=== PATIENT | female | born 1960 | race Caucasian/White ===

== ENCOUNTER → 2017-08-18 15:53 | Outpatient (CLI) | payer BC, SELFPAY ==
--- NOTE | 2017-08-18 16:00 | MM_ITS ---
MM Dig screening mamm BI w/CAD CAD Screening ORDERING PHYSICIAN : Primitivo De La Paz MD PATIENT AGE: 56 years GENDER: Female HISTORY. No hormones no new complaints. Family history unremarkable COMPARISON: Previous mammograms: JuneSeptember 2012, October 2013, January 2015. Period TECHNIQUE: Standard CC and MLO images were obtained. R2 CAD reviewed. FINDINGS: Lower density breast bilaterally with mild asymmetry. Prior films are helpful in confirming that the mild asymmetry is indeed stable. Slightly more evident fibroglandular elements throughout the superior left breast versus right. However this appearance is long-standing and stable dating back to at least 2012. IMPRESSION: ...... Stable breast nothing definitely acute. Stable mild asymmetry. Follow-up in one year recommended. BI-RADS Category: 2 Benign Finding(s) RECOMMENDED FOLLOW-UP: 1YR - 1 YEAR FOLLOW-UP (A letter has been sent to the patient regarding results of the study.)
== END ==
PROVIDERS: Family Provider Family Medicine; PCP Obstetrics & Gynecology; Visit Provider Obstetrics & Gynecology
DX: Z12.31 Encounter for screening mammogram for malignant neoplasm of breast (principal)
CPT/HCPCS: 77067

== ENCOUNTER → 2018-01-13 13:58 | Outpatient (CLI) | payer BC, SELFPAY ==
--- NOTE | 2018-01-13 14:02 | US_ITS ---
US breast RT complete INDICATION: Pain and burning in the upper medial breast ORDERING PHYSICIAN: Primitivo De La Paz MD PATIENT AGE: 57 years COMPARISON: 08/18/2017 TECHNIQUE: Ultrasound of breasts including axilla FINDINGS: No cystic or solid lesions evident. Small nodes are present in the axilla. IMPRESSION: Negative right breast ultrasound. Consider right mammogram for further evaluation of the right breast. BI-RADS Category 1 negative. Consider mammography for further evaluation of the right breast (A letter has been sent to the patient regarding results of the study.)
== END ==
PROVIDERS: PCP Family Medicine; Visit Provider Obstetrics & Gynecology
DX: R92.8 Other abnormal and inconclusive findings on diagnostic imaging of breast (principal)
CPT/HCPCS: 76641

== ENCOUNTER → 2018-04-06 07:15 | Outpatient (CLI) | payer BC, SELFPAY ==
[2018-04-06 07:57] LABS: Basophils % 0.5 % (0.1-2.0); Eosinophils # 0.3 K/mm3 (0.0-0.4); Eosinophils % 3.3 % (0.1-12.0); Hematocrit 41.7 % (37.0-47.0); Hemoglobin 13.5 g/dL (12.2-16.2); Lymphocytes # 2.4 K/mm3 (0.7-4.5); Lymphocytes % 31.3 % (10-50); Mean Corpuscular HGB Conc 32.3 g/dL (31.8-35.4); Mean Corpuscular Hemoglobin 31.7 pg (27.0-31.2); Mean Corpuscular Volume 98.4 fl (81-99); Mean Platelet Volume 6.9 fl (7.4-10.4); Monocytes # 0.2 K/mm3 (0.1-1.0); Monocytes % 3.2 % (1.7-9.3); Neutrophils # 4.7 K/mm3 (1.8-7.8); Neutrophils % 61.6 % (37.0-80.0); Platelet Count 310 K/mm3 (142-424); Red Blood Count 4.24 M/mm3 (4.20-5.40); Red Cell Distribution Width 13.3 % (11.5-17.5); White Blood Count 7.7 K/mm3 (4.8-10.8)
[2018-04-06 08:24] LABS: Alanine Aminotransferase 25 U/L (12-78); Albumin Level 3.5 gm/dL (3.4-5.0); Albumin/Globulin Ratio 1.1 (1.1-1.8); Alkaline Phosphatase 71 U/L (46-116); Anion Gap 12.1 mEq/L (5-15); Aspartate Amino Transferase 13 U/L (15-37); Bilirubin,Total 0.4 mg/dL (0.2-1.0); Blood Urea Nitrogen 14 mg/dL (7-18); Calcium 9.1 mg/dL (8.5-10.1); Carbon Dioxide 29 mmol/L (21.0-32.0); Chloride 104 mmol/L (98-107); Cholesterol 186 mg/dL (140-200); Creatinine,Serum 0.75 mg/dL (0.55-1.02); Estimated Glomerular Filt Rate 80 ml/min (>60); Free T4 (Free Thyroxine) 0.84 ng/dl (0.76-1.46); GFR (African American) 97 ML/MIN (>60); Globulin 3.2 gm/dl (1.3-3.2); Glucose 97 mg/dL (74-106); HDL Cholesterol 61 mg/dL (29-89); LDL Cholesterol 93 mg/dL (0-130); Potassium 5.1 mmoL/L (3.5-5.1); Sodium 140 mmol/L (136-145); Thyroid Stimulating Hormone 3.03 uIU/ml (0.358-3.740); Total Protein,Serum 6.7 gm/dL (6.4-8.2); Triglycerides 161 mg/dL (30-200); Uric Acid 4.7 mg/dL (2.6-7.2); VLDL Cholesterol 32 mg/dL (0-40)
[2018-04-07 13:41] LABS: Testosterone,Total 12 ng/dL (3-41); Vitamin B12 387 pg/mL (232-1245); Vitamin D 25 Hydroxy 41.7 ng/mL (30.0-100.0)
== END ==
PROVIDERS: Visit Provider Nurse Practitioner Family
DX: M79.10 Myalgia, unspecified site (principal); M10.9 Gout, unspecified; R37 Sexual dysfunction, unspecified; Z13.29 Encounter for screening for other suspected endocrine disorder; Z13.220 Encounter for screening for lipoid disorders
CPT/HCPCS: 36415; 80053; 80061; 82607; 82652; 84403; 84439; 84443; 84550; 85025

== ENCOUNTER → 2018-09-07 11:30 | Outpatient (CLI) | payer BC, SELFPAY ==
--- NOTE | 2018-09-07 11:42 | XR_ITS ---
EXAM: XR lumbar spine min 4V HISTORY: ITS.REASON: PARSTHESIA ORDERING PHYSICIAN: Harsha Boles MD PATIENT AGE: 57 years COMPARISON: None FINDINGS: There is mild anterior subluxation of L5 on S1. The remainder of the alignment is normal. Bone density and vertebral body heights are normal. There is mild loss of disc space height at L2-3 and L3-4 and moderate loss of disc space height at L5-S1. There is narrowing of facet joint spaces bilaterally at L4-5 and L5-S1 with subchondral sclerosis at the facet joints bilaterally at L5-S1. There are right upper quadrant surgical clips suggesting cholecystectomy. There is a oval-shaped 12 mm density in right upper quadrant which could be medication in the distal stomach area. IMPRESSION: No acute process. Areas of degenerative disc disease more prominent at L5-S1. Subluxation of L5 on S1 is related to facet arthrosis which is also present at L4-5.
--- NOTE | 2018-09-07 11:42 | XR_ITS ---
EXAM: XR cervical spine 5V HISTORY: ITS.REASON: PARESTHESIA ORDERING PHYSICIAN: Harsha Boles MD PATIENT AGE: 57 years COMPARISON: None FINDINGS: There is very mild kyphotic angulation at C4-C6 levels. There is no acute fracture. The bone density and vertebral body heights are normal. There is severe loss of disc space height with small posterior and anterior spurs at C5-6 and C6-7. There is uncovertebral joint hypertrophy causing foraminal encroachment at least mild on the right at C5-6 and [id number] on the right at C6-7. The lower foraminal areas on the left side are not as well visualized because of patient positioning. IMPRESSION: No acute process. Degenerative disc disease at C5-6 and C6-7 with right-sided spondylosis.
== END ==
PROVIDERS: PCP Family Medicine; Visit Provider Family Medicine
DX: R20.2 Paresthesia of skin (principal)
CPT/HCPCS: 72050; 72110

== ENCOUNTER → 2018-12-07 12:27 | Outpatient (CLI) | payer BC, SELFPAY ==
--- NOTE | 2018-12-07 13:38 | MR_ITS ---
PROCEDURE: MR LUMBAR SPINE WO CON CLINICAL INDICATION: ACUTE MIDLINE LBP Low back pain worse on the left side COMPARISON: from 09/07/2018 from 09/07/2018 TECHNIQUE: Standard multiplanar multiecho sequences are performed without contrast. 3-D MIP and myelographic images are also rendered and reviewed FINDINGS: Spinal cord ends at the L1-L2 level. T11-T12: Mild degenerative disc disease. T12-L1: Unremarkable. L1-L2: Unremarkable. L2-L3: 2 mm retrolisthesis of L2 with mild disc desiccation. L3-L4: Unremarkable. L4-5: Mild facet ligamentum hypertrophy with mild right lateral recess narrowing. L5-S1: Degenerate disc disease with bulging disc and a medium-sized left paracentral disc protrusion impinging upon the left S1 nerve root and causing left lateral recess narrowing and left-sided foraminal narrowing. There is 4 mm anterolisthesis of L5 on S1 IMPRESSION: 1. Mild multilevel degenerative changes. Please see above for detailed description at each level. 2. Degenerate disc disease at L5-S1 with bulging disc and a medium-sized left paracentral disc protrusion impinging upon the left S1 nerve root and causing left lateral recess narrowing and left-sided foraminal narrowing. Dictated by: Shashi Mancuso MD 12/08/2018 10:37 Electronically signed by Shashi Mancuso MD in [place] 12/08/2018 10:37
== END ==
PROVIDERS: PCP Physician Assistant; Visit Provider Physician Assistant
DX: M54.5 Low back pain (principal)
CPT/HCPCS: 72148; 76376

== ENCOUNTER 2019-02-26 19:09 | Inpatient (IN) ==
--- NOTE | 2019-02-26 19:47 | Emergency Department Note ---
[facility] [place] Disposition Clinical Impression: Abdominal pain Qualifiers: Abdominal location: unspecified location Qualified Code(s): R10.9 - Unspecified abdominal pain Disposition: Still a Patient Condition on Discharge: Fair Referrals: Matt Arceo MD [Primary Care Provider] - Medical Decision Making - Jamel Inquiry Pt receiving controlled substance: No Jamle was queried for this patient: No Vital Signs: 02/26/19 19:10 02/26/19 19:20 02/26/19 19:51 Temperature 97.8 F 97.8 F 97.8 F Temperature Source Oral Oral Oral Pulse Rate [Right] 75 79 75 Respiratory Rate 20 20 20 Blood Pressure [Right Arm] 145/80 H 137/65 145/80 H Blood Pressure Mean [Right Arm] 101 89 101 Blood Pressure Source [Right Arm] Automatic Cuff Automatic Cuff Automatic Cuff Blood Pressure Position [Right Arm] Supine Sitting Supine 02 Sat by Pulse Oximetry 99 99 99 Oxygen Delivery Method Room Air Room Air Room Air 02/26/19 20:10 02/26/19 20:30 Temperature Temperature Source Pulse Rate [Right] 75 72 Respiratory Rate 20 20 Blood Pressure [Right Arm] 142/78 H 139/79 Blood Pressure Mean [Right Arm] 99 99 Blood Pressure Source [Right Arm] Automatic Cuff Automatic Cuff Blood Pressure Position [Right Arm] Supine Supine 02 Sat by Pulse Oximetry 99 99 Oxygen Delivery Method Room Air Room Air - Lab Data Lab Results 02/26/19 20:00: WBC 18.5 H, RBC 4.85, Hgb 15.2, Hct 47.6 H, MCV 98.3, MCH 31.3 H , MCHC 31.9, RDW 13.2, Plt Count 363, MPV 7.4, Neut % (Auto) 90.7 H, Lymph % (Auto) 6.7 L, [place] % (Auto) 1.9, Eos % (Auto) 0.5, Baso % (Auto) 0.2, Neut # (Auto) 16.8 H, Lymph # (Auto) 1.2, [place] # (Auto) 0.4, Eos # (Auto) 0.1, Baso # (Auto) 0.0, Total Counted 100, Neutrophils % (Manual) 84 H, Band Neutrophils % 9.0 H, Lymphocytes % (Manual) 6 L, Monocytes % (Manual) 1 L, Platelet Estimate Normal, RBC Morphology Bp, Hypochromasia 1+, Macrocytosis 1+ 02/26/19 20:00: Sodium 138, Potassium 4.1, Chloride 99, Carbon Dioxide 24, Anion Gap 19.1 H, BUN 24 H, Creatinine 1.00, Estimated Creat Clear 91, Estimated GFR 57 L, Est GFR ( Amer) 69, Glucose 142 H, Calcium 8.8, Total Bilirubin 0.6, AST 14 L, ALT 23, Alkaline Phosphatase 82, C-Reactive Protein 0.6, Total Protein 7.2, Albumin 3.7, Globulin 3.5 H, Albumin/Globulin Ratio 1.1, Amylase 312 H*, Lipase 91 Result diagrams: 02/26/19 20:00 02/26/19 20:00 Orders (Tests/Meds): ED MEDICATIONS Discontinued Medications Generic Name Dose Route Start Last Admin Trade Name Freq PRN Reason Stop Dose Admin Morphine Sulfate 4 mg 02/26/19 20:19 02/26/19 20:23 Morphine 4mg/Ml Syringe IV 02/26/19 20:20 4 mg ONCE ONE Administration Ondansetron HCl 4 mg 02/26/19 20:19 02/26/19 20:23 Zofran 4mg/2ml Vial IV 02/26/19 20:20 4 mg ONCE ONE Administration Sodium Chloride 1,000 ml 02/26/19 20:20 02/26/19 20:23 Sod Chlor 0.9% 1000ml Bag IV 02/26/19 20:21 1,000 ml BOLUS ONE Administration ORDERS Category Date Time Status CT abdomen pelvis w con Stat Cat Scan 02/26/19 20:12 Ordered Complete Blood Count Auto Diff Stat Lab 02/26/19 20:00 Results Erythrocyte Sedimentation Rate Stat Lab 02/26/19 20:00 Results Lactic Acid Stat Lab 02/26/19 20:39 Ordered Urinalysis and Microscopic Stat Lab 02/26/19 20:29 Received Blood Culture Stat Micro 02/26/19 20:40 Ordered 12-lead EKG Request [ECG Request by /Nse] Stat Y 02/26/19 20:12 Ordered Medical Decision Narrative: Patient was sitting in lobby in chair with family, as patient stood to walk into room, patient became pale in color, lips become pale and patient reported felt like she was going to "pass out" Patient assisted to Wheel Chair and patient transferred back to ED Called ED to speak with ER physician Dr William and he was with a patient, asked for charge nurse and they was also with a patient and Report was given to Malena DUBOIS and patient was transferred to ED to Room 10 [facility] [place] HPI - General Stated complaint: stomach cramps Time Seen by Provider: 02/26/19 19:41 Mode of Arrival: Ambulatory Source of Information: Patient Limitations: No Limitations Description of Symptoms (Recalled from Triage Doc. by RN): pt states she has been constipated for 3 weeks - History of Present Illness Provider Complaint: Patient stood up from seat in lobby to come to room and become pale, lips discolored and patient had near syncope and had to be assisted to . States that she has been having lower abdominal pain/discomfort for about 5 hours States that she has been having constipation on and off for 3 weeks and has had bowel movement earlier today that was hard, states had eppisode like this before when she was straining but she is just feeling cold all over and feels like she is going to "pass out". States that she is unable to stand straight at this time due to the discomfort, States that she thought she was an irritable bowel flare up states that she has been pale and clammy on and off all day today - Related Data Home Medications Medication Instructions Recorded Confirmed allopurinol 300 mg tablet 300 mg PO DAILY 01/04/18 02/26/19 calcium carbonate 500 mg (1,250 1 tab PO BID 01/04/18 05/09/18 mg)-vitamin D3 125 unit tablet escitalopram 10 mg tablet 10 mg PO DAILY 01/04/18 05/09/18 meloxicam 15 mg tablet 15 mg PO DAILY 01/04/18 05/09/18 montelukast 10 mg tablet 10 mg PO QPM 01/04/18 02/26/19 multivitamin tablet 1 tab PO DAILY 01/04/18 05/09/18 Estrogens, Conjugated [Premarin] 0.9 mg PO DAILY 05/09/18 05/09/18 Allergies Allergy/AdvReac Type Severity Reaction Status Date / Time No Known Allergies Allergy Verified 05/09/18 12:33 [facility] History - Hepatitis A Screen Attestation statement:: This patient has been screened for Hepatitis A risk factors. I have reviewed the patient's past medical history: Yes Medical History: Reports:: Asthma Denies:: Diabetes Mellitus Type 1, Diabetes Mellitus Type 2, Internal Pacemaker, Lung Disease, Seizures Other Medical History: Reports: Other Comment: Asthma, seasonal allergies, IBS (mother has colitis) Other Surgeries: Yes: Cholecystectomy, Hysterectomy-Partial, Tubal Ligation, Other. No: Pacemaker Amputation: No Fractures: No Comment: 1989- CHOLECYSTECTOMY. 1992- BTL. 1999- CARLINE, (NO BSO) APPY. 2002- TVT, A&P REPAIR,ER. 2009- HEART CATH @ [facility] - Social History Smoking Status: Never smoker Alcohol Intake: never Alcohol Intake Frequency:: other Substance Use Type: denies use Family Hx:: Diabetes, Cancer Comment: 3 'S. 1986- , MALE. 1988- , MALE. 1992- , FEMALE ROS Obtained: Yes All systems reviewed & no additional complaints, Yes Systems reviewed as appropriate & no additional complaints - Constitutional Constitutional: Reports lethargy, Reports weakness - Gastrointestinal Gastrointestingal: Reports: abdominal pain Comments: Reports pain/discomfort in lower abdomen for the last 5 hours and has been having constipation on and off for 3wks with history of irritable bowel Physical Exam - General General appearance: lethargic, other (Observed patient sitting in chair in lobby, as patient stood up to walk to room lips become pale and patient had difficulty standing/walking ) - Respiratory Respiratory exam: Present: normal lung sounds bilaterally. Absent: respiratory distress - Cardiovascular Cardiovascular exam: Present: regular rate. Absent: JVD - Neurological Exam Neurological exam: Present: alert, oriented X3
--- NOTE | 2019-02-26 20:08 | Emergency Department Note ---
ED Disposition Clinical Impression: Colon obstruction, Bilirubinuria Constipation Qualifiers: Constipation type: unspecified constipation type Qualified Code(s): K59.00 - Constipation, unspecified Leukocytosis Qualifiers: Leukocytosis type: unspecified Qualified Code(s): D72.829 - Elevated white blood cell count, unspecified Disposition: Admitted as Observation Condition on Discharge: Fair - Critical Care Critical Care Time: No Attestation: On 02/26/19, the high probability of a clinically significant, sudden or life threatening deterioration of the following system(s) required my full and direct attention, intervention and personal management. The time I documented below is in addition to time spent performing reported procedures but includes the following listed in this critical care notation. Medical Decision Making - Jamel Inquiry Pt receiving controlled substance: Yes Jamel was queried for this patient: No Reason not queried -: Emergent pt cond-no time Risks and benefits of using a controlled substance: were not discussed with pt by me Vital Signs: 02/26/19 19:10 02/26/19 19:20 02/26/19 19:51 Temperature 97.8 F 97.8 F 97.8 F Temperature Source Oral Oral Oral Pulse Rate Pulse Rate [Right] 75 79 75 Respiratory Rate 20 20 20 Blood Pressure Blood Pressure [Right Arm] 145/80 H 137/65 145/80 H Blood Pressure Mean [Right Arm] 101 89 101 Blood Pressure Source Blood Pressure Source [Right Arm] Automatic Cuff Automatic Cuff Automatic Cuff Blood Pressure Position Blood Pressure Position [Right Arm] Supine Sitting Supine 02 Sat by Pulse Oximetry 99 99 99 Oxygen Delivery Method Room Air Room Air Room Air 02/26/19 20:10 02/26/19 20:30 02/26/19 23:26 Temperature 97.8 F Temperature Source Oral Pulse Rate 72 Pulse Rate [Right] 75 72 Respiratory Rate 20 20 20 Blood Pressure 139/79 Blood Pressure [Right Arm] 142/78 H 139/79 Blood Pressure Mean [Right Arm] 99 99 Blood Pressure Source Automatic Cuff Blood Pressure Source [Right Arm] Automatic Cuff Automatic Cuff Blood Pressure Position Sitting Blood Pressure Position [Right Arm] Supine Supine 02 Sat by Pulse Oximetry 99 99 Oxygen Delivery Method Room Air Room Air Room Air - Lab Data Lab Results 02/26/19 20:00: WBC 18.5 H, RBC 4.85, Hgb 15.2, Hct 47.6 H, MCV 98.3, MCH 31.3 H , MCHC 31.9, RDW 13.2, Plt Count 363, MPV 7.4, Neut % (Auto) 90.7 H, Lymph % (Auto) 6.7 L, Cole % (Auto) 1.9, Eos % (Auto) 0.5, Baso % (Auto) 0.2, Neut # (Auto) 16.8 H, Lymph # (Auto) 1.2, Cole # (Auto) 0.4, Eos # (Auto) 0.1, Baso # (Auto) 0.0, Total Counted 100, Neutrophils % (Manual) 84 H, Band Neutrophils % 9.0 H, Lymphocytes % (Manual) 6 L, Monocytes % (Manual) 1 L, Platelet Estimate Normal, RBC Morphology Bp, Hypochromasia 1+, Macrocytosis 1+, ESR 4 02/26/19 20:00: Sodium 138, Potassium 4.1, Chloride 99, Carbon Dioxide 24, Anion Gap 19.1 H, BUN 24 H, Creatinine 1.00, Estimated Creat Clear 91, Estimated GFR 57 L, Est GFR ( Amer) 69, Glucose 142 H, Calcium 8.8, Total Bilirubin 0.6, AST 14 L, ALT 23, Alkaline Phosphatase 82, C-Reactive Protein 0.6, Total Protein 7.2, Albumin 3.7, Globulin 3.5 H, Albumin/Globulin Ratio 1.1, Amylase 312 H*, Lipase 91 02/26/19 20:00: Lactate 2.4 H 02/26/19 20:29: Urine Color Brown, Urine Appearance Clear, Urine pH 5.0, Ur Specific [place] >= 1.030, Urine Protein Negative, Urine Glucose (UA) Negative, Urine Ketones 1+, Urine Blood Negative, Urine Nitrate Positive, Urine Bilirubin 2+ A, Urine Urobilinogen 1.0, Ur Leukocyte Esterase Negative, Ur Squamous Epith Cells 10-20, Uric Acid Crystals 4+ 02/26/19 21:21: Stl Aeromonas (PCR) Not detected, Stl C. cayetanensis PCR Not detected, Stool Rotavirus (PCR) Not detected, Stl Adenov F 40/41 PCR Not detected, Stool Astrovirus (PCR) Not detected, Stool Campylobacter PCR Not detected, Stl C.difficile Tox PCR Not detected, Stool Cryptosporidium PCR Not detected, Stl E.coli Shiga Tox PCR Not detected, Stool E coli O157 PCR Not detected, Stl Enterotoxigenic E PCR Not detected, Stool EPEC (PCR) Not detected, Stool EAEC (PCR) Not detected, Stl E. histolytica PCR Not detected, Stool Giardia Lamblia PCR Not detected, Stool Salmonella PCR Not detected, Stool Sapovirus (PCR) Not detected, Stl P. shigelloides PCR Not detected, Stl Shigella/EIEC PCR Not detected, St Y.enterocolitica PCR Not detected, Stool Vibrio (PCR) Not detected, Stl Vibrio cholerae PCR Not detected, Stl Norovirus GI/GII PCR Not detected Result diagrams: 02/26/19 20:00 02/26/19 20:00 Orders (Tests/Meds): ED MEDICATIONS Generic Name Dose Route Start Last Admin Trade Name Freq PRN Reason Stop Dose Admin Allopurinol 300 mg 02/27/19 09:00 Allopurinol 300mg Tablet PO 03/29/19 08:59 DAILY RAMON Sodium Chloride 1,000 mls @ 100 mls/hr 02/26/19 23:24 Sod Chlor 0.9% 1000ml Bag IV 03/28/19 22:29 .Q10H RAMON Ceftriaxone Sodium 1 gm/ 50 mls @ 100 mls/hr 02/26/19 23:24 02/27/19 00:09 Sodium Chloride IV 03/12/19 23:23 100 mls/hr Q24H [facility] Administration Protocol Montelukast Sodium 10 mg 02/26/19 23:24 Singulair 10mg Tablet PO 03/28/19 23:23 QPM RAMON Morphine Sulfate 4 mg 02/26/19 23:24 Morphine 2mg/Ml Syringe IV 03/28/19 23:23 Q4HP PRN Severe Pain Non-Formulary Medication 10 mg 02/27/19 09:00 Escitalopram Oxalate PO 03/29/19 08:59 DAILY RAMON Ondansetron HCl 4 mg 02/26/19 23:24 Zofran 4mg/2ml Vial IV 03/28/19 23:23 Q8HP PRN Nausea Discontinued Medications Generic Name Dose Route Start Last Admin Trade Name Freq PRN Reason Stop Dose Admin Sodium Chloride 1,000 mls @ 100 mls/hr 02/26/19 22:30 02/26/19 22:32 Sod Chlor 0.9% 1000ml Bag IV 03/28/19 22:29 100 mls/hr .Q10H RAMON Administration Morphine Sulfate 4 mg 02/26/19 20:19 02/26/19 20:23 Morphine 4mg/Ml Syringe IV 02/26/19 20:20 4 mg ONCE ONE Administration Ondansetron HCl 4 mg 02/26/19 20:19 02/26/19 20:23 Zofran 4mg/2ml Vial IV 02/26/19 20:20 4 mg ONCE ONE Administration Sodium Chloride 1,000 ml 02/26/19 20:20 02/26/19 20:23 Sod Chlor 0.9% 1000ml Bag IV 02/26/19 20:21 1,000 ml BOLUS ONE Administration ORDERS Category Date Time Status Consult to General Surgery [CONS] Stat Cons 02/26/19 23:24 Ordered Basic Metabolic Panel [facility] Lab 02/27/19 06:00 Ordered Complete Blood Count Auto Diff [facility] Lab 02/27/19 06:00 Ordered Blood Culture Stat Micro 02/26/19 20:40 Received 12-lead EKG Request [ECG Request by /Rajat] Stat Y 02/26/19 20:12 Stop Req - CT Data CT Scan: Abdomen, Pelvis Time Received: 22:[address] Reviewed: Yes: I have viewed the radiologist's interpretation Findings Narrative: IMPRESSION: Unusual pattern which may reflect distal large bowel obstruction: Prominent stool and liquid stool dilated colon up to the rectosigmoid junction with rather abrupt transition at this point and relatively empty rectum.--this area will eventually require further evaluation with colonoscopy . Empty rectum but, with then with focal solid stool collection at rectosigmoid junction. Then proximal to this point, there is progressive Colonic Distention due to progressive increasing semi-solid, and liquid stool throughout the colon along with gas distending the large bowel.. Semi-solid stool with air-fluid levels throughout the colon. Most pronounced dilatation right colon. The distended cecum resides to the left of midline measures up to 10 cm diameter. Small bowel relatively unremarkable with only minor dilatation proximal most small bowel. Terminal ileum unremarkable . No free fluid. No free air. No focal inflammation Dictated by: Jean Claude Tapia MD 02/26/2019 21:48 Electronically signed by Jean Claude Tapia MD in [place] 02/26/2019 21:52 - ECG Data Tracing #1 EKG interpreted by Silas Koehler MD: Rhythm: sinus Rate: 74 [place]: normal Ectopy: none Conduction: normal ST Segment Changes: none T Wave Changes: none Q Waves: none No evidence of acute ischemia or injury Normal electrocardiogram - Physician Consults Physician Consulted: Ramana cooper Marielos Time: 22:30 Reason -: Pt condition Comment/Response: Will call him back after surgery consult Additional Consult: Emilia Time: 22:39 Reason -: Surgical Eval/Care Comment/Response: Recommends admission, bowel prep tomorrow for colonoscopy. Additional Consult: Ramana Time: 23:12 Reason -: Admission Comment/Response: Agrees to admit the patient to the hospital. We discussed the patient's clinical information, including history, exam, laboratory and radiology results and ED course. Per hospital procedure, I will write temporary bridge inpatient orders on the patient. Specific orders requested by the admitting physician: Requests Rocephin - Reevaluation(s) Time: 22:35 Reevaluation #1: The patient went to the bathroom and had a large semisolid stool. She feels improved afterwards. General Adult HPI - General Chief complaint: Abdominal Pain Stated complaint: stomach cramps Time Seen by Provider: 02/26/19 19:41 Mode of Arrival: Ambulatory Source of Information: Patient Limitations: No Limitations Description of Symptoms (Recalled from ER Triage Doc. by RN): pt states she has been constipated for 3 weeks - History of Present Illness HPI narrative: Complains of intermittent severe left lower quadrant pain starting at 2 PM today. Gets hot flashes, sweats, and nausea. Feels like she needs to have a bowel movement, but cannot. Feels constipated for the past 3 weeks, says she is only having small firm "balls" for bowel movements. She had a bowel movement at 4 PM, same type. Denies urinary symptoms. States symptoms felt similar to previous episodes of irritable bowel syndrome, but those usually will resolve within about 3 hours and this has not. Also, her pain with IBS is usually generalized cramps and this is focal left lower quadrant. Seen in the urgent treatment center and sent to the emergency room. Prior partial hysterectomy, c holecystectomy, bladder tack. She has some sort of unspecified arthritis. Sees a petal cutter. Has previously been told that she has gout and rheumatoid arthritis, but her current petal cutter says she has neither, but has some sort of unspecified autoimmune process. She is currently on muscle relaxers and prednisone since for problems with her neck. - Related Data Home Medications Medication Instructions Recorded Confirmed allopurinol 300 mg tablet 300 mg PO HS 01/04/18 02/27/19 calcium carbonate 500 mg (1,250 1 tab PO BID 01/04/18 02/27/19 mg)-vitamin D3 125 unit tablet escitalopram 10 mg tablet 10 mg PO DAILY 01/04/18 02/27/19 montelukast 10 mg tablet 10 mg PO HS 01/04/18 02/27/19 Estrogens, Conjugated [Premarin] 0.9 mg PO DAILY 05/09/18 02/27/19 Duloxetine HCl 120 mg PO DAILY 02/27/19 02/27/19 Gabapentin [Gabapentin 300mg Cap] 300 mg PO HS 02/27/19 02/27/19 Sulindac 150 mg PO Q12H 02/27/19 02/27/19 Allergies Allergy/AdvReac Type Severity Reaction Status Date / Time No Known Allergies Allergy Verified 05/09/18 12:33 [facility] History - Hepatitis A Screen Drug use history?: No High risk sexual behaviors?: No History of sexually transmitted infection?: No Currently employed?: No Childcare worker?: No Do you have indoor plumbing?: Yes Do you have electricity?: Yes Attestation statement:: This patient has been screened for Hepatitis A risk factors. I have reviewed the patient's past medical history: Yes Medical History: Reports:: Asthma Denies:: Diabetes Mellitus Type 1, Diabetes Mellitus Type 2, Internal Pacemaker, Lung Disease, Seizures Other Medical History: Reports: Other Comment: Asthma, seasonal allergies, IBS (mother has colitis) Other Surgeries: Yes: Cholecystectomy, Hysterectomy-Partial, Tubal Ligation, Other. No: Pacemaker Amputation: No Fractures: No Comment: 1989- CHOLECYSTECTOMY. 1992- BTL. 1999- CARLINE, (NO BSO) APPY. 2002- TVT, A&P REPAIR,ER. 2009- HEART CATH @ [facility] - Social History Smoking Status: Never smoker Alcohol Intake: never Alcohol Intake Frequency:: other Substance Use Type: denies use Family Hx:: Diabetes, Cancer Comment: 3 'S. 1986- , MALE. 1988- , MALE. 1992- , FEMALE ROS Obtained: Yes All systems reviewed & no additional complaints - Constitutional Constitutional: Reports excessive sweating - Gastrointestinal Gastrointestingal: Reports: abdominal pain, constipation, nausea. Denies: diarrhea - Genitourinary Female Genitourinary: Denies difficulty voiding Physical Exam - General General appearance: alert, in distress (Pain) - Head Head exam: atraumatic, normocephalic - Eye Eye exam: Present: normal appearance, EOMI - ENT ENT exam: Present: mucous membranes dry - Neck Neck exam: Present: normal inspection, trachea midline - Chest Chest inspection: Present: normal inspection, symmetric chest wall rise - Respiratory Respiratory exam: Present: normal lung sounds bilaterally. Absent: respiratory distress - Cardiovascular Cardiovascular exam: Present: regular rate, normal rhythm, systolic murmur - Abdominal Exam Abdominal exam: Present: soft, tenderness, normal bowel sounds. Absent: distention, guarding, rigidity Abdominal tenderness: Present: LLQ - Extremities Exam Extremities exam: Present: normal inspection - Neurological Exam Neurological exam: Present: alert, oriented X3 - Psychiatric Psychiatric exam: Present: anxious - Skin Skin exam: Present: pallor
[2019-02-26 20:20] LABS: Basophils % 0.2 % (0.1-2.0); Eosinophils # 0.1 K/mm3 (0.0-0.4); Eosinophils % 0.5 % (0.1-12.0); Hematocrit 47.6 % (37.0-47.0); Hemoglobin 15.2 g/dL (12.2-16.2); Lymphocytes # 1.2 K/mm3 (0.7-4.5); Lymphocytes % 6.7 % (10-50); Mean Corpuscular HGB Conc 31.9 g/dL (31.8-35.4); Mean Corpuscular Volume 98.3 fl (81-99); Mean Platelet Volume 7.4 fl (7.4-10.4); Monocytes # 0.4 K/mm3 (0.1-1.0); Monocytes % 1.9 % (1.7-9.3); Neutrophils # 16.8 K/mm3 (1.8-7.8); Neutrophils % 90.7 % (37.0-80.0); Platelet Count 363 K/mm3 (142-424); Red Blood Count 4.85 M/mm3 (4.20-5.40); Red Cell Distribution Width 13.2 % (11.5-17.5); White Blood Count 18.5 K/mm3 (4.8-10.8)
[2019-02-26 20:30] LABS: Lymphocytes % 6 % (10-50); Monocytes % 1 % (2-9); Neutrophils % 84 % (42-76); RBC Morphology BP; Total Cells Counted 100
[2019-02-26 20:31] LABS: Albumin Level 3.7 gm/dL (3.4-5.0); Albumin/Globulin Ratio 1.1 (1.1-1.8); Anion Gap 19.1 mEq/L (5-15); Bilirubin,Total 0.6 mg/dL (0.2-1.0); C-Reactive Protein 0.6 mg/dL (0.0-0.9); Calcium 8.8 mg/dL (8.5-10.1); Globulin 3.5 gm/dl (1.3-3.2); Hypochromasia 1+; Macrocytosis 1+; Total Protein,Serum 7.2 gm/dL (6.4-8.2)
[2019-02-26 20:40] LABS: Microscopic, Urine URINE MICROSCOPIC (MICROSCOPIC)
[2019-02-26 20:46] LABS: Erythrocyte Sedimentation Rate 4 mm/hr (0-30)
[2019-02-26 20:54] LABS: Appearance,Urine CLEAR (Clear); Blood, Urine Negative (Negative); Color,Urine BROWN (Yellow); Glucose,Urine (UA) Negative (Negative); Ketones,Urine 1+ (Negative); Leukocyte Esterase,Urine Negative (Negative); Protein,Urine Negative (Negative); Specific Gravity, Urine >= 1.030 (1.005-1.030)
[2019-02-26 20:55] LABS: Bilirubin,Urine 2+ (Negative)
[2019-02-26 20:56] LABS: Uric Acid Crystals,Urine 4+ /lpf
--- NOTE | 2019-02-27 07:19 | Pharmacy Consult Notes ---
[facility] Pharmacy VTE Monitoring - Patient Demographics Admission date: 02/26/19 Report Date: 02/27/19 Time: 07:19 Allergies/Adverse Reactions: Patient Allergies No Known Allergies Allergy (Verified 05/09/18 12:33) Height: 1.65 m Weight: 96.162 kg Patient Problems: Current Active Problems Colon obstruction (Acute) Constipation (Acute) Leukocytosis (Acute) Bilirubinuria (Acute) - VTE Risk Labs: VTE Related Lab Results Hgb 15.2 g/dL (12.2-16.2) 02/26/19 20:00 Hct 47.6 % (37.0-47.0) H 02/26/19 20:00 Plt Count 363 K/mm3 (142-424) 02/26/19 20:00 BUN 24 mg/dL (7-18) H 02/26/19 20:00 Creatinine 1.00 mg/dL (0.55-1.02) 02/26/19 20:00 Estimated Creat Clear 91 mL/min (50-200) 02/26/19 20:00 Was VTE Risk Assessment Performed: Yes VTE Score: 4 VTE Risk Level: Low Risk - Prophylaxis VTE Prophylaxis Ordered?: Yes Types of VTE Prophylaxis: TEDS Knee High Location of Applied Device: Bilateral Lower Extremeties - VTE Diagnosis Confirmed Treatment or plan recommended: Continue Current Treatment
[2019-02-27 07:21] LABS: Red Blood Count 4.22 M/mm3 (4.20-5.40); Red Cell Distribution Width 13.3 % (11.5-17.5)
[2019-02-27 07:31] LABS: Basophils # 0.1 K/mm3 (0-0.2); Basophils % 0.3 % (0.1-2.0); Eosinophils # 0.1 K/mm3 (0.0-0.4); Eosinophils % 0.6 % (0.1-12.0); Hematocrit 41.2 % (37.0-47.0); Lymphocytes % 5.5 % (10-50); Mean Corpuscular HGB Conc 32.9 g/dL (31.8-35.4); Mean Corpuscular Volume 97.7 fl (81-99); Mean Platelet Volume 8.2 fl (7.4-10.4); Monocytes # 0.6 K/mm3 (0.1-1.0); Monocytes % 3.4 % (1.7-9.3); Neutrophils # 16.5 K/mm3 (1.8-7.8); Neutrophils % 90.2 % (37.0-80.0); Platelet Count 349 K/mm3 (142-424); White Blood Count 18.3 K/mm3 (4.8-10.8)
[2019-02-27 07:32] LABS: Hemoglobin 13.6 g/dL (12.2-16.2)
[2019-02-27 07:38] LABS: Anion Gap 15.3 mEq/L (5-15)
[2019-02-27 07:45] LABS: Calcium 7.6 mg/dL (8.5-10.1)
--- NOTE | 2019-02-27 08:21 | History & Physical Report ---
*Admission Date: 02/26/19 <Anitra Carson - 02/27/19 08:21> *Chief complaint: Abdominal pain and constipation <Anitra Carson - 02/27/19 08:21> *History of present illness: Ms. Lee is a 58-year-old female with a history of asthma, allergic rhinitis, depression, irritable bowel syndrome and arthritis who presented to urgent care center yesterday after experiencing severe abdominal cramping while at [id number]. She became cold clammy and appeared to be near passing out and t hus she was taken to the emergency room for evaluation. She states this happens when she has her cramping episodes with her irritable bowel. With evaluation in the emergency room she had a CT of the abdomen which revealed the following: IMPRESSION: Unusual pattern which may reflect distal large bowel obstruction: Prominent stool and liquid stool dilated colon up to the rectosigmoid junction with rather abrupt transition at this point and relatively empty rectum.--this area will eventually require further evaluation with colonoscopy . Empty rectum but, with then with focal solid stool collection at rectosigmoid junction. Then proximal to this point, there is progressive Colonic Distention due to progressive increasing semi-solid, and liquid stool throughout the colon along with gas distending the large bowel.. Semi-solid stool with air-fluid levels throughout the colon. Most pronounced dilatation right colon. The distended cecum resides to the left of midline measures up to 10 cm diameter. Small bowel relatively unremarkable with only minor dilatation proximal most small bowel. Terminal ileum unremarkable . No free fluid. No free air. No focal inflammation White Blood cell count was found to be 18.5; amylase elevated at 312; and lactate elevated at 2.4 . Stool studies were negative She received IV morphine and Zofran. She was started on Rocephin and given IVF bolus and continued on normal saline at 100 an hour. She was then admitted for further evaluation and treatment with the surgical consult Patient states that she has had difficulty with her bowels for the past 3 weeks and had only hard balls of stool. Regulating her bowels by taking apple cider in the morning and a probiotic at night. She has not had any recent problems. She did colonoscopy in April 2018 and had 2 polyps removed. She does have a positive family history for colon cancer in her grandfather. This a.m. patient is feeling much better. She stated she passed a large amount of stool while in the emergency room and has had 2 liquid stools since being on the floor. She continues to be nauseated. The cramping has subsided and now her abdomen is just sore. She has not vomited. <YamilethAnitra 02/27/19 08:43> [facility] History Medical History: Reports:: Asthma, Depression Denies:: Cancer, Diabetes Mellitus Type 1, Diabetes Mellitus Type 2, Gastrointestinal Bleed, Internal Pacemaker, Lung Disease, Kidney Stones, MRSA, Seizures <Anitra Carson 02/27/19 08:43> *Have you ever received a pneumonia vaccine?: No (Would like) <Anitra Carson 02/27/19 08:21> *Have you received a flu vaccine this season?: No (Would like) <Anitra Carson 02/27/19 08:21> Other Medical History: Reports: Arthritis, Other <Anitra Carson 02/27/19 08:43> Comment:: Irritable bowel syndrome <Anitra Carson 02/27/19 08:43> Laterality Cases: Left: ACL Repair <Anitra Carson 02/27/19 08:21> Other Surgeries: Yes: Cardiac Catheterization, Cholecystectomy, Colonoscopy, Hysterectomy-Partial, Tubal Ligation, Other. 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) <Anitra Carson 02/27/19 08:43> Housing: house <Anitra Carson 02/27/19 08:21> Household Members: spouse <Anitra Carson 02/27/19 08:21> *Travel in the last 8 weeks: None <Anitra Carson 02/27/19 08:21> Family Hx:: Cancer (Grandfather had colon cancer), Coronary Artery Disease, Thyroid Disorder <Anitra Carson 02/27/19 08:43> Review of Systems - Constitutional Reports headache(s), Denies fever(s) <Anitra Carson 02/27/19 08:43> - Eyes Denies change in vision <Anitra Carson 02/27/19 08:43> - ENT Reports dizziness, Denies ear pain, Denies headache(s), Denies sore throat <Anitra Carson 02/27/19 08:43> - *Cardiovascular Reports shortness of breath, Denies chest pain, Denies leg swelling <Anitra Carson 02/27/19 08:43> - *Respiratory Reports shortness of breath, Denies chest congestion, Denies cough, Denies coughing up blood <Anitra Carson 02/27/19 08:43> - *Gastrointestinal Reports abdominal pain, Reports bloating, Reports change in bowel habits, Reports constipation, Reports cramping, Reports loose stools, Reports loose s tools, Reports nausea, Reports vomiting, Denies vomiting blood, Denies bright, red blood in stools, Denies black, tarry stools <Anitra Carson 02/27/19 08:43> - *Musculoskeletal Reports joint swelling (biLateral foot pain) <Anitra Carson 02/27/19 08:43> - *Neurologic Reports weakness, Denies abnormal walking, Denies headache(s) <Anitra Carson 02/27/19 08:43> Meds Home Medications Medication Instructions Recorded Confirmed Type allopurinol 300 mg tablet 300 mg PO HS 01/04/18 02/27/19 History calcium carbonate 500 mg (1,250 500 mg PO BID 01/04/18 02/27/19 History mg)-vitamin D3 125 unit tablet montelukast 10 mg tablet 10 mg PO HS 01/04/18 02/27/19 History Estrogens, Conjugated [Premarin] 0.9 mg PO DAILY 05/09/18 02/27/19 History Cyclobenzaprine HCl 5 mg PO TIDP PRN 02/27/19 02/27/19 History [Cyclobenzaprine 5mg Tab] Duloxetine HCl 120 mg PO DAILY 02/27/19 02/27/19 History Gabapentin [Gabapentin 300mg Cap] 300 mg PO HS 02/27/19 02/27/19 History Sulindac 150 mg PO Q12H 02/27/19 02/27/19 History <Matt Arceo - 02/27/19 21:38> Allergies Allergy/AdvReac Type Severity Reaction Status Date / Time No Known Allergies Allergy Verified 05/09/18 12:33 <Matt Arceo - 02/27/19 21:38> Exam Vital signs and Labs for Last 24 Hours: Temp Pulse Resp BP Pulse Ox 98.9 F 87 20 123/63 97 02/27/19 16:00 02/27/19 16:00 02/27/19 16:00 02/27/19 16:00 02/27/19 16:00 Laboratory Results - last 24 hr 02/26/19 20:00: WBC 18.5 H, RBC 4.85, Hgb 15.2, Hct 47.6 H, MCV 98.3, MCH 31.3 H , MCHC 31.9, RDW 13.2, Plt Count 363, MPV 7.4, Neut % (Auto) 90.7 H, Lymph % (Auto) 6.7 L, [place] % (Auto) 1.9, Eos % (Auto) 0.5, Baso % (Auto) 0.2, Neut # (Auto) 16.8 H, Lymph # (Auto) 1.2, [place] # (Auto) 0.4, Eos # (Auto) 0.1, Baso # (Auto) 0.0, Total Counted 100, Neutrophils % (Manual) 84 H, Band Neutrophils % 9.0 H, Lymphocytes % (Manual) 6 L, Monocytes % (Manual) 1 L, Platelet Estimate Normal, RBC Morphology Bp, Hypochromasia 1+, Macrocytosis 1+, ESR 4 02/26/19 20:00: Sodium 138, Potassium 4.1, Chloride 99, Carbon Dioxide 24, Anion Gap 19.1 H, BUN 24 H, Creatinine 1.00, Estimated Creat Clear 91, Estimated GFR 57 L, Est GFR ( Amer) 69, Glucose 142 H, Calcium 8.8, Total Bilirubin 0.6, AST 14 L, ALT 23, Alkaline Phosphatase 82, C-Reactive Protein 0.6, Total Protein 7.2, Albumin 3.7, Globulin 3.5 H, Albumin/Globulin Ratio 1.1, Amylase 312 H*, Lipase 91 02/26/19 20:00: Lactate 2.4 H 02/26/19 20:29: Urine Color Brown, Urine Appearance Clear, Urine pH 5.0, Ur Specific Driver >= 1.030, Urine Protein Negative, Urine Glucose (UA) Negative, Urine Ketones 1+, Urine Blood Negative, Urine Nitrate Positive, Urine Bilirubin 2+ A, Urine Urobilinogen 1.0, Ur Leukocyte Esterase Negative, Ur Squamous Epith Cells 10-20, Uric Acid Crystals 4+ 02/26/19 21:21: Stl Aeromonas (PCR) Not detected, Stl C. cayetanensis PCR Not detected, Stool Rotavirus (PCR) Not detected, Stl Adenov F 40/41 PCR Not detected, Stool Astrovirus (PCR) Not detected, Stool Campylobacter PCR Not detected, Stl C.difficile Tox PCR Not detected, Stool Cryptosporidium PCR Not detected, Stl E.coli Shiga Tox PCR Not detected, Stool E coli O157 PCR Not detected, Stl Enterotoxigenic E PCR Not detected, Stool EPEC (PCR) Not detected, Stool EAEC (PCR) Not detected, Stl E. histolytica PCR Not detected, Stool Giardia Lamblia PCR Not detected, Stool Salmonella PCR Not detected, Stool Sapovirus (PCR) Not detected, Stl P. shigelloides PCR Not detected, Stl Shigella/EIEC PCR Not detected, St Y.enterocolitica PCR Not detected, Stool Vibrio (PCR) Not detected, Stl Vibrio cholerae PCR Not detected, Stl Norovirus GI/GII PCR Not detected 02/26/19 23:59: Lactate 2.3 H 02/27/19 02:01: Lactate 1.5 02/27/19 06:40: WBC 18.3 H, RBC 4.22, Hgb 13.6 D, Hct 41.2, MCV 97.7, MCH 32.1 H, MCHC 32.9, RDW 13.3, Plt Count 349, MPV 8.2, Neut % (Auto) 90.2 H, Lymph % (Auto) 5.5 L, [place] % (Auto) 3.4, Eos % (Auto) 0.6, Baso % (Auto) 0.3, Neut # (Auto) 16.5 H, Lymph # (Auto) 1.0, [place] # (Auto) 0.6, Eos # (Auto) 0.1, Baso # (Auto) 0.1, Total Counted 100, Neutrophils % (Manual) 91 H, Lymphocytes % (Manual) 6 L, Monocytes % (Manual) 3, Platelet Estimate Normal, RBC Morphology Normal 02/27/19 06:40: Sodium 138, Potassium 4.3, Chloride 104, Carbon Dioxide 23, Anion Gap 15.3 H, BUN 21 H, Creatinine 0.66 D, Estimated Creat Clear 143, Estimated GFR 92, Est GFR ( Amer) 112 D, Glucose 116 H, Calcium 7.6 L D <Matt Arceo - 02/27/19 21:38> Temp Pulse Resp BP Pulse Ox 97.9 F 84 16 126/76 94 L 02/27/19 03:28 02/27/19 03:28 02/27/19 03:28 02/27/19 03:28 02/27/19 03:28 Laboratory Results - last 24 hr 02/26/19 20:00: WBC 18.5 H, RBC 4.85, Hgb 15.2, Hct 47.6 H, MCV 98.3, MCH 31.3 H , MCHC 31.9, RDW 13.2, Plt Count 363, MPV 7.4, Neut % (Auto) 90.7 H, Lymph % (Auto) 6.7 L, [place] % (Auto) 1.9, Eos % (Auto) 0.5, Baso % (Auto) 0.2, Neut # (Auto) 16.8 H, Lymph # (Auto) 1.2, [place] # (Auto) 0.4, Eos # (Auto) 0.1, Baso # (Auto) 0.0, Total Counted 100, Neutrophils % (Manual) 84 H, Band Neutrophils % 9.0 H, Lymphocytes % (Manual) 6 L, Monocytes % (Manual) 1 L, Platelet Estimate Normal, RBC Morphology Bp, Hypochromasia 1+, Macrocytosis 1+, ESR 4 02/26/19 20:00: Sodium 138, Potassium 4.1, Chloride 99, Carbon Dioxide 24, Anion Gap 19.1 H, BUN 24 H, Creatinine 1.00, Estimated Creat Clear 91, Estimated GFR 57 L, Est GFR ( Amer) 69, Glucose 142 H, Calcium 8.8, Total Bilirubin 0.6, AST 14 L, ALT 23, Alkaline Phosphatase 82, C-Reactive Protein 0.6, Total Protein 7.2, Albumin 3.7, Globulin 3.5 H, Albumin/Globulin Ratio 1.1, Amylase 312 H*, Lipase 91 02/26/19 20:00: Lactate 2.4 H 02/26/19 20:29: Urine Color Brown, Urine Appearance Clear, Urine pH 5.0, Ur Specific Driver >= 1.030, Urine Protein Negative, Urine Glucose (UA) Negative, Urine Ketones 1+, Urine Blood Negative, Urine Nitrate Positive, Urine Bilirubin 2+ A, Urine Urobilinogen 1.0, Ur Leukocyte Esterase Negative, Ur Squamous Epith Cells 10-20, Uric Acid Crystals 4+ 02/26/19 21:21: Stl Aeromonas (PCR) Not detected, Stl C. cayetanensis PCR Not detected, Stool Rotavirus (PCR) Not detected, Stl Adenov F 40/41 PCR Not detected, Stool Astrovirus (PCR) Not detected, Stool Campylobacter PCR Not det ected, Stl C.difficile Tox PCR Not detected, Stool Cryptosporidium PCR Not detected, Stl E.coli Shiga Tox PCR Not detected, Stool E coli O157 PCR Not detected, Stl Enterotoxigenic E PCR Not detected, Stool EPEC (PCR) Not detected, Stool EAEC (PCR) Not detected, Stl E. histolytica PCR Not detected, Stool Giardia Lamblia PCR Not detected, Stool Salmonella PCR Not detected, Stool Sapovirus (PCR) Not detected, Stl P. shigelloides PCR Not detected, Stl Shigella/EIEC PCR Not detected, St Y.enterocolitica PCR Not detected, Stool Vibrio (PCR) Not detected, Stl Vibrio cholerae PCR Not detected, Stl Norovirus GI/GII PCR Not detected 02/26/19 23:59: Lactate 2.3 H 02/27/19 02:01: Lactate 1.5 02/27/19 06:40: WBC 18.3 H, RBC 4.22, Hgb 13.6 D, Hct 41.2, MCV 97.7, MCH 32.1 H, MCHC 32.9, RDW 13.3, Plt Count 349, MPV 8.2, Neut % (Auto) 90.2 H, Lymph % (Auto) 5.5 L, [place] % (Auto) 3.4, Eos % (Auto) 0.6, Baso % (Auto) 0.3, Neut # (Auto) 16.5 H, Lymph # (Auto) 1.0, [place] # (Auto) 0.6, Eos # (Auto) 0.1, Baso # (Auto) 0.1 02/27/19 06:40: Sodium 138, Potassium 4.3, Chloride 104, Carbon Dioxide 23, Anion Gap 15.3 H, BUN 21 H, Creatinine 0.66 D, Estimated Creat Clear 143, Estimated GFR 92, Est GFR ( Amer) 112 D, Glucose 116 H, Calcium 7.6 L D <Anitra Carson - 02/27/19 08:21> I & O for Last 24 hours: Intake & Output 02/25/19 02/26/19 02/27/19 02/28/19 11:59 11:59 11:59 11:59 Intake Total 719 / 719 1374 / 1374 Balance 719 / 719 1374 / 1374 Weight 212 lb 212 lb 0.015 oz <Matt Arceo - 02/27/19 21:38> Intake & Output 02/24/19 02/25/19 02/26/19 02/27/19 11:59 11:59 11:59 11:59 Intake Total 479 / 479 Balance 479 / 479 Weight 212 lb <Anitra Carson - 02/27/19 08:21> Radiology Reports for the Last 24 Hours: CT abdomen pelvis 02/26/2019 IMPRESSION: Unusual pattern which may reflect distal large bowel obstruction: Prominent stool and liquid stool dilated colon up to the rectosigmoid junction with rather abrupt transition at this point and relatively empty rectum.--this area will eventually require further evaluation with colonoscopy . Empty rectum but, with then with focal solid stool collection at rectosigmoid junction. Then proximal to this point, there is progressive Colonic Distention due to progressive increasing semi-solid, and liquid stool throughout the colon along with gas distending the large bowel.. Semi-solid stool with air-fluid levels throughout the colon. Most pronounced dilatation right colon. The distended cecum resides to the left of midline measures up to 10 cm diameter. Small bowel relatively unremarkable with only minor dilatation proximal most small bowel. Terminal ileum unremarkable . No free fluid. No free air. No focal inflammation [facility] - Constitutional no acute distress <Carson,[facility] 02/27/19 08:43> - *Routine HEENT Exam Head: Present: normocephalic, atraumatic [facility] Eye: Present: PERRL <[facility] 02/27/19 08:43> ENT: Present: mucous membranes moist, oropharynx clear <Carson,[facility] 02/27/19 08:43> - *Routine Neck Exam Present: supple, lymphadenopathy, tenderness. Absent: carotid bruit, thyromegaly [facility] 08[facility]43> Comments: Right posterior lymph node <[facility] 02/27/19 08:43> - *Routine Respiratory Exam Present: CTA bilaterally (Anteriorly and posteriorly) <[facility] 02/27/19 08:43> - *Routine Cardiovascular Exam Present: RRR <[facility] 02/27/19 08:43> - *Routine Abdominal Exam Present: soft, normoactive bowel sounds, tenderness (More of a soreness diffuse), distended. Absent: guarding <[facility] 02/27/19 08:43> - *Routine Extremities Exam Absent: edema, calf tenderness <[facility] 02/27/19 08:43> Assessment and Plan (1) Colon obstruction Current visit: Yes Status: Acute Category: Medical Code(s): K56.609 - Unspecified intestinal obstruction, unspecified as to partial versus complete obstruction (2) Constipation Current visit: Yes Status: Acute Qualifiers: Constipation type: unspecified constipation type Qualified Code(s): K59.00 - Constipation, unspecified Category: Medical Code(s): K59.00 - Constipation, unspecified (3) Elevated amylase Current visit: Yes Status: Acute Category: Medical Code(s): R74.8 - Abnormal levels of other serum enzymes (4) Irritable bowel syndrome Current visit: Yes Status: Acute Category: Medical Code(s): K58.9 - Irritable bowel syndrome without diarrhea (5) Bilirubinuria Current visit: Yes Status: Acute Category: Medical Code(s): R82.2 - Biliuria (6) Leukocytosis Current visit: Yes Status: Acute Qualifiers: Leukocytosis type: unspecified Qualified Code(s): D72.829 - Elevated white blood cell count, unspecified Category: Medical Code(s): D72.829 - Elevated white blood cell count, unspecified <MarielosMatt Kushal - 02/27/19 21:38> (1) Elevated amylase Current visit: Yes Status: Acute Category: Medical Code(s): R74.8 - Abnormal levels of other serum enzymes (2) Irritable bowel syndrome Current visit: Yes Status: Acute Category: Medical Code(s): K58.9 - Irritable bowel syndrome without diarrhea (3) Bilirubinuria Current visit: Yes Status: Acute Category: Medical Code(s): R82.2 - Biliuria (4) Constipation Current visit: Yes Status: Acute Qualifiers: Constipation type: unspecified constipation type Qualified Code(s): K59.00 - Constipation, unspecified Category: Medical Code(s): K59.00 - Constipation, unspecified (5) Leukocytosis Current visit: Yes Status: Acute Qualifiers: Leukocytosis type: unspecified Qualified Code(s): D72.829 - Elevated white blood cell count, unspecified Category: Medical Code(s): D72.829 - Elevated white blood cell count, unspecified <Anitra Carson - 02/27/19 08:23> - Assessment and plan all Dx Assessment and Plan for all problems:: Patient seen and examined this morning and history reviewed. She is a bit more comfortable this morning after several bowel movements during the night. She still feels nauseated and is weak. CT scan is suspicious for possible mechanical obstruction but clinically appears to be more irritable bowel with constipation and a relatively normal colonoscopy earlier this year is reassuring. We will plan to repeat plain films today. Surgical consult pending <Matt Arceo - 02/27/19 21:38> Surgery has been consulted. We will get some plain films of the abdomen today. We will continue with IV fluids and antibiotics for now. <Anitra Carson - 02/27/19 08:43>
--- NOTE | 2019-02-27 09:06 | Consult Report ---
*Admission Date: 02/26/19 *Reason for consult:: Possible large bowel obstruction *History of present illness: Ms. Lee is a 58-year-old female with a history of irritable bowel syndrome who presented to urgent care center yesterday after experiencing severe abdominal cramping while at [facility]. She states that her symptoms of irritable bowel syndrome are usually characterized by bowel irregularity and relatively diffuse cramping lower abdominal pain. Yesterday with this episode she became cold clammy and appeared to be near passing out and thus she was taken to the emergency room for evaluation. She states this happens when she has her cramping episodes with her irritable bowel. Evaluation in the emergency room she had a CT of the abdomen which revealed unusual pattern possibly representing a distal rectosigmoid bowel obstruction. Further evaluation in the emergency department revealed white Blood cell count was found to be 18.5; amylase elevated at 312; and lactate elevated at 2.4 . Stool studies were negative. She received IV morphine and Zofran. She was started on Rocephin and given IVF bolus and continued on normal saline at 100 an hour. She was then admitted for further evaluation and treatment with the surgical consult Patient states that she has had difficulty with her bowels for the past 3 weeks and had only hard balls of stool. Regulating her bowels by taking apple cider in the morning and a probiotic at night. She has not had any recent problems. She did colonoscopy in April [address] Javed Joseph and had 3 diminutive polyps removed. She does have a positive family history for colon cancer in her grandfather. This a.m. patient is feeling much better. She stated she passed a large amount of stool while in the emergency room and has had 2 liquid stools since being on the floor. She continues to be nauseated. The cramping has subsided and now her abdomen is just sore. She has not vomited. Review of Systems - Review of Systems Review of systems:: pertinent systems reviewed and negative unless documented below - *Neurologic Reports dizziness, Reports weakness, Denies abnormal walking, Denies headache(s) [facility] History Medical History: Reports:: Asthma, Depression Denies:: Cancer, Diabetes Mellitus Type 1, Diabetes Mellitus Type 2, Gastrointestinal Bleed, Internal Pacemaker, Lung Disease, Kidney Stones, MRSA, Seizures *Have you ever received a pneumonia vaccine?: No (Would like) *Have you received a flu vaccine this season?: No (Would like) Other Medical History: Reports: Arthritis, Other Laterality Cases: Left: ACL Repair Other Surgeries: Yes: Cardiac Catheterization, Cholecystectomy, Colonoscopy, Hysterectomy-Partial, Tubal Ligation, Other. 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) Housing: house Household Members: spouse *Travel in the last 8 weeks: None - Psychiatric History Pschychiatric History:: Reports:: Depression Family Hx:: Cancer (Grandfather had colon cancer), Coronary Artery Disease, Thyroid Disorder Meds Home Medications Medication Instructions Recorded Confirmed Type allopurinol 300 mg tablet 300 mg PO HS 01/04/18 02/27/19 History calcium carbonate 500 mg (1,250 500 mg PO BID 01/04/18 02/27/19 History mg)-vitamin D3 125 unit tablet montelukast 10 mg tablet 10 mg PO HS 01/04/18 02/27/19 History Estrogens, Conjugated [Premarin] 0.9 mg PO DAILY 05/09/18 02/27/19 History Cyclobenzaprine HCl 5 mg PO TIDP PRN 02/27/19 02/27/19 History [Cyclobenzaprine 5mg Tab] Duloxetine HCl 120 mg PO DAILY 02/27/19 02/27/19 History Gabapentin [Gabapentin 300mg Cap] 300 mg PO HS 02/27/19 02/27/19 History Sulindac 150 mg PO Q12H 02/27/19 02/27/19 History Allergies Allergy/AdvReac Type Severity Reaction Status Date / Time No Known Allergies Allergy Verified 05/09/18 12:33 Exam Vital signs and Labs for Last 24 Hours: Temp Pulse Resp BP Pulse Ox 98.5 F 86 20 121/70 96 02/27/19 08:00 02/27/19 08:00 02/27/19 08:00 02/27/19 08:00 02/27/19 08:00 Laboratory Results - last 24 hr 02/26/19 20:00: WBC 18.5 H, RBC 4.85, Hgb 15.2, Hct 47.6 H, MCV 98.3, MCH 31.3 H , MCHC 31.9, RDW 13.2, Plt Count 363, MPV 7.4, Neut % (Auto) 90.7 H, Lymph % (Auto) 6.7 L, Delta % (Auto) 1.9, Eos % (Auto) 0.5, Baso % (Auto) 0.2, Neut # (Auto) 16.8 H, Lymph # (Auto) 1.2, Delta # (Auto) 0.4, Eos # (Auto) 0.1, Baso # (Auto) 0.0, Total Counted 100, Neutrophils % (Manual) 84 H, Band Neutrophils % 9.0 H, Lymphocytes % (Manual) 6 L, Monocytes % (Manual) 1 L, Platelet Estimate Normal, RBC Morphology Bp, Hypochromasia 1+, Macrocytosis 1+, ESR 4 02/26/19 20:00: Sodium 138, Potassium 4.1, Chloride 99, Carbon Dioxide 24, Anion Gap 19.1 H, BUN 24 H, Creatinine 1.00, Estimated Creat Clear 91, Estimated GFR 57 L, Est GFR ( Amer) 69, Glucose 142 H, Calcium 8.8, Total Bilirubin 0.6, AST 14 L, ALT 23, Alkaline Phosphatase 82, C-Reactive Protein 0.6, Total Protein 7.2, Albumin 3.7, Globulin 3.5 H, Albumin/Globulin Ratio 1.1, Amylase 312 H*, Lipase 91 02/26/19 20:00: Lactate 2.4 H 02/26/19 20:29: Urine Color Brown, Urine Appearance Clear, Urine pH 5.0, Ur Specific [place] >= 1.030, Urine Protein Negative, Urine Glucose (UA) Negative, Urine Ketones 1+, Urine Blood Negative, Urine Nitrate Positive, Urine Bilirubin 2+ A, Urine Urobilinogen 1.0, Ur Leukocyte Esterase Negative, Ur Squamous Epith Cells 10-20, Uric Acid Crystals 4+ 02/26/19 21:21: Stl Aeromonas (PCR) Not detected, Stl C. cayetanensis PCR Not detected, Stool Rotavirus (PCR) Not detected, Stl Adenov F 40/41 PCR Not detected, Stool Astrovirus (PCR) Not detected, Stool Campylobacter PCR Not detected, Stl C.difficile Tox PCR Not detected, Stool Cryptosporidium PCR Not detected, Stl E.coli Shiga Tox PCR Not detected, Stool E coli O157 PCR Not detected, Stl Enterotoxigenic E PCR Not detected, Stool EPEC (PCR) Not detected, Stool EAEC (PCR) Not detected, Stl E. histolytica PCR Not detected, Stool Giardia Lamblia PCR Not detected, Stool Salmonella PCR Not detected, Stool Sapovirus (PCR) Not detected, Stl P. shigelloides PCR Not detected, Stl Shigella/EIEC PCR Not detected, St Y.enterocolitica PCR Not detected, Stool Vibrio (PCR) Not detected, Stl Vibrio cholerae PCR Not detected, Stl Norovirus GI/GII PCR Not detected 02/26/19 23:59: Lactate 2.3 H 02/27/19 02:01: Lactate 1.5 02/27/19 06:40: WBC 18.3 H, RBC 4.22, Hgb 13.6 D, Hct 41.2, MCV 97.7, MCH 32.1 H, MCHC 32.9, RDW 13.3, Plt Count 349, MPV 8.2, Neut % (Auto) 90.2 H, Lymph % (Auto) 5.5 L, Delta % (Auto) 3.4, Eos % (Auto) 0.6, Baso % (Auto) 0.3, Neut # (Auto) 16.5 H, Lymph # (Auto) 1.0, Delta # (Auto) 0.6, Eos # (Auto) 0.1, Baso # (Auto) 0.1 02/27/19 06:40: Sodium 138, Potassium 4.3, Chloride 104, Carbon Dioxide 23, Anion Gap 15.3 H, BUN 21 H, Creatinine 0.66 D, Estimated Creat Clear 143, Estimated GFR 92, Est GFR ( Amer) 112 D, Glucose 116 H, Calcium 7.6 L D I & O for Last 24 hours: Intake & Output 02/24/19 02/25/19 02/26/19 02/27/19 11:59 11:59 11:59 11:59 Intake Total 479 / 479 Balance 479 / 479 Weight 212 lb - *Routine Respiratory Exam Present: CTA bilaterally - *Routine Cardiovascular Exam Present: RRR - *Routine Abdominal Exam Present: soft, normoactive bowel sounds Comments: She has some diffuse discomfort to deep palpation mostly in the left lower quadrant. Results - Labs 02/27/19 06:40 12/16/19 06:40 Laboratory Results - last 24 hr 02/26/19 20:00: WBC 18.5 H, RBC 4.85, Hgb 15.2, Hct 47.6 H, MCV 98.3, MCH 31.3 H , MCHC 31.9, RDW 13.2, Plt Count 363, MPV 7.4, Neut % (Auto) 90.7 H, Lymph % (Auto) 6.7 L, Delta % (Auto) 1.9, Eos % (Auto) 0.5, Baso % (Auto) 0.2, Neut # (Auto) 16.8 H, Lymph # (Auto) 1.2, Delta # (Auto) 0.4, Eos # (Auto) 0.1, Baso # (Auto) 0.0, Total Counted 100, Neutrophils % (Manual) 84 H, Band Neutrophils % 9.0 H, Lymphocytes % (Manual) 6 L, Monocytes % (Manual) 1 L, Platelet Estimate Normal, RBC Morphology Bp, Hypochromasia 1+, Macrocytosis 1+, ESR 4 02/26/19 20:00: Sodium 138, Potassium 4.1, Chloride 99, Carbon Dioxide 24, Anion Gap 19.1 H, BUN 24 H, Creatinine 1.00, Estimated Creat Clear 91, Estimated GFR 57 L, Est GFR ( Amer) 69, Glucose 142 H, Calcium 8.8, Total Bilirubin 0.6, AST 14 L, ALT 23, Alkaline Phosphatase 82, C-Reactive Protein 0.6, Total Protein 7.2, Albumin 3.7, Globulin 3.5 H, Albumin/Globulin Ratio 1.1, Amylase 312 H*, Lipase 91 02/26/19 20:00: Lactate 2.4 H 02/26/19 20:29: Urine Color Brown, Urine Appearance Clear, Urine pH 5.0, Ur Spec ific [place] >= 1.030, Urine Protein Negative, Urine Glucose (UA) Negative, Urine Ketones 1+, Urine Blood Negative, Urine Nitrate Positive, Urine Bilirubin 2+ A, Urine Urobilinogen 1.0, Ur Leukocyte Esterase Negative, Ur Squamous Epith Cells 10-20, Uric Acid Crystals 4+ 02/26/19 21:21: Stl Aeromonas (PCR) Not detected, Stl C. cayetanensis PCR Not d etected, Stool Rotavirus (PCR) Not detected, Stl Adenov F 40/ PCR Not detected, Stool Astrovirus (PCR) Not detected, Stool Campylobacter PCR Not detected, Stl C.difficile Tox PCR Not detected, Stool Cryptosporidium PCR Not detected, Stl E.coli Shiga Tox PCR Not detected, Stool E coli O157 PCR Not detected, Stl Enterotoxigenic E PCR Not detected, Stool EPEC (PCR) Not detected, Stool EAEC (PCR) Not detected, Stl E. histolytica PCR Not detected, Stool Giardia Lamblia PCR Not detected, Stool Salmonella PCR Not detected, Stool Sapovirus (PCR) Not detected, Stl P. shigelloides PCR Not detected, Stl Shigella/EIEC PCR Not detected, St Y.enterocolitica PCR Not detected, Stool Vibrio (PCR) Not detected, Stl Vibrio cholerae PCR Not detected, Stl Norovirus GI/GII PCR Not detected 02/26/19 23:59: Lactate 2.3 H 02/27/19 02:01: Lactate 1.5 02/27/19 06:40: WBC 18.3 H, RBC 4.22, Hgb 13.6 D, Hct 41.2, MCV 97.7, MCH 32.1 H, MCHC 32.9, RDW 13.3, Plt Count 349, MPV 8.2, Neut % (Auto) 90.2 H, Lymph % (Auto) 5.5 L, Delta % (Auto) 3.4, Eos % (Auto) 0.6, Baso % (Auto) 0.3, Neut # (Auto) 16.5 H, Lymph # (Auto) 1.0, Delta # (Auto) 0.6, Eos # (Auto) 0.1, Baso # (Auto) 0.1 02/27/19 06:40: Sodium 138, Potassium 4.3, Chloride 104, Carbon Dioxide 23, Anion Gap 15.3 H, BUN 21 H, Creatinine 0.66 D, Estimated Creat Clear 143, Estimated GFR 92, Est GFR ( Amer) 112 D, Glucose 116 H, Calcium 7.6 L D Assessment and Plan (1) Elevated amylase Current visit: Yes Status: Acute Category: Medical Code(s): R74.8 - Abnormal levels of other serum enzymes (2) Irritable bowel syndrome Current visit: Yes Status: Acute Category: Medical Code(s): K58.9 - Irritable bowel syndrome without diarrhea (3) Bilirubinuria Current visit: Yes Status: Acute Category: Medical Code(s): R82.2 - Biliuria (4) Constipation Current visit: Yes Status: Acute Qualifiers: Constipation type: unspecified constipation type Qualified Code(s): K59.00 - Constipation, unspecified Category: Medical Code(s): K59.00 - Constipation, unspecified (5) Leukocytosis Current visit: Yes Status: Acute Qualifiers: Leukocytosis type: unspecified Qualified Code(s): D72.829 - Elevated white blood cell count, unspecified Category: Medical Code(s): D72.829 - Elevated white blood cell count, unspecified - Assessment and plan all Dx Assessment and Plan for all problems:: It is reassuring that she had a colonoscopy earlier this year. Therefore I feel it unlikely that she has an obstructing mass. Review of the CT scan reveals this area in question to be more of a diffuse thickening. She does seem to be clinically improving. I will obtain gastroenterology consultation.
[2019-02-27 09:17] LABS: Lymphocytes % 6 % (10-50); Monocytes % 3 % (2-9); Neutrophils % 91 % (42-76); RBC Morphology Normal; Total Cells Counted 100
--- NOTE | 2019-02-27 13:11 | Consult Report ---
*Admission Date: 02/26/19 *Reason for consult:: Constipation *History of present illness: This is a 58-year-old female patient with a longstanding history of irritable bowel syndrome constipation predominant who presented to urgent care after experiencing severe abdominal cramping with some dizziness. She reports that she has always struggled with skipping multiple days between bowel movements for many years. She saw Dr. Boles back in 2010 due to chronic constipation and was started on MiraLAX at the time. She reports that she had not followed up further for treatment of her chronic constipation she was used to missing 4 to 5 days without a BM. Over the last 3 years she had had some improvement in her bowel function by taking apple cider vinegar 3 tablets daily plus a daily probiotic. However, she is still skipping occasional days. She reports that this has been getting much worse for the past 3 months. And had gotten increasingly bad over the past 3 weeks. She will have some chronic nausea but very rare vomiting. She has lots of bloating belching and gassiness and her constipation will vary between no stools, hard stools and then will have lots of bowel urgency and diarrhea. She had a colonoscopy with Dr. Joseph 04/2018 of this year which showed TA x2 and an SA x1 with grade 1 internal hemorrhoids. Given her family history of colon cancer he recommended a 5-year follow-up. The patient presented to the ER after urgent care yesterday and was having near syncopal episode upon arrival. In the ER her WBCs were elevated at 18.5, her amylase was slightly elevated at 312 with a normal lipase, her LFTs were within normal limits , her lactate was elevated 2.4, and on CT scan she did have focal solid stool starting at the rectosigmoid junction concerning for distal large dinesh wel obstruction. Beyond that she had copious amount of semisolid and liquid stool that had distended her colon proximally. She had lots of gaseous distention. She did however, have an empty rectum at the time. The patient had tried both Dulcolax and MiraLAX and an enema at home without production. However, in the ER she reports that she had a very large excessive bowel movement both hard balls and liquid. She reports she has had 4 large bowel movements since being in the inpatient hospital room. She reports that she is still nauseous but has nausea most of the time. She is not having any vomiting and has been n.p.o. since admission. She still has an abdomen that is sore and tender to touch but is no longer acutely painful. Repeat plain films of her abdomen today showed an improvement in the colonic stool burden. Shows no small bowel obstruction. [facility] History Medical History: Reports:: Asthma, Depression Denies:: Cancer, Diabetes Mellitus Type 1, Diabetes Mellitus Type 2, Gastrointestinal Bleed, Internal Pacemaker, Lung Disease, Kidney Stones, MRSA, Seizures *Have you ever received a pneumonia vaccine?: No (Would like) *Have you received a flu vaccine this season?: No (Would like) Other Medical History: Reports: Arthritis, Other Laterality Cases: Left: ACL Repair Other Surgeries: Yes: Cardiac Catheterization, Cholecystectomy, Colonoscopy, Hysterectomy-Partial, Tubal Ligation, Other. 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) Housing: house Household Members: spouse *Travel in the last 8 weeks: None - Psychiatric History Pschychiatric History:: Reports:: Depression Family Hx:: Cancer (Grandfather had colon cancer), Coronary Artery Disease, Thyroid Disorder Review of Systems - Constitutional Denies body ache(s), Denies chills, Denies fever(s) - Eyes Reports floaters, Denies blurry vision, Denies loss of vision, Denies pain - ENT Reports dizziness, Denies abnormal hearing, Denies hoarseness, Denies pain with swallowing, Denies post nasal drip - *Cardiovascular Denies chest pain, Denies shortness of breath, Denies shortness of breath with activity, Denies irregular heart rhythm, Denies leg swelling - *Respiratory Denies chest congestion, Denies cough, Denies shortness of breath, Denies wheezing - *Gastrointestinal Reports abdominal pain, Reports belching, Reports bloating, Reports change in bowel habits, Reports change in stools, Reports constipation, Reports cramping, Reports loose stools, Reports incontinent of stools, Reports loose stools, Reports nausea, Denies coffee ground vomit, Denies difficulty swallowing, Denies vomiting blood, Denies vomiting - *Musculoskeletal Denies abnormal walking, Denies muscle cramps, Denies muscle weakness, Denies numbness, Denies tingling - *Neurologic Reports dizziness, Reports dizziness, Reports weakness, Denies abnormal walking, Denies confusion, Denies seizure-like activity, Denies headache(s), Denies fainting - Psychiatric Denies anxiety, Denies change in appetite, Denies irritability - Allergic/Immunologic Denies GI upset with certain foods, Denies throat swelling, Denies tongue swelling, Denies wheezing Meds Home Medications Medication Instructions Recorded Confirmed Type allopurinol 300 mg tablet 300 mg PO HS 01/04/18 02/27/19 History calcium carbonate 500 mg (1,250 500 mg PO BID 01/04/18 02/27/19 History mg)-vitamin D3 125 unit tablet montelukast 10 mg tablet 10 mg PO HS 01/04/18 02/27/19 History Estrogens, Conjugated [Premarin] 0.9 mg PO DAILY 05/09/18 02/27/19 History Cyclobenzaprine HCl 5 mg PO TIDP PRN 02/27/19 02/27/19 History [Cyclobenzaprine 5mg Tab] Duloxetine HCl 120 mg PO DAILY 02/27/19 02/27/19 History Gabapentin [Gabapentin 300mg Cap] 300 mg PO HS 02/27/19 02/27/19 History Sulindac 150 mg PO Q12H 02/27/19 02/27/19 History Allergies Allergy/AdvReac Type Severity Reaction Status Date / Time No Known Allergies Allergy Verified 05/09/18 12:33 Exam Vital signs and Labs for Last 24 Hours: Temp Pulse Resp BP Pulse Ox 98.5 F 86 20 121/70 96 02/27/19 08:00 02/27/19 08:00 02/27/19 08:00 02/27/19 08:00 02/27/19 08:00 Laboratory Results - last 24 hr 02/26/19 20:00: WBC 18.5 H, RBC 4.85, Hgb 15.2, Hct 47.6 H, MCV 98.3, MCH 31.3 H , MCHC 31.9, RDW 13.2, Plt Count 363, MPV 7.4, Neut % (Auto) 90.7 H, Lymph % (Auto) 6.7 L, [place] % (Auto) 1.9, Eos % (Auto) 0.5, Baso % (Auto) 0.2, Neut # (Auto) 16.8 H, Lymph # (Auto) 1.2, [place] # (Auto) 0.4, Eos # (Auto) 0.1, Baso # (Auto) 0.0, Total Counted 100, Neutrophils % (Manual) 84 H, Band Neutrophils % 9.0 H, Lymphocytes % (Manual) 6 L, Monocytes % (Manual) 1 L, Platelet Estimate Normal, RBC Morphology Bp, Hypochromasia 1+, Macrocytosis 1+, ESR 4 02/26/19 20:00: Sodium 138, Potassium 4.1, Chloride 99, Carbon Dioxide 24, Anion Gap 19.1 H, BUN 24 H, Creatinine 1.00, Estimated Creat Clear 91, Estimated GFR 57 L, Est GFR ( Amer) 69, Glucose 142 H, Calcium 8.8, Total Bilirubin 0.6, AST 14 L, ALT 23, Alkaline Phosphatase 82, C-Reactive Protein 0.6, Total Protein 7.2, Albumin 3.7, Globulin 3.5 H, Albumin/Globulin Ratio 1.1, Amylase 312 H*, Lipase 91 02/26/19 20:00: Lactate 2.4 H 02/26/19 20:29: Urine Color Brown, Urine Appearance Clear, Urine pH 5.0, Ur Specific [place] >= 1.030, Urine Protein Negative, Urine Glucose (UA) Negative, Urine Ketones 1+, Urine Blood Negative, Urine Nitrate Positive, Urine Bilirubin 2+ A, Urine Urobilinogen 1.0, Ur Leukocyte Esterase Negative, Ur Squamous Epith Cells 10-20, Uric Acid Crystals 4+ 02/26/19 21:21: Stl Aeromonas (PCR) Not detected, Stl C. cayetanensis PCR Not detected, Stool Rotavirus (PCR) Not detected, Stl Adenov F 40/41 PCR Not detected, Stool Astrovirus (PCR) Not detected, Stool Campylobacter PCR Not detected, Stl C.difficile Tox PCR Not detected, Stool Cryptosporidium PCR Not detected, Stl E.coli Shiga Tox PCR Not detected, Stool E coli O157 PCR Not detected, Stl Enterotoxigenic E PCR Not detected, Stool EPEC (PCR) Not detected, Stool EAEC (PCR) Not detected, Stl E. histolytica PCR Not detected, Stool Giardia Lamblia PCR Not detected, Stool Salmonella PCR Not detected, Stool Sapovirus (PCR) Not detected, Stl P. shigelloides PCR Not detected, Stl Shigella/EIEC PCR Not detected, St Y.enterocolitica PCR Not detected, Stool Vibrio (PCR) Not detected, Stl Vibrio cholerae PCR Not detected, Stl Norovirus GI/GII PCR Not detected 02/26/19 23:59: Lactate 2.3 H 02/27/19 02:01: Lactate 1.5 02/27/19 06:40: WBC 18.3 H, RBC 4.22, Hgb 13.6 D, Hct 41.2, MCV 97.7, MCH 32.1 H, MCHC 32.9, RDW 13.3, Plt Count 349, MPV 8.2, Neut % (Auto) 90.2 H, Lymph % (Auto) 5.5 L, [place] % (Auto) 3.4, Eos % (Auto) 0.6, Baso % (Auto) 0.3, Neut # (Auto) 16.5 H, Lymph # (Auto) 1.0, [place] # (Auto) 0.6, Eos # (Auto) 0.1, Baso # (Auto) 0.1, Total Counted 100, Neutrophils % (Manual) 91 H, Lymphocytes % (Manual) 6 L, Monocytes % (Manual) 3, Platelet Estimate Normal, RBC Morphology Normal 02/27/19 06:40: Sodium 138, Potassium 4.3, Chloride 104, Carbon Dioxide 23, Anion Gap 15.3 H, BUN 21 H, Creatinine 0.66 D, Estimated Creat Clear 143, Estimated GFR 92, Est GFR ( Amer) 112 D, Glucose 116 H, Calcium 7.6 L D I & O for Last 24 hours: Intake & Output 02/25/19 02/26/19 02/27/19 02/28/19 11:59 11:59 11:59 11:59 Intake Total 719 Balance 719 Weight 96.162 kg Radiology Reports for the Last 24 Hours: Procedure: CT ABDOMEN PELVIS W CON Patient Age:58Y CLINICAL INDICATION: LLQ PAIN nausea and constipation. Has had tubal ligation hysterectomy cholecystectomy bladder tuck. COMPARISON: No exams were available for comparison TECHNIQUE: IV contrast.: 75 cc Optiray 350 no oral contrast. Axial images obtained with sagittal and coronal reformats. All CT scans at the facility use one or more dose reduction, viz: automated exposure control, ma/kV adjustment per patient size (including targeted exams where dose is matched to indication, i.e. head), or iterative reconstruction technique. FINDINGS: Lower thorax: No acute finding lung bases clear. Heart normal size. Liver spleen adrenals unremarkable. Gallbladder surgically removed. No biliary ductal dilatation.. Note abnormal amylase on laboratory however the PANCREAS appears normal in this patient by CT with no focal fluid collections. No pancreatic ductal dilatation. No mass. No apparent inflammation at this point. Kidneys unremarkable no hydronephrosis nor mass. Ureters unremarkable. Urinary bladder rather empty difficult to visualize but unremarkable. Hysterectomy. No pelvic mass. No significant free fluid pelvic basin GI TRACT. The significant findings are at large bowel. There is prominent solid and semi-solid stool throughout the entire colon except for the rectum. With minimal contents the rectum. I do not appreciate the of mass at the rectum or anus but this may warrant exam to exclude any distal obstructing process The as we move proximal at large bowel there is moderate focal collection of solid stool seen at rectosigmoid junction. Is then proximal to this point, we relative distention of the colon with what appears to be liquid stool surrounding much of the solid stool throughout the remainder of the colon. Of this yields prominent air-fluid levels within distended transverse colon and right colon.-The cecum is most distended with gas and gas and layering stool measuring up to 10 diameter.. This distended mobile cecum extends to the left of midline CT venetian blind cleaner and repairer film nicely demonstrates this generous gaseous distension throughout right colon and transverse colon small bowel: The proximal small bowel loops in the left upper abdomen containing increased fluid and are somewhat dilated measuring. These jejunal loops nearly 3 cm maximally.. However the mid and distal small bowel appear more normal caliber of with normal appearing terminal ileum the terminal ileum appears normal . Fluid-filled stomach nondistended. Actually appears slightly compressed by the distended splenic flexure and transverse colon There is no free fluid no free air. No abnormal fluid collection. No focal pericolic inflammatory changes. Peritoneum: No abnormal fluid collections. No obvious inflammatory changes. No free air. Lymph nodes: No enlarged lymph nodes apparent. Vasculature: No evidence of abdominal aortic aneurysm.. Aorta celiac and SMA artery appears satisfactory Bones: No lesions evident but degenerative disc space narrowing and changes L5/S1. Facet hypertrophy L5/S1-L4/5 noted IMPRESSION: Unusual pattern which may reflect distal large bowel obstruction: Prominent stool and liquid stool dilated colon up to the rectosigmoid junction with rather abrupt transition at this point and relatively empty rectum.--this area will eventually require further evaluation with colonoscopy . Empty rectum but, with then with focal solid stool collection at rectosigmoid junction. Then proximal to this point, there is progressive Colonic Distention due to progressive increasing semi-solid, and liquid stool throughout the colon along with gas distending the large bowel.. Semi-solid stool with air-fluid levels throughout the colon. Most pronounced dilatation right colon. The distended cecum resides to the left of midline measures up to 10 cm diameter. Small bowel relatively unremarkable with only minor dilatation proximal most small bowel. Terminal ileum unremarkable . No free fluid. No free air. No focal inflammation Dictated by: Jean Claude Tapia MD 02/26/2019 21:48 PROCEDURE: XR ACUTE ABDOMEN SERIES CLINICAL INDICATION: abdominal pain Abdominal pain, bowel obstruction COMPARISON: CT ABDOMEN PELVIS W CON from 02/26/2019 FINDINGS: Frontal view of the chest shows no acute finding. Upright and supine views of the abdomen show mildly distended large bowel with air-fluid levels with a mild amount of colonic feces. The stool burden appears to have decreased some since the CT scan of 02/26/2019. No evidence of small-bowel obstruction. No free air apparent IMPRESSION: Scattered air-fluid levels within the large bowel with decrease stool burden compared to the previous study. Dictated by: Shashi Mancuso MD 02/27/2019 10:28 - Constitutional no acute distress, obese, cooperative - *Routine HEENT Exam Head: Present: normocephalic, atraumatic Eye: Present: EOMI, conjunctivae pink. Absent: periorbital swelling ENT: Present: mucous membranes moist - *Routine Neck Exam Present: supple, full ROM - Routine Chest/Breast/Axilla Exam Chest wall: Absent: tenderness - *Routine Respiratory Exam Present: CTA bilaterally. Absent: accessory muscle use, decreased breath sounds, wheezes - *Routine Cardiovascular Exam Present: RRR, Normal S1, Normal S2. Absent: murmur, gallop, rubs - *Routine Abdominal Exam Present: soft, tenderness, distended, obese. Absent: guarding, firm, organomegaly, mass, hernia Comments: mildly and generally ttp throughout abdomen, mildly distended with palpable stool and gas - *Routine Skin Exam Present: intact, dry, warm Internal Medicine - CN: Reslt - Labs CBC & Chem 7: 02/27/19 06:40 02/27/19 06:40 Labs: Short CBC 02/26/19 02/27/19 Range/Units 20:00 06:40 WBC 18.5 H 18.3 H (4.8-10.8) K/mm3 Hgb 15.2 13.6 D (12.2-16.2) g/dL Hct 47.6 H 41.2 (37.0-47.0) % Plt Count 363 349 (142-424) K/mm3 BMP 02/26/19 02/27/19 20:00 06:40 Sodium 138 138 Potassium 4.1 4.3 Chloride 99 104 Carbon Dioxide 24 23 BUN 24 H 21 H Creatinine 1.00 0.66 D Glucose 142 H 116 H Calcium 8.8 7.6 L D Liver Function 02/26/19 Range/Units 20:00 Total Bilirubin 0.6 (0.2-1.0) mg/dL AST 14 L (15-37) U/L ALT 23 (12-78) U/L Alkaline Phosphatase 82 (46-116) U/L Albumin 3.7 (3.4-5.0) gm/dL Urine 02/26/19 Range/Units 20:29 Urine Color Brown (Yellow) Urine Appearance Clear (Clear) Urine pH 5.0 (5.0-8.5) Ur Specific [place] >= 1.030 (1.005-1.030) Urine Protein Negative (Negative) Urine Glucose (UA) Negative (Negative) Assessment and Plan (1) Elevated amylase Current visit: Yes Status: Acute Category: Medical Code(s): R74.8 - Abnormal levels of other serum enzymes Mildly elevated amylase of 312, normal lipase. Only a mild elevation without radiologic abnormality of the pancreas. possible transient elevation and can be rechecked as an outpatient. (2) Irritable bowel syndrome Current visit: Yes Status: Acute Category: Medical Code(s): K58.9 - Irritable bowel syndrome without diarrhea Patient has had longstanding problems with IBS, constipation predominant for many years. She has variable bowel movements between constipation and obstipation that will revert to breakthrough diarrhea with bowel urgency and incontinence and then backed constipation obstipation. This has largely gone untreated. She is accustomed to skipping multiple days between bowel movements and felt as though the apple cider vinegar pills and a daily probiotic had improved her although she is still skipping multiple days. She developed a worsening of her underlying constipation over the course the past 3 months that got progressively worse in the past 3 weeks. She is also on calcium tablets 3 t imes a day that may be contributing to her constipation. Recent colonoscopy in April of this year just showed grade 1 internal hemorrhoids, TA x2 and SA x1, no physical anomaly to contribute to a acute bowel obstruction. Since admission, the patient has had multiple large bowel movements mostly liquid but also containing solid products. Her abdominal pain is improving. She is afebrile although with positive leukocytosis. She is tender to palpation generally throughout her abdomen. It appears as though she is spontaneously improving and I believe conservative measures are appropriate. If she continues to have bowel movements and symptoms continue to improve, likely she can start eating a low residue diet. I recommend that she start on a daily fiber bowel regimen of MiraLAX and Metamucil every day regardless of her symptoms and recommend that she follow-up with me in the office after discharge. She may need a repeat flex sig or further treatment but after discussion with Dr. Joseph, likely she can do this as an outpatient through our office. (3) Bilirubinuria Current visit: Yes Status: Acute Category: Medical Code(s): R82.2 - Biliuria (4) Constipation Current visit: Yes Status: Acute Qualifiers: Constipation type: unspecified constipation type Qualified Code(s): K59.00 - Constipation, unspecified Category: Medical Code(s): K59.00 - Constipation, unspecified Longstanding constipation-predominant IBS. See above recommendations. (5) Leukocytosis Current visit: Yes Status: Acute Qualifiers: Leukocytosis type: unspecified Qualified Code(s): D72.829 - Elevated white blood cell count, unspecified Category: Medical Code(s): D72.829 - Elevated white blood cell count, unspecified
--- NOTE | 2019-02-27 15:28 | Electrocardiograph Report ---
APPROVED REPORT Exam: Resting ECG HR:74 bpm ECG Measurements Heart Rate 74 AXES LA 154 P 37 QRSd 80 QRS 23 QT 388 T39 QTc 430 <Conclusion> Normal sinus rhythm Normal ECG Electronically signed by : Sagar Woodruff, 02/27/2019 15:28:00
--- NOTE | 2019-02-28 07:06 | Progress Note ---
Subjective Narrative: Patient states that yesterday she was feeling somewhat transiently better. This morning She is having some increasing abdominal bloating and gassiness with abdominal discomfort. She does state that she had an "unusual" bowel movement yesterday. Consultation with gastroenterology was performed yesterday and it is felt that this is progressive exacerbation of functional bowel disorder. Exam Vital signs and Labs for Last 24 Hours: Temp Pulse Resp BP Pulse Ox 98.2 F 74 18 129/72 93 L 02/28/19 04:00 02/28/19 04:00 02/28/19 04:00 02/28/19 04:00 02/28/19 04:00 Laboratory Results - last 24 hr 02/27/19 06:40: WBC 18.3 H, RBC 4.22, Hgb 13.6 D, Hct 41.2, MCV 97.7, MCH 32.1 H, MCHC 32.9, RDW 13.3, Plt Count 349, MPV 8.2, Neut % (Auto) 90.2 H, Lymph % (Auto) 5.5 L, [place] % (Auto) 3.4, Eos % (Auto) 0.6, Baso % (Auto) 0.3, Neut # (Auto) 16.5 H, Lymph # (Auto) 1.0, [place] # (Auto) 0.6, Eos # (Auto) 0.1, Baso # (Auto) 0.1, Total Counted 100, Neutrophils % (Manual) 91 H, Lymphocytes % (Manual) 6 L, Monocytes % (Manual) 3, Platelet Estimate Normal, RBC Morphology Normal 02/27/19 06:40: Sodium 138, Potassium 4.3, Chloride 104, Carbon Dioxide 23, Anion Gap 15.3 H, BUN 21 H, Creatinine 0.66 D, Estimated Creat Clear 143, Estimated GFR 92, Est GFR ( Amer) 112 D, Glucose 116 H, Calcium 7.6 L D 02/27/19 : Stool Occult Blood Positive A I & O for Last 24 hours: Intake & Output 02/25/19 02/26/19 02/27/19 02/28/19 11:59 11:59 11:59 11:59 Intake Total 719 / 719 2800 / 2800 Balance 719 / 719 2800 / 2800 Weight 212 lb 215 lb 7 oz - *Routine Abdominal Exam Absent: tenderness Progress Note: A&P (1) Colon obstruction Status: Acute Current Visit: Yes (2) Constipation Status: Acute Current Visit: Yes (3) Elevated amylase Status: Acute Current Visit: Yes (4) Irritable bowel syndrome Status: Acute Current Visit: Yes (5) Bilirubinuria Status: Acute Current Visit: Yes (6) Leukocytosis Status: Acute Current Visit: Yes Assessment and Plan for All Diagnoses:: Plan to advance diet
[2019-02-28 07:11] LABS: Basophils % 0.2 % (0.1-2.0); Eosinophils # 0.3 K/mm3 (0.0-0.4); Eosinophils % 1.8 % (0.1-12.0); Hematocrit 39.2 % (37.0-47.0); Hemoglobin 12.7 g/dL (12.2-16.2); Lymphocytes # 2.3 K/mm3 (0.7-4.5); Lymphocytes % 15.7 % (10-50); Mean Corpuscular HGB Conc 32.4 g/dL (31.8-35.4); Mean Corpuscular Volume 98.7 fl (81-99); Mean Platelet Volume 7.6 fl (7.4-10.4); Monocytes # 0.4 K/mm3 (0.1-1.0); Monocytes % 2.8 % (1.7-9.3); Neutrophils # 11.8 K/mm3 (1.8-7.8); Neutrophils % 79.5 % (37.0-80.0); Platelet Count 330 K/mm3 (142-424); Red Blood Count 3.97 M/mm3 (4.20-5.40); Red Cell Distribution Width 13.2 % (11.5-17.5); White Blood Count 14.8 K/mm3 (4.8-10.8)
--- NOTE | 2019-02-28 08:26 | Progress Note ---
<Anitra Carson - Last Filed: 02/28/19 08:20> Internal Medicine - PN: Subj *Date: 02/28/19 *Time: 08:20 Interval history: Patient is having some fullness, bloating, and abdominal soreness. She has had no further abdominal cramping. She had no stools through the night. She did have one stool yesterday that has some maroon in it. Stool was positive for occult blood. Not nauseated anymore. She retained clear liquids and will try a bland low residue diet this morning per Dr. Walls. Gastroenterology did see her yesterday and plans for follow-up 03/06/2019. She voids QS. She denies chest pain and shortness of breath. Exam Vital signs and Labs for Last 24 Hours: Temp Pulse Resp BP Pulse Ox 98.2 F 74 18 129/72 93 L 02/28/19 04:00 02/28/19 04:00 02/28/19 04:00 02/28/19 04:00 02/28/19 04:00 Laboratory Results - last 24 hr 02/27/19 06:40: Total Counted 100, Neutrophils % (Manual) 91 H, Lymphocytes % (Manual) 6 L, Monocytes % (Manual) 3, Platelet Estimate Normal, RBC Morphology Normal 02/27/19 : Stool Occult Blood Positive A 02/28/19 07:00: WBC 14.8 H, RBC 3.97 L, Hgb 12.7, Hct 39.2, MCV 98.7, MCH 32.0 H , MCHC 32.4, RDW 13.2, Plt Count 330, MPV 7.6, Neut % (Auto) 79.5, Lymph % (Auto) 15.7, [place] % (Auto) 2.8, Eos % (Auto) 1.8, Baso % (Auto) 0.2, Neut # (Auto) 11.8 H, Lymph # (Auto) 2.3, [place] # (Auto) 0.4, Eos # (Auto) 0.3, Baso # (Auto) 0.0 I & O for Last 24 hours: Intake & Output 02/25/19 02/26/19 02/27/19 02/28/19 11:59 11:59 11:59 11:59 Intake Total 719 / 719 2800 / 2800 Balance 719 / 719 2800 / 2800 Weight 212 lb 215 lb 7 oz Radiology Reports for the Last 24 Hours: 02/27/2019 acute abdominal series IMPRESSION: Scattered air-fluid levels within the large bowel with decrease stool burden compared to the previous study. - Constitutional no acute distress Comments: Sitting up in the bed eating her breakfast - *Routine Respiratory Exam Present: CTA bilaterally (Anteriorly and posteriorly) - *Routine Cardiovascular Exam Present: RRR - *Routine Abdominal Exam Present: soft, normoactive bowel sounds, tenderness, distended - *Routine Extremities Exam Absent: edema, calf tenderness, tenderness - *Routine Neurological Exam Present: alert, oriented X3 Assessment and Plan (1) Colon obstruction Current visit: Yes Status: Acute Category: Medical Code(s): K56.609 - Unspecified intestinal obstruction, unspecified as to partial versus complete obstruction (2) Constipation Current visit: Yes Status: Acute Qualifiers: Constipation type: unspecified constipation type Qualified Code(s): K59.00 - Constipation, unspecified Category: Medical Code(s): K59.00 - Constipation, unspecified (3) Elevated amylase Current visit: Yes Status: Acute Category: Medical Code(s): R74.8 - Abnormal levels of other serum enzymes (4) Irritable bowel syndrome Current visit: Yes Status: Acute Category: Medical Code(s): K58.9 - Irritable bowel syndrome without diarrhea (5) Bilirubinuria Current visit: Yes Status: Acute Category: Medical Code(s): R82.2 - Biliuria (6) Leukocytosis Current visit: Yes Status: Acute Qualifiers: Leukocytosis type: unspecified Qualified Code(s): D72.829 - Elevated white blood cell count, unspecified Category: Medical Code(s): D72.829 - Elevated white blood cell count, unspecified - Assessment and plan all Dx Assessment and Plan for all problems:: We will see how she tolerates her advance diet. Possibly home. <Matt Arceo - Last Filed: 02/28/19 08:53> Internal Medicine - PN: Subj *Date: 02/28/19 *Time: 08:52 Exam Vital signs and Labs for Last 24 Hours: Temp Pulse Resp BP Pulse Ox 98.1 F 85 18 139/75 100 02/28/19 08:00 02/28/19 08:00 02/28/19 08:00 02/28/19 08:00 02/28/19 08:00 Laboratory Results - last 24 hr 02/27/19 06:40: Total Counted 100, Neutrophils % (Manual) 91 H, Lymphocytes % (Manual) 6 L, Monocytes % (Manual) 3, Platelet Estimate Normal, RBC Morphology Normal 02/27/19 : Stool Occult Blood Positive A 02/28/19 07:00: WBC 14.8 H, RBC 3.97 L, Hgb 12.7, Hct 39.2, MCV 98.7, MCH 32.0 H , MCHC 32.4, RDW 13.2, Plt Count 330, MPV 7.6, Neut % (Auto) 79.5, Lymph % (Auto) 15.7, [place] % (Auto) 2.8, Eos % (Auto) 1.8, Baso % (Auto) 0.2, Neut # (Auto) 11.8 H, Lymph # (Auto) 2.3, [place] # (Auto) 0.4, Eos # (Auto) 0.3, Baso # (Auto) 0.0 I & O for Last 24 hours: Intake & Output 02/25/19 02/26/19 02/27/19 02/28/19 11:59 11:59 11:59 11:59 Intake Total 719 / 719 3160 / 3160 Balance 719 / 719 3160 / 3160 Weight 212 lb 215 lb 7 oz Assessment and Plan (1) Colon obstruction Current visit: Yes Status: Acute Category: Medical Code(s): K56.609 - Unspecified intestinal obstruction, unspecified as to partial versus complete obstruction (2) Constipation Current visit: Yes Status: Acute Qualifiers: Constipation type: unspecified constipation type Qualified Code(s): K59.00 - Constipation, unspecified Category: Medical Code(s): K59.00 - Constipation, unspecified (3) Elevated amylase Current visit: Yes Status: Acute Category: Medical Code(s): R74.8 - Abnormal levels of other serum enzymes (4) Irritable bowel syndrome Current visit: Yes Status: Acute Category: Medical Code(s): K58.9 - Irritable bowel syndrome without diarrhea (5) Bilirubinuria Current visit: Yes Status: Acute Category: Medical Code(s): R82.2 - Biliuria (6) Leukocytosis Current visit: Yes Status: Acute Qualifiers: Leukocytosis type: unspecified Qualified Code(s): D72.829 - Elevated white blood cell count, unspecified Category: Medical Code(s): D72.829 - Elevated white blood cell count, unspecified - Assessment and plan all Dx Assessment and Plan for all problems:: She is feeling better this morning. Repeat pedis yesterday showed improvement in her colon distention. Less concern for mechanical bowel obstruction. Surgical and GI consults noted and appreciated. Plan is to advance her diet this morning. If she tolerates this well, she can discharge home later today and follow-up with with GI next week
--- NOTE | 2019-03-01 08:15 | Discharge Summary ---
General - General Admission date:: 02/26/19 <Matt Arceo - 03/04/19 08:50> 02/26/19 <YamilethAnitra - 03/01/19 08:15> Discharge date: 02/28/19 <Carson,Anitra - 03/01/19 10:20> HPI HPI: Ms. Lee is a 58-year-old female with a history of asthma, allergic rhinitis, depression, irritable bowel syndrome and arthritis who presented to urgent care center after experiencing severe abdominal cramping while at [facility]. She became cold, clammy and appeared to be near passing out and thus she was taken to the emergency room for evaluation. She stated this happens when she has her cramping episodes with her irritable bowel. With evaluation in the emergency room she had a CT of the abdomen which revealed the following: IMPRESSION: Unusual pattern which may reflect distal large bowel obstruction: Prominent stool and liquid stool dilated colon up to the rectosigmoid junction with rather abrupt transition at this point and relatively empty rectum.--this area will eventually require further evaluation with colonoscopy . Empty rectum but, with then with focal solid stool collection at rectosigmoid junction. Then proximal to this point, there is progressive Colonic Distention due to progressive increasing semi-solid, and liquid stool throughout the colon along with gas distending the large bowel.. Semi-solid stool with air-fluid levels throughout the colon. Most pronounced dilatation right colon. The distended cecum resides to the left of midline measures up to 10 cm diameter. Small bowel relatively unremarkable with only minor dilatation proximal most small bowel. Terminal ileum unremarkable . No free fluid. No free air. No focal inflammation White Blood cell count was found to be 18.5; amylase elevated at 312; and lactate elevated at 2.4 . Stool studies were negative She received IV morphine and Zofran. She was started on Rocephin and given IVF bolus and continued on normal saline at 100 an hour. She was then admitted for further evaluation and treatment with the surgical consult Patient stated that she experienced difficulty with her bowels for the past 3 weeks and had only hard balls of stool. She had been Regulating her bowels by taking apple cider vinegar pills in the morning and a probiotic at night. She had not had any recent problems. She did have a colonoscopy in April 2018 and had 2 polyps removed. She noted a positive family history for colon cancer in her grandfather. The a.m. after admission she was feeling much better. She stated she passed a large amount of stool while in the emergency room and had 2 liquid stools since being on the floor. She continued to be nauseated without vomiting. The cramping had subsided and her abdomen was just sore. <Anitra Carson - 03/01/19 10:20> Hospital Course Hospital Course: Patient was seen by surgeon, Dr. Sam, who initially felt the patient had a possible obstructing mass. He felt she was clinically improving and followed her throughout her stay.. She also had a GI consult with the following comments: Irritable bowel syndrome without diarrhea Patient has had longstanding problems with IBS, constipation predominant for many years. She has variable bowel movements between constipation and obstipation that will revert to breakthrough diarrhea with bowel urgency and incontinence and then backed constipation obstipation. This has largely gone untreated. She is accustomed to skipping multiple days between bowel movements and felt as though the apple cider vinegar pills and a daily probiotic had improved her although she is still skipping multiple days. She developed a worsening of her underlying constipation over the course the past 3 months that got progressively worse in the past 3 weeks. She is also on calcium tablets 3 times a day that may be contributing to her constipation. Recent colonoscopy in April of this year just showed grade 1 internal hemorrhoids, TA x2 and SA x1, no physical anomaly to contribute to a acute bowel obstruction. Since admission, the patient has had multiple large bowel movements mostly liquid but also containing solid products. Her abdominal pain is improving. She is afebrile although with positive leukocytosis. She is tender to palpation generally throughout her abdomen. It appears as though she is spontaneously improving and I believe conservative measures are appropriate. If she continues to have bowel movements and symptoms continue to improve, likely she can start eating a low residue diet. I recommend that she start on a daily fiber bowel regimen of MiraLAX and Metamucil every day regardless of her symptoms and recommend that she follow-up with me in the office after discharge. She may need a repeat flex sig or further treatment but after discussion with Dr. Joseph, likely she can do this as an outpatient through our office. Patient did continue to improve. Dr. Sam felt that she had a progressive exacerbation of her functional bowel disorder. She was able to tolerate clear liquids and was started on low residue bland diet which she tolerated well. On 02/28/2019 abdominal cramping had ceased. She had no further nausea. She did have some additional stools the previous day. One stool was noted to have some blood in it. Stool for occult blood was positive. She noted no other blood in her stool. White blood cell count had decreased. She was ready for discharge 02/28/2019 patient was discharged home in stable and satisfactory condition. She was to follow-up with gastroenterology and Dr. Sam in 10 days. Meds as per list. She was to start on the MiraLAX/Metamucil regime. <Anitra Carson - 03/01/19 10:20> Objective Vital signs: Temp Pulse Resp BP Pulse Ox 98.1 F 85 18 139/75 100 02/28/19 08:00 02/28/19 08:00 02/28/19 08:00 02/28/19 08:00 02/28/19 08:00 <Matt Arceo - 03/04/19 08:50> Temp Pulse Resp BP Pulse Ox 98.1 F 85 18 139/75 100 02/28/19 08:00 02/28/19 08:00 02/28/19 08:00 02/28/19 08:00 02/28/19 08:00 <Anitra Carson - 03/01/19 08:15> Narrative: Exam Vital signs and Labs for Last 24 Hours: Temp Pulse Resp BP Pulse Ox 98.2 F 74 18 129/72 93 L 02/28/19 04:00 02/28/19 04:00 02/28/19 04:00 02/28/19 04:00 02/28/19 04:00 Laboratory Results - last 24 hr 02/27/19 06:40: Total Counted 100, Neutrophils % (Manual) 91 H, Lymphocytes % (Manual) 6 L, Monocytes % (Manual) 3, Platelet Estimate Normal, RBC Morphology Normal 02/27/19 : Stool Occult Blood Positive A 02/28/19 07:00: WBC 14.8 H, RBC 3.97 L, Hgb 12.7, Hct 39.2, MCV 98.7, MCH 32.0 H , MCHC 32.4, RDW 13.2, Plt Count 330, MPV 7.6, Neut % (Auto) 79.5, Lymph % (Auto) 15.7, [place] % (Auto) 2.8, Eos % (Auto) 1.8, Baso % (Auto) 0.2, Neut # (Auto) 11.8 H, Lymph # (Auto) 2.3, [place] # (Auto) 0.4, Eos # (Auto) 0.3, Baso # (Auto) 0.0 I & O for Last 24 hours: Intake & Output 02/25/19 02/26/19 02/27/19 02/28/19 11:59 11:59 11:59 11:59 Intake Total 719 / 719 2800 / 2800 Balance 719 / 719 2800 / 2800 Weight 212 lb 215 lb 7 oz Radiology Reports for the Last 24 Hours: 02/27/2019 acute abdominal series IMPRESSION: Scattered air-fluid levels within the large bowel with decrease stool burden compared to the previous study. - Constitutional no acute distress Comments: Sitting up in the bed eating her breakfast - *Routine Respiratory Exam Present: CTA bilaterally (Anteriorly and posteriorly) - *Routine Cardiovascular Exam Present: RRR - *Routine Abdominal Exam Present: soft, normoactive bowel sounds, tenderness, distended - *Routine Extremities Exam Absent: edema, calf tenderness, tenderness - *Routine Neurological Exam Present: alert, oriented X3 <Anitra Carson - 03/01/19 09:33> Results Completed studies during hospitalization [Text1]: Ct of Abd and pelvis 02/26/19 IMPRESSION: Unusual pattern which may reflect distal large bowel obstruction: Prominent stool and liquid stool dilated colon up to the rectosigmoid junction with rather abrupt transition at this point and relatively empty rectum.--this area will eventually require further evaluation with colonoscopy . Empty rectum but, with then with focal solid stool collection at rectosigmoid junction. Then proximal to this point, there is progressive Colonic Distention due to progressive increasing semi-solid, and liquid stool throughout the colon along with gas distending the large bowel.. Semi-solid stool with air-fluid levels throughout the colon. Most pronounced dilatation right colon. The distended cecum resides to the left of midline measures up to 10 cm diameter. Small bowel relatively unremarkable with only minor dilatation proximal most small bowel. Terminal ileum unremarkable . No free fluid. No free air. No focal inflammation acute abdominal series 02/27/19 IMPRESSION: Scattered air-fluid levels within the large bowel with decrease stool burden compared to the previous study. <Anitra Carson - 03/01/19 09:33> Labs on day of discharge: Preliminary micro results at discharge 02/26/19 20:40 Blood Culture - Preliminary Blood NO GROWTH AFTER 48 HOURS 02/26/19 20:40 Blood Culture - Preliminary Blood NO GROWTH AFTER 48 HOURS <Anitra Carson 03/01/19 08:15> DS: Diagnosis - Discharge Diagnosis (1) Colon obstruction Status: Acute (2) Constipation Status: Acute (3) Elevated amylase Status: Acute (4) Irritable bowel syndrome Status: Acute (5) Bilirubinuria Status: Acute (6) Leukocytosis Status: Acute <Matt Arceo - 03/04/19 08:50> (1) Colon obstruction Status: Acute (2) Constipation Status: Acute (3) Elevated amylase Status: Acute (4) Irritable bowel syndrome Status: Acute (5) Bilirubinuria Status: Acute (6) Leukocytosis Status: Acute <Anitra Carson 03/01/19 10:15> Discharge Plan - Patient Discharge Instructions ACTIVITY: Continue current activity <Anitra Carson 03/01/19 08:15> DIET: other (low residue) <Anitra Carson 03/01/19 08:15> Patient Instructions: DI for Constipation <Matt Arceo - 03/04/19 08:50> Forms: <Matt Arceo - 03/04/19 08:50> - Follow up Plan Follow up with: Morgan Sam MD [Staff Physician] - 10 days <Matt Arceo - 03/04/19 08:50> Disposition: Home, Self-Care <Matt Arceo - 03/04/19 08:50> Home Medications: Home Medications Medication Instructions Recorded Confirmed Type allopurinol 300 mg tablet 300 mg PO HS 01/04/18 03/03/19 History montelukast 10 mg tablet 10 mg PO HS 01/04/18 03/03/19 History Cyclobenzaprine HCl 5 mg PO TIDP PRN 02/27/19 03/03/19 History [Cyclobenzaprine 5mg Tab] Duloxetine HCl 120 mg PO DAILY 02/27/19 03/03/19 History Gabapentin [Gabapentin 300mg Cap] 300 mg PO HS 02/27/19 03/03/19 History Sulindac 150 mg PO Q12H 02/27/19 03/03/19 History Polyethylene Glycol 3350 [Miralax 17 gm PO DAILY #1 bottle 02/28/19 03/03/19 Rx Powder] Psyllium Husk (with Sugar) 3.4 g PO DAILY #1 bottle 02/28/19 03/03/19 Rx [Metamucil Powder] conjugated estrogens 0.9 mg tablet 0.9 mg PO DAILY 30 Days #30 tab 03/03/19 03/03/19 Rx duloxetine 30 mg capsule,delayed 30 mg PO cap 03/03/19 03/03/19 History release meloxicam 15 mg tablet 15 mg PO tab 03/03/19 03/03/19 History <Matt Arceo - 03/04/19 08:50> Prescriptions/Medication Reconciliation: New Psyllium Husk (with Sugar) [Metamucil Powder] 3.4 g PO DAILY #1 bottle Polyethylene Glycol 3350 [Miralax Powder] 17 gm PO DAILY #1 bottle Continued allopurinol 300 mg tablet 300 mg PO HS montelukast 10 mg tablet 10 mg PO HS Duloxetine HCl 120 mg PO DAILY Gabapentin [Gabapentin 300mg Cap] 300 mg PO HS Sulindac 150 mg PO Q12H Cyclobenzaprine HCl [Cyclobenzaprine 5mg Tab] 5 mg PO TIDP PRN PRN Reason: Muscle Spasm Discontinued calcium carbonate 500 mg (1,250 mg)-vitamin D3 125 unit tablet 500 mg PO BID No Action conjugated estrogens 0.9 mg tablet 0.9 mg PO DAILY 30 Days #30 tab duloxetine 30 mg capsule,delayed release 30 mg PO cap meloxicam 15 mg tablet 15 mg PO tab <Matt Arceo - 03/04/19 08:50> - Problem Reconciliation Problems Reviewed?: Yes <Matt Arceo - 03/04/19 08:50> Yes <Anitra Carson - 03/01/19 10:20> - Additional Information Additional Information: Patient seen and examined. Concur with plan for discharge as outlined above. <Matt Arceo - 03/04/19 08:50>
== END 2019-02-28 13:48 | disposition home or self-care (01) | DRG 392 ==
LOC: ER 19:09 → UTC 19:09 → ER 19:09 → 2ND 22:51
PROVIDERS: ADMIT Family Medicine; ATTEND Family Medicine
DX: K58.1 Irritable bowel syndrome with constipation
CPT/HCPCS: 36415; 74021; 74022; 74177; 80048; 80053; 81001; 82150; 82272; 83605; 83690; 85007; 85025; 85651; 86140; 87040; 87506; 93005; 96361; 96365; 96374; 96375; 99285; G0328; J2405; Q9967

== ENCOUNTER → 2019-03-06 12:23 | Outpatient (POV) | payer BC, SELFPAY | PROVIDERS: Visit Provider Nurse Practitioner Family | DX: Z00.00 Encounter for general adult medical examination without abnormal findings (principal) ==

== ENCOUNTER → 2019-03-14 10:13 | Outpatient (CLI) | payer BC, SELFPAY ==
--- NOTE | 2019-03-14 10:13 | MM_ITS ---
PROCEDURE: MM DIG SCREENING MAMM BI W/CAD Patient Age:58Y CLINICAL INDICATION: screening 58-year-old. Takes Premarin. No new complaints. 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 R2 CAD reviewed. FINDINGS: Mild asymmetry of the Minimal residual fibroglandular elements. No new dominant or suspicious mass. No suspicious calcifications. Comparison to multiple previous studies shows no significant new findings. The areas of density at the lateral right breast appear similar and stable when compared to 2008 cc view and the 2014 MLO view the somewhat patchy fibroglandular elements central left breast appear stable by IMPRESSION: Stable bilateral mammogram. Bilateral follow-up 1 year recommended BI-RAD Category: 2 Benign Finding(s) FOLLOW-UP: 1YR 1 Year Follow-up (A letter has been sent to the patient regarding results of the study.) Dictated by: Jean Claude Tapia MD 03/16/2019 23:32 Electronically signed by Jean Claude Tapia MD in [place] 03/16/2019 23:32
--- NOTE | 2019-03-14 10:13 | XR_ITS ---
PROCEDURE: XR DEXA AXIAL SKELETON CLINICAL HISTORY: post menopausal fracture right foot at age 57 COMPARISON: BONE BONE DENSITOMETRY(HIP:LT SPINE from 10/14/2012 FINDINGS: The average BMD lumbar spine L1 through L4 is 1.065 grams/centimeter squared and T-score 0.2. Bilateral hips: The total BMD right hip is 0.969 grams/centimeter sq with a T-score 0.2. The right femoral neck is 0.761 grams/centimeter sq with a T-score -0.8. Left hip: The total BMD is 0.941 grams/centimeter sq with T-score 0.0. The left femoral neck is 0.744 grams/centimeter sq with a T-score -0.9. IMPRESSION: Normal values for lumbar spine and bilateral hips Dictated by: Dr. Kamran Gongora MD 03/15/2019 09:[address] Kamran Gongora MD in [place] 03/15/2019 09:50
== END ==
PROVIDERS: PCP Family Medicine; Visit Provider Obstetrics & Gynecology
DX: Z12.31 Encounter for screening mammogram for malignant neoplasm of breast (principal); Z78.0 Asymptomatic menopausal state
CPT/HCPCS: 77067; 77080

== ENCOUNTER → 2019-04-24 10:10 | Outpatient (POV) | payer BC, SELFPAY | PROVIDERS: Visit Provider Nurse Practitioner Family | DX: Z00.00 Encounter for general adult medical examination without abnormal findings (principal) ==

== ENCOUNTER → 2019-05-22 08:51 | Outpatient (POV) | payer BC, SELFPAY | PROVIDERS: PCP Specialist; Visit Provider Specialist | DX: R20.2 Paresthesia of skin (principal); M79.672 Pain in left foot; M79.671 Pain in right foot | CPT/HCPCS: 95886; 95910 ==

== ENCOUNTER → 2019-08-18 10:32 | Outpatient (CLI) | payer BC, SELFPAY ==
--- NOTE | 2019-08-18 10:42 | XR_ITS ---
PROCEDURE: XR FOOT LT 2V CLINICAL INDICATION: RT FOOT PAIN COMPARISON: No exams were available for comparison FINDINGS: There is a small triangular shaped bone fragment sitting between the navicular bone and 2nd cuneiform bone. It has mildly sclerotic borders and likely is due to an old injury. Otherwise the tarsal bones metatarsals and phalanges all appear intact. Plantar arch is normal. There is a small spur of the calcaneus at the insertion of the plantar tendon. IMPRESSION: Probable old posttraumatic avulsion chip fracture base or body of the 2nd cuneiform bone, no definite recent fracture identified. Dictated by: Dr. Kamran Gongora MD 08/18/2019 10:[address] Kamran Gongora MD in [place] 08/18/2019 10:59
[2019-08-18 12:07] LABS: Erythrocyte Sedimentation Rate 19 mm/hr (0-30)
[2019-08-18 12:43] LABS: C-Reactive Protein 24.7 mg/L (0-4)
== END ==
PROVIDERS: PCP Family Medicine; Visit Provider Internal Medicine Rheumatology
DX: R51 Headache (principal); M19.90 Unspecified osteoarthritis, unspecified site; M79.673 Pain in unspecified foot
CPT/HCPCS: 36415; 73620; 85651; 86140

== ENCOUNTER → 2020-01-15 12:42 | Outpatient (CLI) | payer BC, SELFPAY ==
--- NOTE | 2020-01-15 | CA_ITS ---
APPROVED REPORT Sales Assistant: CT Laterality: Bilateral Indications: HEADACHE, PULSATILE RIGHT CAROTID Risk Factors Hypertension: Doppler Spectral Velocity Analysis ECA (R) 107.70/17.20 cm/s ECA (L) 83.10/15.00 cm/s dICA (R) 104.00/43.40 cm/s Kinsey (L) 82.10/29.90 cm/s Kinsey (R) 108.50/44.10 cm/s pICA (L) 59.90/22.40 cm/s pICA (R) 86.00/32.90 cm/s dCCA (L) 78.00/31.80 cm/s dCCA (R) 73.20/19.30 cm/s mCCA (L) 76.30/76.30 cm/s pCCA (R) 80.90/18.00 cm/s pCCA (L) 114.60/33.70 cm/s Vert (R) 43.20/13.70 cm/s Vert (L) 48.20/16.60 cm/s ICA/CCA 1.50 ICA/CCA 1.10 Findings Duplex evaluation demonstrates stenosis of the right proximal internal carotid artery <20%. Duplex evaluation demonstrates stenosis of the left proximal internal carotid artery <20%. Duplex evaluation demonstrates antegrade flow of the bilateral Vertebral Arteries. Conclusion Duplex evaluation demonstrates stenosis of the right proximal internal carotid artery <20%. Duplex evaluation demonstrates stenosis of the left proximal internal carotid artery <20%. Duplex evaluation demonstrates antegrade flow of the bilateral Vertebral Arteries. Electronically signed by : Shashi Mancuso MD 01/15/2020 18:31:47
== END ==
PROVIDERS: PCP Family Medicine; Visit Provider Nurse Practitioner Family
DX: M54.2 Cervicalgia (principal)
CPT/HCPCS: 93880

== ENCOUNTER 2020-02-07 10:00 | Outpatient (RCR) | payer BC, SELFPAY ==
--- NOTE | 2020-01-15 15:06 | HMH.PTOPEV ---
PT Outpatient Evaluation Rehab PT Outpatient Evaluation Start: 01/15/20 13:59 Freq: Status: Active Protocol: Document 01/15/20 13:59 CARRINGTONYARY (Rec: 01/15/20 15:06 DAYANGARDENIA [id number]) Electronically Signed By Thaddeus Howard, PT 01/15/20 13:59 Outpatient Therapy Subjective History Subjective History This is the initial Physical Therapy evaluation for Kristin Anna. Pt is a 59 y/o female referred to PT for c/o R sided cervical pain w/ intermittant BUE paresthesia. Pt reports insidious onset of pain ~ 1 year ago. Pt reports she had x-ray of cervical spine showing arthritis Pt reports pain in posterior R and anterior lateral right cervical area. Pt reports pain is relieved by muscle relaxers . Chief Complaint Pain,Spasms,Stiff Symptom Type Ache,Sharp,Stabbing,Burning, Tingling Symptoms Relieved By Prescription Meds Symptoms Aggravated By Physical Activity Current Functional Limitations Lifting,Housework,Driving, Sleeping,Recreation Activity Symptom Description Constant but Variable Level of pain today (0-10) 4 Pain scale - at its best (0-10) 3 Pain scale - at its worst (0-10) 8 Cervical Eval Palpation Cervical Muscles R SCM,R Upper Trapezius Cervical/Thoracic Palpation Findings Tenderness,Trigger Point Posture Head/C-Spine Posture Sitting Position Extended,C-Spine Flattened AROM Cervical Spine Extension Active Range of 30 Motion (degrees) Cervical Spine Flexion Active Range of 60 Motion (degrees) Cervical Spine Right Lateral Flexion 40 Active Range of Motion (degrees) Cervical Spine Left Lateral Flexion 20 Active Range of Motion (degrees) Cervical Spine Right Rotation Active 70 Range of Motion (degrees) Cervical Spine Left Rotation Active 80 Range of Motion (degrees) MMT Bilateral Deltoid (C5) 5 Normal Biceps Brachii Strength Grade 5 Normal Wrist Extension Strength Grade 5 Normal Triceps Brachii Strength Grade 5 Normal Wrist Flexion Strength Grade 5 Normal Extensor Pollicis Longus Strength Grade 5 Normal DTR Rt Biceps 2+ Lt Biceps 2+ Rt Brachioradialis 1+ Lt Brachioradialis 1+ Rt Triceps 1+ Lt Triceps
== END 2020-02-07 10:05 | disposition home or self-care (01) ==
LOC: PT 10:00
PROVIDERS: PCP Family Medicine; Visit Provider Nurse Practitioner Family
DX: M54.2 Cervicalgia (principal)
CPT/HCPCS: 20560; 97010; 97014; 97035; 97110; 97163; G0283

== ENCOUNTER → 2020-04-04 08:59 | Outpatient (CLI) | payer BC, SELFPAY ==
--- NOTE | 2020-04-04 08:59 | MM_ITS ---
PROCEDURE: MM DIG SCREENING MAMM BI W/CAD Referring Doctor: Denise William Patient Age:59Y CLINICAL INDICATION: Routine Screening Mammogram 59-year-old. No hormones, no new complaints. Noncontributory family history COMPARISON: MG DMSB DIGITAL MAMM-SCREEN BILATERAL from 10/06/2011 MG [id number] DIG MAMM-DX UNI ADD VIEWS-LT from 10/16/2011 MG DMSB DIG MAMM-SCREEN OLU from 10/10/2012 MG DMSB DIG MAMM-SCREEN OLU from 10/26/2013 MG DMSB DIG MAMM-SCREEN OLU from 01/22/2015 MG DMSB DIG MAMM-SCREEN OLU from 02/12/2016 MG SCBI MM Dig screening mamm BI w/CAD from 08/18/2017 MG MM DIG SCREENING MAMM BI W/CAD from 03/14/2019 TECHNIQUE: Standard CC and MLO images were obtained. R2 CAD reviewed. Bilateral digital breast tomosynthesis included. FINDINGS: Similar stable moderate asymmetry of residual fibroglandular elements Left breast:. Asymmetric residual fibroglandular elements are most evident towards the superior breast similar studies dating back to 2014.. On the additional close inspection and magnification today's images there very suggestion some very tiny barely evident calcifications seen at retroareolar region. Again these are very tiny and difficult to visualize on routine view/somewhat equivocal-but could be associated with a a duct possibly of vs could reflect developing adenosis.. Only questionably seen on previous studies would suggest magnification views: Cc, 90 degree and MLO magnification views to further evaluate. Elsewhere there are stable small punctate groupings calcifications at the more superior breast and another at deeper breast. These arm less concern. Right breast-no new areas of significant concern. Similar scattered areas of minor density have not changed appreciably. Follow-up 1 year adequate. IMPRESSION: Left breast- -When I magnify today's left breast images there is suggestion/question some extremely faint tiny calcifications developing the retroareolar region.. These are difficult to visualize, barely appreciable but would recommend magnification views to further evaluate. (Could reflect subtle early adenosis, early ductal calcifications considered. Magnification views warranted) -Elsewhere there are some stable benign punctate calcifications left breast Right breast-no new areas of significant concern. Follow-up right mammogram 1 year BI-RAD Category: 0 Need Additional Imaging Evaluation FOLLOW-UP: IMM Immediate Follow-up Recommended (A letter has been sent to the patient regarding results of the study.) Dictated by: Jean Claude Tapia MD 04/08/2020 11:25 Jean Claude Tapia MD in [place] 04/08/2020 11:25
== END ==
PROVIDERS: PCP Family Medicine; Visit Provider Obstetrics & Gynecology
DX: Z12.31 Encounter for screening mammogram for malignant neoplasm of breast (principal)
CPT/HCPCS: 77063; 77067

== ENCOUNTER → 2020-04-12 13:48 | Outpatient (CLI) | payer BC, SELFPAY ==
--- NOTE | 2020-04-12 13:48 | MM_ITS ---
PROCEDURE: MM DIG MAMM DX UNILAT LT CAD Digital Breast Tomosynthesis Included CLINICAL INDICATION: Dx Mammogram- abnormal mamm COMPARISON: MG SCBI MM Dig screening mamm BI w/CAD from 08/18/2017 MG MM DIG SCREENING MAMM BI W/CAD from 03/14/2019 MG MM DIG SCREENING MAMM BI W/CAD from 04/04/2020 TECHNIQUE: Spot-compression MLO and CC Mag views were obtained. FINDINGS: Mild asymmetrical glandular elements are again noted. There are couple of faint benign-appearing microcalcifications in the subareolar region. There is no evidence of architectural distortion and no other abnormalities noted. IMPRESSION: Problem solving views suggesting faint benign-appearing microcalcifications and mild asymmetric glandular elements and no suspicious lesions seen BI-RAD Category: 2 Benign Finding(s) FOLLOW-UP: 6M 6Month Follow-up to return to normal screening schedule (A letter has been sent to the patient regarding results of the study.) Dictated by: Dr. Kamran Gongora MD 04/23/2020 12:31 Dr. Kamran Gongora MD in [place] 04/23/2020 12:31
== END ==
PROVIDERS: PCP Family Medicine; Visit Provider Obstetrics & Gynecology
DX: R92.8 Other abnormal and inconclusive findings on diagnostic imaging of breast (principal)
CPT/HCPCS: 77061; 77065; G0279

== ENCOUNTER → 2020-05-21 14:57 | Outpatient (CLI) | payer BC, SELFPAY ==
--- NOTE | 2020-05-21 15:02 | XR_ITS ---
PROCEDURE: XR FOOT LT MIN 3V CLINICAL INDICATION: PAIN IN LT FOOT COMPARISON: CR XR FOOT LT 2V from 08/18/2019 FINDINGS: No fracture or dislocation. No lytic or blastic change. There is normal mineralization. A well-circumscribed calcific density is present at the dorsal aspect of the navicular cuneiform joint measuring 9 mm similar to the previous exam and may be due to an old avulsion fracture. Osteoarthritic changes are present at the navicular cuneiform joint and tarsal metatarsal junction. Other findings:None. IMPRESSION: No acute findings. Dictated by: Shashi Mancuso MD 05/21/2020 15:19 Shashi Mancuso MD in [place] 05/21/2020 15:19
== END ==
PROVIDERS: PCP Family Medicine; Visit Provider Family Medicine
DX: M79.672 Pain in left foot (principal)
CPT/HCPCS: 73630

== ENCOUNTER → 2020-09-23 10:38 | Outpatient (POV) | payer BC, SELFPAY | PROVIDERS: Visit Provider Nurse Practitioner Family | DX: Z00.00 Encounter for general adult medical examination without abnormal findings (principal) ==

== ENCOUNTER → 2020-09-25 14:22 | Outpatient (CLI) | payer BC, SELFPAY | PROVIDERS: PCP Family Medicine; Visit Provider Obstetrics & Gynecology | DX: R92.8 Other abnormal and inconclusive findings on diagnostic imaging of breast (principal) ==

== ENCOUNTER → 2020-10-09 08:53 | Outpatient (CLI) | payer BC, SELFPAY ==
[2020-10-09 09:38] LABS: Erythrocyte Sedimentation Rate 17 mm/hr (0-30)
[2020-10-09 09:52] LABS: Chloride 104 mmol/L (98-107)
[2020-10-09 09:53] LABS: Potassium 4.9 mmoL/L (3.5-5.1); Sodium 140 mmol/L (136-145)
[2020-10-09 09:55] LABS: Alanine Aminotransferase 15 U/L (12-78); Albumin Level 4.5 g/dl (3.5-5.0); Albumin/Globulin Ratio 1.9 (1.1-1.8); Alkaline Phosphatase 98 U/L (38-126); Anion Gap 10.9 mEq/L (5-15); Aspartate Amino Transferase 23 U/L (14-36); Bilirubin,Total 0.7 mg/dl (0.2-1.3); Blood Urea Nitrogen 17 mg/dl (7-17); Carbon Dioxide 30 mmol/L (22.0-30.0); Estimated Glomerular Filt Rate 74 ml/min (>60); GFR (African American) 89 ML/MIN (>60); Globulin 2.4 g/dL (1.3-3.2); Total Protein,Serum 6.9 g/dl (6.3-8.2)
[2020-10-09 09:56] LABS: Calcium 9.6 mg/dl (8.4-10.2); Glucose 93 mg/dl (74-100)
[2020-10-09 10:01] LABS: C-Reactive Protein 7.5 mg/L (0-4)
[2020-10-10 10:12] LABS: RA Latex Turbid. 12.8 IU/mL (0.0-13.9)
== END ==
PROVIDERS: Visit Provider Internal Medicine Rheumatology
DX: R76.8 Other specified abnormal immunological findings in serum (principal); Z51.81 Encounter for therapeutic drug level monitoring
CPT/HCPCS: 36415; 80053; 85651; 86140; 86431

== ENCOUNTER → 2020-12-02 14:36 | Outpatient (CLI) | payer BC, SELFPAY ==
--- NOTE | 2020-12-02 14:37 | MM_ITS ---
PROCEDURE: MM DIG MAMM DX UNILAT LT CAD Digital Breast Tomosynthesis Included CLINICAL INDICATION: abnormal mammogram Follow-up calcifications COMPARISON: MG MM DIG SCREENING MAMM BI W/CAD from 03/14/2019 MG MM DIG SCREENING MAMM BI W/CAD from 04/04/2020 MG MM DIG MAMM DX UNILAT LT CAD from 04/12/2020 TECHNIQUE: Standard images performed with 3D tomosynthesis and Mag views FINDINGS: There are scattered areas of fibroglandular density Previously described faint calcifications in the upper aspect of the left breast laterally and centrally and asymmetric fibroglandular elements are not significantly changed. No suspicious abnormalities apparent. IMPRESSION: Benign findings. No evidence of malignancy BI-RAD Category: 2 Benign Finding FOLLOW-UP: 6M 6 Month Follow-up Recommend patient return to bilateral screening in March 2021. (A letter has been sent to the patient regarding results of the study.) Dictated by: Shashi Mancuso MD 12/11/2020 09:30 Shashi Mancuso MD in [place] 12/11/2020 09:30
== END ==
PROVIDERS: PCP Family Medicine; Visit Provider Obstetrics & Gynecology
DX: R92.8 Other abnormal and inconclusive findings on diagnostic imaging of breast (principal)
CPT/HCPCS: 77061; 77065; G0279

== ENCOUNTER → 2020-12-06 15:22 | Outpatient (CLI) | payer BC, SELFPAY ==
--- NOTE | 2020-12-06 15:24 | MR_ITS ---
PROCEDURE INFORMATION: Exam: MR Left Lower Extremity Other Than Joint Without Contrast; Foot Exam date and time: 12/06/2020 3:24 PM Age: 60 years old Clinical indication: Pain; Foot; Left; Additional info: Foot pain dorsal foot pain. Pain when walking. Prior x-ray 05-21-20 TECHNIQUE: Imaging protocol: MR of the Left lower extremity without contrast. Exam focused on the foot. COMPARISON: CR XR FOOT LT MIN 3V 05/21/2020 3:08 PM FINDINGS: Bones and cartilage: There is a linear band of low T1 signal in the proximal 4th metatarsal diaphysis, with surrounding periosteal reaction. This is compatible with a stress fracture, but there is only mild marrow edema present, and this is probably subacute to chronic. Chronic/corticated ossific body is seen near the dorsal margin of the naviculocuneiform joint. Bipartite medial hallux sesamoid, with mild mechanical/reactive edema. There is apparent fluid signal in the distal portion of the cuboid suggesting intraosseous cyst formation. Joint spaces: Small to moderate size posterior ankle joint and posterior subtalar joint effusion (with likely communication between these joint spaces). Ankle joint is relatively well preserved. Severe naviculocuneiform joint osteoarthrosis, with veli-ma-[id number] articulation, prominent dorsal osteophytes, and subchondral edema/cyst formation. Severe 2nd TMT joint space loss with pgon-as-lsol articulation, subchondral edema/cyst formation, and joint line osteophytes. Moderate 3rd TMT joint osteoarthrosis. Mild degenerative spurring of the 4/5 TMT joints. Small 1st MTP joint effusion, likely mechanical/reactive LIGAMENTS: Anterior talofibular ligament: Diminutive in appearance. Suspect a chronic partial tear. Posterior talofibular ligament: Unremarkable. No evidence of tear. Calcaneofibular ligament: Unremarkable. No evidence of tear. Deltoid ligament complex: Unremarkable. No evidence of tear. Lisfranc ligament: Unremarkable. No evidence of tear. TENDONS: Flexor tendons of foot: Small amount of fluid in the flexor digitorum longus and flexor hallucis longus tendons compatible with mild tenosynovitis. No tear. Tibialis posterior tendon: Unremarkable as visualized. Peroneal tendons: Mild tenosynovitis. No tear. Extensor tendons of foot: Mild tenosynovitis of the extensor digitorum longus at the level of the ankle joint. No tear. Tibialis anterior tendon: Unremarkable as visualized. Achilles tendon: Unremarkable. No tear. Tarsal canal (Sinus tarsi): Preserved fat signal. Small volume fluid in the bursa of Gruberi. Tarsal tunnel: Unremarkable. Soft tissues: There is mild soft tissue edema around the midfoot degenerative changes. There is mild subcutaneous adipose tissue edema in the plantar heel fat pad, which may relate to plantar fasciitis. Plantar fascia: There is thickening of the plantar fascia central cord, measuring up to 6 mm, suggesting mild fasciitis. IMPRESSION: 1. Stress fracture of the proximal 4th metatarsal shaft, favored to be subacute to chronic in nature. Correlate for point tenderness. 2. Multifocal midfoot degenerative changes, most advanced at the naviculocuneiform joint and 2nd TMT joint. 3. Mild plantar fasciitis suggested. 4. Mild tenosynovitis involving the flexor digitorum longus, flexor hallucis longus, extensor digitorum longus, and peroneal tendons. Mild Gruberi bursitis.
== END ==
PROVIDERS: PCP Family Medicine; Visit Provider Internal Medicine Rheumatology
DX: M79.672 Pain in left foot (principal)
CPT/HCPCS: 73718

== ENCOUNTER → 2021-01-10 10:11 | Outpatient (CLI) | payer BC, SELFPAY ==
[2021-01-10 11:06] LABS: Alanine Aminotransferase 18 U/L (12-78); Albumin Level 4.4 g/dl (3.5-5.0); Albumin/Globulin Ratio 1.8 (1.1-1.8); Alkaline Phosphatase 95 U/L (38-126); Aspartate Amino Transferase 24 U/L (14-36); Bilirubin,Total 0.4 mg/dl (0.2-1.3); Blood Urea Nitrogen 14 mg/dl (7-17); Calcium 9.8 mg/dl (8.4-10.2); Carbon Dioxide 30 mmol/L (22.0-30.0); Chloride 105 mmol/L (98-107); Chol/HDL Ratio 3.8 (1-3.5); Cholesterol 222 mg/dl (140-200); Estimated Glomerular Filt Rate 102 ml/min (>60); GFR (African American) 124 ML/MIN (>60); Globulin 2.4 g/dL (1.3-3.2); Glucose 95 mg/dl (74-100); HDL Cholesterol 58 mg/dl (40-60); Sodium 142 mmol/L (136-145); Total Protein,Serum 6.8 g/dl (6.3-8.2); Triglycerides 99 mg/dl (30-150); Uric Acid 7.6 mg/dl (2.5-6.2); VLDL Cholesterol 20 mg/dL (0-40)
[2021-01-10 11:18] LABS: Direct LDL Cholesterol 120.28 mg/dL (100-129)
[2021-01-10 11:30] LABS: Anion Gap 11.4 mEq/L (5-15); Potassium 4.4 mmoL/L (3.5-5.1)
== END ==
PROVIDERS: Visit Provider Family Medicine
DX: E78.00 Pure hypercholesterolemia, unspecified (principal); M10.9 Gout, unspecified
CPT/HCPCS: 36415; 80053; 80061; 84443; 84550

== ENCOUNTER → 2021-04-15 08:55 | Outpatient (CLI) | payer BC, SELFPAY ==
[2021-04-15 10:33] LABS: Basophils # 0.1 K/mm3 (0-0.2); Basophils % 1.1 % (0.1-2.0); Eosinophils # 0.3 K/mm3 (0.0-0.4); Eosinophils % 4.3 % (0.1-12.0); Hematocrit 44.6 % (37.0-47.0); Hemoglobin 14.2 g/dL (12.2-16.2); Lymphocytes # 1.4 K/mm3 (0.7-4.5); Lymphocytes % 19.1 % (10-50); Mean Corpuscular HGB Conc 31.9 g/dL (31.8-35.4); Mean Corpuscular Hemoglobin 30.8 pg (27.0-31.2); Mean Corpuscular Volume 96.4 fl (81-99); Mean Platelet Volume 7.6 fl (7.4-10.4); Monocytes # 0.3 K/mm3 (0.1-1.0); Monocytes % 4.2 % (1.7-9.3); Neutrophils # 5.4 K/mm3 (1.8-7.8); Neutrophils % 71.4 % (37.0-80.0); Platelet Count 334 K/mm3 (142-424); Red Blood Count 4.63 M/mm3 (4.20-5.40); Red Cell Distribution Width 12.9 % (11.5-17.5); White Blood Count 7.6 K/mm3 (4.8-10.8)
[2021-04-15 11:07] LABS: Erythrocyte Sedimentation Rate 13 mm/hr (0-30)
[2021-04-15 11:14] LABS: Chloride 102 mmol/L (98-107)
[2021-04-15 11:15] LABS: Potassium 4.9 mmoL/L (3.5-5.1); Sodium 138 mmol/L (136-145)
[2021-04-15 11:17] LABS: Alanine Aminotransferase 15 U/L (12-78); Albumin Level 4.5 g/dl (3.5-5.0); Alkaline Phosphatase 87 U/L (38-126); Anion Gap 12.9 mEq/L (5-15); Aspartate Amino Transferase 24 U/L (14-36); Bilirubin,Total 0.6 mg/dl (0.2-1.3); Blood Urea Nitrogen 13 mg/dl (7-17); Carbon Dioxide 28 mmol/L (22.0-30.0); Estimated Glomerular Filt Rate 73 ml/min (>60); GFR (African American) 89 ML/MIN (>60); Total Protein,Serum 6.7 g/dl (6.3-8.2)
[2021-04-15 11:18] LABS: Calcium 9.9 mg/dl (8.4-10.2); Globulin 2.2 g/dL (1.3-3.2); Glucose 89 mg/dl (74-100)
[2021-04-15 11:24] LABS: C-Reactive Protein 7.7 mg/L (0-4)
== END ==
PROVIDERS: PCP Family Medicine; Visit Provider Internal Medicine Rheumatology
DX: M25.473 Effusion, unspecified ankle (principal); Z51.81 Encounter for therapeutic drug level monitoring
CPT/HCPCS: 36415; 80053; 85025; 85651; 86140

== ENCOUNTER → 2021-05-08 16:18 | Outpatient (CLI) | payer BC, SELFPAY ==
--- NOTE | 2021-05-08 16:22 | XR_ITS ---
PROCEDURE INFORMATION: Exam: XR Left Knee Exam date and time: 05/08/2021 4:22 PM Age: 60 years old Clinical indication: Pain; Knee; Left; Patient HX: Possible washburn cyst; Additional info: Acute left knee pain TECHNIQUE: Imaging protocol: XR Left knee. Views: 3 views. COMPARISON: CR [id number] KNEE-3 VIEWS-LT 01/22/2015 12:02 PM FINDINGS: Bones/joints: ACL tunnel and screws are unchanged. Moderate medial compartment narrowing. Mild tricompartmental degenerative change. Soft tissues: No effusion or soft tissue swelling. IMPRESSION: Degenerative changes.
== END ==
PROVIDERS: PCP Family Medicine; Visit Provider Physician Assistant
DX: M25.562 Pain in left knee (principal)
CPT/HCPCS: 73562

== ENCOUNTER → 2021-06-26 12:20 | Outpatient (CLI) | payer BC, SELFPAY ==
[2021-06-26 13:06] LABS: Basophils # 0.1 K/mm3 (0-0.2); Eosinophils # 0.3 K/mm3 (0.0-0.4); Eosinophils % 4.4 % (0.1-12.0); Hematocrit 41.8 % (37.0-47.0); Hemoglobin 13.6 g/dL (12.2-16.2); Lymphocytes # 1.3 K/mm3 (0.7-4.5); Lymphocytes % 20.3 % (10-50); Mean Corpuscular HGB Conc 32.6 g/dL (31.8-35.4); Mean Corpuscular Hemoglobin 31.5 pg (27.0-31.2); Mean Corpuscular Volume 96.7 fl (81-99); Mean Platelet Volume 7.7 fl (7.4-10.4); Monocytes # 0.2 K/mm3 (0.1-1.0); Monocytes % 3.8 % (1.7-9.3); Neutrophils # 4.5 K/mm3 (1.8-7.8); Neutrophils % 70.6 % (37.0-80.0); Platelet Count 306 K/mm3 (142-424); Red Blood Count 4.32 M/mm3 (4.20-5.40); White Blood Count 6.3 K/mm3 (4.8-10.8)
[2021-06-26 14:41] LABS: Erythrocyte Sedimentation Rate 17 mm/hr (0-30)
[2021-06-26 15:12] LABS: Alanine Aminotransferase 20 U/L (12-78); Albumin Level 4.2 g/dl (3.5-5.0); Albumin/Globulin Ratio 1.9 (1.1-1.8); Alkaline Phosphatase 87 U/L (38-126); Anion Gap 9.7 mEq/L (5-15); Aspartate Amino Transferase 23 U/L (14-36); Bilirubin,Total 0.4 mg/dl (0.2-1.3); Blood Urea Nitrogen 18 mg/dl (7-17); Calcium 9.3 mg/dl (8.4-10.2); Carbon Dioxide 28 mmol/L (22.0-30.0); Chloride 106 mmol/L (98-107); Estimated Glomerular Filt Rate 86 ml/min (>60); GFR (African American) 104 ML/MIN (>60); Globulin 2.2 g/dL (1.3-3.2); Glucose 111 mg/dl (74-100); Potassium 4.7 mmoL/L (3.5-5.1); Sodium 139 mmol/L (136-145); Total Protein,Serum 6.4 g/dl (6.3-8.2)
[2021-06-26 15:17] LABS: C-Reactive Protein 10.4 mg/L (0-4)
== END ==
PROVIDERS: Visit Provider Internal Medicine Rheumatology
DX: Z51.81 Encounter for therapeutic drug level monitoring (principal)
CPT/HCPCS: 36415; 80053; 85025; 85651; 86140

== ENCOUNTER → 2021-09-16 11:13 | Outpatient (CLI) | payer BC, SELFPAY ==
--- NOTE | 2021-09-16 11:21 | XR_ITS ---
FINAL REPORT CLINICAL HISTORY: SICK FOR A COUPLE WEEKS.... LOSS OF VOICE COMPARISON: 04/30/2018 FINDINGS: Two views of the chest were obtained. The heart size and pulmonary vascularity are within normal limits. The mediastinum is normal. No acute pulmonary abnormality is identified. There is no pneumothorax. The bony thorax is intact. IMPRESSION: No active cardiopulmonary disease. Reviewed, Interpreted and Dictated by Morgan Segura III, MD Transcribed by Anitra Ochoa Authenticated and [facility]
[2021-09-16 11:55] LABS: Adenovirus,PCR Not Detected (NotDetected); Bordetella Pertussis Not Detected (NotDetected); Chlamydophila Pneumoniae, PCR Not Detected (NotDetected); Coronavirus 229E Not Detected (NotDetected); Coronavirus NL63 Not Detected (NotDetected); Coronavirus OC43 Not Detected (NotDetected); Coronovirus HKU1,PCR Not Detected (NotDetected); Human Metapneumovirus Not Detected (NotDetected); Influenza A, PCR Not Detected (NotDetected); Influenza AH1, 2009 Not Detected (NotDetected); Influenza AH1, PCR Not Detected (NotDetected); Influenza AH3,PCR Not Detected (NotDetected); Influenza B, PCR Not Detected (NotDetected); Mycoplasma Pneumoniae, PCR Not Detected (NotDetected); Parainfluenza 1, PCR Not Detected (NotDetected); Parainfluenza 2, PCR Not Detected (NotDetected); Parainfluenza 3, PCR Not Detected (NotDetected); Parainfluenza 4, PCR Not Detected (NotDetected); Respiratory Syncytial Virus Not Detected (NotDetected); Rhinovirus/Enterovirus Not Detected (NotDetected)
== END ==
PROVIDERS: PCP Family Medicine; Visit Provider Family Medicine
DX: J06.9 Acute upper respiratory infection, unspecified (principal); R05.3 Chronic cough
CPT/HCPCS: 71046; 87486; 87581; 87632; 87798

== ENCOUNTER → 2021-11-27 11:35 | Outpatient (CLI) | payer BC, SELFPAY ==
--- NOTE | 2021-11-27 11:45 | XR_ITS ---
FINAL REPORT CLINICAL HISTORY: INJURY OF LEFT SHOULDER FINDINGS: LEFT SHOULDER Two views demonstrate no acute fracture or dislocation. There are mild degenerative changes at the acromioclavicular joint and glenohumeral joint. The visualized bony structures are well aligned. No soft tissue abnormality is seen. IMPRESSION: Degenerative change with no acute process. Reviewed, Interpreted and Dictated by Morgan Segura III, MD Transcribed by Marlen Valerio Authenticated and [facility]
== END ==
PROVIDERS: PCP Family Medicine; Visit Provider Physician Assistant
DX: S49.92XA Unspecified injury of left shoulder and upper arm, initial encounter (principal)
CPT/HCPCS: 73030

== ENCOUNTER → 2021-11-28 14:54 | Outpatient (CLI) | payer BC, SELFPAY ==
--- NOTE | 2021-11-28 15:09 | MR_ITS ---
FINAL REPORT CLINICAL HISTORY: INJURY OF LEFT SHOULDERpain in left shoulder x 6 months pt stated she heard a swoosh in her shoulder when picking up her dog unable to move arm best images possible FINDINGS: Multiplanar MR imaging of the left shoulder was performed without contrast. There is a partial thickness articular surface tear of the supraspinatus tendon involving greater than 50% of tendon thickness. There is a partial thickness articular surface tear of the supraspinatus tendon involving less than 50% of tendon thickness. There is a partial thickness articular surface tear of the infraspinatus tendon involving greater than 50% of tendon thickness. There is mild AC joint degenerative change. A large amount of fluid is seen in the subacromial/subdeltoid bursa likely representing bursitis. The glenoid labrum is intact. The long head of the biceps tendon is intact. No significant glenohumeral joint effusion is seen. There is no evidence of fracture or dislocation. The musculature is intact. There is no evidence of soft tissue mass. IMPRESSION: Partial thickness supraspinatus tendon and infraspinatus tendon tears, greater than 50%. Partial thickness supraspinatus tendon tear, less than 50%. Bursitis. Mild AC joint arthrosis. Reviewed, Interpreted and Dictated by Morgan Segura III, MD Transcribed by Asad Saha Authenticated and [facility]
== END ==
PROVIDERS: PCP Family Medicine; Visit Provider Physician Assistant
DX: S49.92XA Unspecified injury of left shoulder and upper arm, initial encounter (principal)
CPT/HCPCS: 73221

== ENCOUNTER → 2021-12-19 10:38 | Outpatient (CLI) | payer BC, SELFPAY ==
--- NOTE | 2021-12-19 10:43 | XR_ITS ---
FINAL REPORT CLINICAL HISTORY: pain, non healing FINDINGS: LEFT FOOT: Three views of the left foot were obtained. There is no acute fracture or dislocation. There are moderate degenerative changes of the midfoot. A calcaneal spur is noted. There is a loose body superior to the midfoot measuring 7 mm. IMPRESSION: Degenerative change with no acute bony abnormality. Reviewed, Interpreted and Dictated by Morgan Segura III, MD Transcribed by Marlen Valerio Authenticated and [facility]
== END ==
PROVIDERS: PCP Family Medicine; Visit Provider Podiatrist
DX: M79.672 Pain in left foot (principal)
CPT/HCPCS: 73630

== ENCOUNTER → 2022-01-07 09:59 | Outpatient (CLI) | payer BC, SELFPAY ==
--- NOTE | 2022-01-07 10:09 | XR_ITS ---
FINAL REPORT CLINICAL HISTORY: pain FINDINGS: 3 views of the right foot were obtained. There is no acute fracture or dislocation. There is moderate degenerative change of the midfoot of uncertain significance. There is a plantar calcaneal spur. There is chronic appearing fragmentation of the medial sesamoid of the great toe. 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 Reviewed, Interpreted and Dictated by Morgan Segura III, MD Transcribed by Asad Saha Authenticated and [facility]
--- NOTE | 2022-01-07 10:09 | XR_ITS ---
FINAL REPORT CLINICAL HISTORY: pain FINDINGS: RIGHT ANKLE: Three views of the right ankle were obtained. There is no acute fracture or dislocation. There are mild degenerative changes. There is a small calcification in the region of the posterior plantar aponeurosis. There is a plantar calcaneal spur. There is no soft tissue abnormality. IMPRESSION: Mild degenerative change. Reviewed, Interpreted and Dictated by Morgan Segura III, MD Transcribed by Asad Saha Authenticated and [facility]
--- NOTE | 2022-01-07 10:09 | XR_ITS ---
FINAL REPORT CLINICAL HISTORY: pain COMPARISON: Foot x-ray from December 19, 2021 FINDINGS: LEFT ANKLE: Three views of the left ankle were obtained. There is no acute fracture or dislocation. There are mild degenerative changes. There is a plantar calcaneal spur. There is moderate degenerative change of the midfoot. There is a stable chronic calcification superior to the midfoot. IMPRESSION: Mild and moderate degenerative changes. Reviewed, Interpreted and Dictated by Morgan Segura III, MD Transcribed by Asad Saha Authenticated and [facility]
[2022-01-07 11:30] LABS: Alanine Aminotransferase 26 U/L (12-78); Albumin Level 3.9 g/dl (3.5-5.0); Albumin/Globulin Ratio 1.8 (1.1-1.8); Alkaline Phosphatase 103 U/L (38-126); Anion Gap 13.2 mEq/L (5-15); Aspartate Amino Transferase 28 U/L (14-36); Bilirubin,Total 0.4 mg/dl (0.2-1.3); Blood Urea Nitrogen 18 mg/dl (7-17); Calcium 9.3 mg/dl (8.4-10.2); Carbon Dioxide 32 mmol/L (22.0-30.0); Chloride 99 mmol/L (98-107); Estimated Glomerular Filt Rate 73 ml/min (>60); GFR (African American) 89 ML/MIN (>60); Globulin 2.2 g/dL (1.3-3.2); Glucose 85 mg/dl (74-100); Potassium 5.2 mmoL/L (3.5-5.1); Sodium 139 mmol/L (136-145); Total Protein,Serum 6.1 g/dl (6.3-8.2); Uric Acid 6.2 mg/dl (2.5-6.2)
[2022-01-07 11:45] LABS: 25-OH Vitamin D, Total 39.2 ng/mL (30-100)
== END ==
PROVIDERS: Physician Assistant; PCP Family Medicine; Visit Provider Podiatrist
DX: M79.671 Pain in right foot (principal); M25.571 Pain in right ankle and joints of right foot; M25.572 Pain in left ankle and joints of left foot; T14.8XXA Other injury of unspecified body region, initial encounter
CPT/HCPCS: 36415; 73610; 73630; 80053; 82306; 84550

== ENCOUNTER 2022-02-20 10:00 | Outpatient (RCR) | payer BC, SELFPAY | END 2022-02-20 10:05 | disposition home or self-care (01) | LOC: OT 10:00 | PROVIDERS: PCP Family Medicine; Visit Provider Orthopaedic Surgery | DX: M79.18 Myalgia, other site (principal) | CPT/HCPCS: 97010; 97014; 97035; 97140; 97165; 97530; G0283 ==

== ENCOUNTER → 2022-04-02 10:29 | Outpatient (CLI) | payer BC, SELFPAY ==
--- NOTE | 2022-04-02 10:38 | XR_ITS ---
FINAL REPORT CLINICAL HISTORY: leg pain, weakness FINDINGS: AP and lateral views of the lumbar spine were obtained. There is no prior exam for comparison. There is no acute fracture. There is grade 1-2 anterior spondylolisthesis of L5 on S1. Alignment is otherwise normal. Vertebral body height is preserved. There is degenerative disc disease most pronounced at L5-S1. The paraspinal soft tissues are normal. IMPRESSION: Degenerative disc disease most pronounced at L5-S1 with grade 1 - 2 anterior spondylolisthesis of L5 on S1. Reviewed, Interpreted and Dictated by Emmy Rainey MD Transcribed by Marlen Valerio Authenticated and . [facility]
== END ==
PROVIDERS: PCP Family Medicine; Visit Provider Nurse Practitioner Family
DX: M54.50 Low back pain, unspecified (principal); R20.0 Anesthesia of skin; R20.2 Paresthesia of skin; R29.898 Other symptoms and signs involving the musculoskeletal system
CPT/HCPCS: 72100

== ENCOUNTER → 2022-04-09 16:56 | Outpatient (CLI) | payer BC, SELFPAY ==
[2022-04-09 17:09] LABS: Microscopic, Urine URINE MICROSCOPIC (MICROSCOPIC)
[2022-04-09 17:52] LABS: Basophils # 0.1 K/mm3 (0-0.2); Basophils % 0.8 % (0.1-2.0); Eosinophils # 0.3 K/mm3 (0.0-0.4); Eosinophils % 3.5 % (0.1-12.0); Hematocrit 41.1 % (37.0-47.0); Hemoglobin 13.5 g/dL (12.2-16.2); Lymphocytes # 1.6 K/mm3 (0.7-4.5); Lymphocytes % 17.9 % (10-50); Mean Corpuscular HGB Conc 32.8 g/dL (31.8-35.4); Mean Corpuscular Hemoglobin 32.8 pg (27.0-31.2); Mean Platelet Volume 8.2 fl (7.4-10.4); Monocytes # 0.3 K/mm3 (0.1-1.0); Neutrophils # 6.5 K/mm3 (1.8-7.8); Neutrophils % 74.7 % (37.0-80.0); Platelet Count 304 K/mm3 (142-424); Red Blood Count 4.11 M/mm3 (4.20-5.40); White Blood Count 8.6 K/mm3 (4.8-10.8)
[2022-04-09 17:54] LABS: Appearance,Urine CLEAR (Clear); Bilirubin,Urine Negative (Negative); Blood, Urine Negative (Negative); Color,Urine YELLOW (Yellow); Glucose,Urine (UA) Negative (Negative); Ketones,Urine Negative (Negative); Leukocyte Esterase,Urine Negative (Negative); Nitrate,Urine Negative (Negative); PH,Urine 7.5 (5.0-8.5); Protein,Urine Negative (Negative)
[2022-04-09 17:56] LABS: Squamous Epithelial Cell,Urine Occasional #/hpf (0-5); WBC,Urine Occasional #/hpf (0-3)
[2022-04-09 18:55] LABS: Alanine Aminotransferase 32 U/L (12-78); Albumin/Globulin Ratio 1.8 (1.1-1.8); Alkaline Phosphatase 86 U/L (38-126); Anion Gap 8.1 mEq/L (5-15); Aspartate Amino Transferase 33 U/L (14-36); Bilirubin,Total 0.6 mg/dl (0.2-1.3); Blood Urea Nitrogen 19 mg/dl (7-17); Carbon Dioxide 33 mmol/L (22.0-30.0); Chloride 105 mmol/L (98-107); Estimated Glomerular Filt Rate 64 ml/min (>60); GFR (African American) 77 ML/MIN (>60); Globulin 2.2 g/dL (1.3-3.2); Glucose 103 mg/dl (74-100); Potassium 5.1 mmoL/L (3.5-5.1); Sodium 141 mmol/L (136-145); Total Protein,Serum 6.2 g/dl (6.3-8.2)
== END ==
PROVIDERS: PCP Nurse Practitioner Family; Visit Provider Orthopaedic Surgery
DX: Z01.818 Encounter for other preprocedural examination (principal)
CPT/HCPCS: 36415; 80053; 81001; 85025

== ENCOUNTER → 2022-04-13 15:09 | Outpatient (CLI) | payer BC, SELFPAY ==
--- NOTE | 2022-04-13 15:10 | MR_ITS ---
PROCEDURE INFORMATION: Exam: MR Lumbar Spine Without and With Contrast Exam date and time: 04/13/2022 3:18 PM Age: 61 years old Clinical indication: Low back pain; Additional info: Left leg pain, weakness, abn exam. Left leg weakness with numbness and tingling TECHNIQUE: Imaging protocol: Magnetic resonance imaging of the lumbar spine without and with contrast. Contrast material: PROHANCE; Contrast volume: 17 ml; Contrast route: IV; COMPARISON: MR LUMBAR SPINE WO CON 12/07/2018 2:08 PM FINDINGS: Bones/joints: There is grade 1 anterolisthesis of L5. Alignment of the vertebral bodies is otherwise normal. No vertebral body compression seen. Spinal cord: Visualized cord, conus medullaris and cauda equina are unremarkable without compression. L1-L2: No significant disc disease. No significant spinal canal stenosis. No neural foraminal stenosis. L2-L3: At L2-L3, there is disc desiccation with disc space narrowing and mild diffuse disc bulge producing mild central canal stenosis and mild bilateral neural foramen narrowing L3-L4: At L3-L4, there is mild diffuse disc bulge producing mild bilateral neural foramen narrowing L4-L5: At L4-L5, there is disc desiccation with diffuse left eccentric disc bulge as well as severe bilateral facet arthropathy producing moderate central canal stenosis and moderate bilateral neural foramen narrowing L5-S1: At L5-S1, there is disc desiccation with disc space narrowing, diffuse disc bulge and severe bilateral facet arthropathy producing moderate central canal stenosis and severe bilateral neural foramen narrowing. Soft tissues: Unremarkable. IMPRESSION: Interval worsening of severe bilateral facet arthropathy and grade 1 anterolisthesis at the lumbosacral junction as well as moderate multilevel degenerative disc disease and [id number] multilevel spinal stenosis as described. No focal disc herniation evident.
== END ==
PROVIDERS: PCP Family Medicine; Visit Provider Nurse Practitioner Family
DX: M54.50 Low back pain, unspecified (principal); R20.0 Anesthesia of skin; R20.2 Paresthesia of skin; R29.898 Other symptoms and signs involving the musculoskeletal system
CPT/HCPCS: 72158; 76376; A9576

== ENCOUNTER 2022-04-16 12:24 | Day surgery (SDC) | payer BC, SELFPAY ==
[2022-04-14 10:17] VITALS: BMI 30.7
[2022-04-16] VITALS (10 sets, daily range): BP systolic 145–160; BP diastolic 65–99; PULSE 92–102; RESP 16–18; TEMP 36.1–36.7; O2SAT 91–100
--- NOTE | 2022-04-16 15:55 | P.PN_ITS ---
[facility] Disclaimer: The information contained in this section may have been updated after the patient was seen, as this information can be updated by other users. Medical History Arthritis Asthma Hepatitis B Surgical History History of bladder surgery History of cholecystectomy History of hysterectomy History of repair of ACL Family History Other Cancer Social History Smoking Status: Never smoker alcohol intake: never substance use type: denies use current occupational status: employed and retired Travel in the last 8 weeks: None household members: spouse housing: house caffeine: Yes [facility] Anesthesia Checklist Patient Identification Patient Identification: Arm Band Structural Data Admitted From: Home Planned Operative Procedure/s: Left Shoulder Arthroscopy, Rotator Cuff Repair Consent for Planned Operative Procedure(s) Verified: Yes Verified Documents: Surgical Consent and History and Physical NPO Status Verified Time NPO: 00:00 Additional verifications Anesthesia Reactions: No (nausea) Hx Blood Transfusions: No Blood Transfusion Reaction: No Airway Assessment C-Spine Mobility Assessed: Yes TMJ Mobility Assessed: Yes Dentition: Good Dentition Neurological Assessment Level of Consciousness: Awake and Alert Anesthesia Plan Anesthesia Risk discussed: Yes Anesthesia Plan: Verified ASA Class: II Anesthesia Type: General w/block (Left Interscalene Nerve Block. Risks/benefits explained. Pt verbalized understanding)
--- NOTE | 2022-04-16 16:27 | EXP.OP.NOTE ---
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 She failed conservative treatment measures including a cortisone injection at and physical therapy. MRI revealed what appeared to be significant rotator cuff degenerative changes but no full-thickness tear. We discussed all the risks, benefits and alternatives to left shoulder arthroscopy for rotator cuff debridement versus repair and she agreed to proceed. Surgical consent form was signed. Operative findings:: Left shoulder massive chronic appearing retracted irreparable rotator cuff tear with mild degenerative changes. Long head biceps tendon was intact with no significant fraying or inflammation. Age-related degenerative changes of the labrum. Subscapularis tendon was intact. Operative note:: The patient was seen in the preoperative holding area. Left shoulder was marked to confirm the correct operative site. She was seen by anesthesia. She received Ancef 2 g IV prophylactic antibiotics within 1 hour incision time. Anesthesia performed an interscalene block for perioperative pain control. She was brought back to the OR. General anesthesia induced without difficulty. Placed in the lateral decubitus position and held in place with a beanbag. Axillary roll was placed. Timeout performed to confirm left shoulder arthroscopy and patient Kristin Lee. She was placed in the arm [place] with 15 pounds of traction. I made a posterior lateral viewing portal with an 11 blade scalpel. Arthroscope was introduced into the joint. Diagnostic arthroscopy commenced. I made an anterior superior portal localizing this with a spinal needle. A purple cannula 7.0 mm was placed over a switching stick in the anterior portal. Evaluation of glenohumeral joint revealed mild degenerative changes. Age-related labral degenerative changes. This was debrided with a 4.0 mm shaver back to smooth stable border. Long head biceps tendon was intact with no significant fraying or inflammation. Therefore it was left alone. There was seen to be a large massive retracted rotator cuff tear of the supraspinatus and infraspinatus with retraction medial to the glenoid. Subscapularis tendon was seen to be intact. Some cuff tissue was still attached to the greater tuberosity. This was debrided with the shaver and electrocautery wand back to a smooth stable border removing any frayed tissue. The scope was then redirected in the subacromial space. Lateral portal was established with a spinal needle and then 11 blade scalpel. Shaver was inserted into the lateral portal. Bursectomy was performed with the combination of the shaver and electrocautery wand. Edges of the acromion were well-defined. There was a lot of thickened inflamed bursa that was removed. No significant subacromial spur was appreciated. The bursal side of the cuff tear was abraded. The supraspinatus and infraspinatus tissue that was retracted was attempted to be released and pulled over to the greater tuberosity but the tissue would just spread as we tried to pull it laterally. There was really no repairable cuff tissue left. Therefore decided to proceed with just extensive debridement of this large massive retracted cuff tear. Final pictures were taken and saved after completing the debridement with the shaver and electrocautery wand. At this time arthroscopy instruments were removed from the joint. Arthroscopy fluid suctioned and drained from the
--- NOTE | 2022-04-16 16:31 | P.PNANES_ITS ---
[facility] Anesthesia Record Part I Anesthesia Record I Intake, IV Amount: 1,000 Estimated blood loss (mL): 5 Urine output (mL): 0 Blood Pressure: 148/80 SaO2: 91 Pulse Rate: 102 Respiratory Rate: 16 Temperature: 97 F Patient is:: Drowsy and Stable Stable to PACU at:: 16:30
--- NOTE | 2022-04-16 18:59 | P.PNANES_ITS ---
[facility] Anesthesia Record Part II Anesthesia Record Part II Discharge Time: 17:00 Destination: Surgical Day Care (OP Surgery) PACU nurse assessment reviewed?: Yes Patient Condition:: Good Anesthesia Complications:: None Swallowing reflex intact?: Yes Cyanosis?: No Blood Pressure: 157/86 Pulse Rate: 100 Temperature: 97 F Mental Status: Alert & Oriented Pain level:: 0 Nausea and/or vomitting:: None Intake, IV Amount: 0
== END 2022-04-16 17:40 | disposition home or self-care (01) ==
PROVIDERS: PCP Nurse Practitioner Family; Visit Provider Orthopaedic Surgery
PROC: (CPT 29805; principal; 2022-04-16 13:45)
DX: M75.122 Complete rotator cuff tear or rupture of left shoulder, not specified as traumatic (principal); M25.512 Pain in left shoulder; Z79.899 Other long term (current) drug therapy
CPT/HCPCS: 29827; 96374; J2405

== ENCOUNTER → 2022-05-29 11:55 | Outpatient (CLI) | payer BC, SELFPAY ==
--- NOTE | 2022-05-29 12:00 | XR_ITS ---
FINAL REPORT CLINICAL HISTORY: knee pain FINDINGS: Right knee Three views were obtained. There is no acute fracture or dislocation. There are mild degenerative changes. No soft tissue abnormality is identified. IMPRESSION: Mild degenerative changes. Reviewed, Interpreted and Dictated by Morgan Segura III, MD Transcribed by Anitra Ochoa Authenticated and [facility]
--- NOTE | 2022-05-29 12:00 | XR_ITS ---
FINAL REPORT CLINICAL HISTORY: knee pain COMPARISON: 05/08/2021 FINDINGS: Left knee Three views were obtained. There is no acute fracture or dislocation. There are postoperative changes from ACL repair. There are [id number] degenerative changes. There is lateral patellar subluxation. There is chronic irregularity of the patella of uncertain significance, may be postoperative or posttraumatic in nature. IMPRESSION: Postoperative and chronic appearing findings. Lateral patellar subluxation. Reviewed, Interpreted and Dictated by Morgan Segura III, MD Transcribed by Anitra Ochoa Authenticated and . [facility]
== END ==
PROVIDERS: PCP Family Medicine; Visit Provider Orthopaedic Surgery
DX: M25.561 Pain in right knee (principal); M25.562 Pain in left knee
CPT/HCPCS: 73562

== ENCOUNTER → 2022-06-30 08:03 | Outpatient (CLI) | payer BC, SELFPAY ==
--- NOTE | 2022-06-30 08:03 | MR_ITS ---
FINAL REPORT CLINICAL HISTORY: RIGHT ANKLE PAIN AND INSTABILITY FINDINGS: Multiplanar MR imaging of the right ankle was performed without contrast. There are moderate degenerative changes of the midfoot. There are multiple subchondral cysts. There is multi focal bone marrow edema. The ligaments are intact without evidence of injury. There is posterior tibial, flexor digitorum longus, peroneus longus and tibialis anterior tenosynovitis. There is mild distal Achilles peritendinitis. There is posterior plantar fasciitis with a small partial tear. No significant joint effusion is seen. The musculature is intact. There is no evidence of soft tissue mass or cyst. IMPRESSION: Moderate degenerative change with multiple subchondral cysts and multifocal bone marrow edema. Plantar fasciitis with small partial tear. Posterior tibial, flexor digitorum longus, peroneus longus and tibialis anterior tenosynovitis. Mild distal Achilles peritendinitis. Reviewed, Interpreted and Dictated by Morgan Segura III, MD Transcribed by Asad Saha Authenticated and [facility]
== END ==
PROVIDERS: PCP Family Medicine; Visit Provider Podiatrist
DX: M25.371 Other instability, right ankle (principal); M79.671 Pain in right foot; M79.672 Pain in left foot; Z87.312 Personal history of (healed) stress fracture
CPT/HCPCS: 73721

== ENCOUNTER 2022-07-08 10:00 | Outpatient (RCR) | payer BC, SELFPAY ==
--- NOTE | 2022-05-11 11:05 | HMH.OTOPEV ---
OT Inpatient Evaluation Rehab OT Outpatient Eval Start: 05/11/22 10:53 Freq: Status: Active Protocol: Document 05/11/22 10:55 LORNA (Rec: 05/11/22 11:02 LORNA [id number]) E-signed By Denise Olivas, OT Outpatient Therapy Subjective History Subjective History Kristin is a pleasant 61-year-old female who has been living with left shoulder pain over the past year with no injury. She failed conservative treatment measures including a cortisone injection at and physical therapy. MRI revealed what appeared to be significant rotator cuff degenerative changes but no full-thickness tear. We discussed all the risks, benefits and alternatives to left shoulder arthroscopy for rotator cuff debridement versus repair and she agreed to proceed. Surgical consent form was signed. Operative findings:: Left shoulder massive chronic appearing retracted irreparable rotator cuff tear with mild degenerative changes . Long head biceps tendon was intact with no significant fraying or inflammation. Age- related degenerative changes of the labrum. Subscapularis tendon was intact. 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 Strength Symptom Type Ache Symptoms Relieved By Nothing Symptoms Aggravated By Physical Activity Prior Functional Limitations None Current Functional Limitations None Symptom Description Intermittent Level of pain today (0-10) 0 Pain scale - at its best (0-10) 0 Pain scale - at its worst (0-10) 3 Shoulder/Elbow Eval Shoulder Objective Measurements Shoulder ROM Right Shoulder Abduction Active Range of 138 Motion (degrees) Shoulder Flexion Active Range of Motion 164 (degrees) Query Text: Shoulder External Rotation Active Range 52 of Motion (degrees) Shoulder Internal Rotation Active Range 70 of Motion (degrees) pain with active R
== END 2022-09-30 14:24 | disposition home or self-care (01) ==
LOC: OT 10:00
PROVIDERS: PCP Nurse Practitioner Family; Visit Provider Orthopaedic Surgery
DX: M25.512 Pain in left shoulder (principal); M75.102 Unspecified rotator cuff tear or rupture of left shoulder, not specified as traumatic
CPT/HCPCS: 97010; 97014; 97110; 97140; 97164; 97165; 97530; G0283

== ENCOUNTER → 2022-07-15 10:37 | Outpatient (CLI) | payer BC, SELFPAY ==
--- NOTE | 2022-07-15 10:42 | XR_ITS ---
FINAL REPORT CLINICAL HISTORY: left shoulder pain COMPARISON: 11/27/2021 FINDINGS: Left shoulder Three views were obtained. There is no acute fracture or dislocation. There are mild hypertrophic changes of the AC joint. No soft tissue abnormality is identified. IMPRESSION: Mild hypertrophic changes of the AC joint. Reviewed, Interpreted and Dictated by Chalo Urena MD Transcribed by Anitra Ochoa Authenticated and [facility]
== END ==
PROVIDERS: PCP Family Medicine; Visit Provider Orthopaedic Surgery
DX: M25.512 Pain in left shoulder (principal)
CPT/HCPCS: 73030

== ENCOUNTER → 2022-07-20 14:46 | Outpatient (CLI) | payer BC, SELFPAY ==
--- NOTE | 2022-07-20 14:59 | ECG_ITS ---
APPROVED REPORT Exam: Resting ECG HR:87 bpm ECG Measurements Heart Rate 87 AXES WV 141 P 23 QRSd 86 QRS -8 QT 348 T 25 QTc 393 Conclusion SINUS RHYTHM VOLTAGE CRITERIA FOR LVH [MEETS CRITERIA IN ONE OF: R(aVL), S(V1), R(V5), R(V5/V6)+S(V1)] ABNORMAL ECG UNCONFIRMED REPORT Electronically signed by : Ash Boone MD 07/21/2022 22:07:00
--- NOTE | 2022-07-20 15:06 | XR_ITS ---
FINAL REPORT CLINICAL HISTORY: edema of lower extremity COMPARISON: September 2021 FINDINGS: There is no evidence of effusion or other pleural disease. The mediastinum has a normal appearance. The cardiac silhouette is unremarkable. IMPRESSION: Unremarkable chest exam. Reviewed, Interpreted and Dictated by Harsha Garcia MD Transcribed by Asad Saha Authenticated and [facility]
[2022-07-20 15:41] LABS: Basophils % 0.4 % (0.1-2.0); Eosinophils # 0.2 K/mm3 (0.0-0.4); Eosinophils % 2.5 % (0.1-12.0); Hematocrit 44.5 % (37.0-47.0); Hemoglobin 14.2 g/dL (12.2-16.2); Lymphocytes # 1.5 K/mm3 (0.7-4.5); Lymphocytes % 16.6 % (10-50); Mean Corpuscular Hemoglobin 31.6 pg (27.0-31.2); Mean Corpuscular Volume 98.7 fl (81-99); Mean Platelet Volume 7.3 fl (7.4-10.4); Monocytes # 0.4 K/mm3 (0.1-1.0); Neutrophils % 76.5 % (37.0-80.0); Platelet Count 365 K/mm3 (142-424); Red Blood Count 4.51 M/mm3 (4.20-5.40); Red Cell Distribution Width 13.3 % (11.5-17.5); White Blood Count 9.1 K/mm3 (4.8-10.8)
[2022-07-20 16:36] LABS: Alanine Aminotransferase 30 U/L (12-78); Albumin Level 4.4 g/dl (3.5-5.0); Anion Gap 15.9 mEq/L (5-15); Aspartate Amino Transferase 35 U/L (14-36); Bilirubin,Total 0.6 mg/dl (0.2-1.3); Blood Urea Nitrogen 18 mg/dl (7-17); Calcium 9.3 mg/dl (8.4-10.2); Carbon Dioxide 30 mmol/L (22.0-30.0); Chloride 97 mmol/L (98-107); Estimated Glomerular Filt Rate 64 ml/min (>60); GFR (African American) 77 ML/MIN (>60); Globulin 2.1 g/dL (1.3-3.2); Glucose 74 mg/dl (74-100); Potassium 4.9 mmoL/L (3.5-5.1); Sodium 138 mmol/L (136-145); Total Protein,Serum 6.5 g/dl (6.3-8.2); Uric Acid 6.4 mg/dl (2.5-6.2)
[2022-07-20 16:37] LABS: Albumin/Globulin Ratio 2.1 (1.1-1.8); Alkaline Phosphatase 102 U/L (38-126)
[2022-07-30 02:09] LABS: 1,25 Dihydroxy Vitamin D 52 pg/mL (.); 1,25-Dihydroxy, Vitamin D-2 <10 pg/mL (.); 1,25-Dihydroxy, Vitamin D-3 52 pg/mL (.)
== END ==
PROVIDERS: PCP Family Medicine; Visit Provider Podiatrist
DX: Z01.818 Encounter for other preprocedural examination (principal); G62.9 Polyneuropathy, unspecified; M19.071 Primary osteoarthritis, right ankle and foot; M19.072 Primary osteoarthritis, left ankle and foot; M19.90 Unspecified osteoarthritis, unspecified site; M25.371 Other instability, right ankle; E66.9 Obesity, unspecified; Z68.32 Body mass index [BMI] 32.0-32.9, adult; Z87.312 Personal history of (healed) stress fracture; Z87.39 Personal history of other diseases of the musculoskeletal system and connective tissue
CPT/HCPCS: 36415; 71046; 80053; 82652; 84550; 85025; 93005

== ENCOUNTER → 2022-08-03 11:05 | Outpatient (CLI) | payer BC, SELFPAY | PROVIDERS: PCP Family Medicine; Visit Provider Physician Assistant | DX: I51.7 Cardiomegaly (principal) | CPT/HCPCS: 93306 ==

== ENCOUNTER 2022-08-19 06:09 | Day surgery (SDC) | payer BC, SELFPAY ==
[2022-08-17 14:24] VITALS: BMI 32.3
[2022-08-19] VITALS (10 sets, daily range): BP systolic 130–152; BP diastolic 76–91; PULSE 88–100; RESP 11–18; TEMP 36.2–43; O2SAT 93–97
--- NOTE | 2022-08-19 | XR_ITS ---
FINAL REPORT CLINICAL HISTORY: FOOT IN OR FT 1:38 FINDINGS: FLUORO TIME PROCEDURE: Fluoroscopy in the operating room. FINDINGS: Fluoroscopy time was provided by the radiology department for the clinical service. Two images were obtained for ORIF of the right foot Fluoroscopy exposure time: 1 minute 38 seconds IMPRESSION: See above Reviewed, Interpreted and Dictated by Harsha Garcia MD Transcribed by Marlen Valerio Authenticated and [facility]
--- NOTE | 2022-08-19 07:05 | P.PN_ITS ---
[facility] Disclaimer: The information contained in this section may have been updated after the patient was seen, as this information can be updated by other users. Medical History Arthritis Asthma Hepatitis B Hypertension Surgical History H/O arthroscopy of shoulder History of bladder surgery History of cholecystectomy History of hysterectomy History of repair of ACL Family History Other Cancer Social History Smoking Status: Never smoker alcohol intake: never substance use type: denies use current occupational status: retired Travel in the last 8 weeks: None household members: spouse housing: house caffeine: Yes [facility] Anesthesia Checklist Patient Identification Patient Identification: Arm Band and Verbal (Name & ) Structural Data Admitted From: Home Planned Operative Procedure/s: t ankle stabilization, rt midfoot Arthrodesis multiple joint arthrodesis Consent for Planned Operative Procedure(s) Verified: Yes NPO Status Verified Time NPO: 00:00 Additional verifications Anesthesia Reactions: No (nausea) Hx Blood Transfusions: No Blood Transfusion Reaction: No Airway Assessment C-Spine Mobility Assessed: Yes TMJ Mobility Assessed: Yes Dentition: Good Dentition Neurological Assessment Level of Consciousness: Awake Hx Seizures: No Numbness or tingling in extremities: No Anesthesia Plan Anesthesia Risk discussed: Yes Anesthesia Plan: Verified ASA Class: III Anesthesia Type: MAC w/Block
--- NOTE | 2022-08-19 08:57 | SUR.OPER ---
0830- FAMILY UPDATED PER MD ORDER BY SILVINO YEH. STATED, PLEASE LET THE FAMILY KNOW THAT WE HAVE STARTED THE PROCEDURE.
--- NOTE | 2022-08-19 09:55 | SUR.OPER ---
0955- ORDERED TO UPDATE FAMILY. FAMILY UPDATED BY GEETHA DUBOIS. STATED, PLEASE LET THE FAMILY KNOW THAT EVERYTHING IS GOING WELL AND WE HAVE STABILIZED THE ANKLE.
--- NOTE | 2022-08-19 10:53 | SUR.OPER ---
1050- ORDERED TO UPDATE PATIENTS FAMILY. BFCARLOTA DUBOIS UPDATED FAMILY. STATED, PLEASE LET THE FAMILY KNOW THAT EVERYTHING IS GOING WELL AND WE ARE ON THE LAST STEP OF THE PROCEDURE.
--- NOTE | 2022-08-19 11:00 | XR_ITS ---
FINAL REPORT CLINICAL HISTORY: Post op ankle stability COMPARISON: 01/07/2022 FINDINGS: Three views of the left ankle show extensive postoperative changes of the hindfoot and midfoot. Ankle screw is seen within the lateral malleolus. The ankle mortise is intact. IMPRESSION: Postoperative changes as above. Reviewed, Interpreted and Dictated by Harsha Garcia MD Transcribed by Robyn Sotelo Authenticated and [facility]
--- NOTE | 2022-08-19 11:00 | XR_ITS ---
FINAL REPORT CLINICAL HISTORY: Post op right midfoot fusion COMPARISON: 01/07/2022 FINDINGS: Three views of the right foot show extensive postoperative changes of the hindfoot and midfoot. Ankle screw is seen within the lateral malleolus. Bony details obscured by plaster splint. IMPRESSION: Postoperative changes as above. Reviewed, Interpreted and Dictated by Harsha Garcia MD Transcribed by Robyn Sotelo Authenticated and [facility]
--- NOTE | 2022-08-19 12:32 | P.PNANES_ITS ---
[facility] Anesthesia Record Part I Anesthesia Record I Intake, IV Amount: 800 Estimated blood loss (mL): 50 Urine output (mL): 0 Blood Pressure: 132/78 SaO2: 93 Pulse Rate: 91 Respiratory Rate: 11 Temperature: 97.3 F Patient is:: Drowsy and Oral/Nasal airway Stable to PACU at:: 12:30
--- NOTE | 2022-08-19 12:40 | SUR.PHASEI ---
xray at bedside
--- NOTE | 2022-08-19 14:47 | EXP.OP.NOTE ---
Date of procedure: 08/19/22 Pre-op Diagnosis:: Right foot osteoarthritis Right hallux valgus Right chronic ankle instability Right posterior tibial tendonitis/tenosynovitis Right equinus Right ankle lipoma Post-op Diagnosis:: Same Procedure performed:: Right first metatarsal?cuneiform joint arthrodesis Multiple midtarsal (2-3) joint arthrodesis Navicular-cuneiform joint fusion w/tendon advancement Ankle stabilization (AFTL, CFL repair) Excision of ankle lipoma Posterior tibial tenosynovectomy Autograft bone harvest Application of injectable graft (Viaflow) Surgeon:: Fang Conn DPM ELECTRICAL DESIGNER DRAFTER:: Melanie Valdivia Anesthesia: GETA and regional (Right popliteal, saphenous nerve block) Estimated blood loss (mL): 50 Clinical Note:: Patient is a 61-year-old female with RA and history of gout who presents with worsening right midfoot pain and ankle instability.? Patient has a history of ankle sprain with weakness and falling, progressively worsening over the last 3-4 years.? Conservative care has included modification of shoe gear, modification of activity, taping, strapping, inserts, RICE protocol, NSAIDs, steroid injections, ankle immobilization, ankle bracing/Aircast and physical therapy without much change in symptoms. After a long discussion with the patient in regards to the conservative versus surgical treatment for the arthritic deformity and ankle instability, the patient has elected to proceed with surgery because they have failed conservative treatment and continue to have pain and worsening symptoms affecting daily activities. The patient has been instructed on the planned procedure including adductoplasty and ankle stabilization with possible tendon repair and gastroc lengthening. All risk versus benefits of the procedure discussed.? These include but are not limited to: bleeding, infection, nerve and blood vessel damage, need for further surgery, delay in healing of soft tissue or bone, failure of bones to heal, non-union, mal-union, failure of the implant, recurrence of deformity, prolonged pain and recovery, prolonged versus permanent pain and swelling, CRPS/RSD, DVT/PE and anesthetic complications. No guarantees were given. All questions fully answered. The patient verbalized understanding and agreed to proceed with surgery. Written consent was obtained. Does not smoke, denies personal and family history of DVT/PE. Recommend aspirin 81mg post op ppx. Necessary labs and pre-op testing ordered: CBC, CMP, uric acid, CXR, EKG. Will discuss with RA doctor about stopping methotrexate. Medical clearance pending Siobhan Melendrez on 07/23/22. Will need Rx for Oxycodone, Zofran 4mg, Motrin 800mg. Operative findings:: Significant degenerative changes and arthritis noted to the right dorsal midfoot to the tarsometatarsal joints 1 through 3 and the navicular cuneiform joint. Bony exostosis noted. Lipoma 2cm round noted to the right lateral ankle. Positive anterior drawer with ankle instability appreciated preop. ATFL, CFL partially torn and attenuated. Postop, reduction of anterior drawer negative talar tilt after modified Brostr?m procedure. Posterior tibial tendon had synovitic tissue noted. Some poor bone quality necessitating use of graft. Operative note:: On this date and time, the patient was deemed an appropriate surgical candidate. With informed consent signed, the patient was taken to the operating theater after anesthesia did a regional nerve block. The patient was positioned supine. General anesthesia was induced. Tourniquet was applied to the thigh. The right lower extremity was prepped and draped in normal sterile fashion. IV Ancef infused. Right ankle lipoma excision: Attention directed to the ankle where a U incision was mapped out under the distal fibula. Dissection down through skin to subcutaneous tissue. There was a large lipoma noted at the level of the subcutaneous tissue approximately 2 cm round. It was excised in total and sent for
--- NOTE | 2022-08-20 10:04 | EXP.ANES.II ---
[facility] Anesthesia Record Part II Anesthesia Record Part II Discharge Time: 13:00 Destination: Surgical Day Care (OP Surgery) PACU nurse assessment reviewed?: Yes Patient Condition:: Good Anesthesia Complications:: None Swallowing reflex intact?: Yes Cyanosis?: No Blood Pressure: 144/76 Pulse Rate: 96 Temperature: 97.1 F Mental Status: Alert & Oriented Pain level:: 0 Nausea and/or vomitting:: None Intake, IV Amount: 0
[2022-08-20 10:05] VITALS: BP 144/76; PULSE 96; TEMP 36.2
== END 2022-08-19 13:25 | disposition home or self-care (01) ==
PROVIDERS: PCP Family Medicine; Visit Provider Podiatrist
PROC: (CPT 27696; principal; 2022-08-19 07:30)
DX: M25.371 Other instability, right ankle (principal); M19.071 Primary osteoarthritis, right ankle and foot; G62.9 Polyneuropathy, unspecified; M76.821 Posterior tibial tendinitis, right leg; D17.23 Benign lipomatous neoplasm of skin and subcutaneous tissue of right leg; M20.11 Hallux valgus (acquired), right foot
CPT/HCPCS: 27696; 28730; 28737; 28086; 20900; 73610; 73620; 73630; 76000; 96374; C1713; C1762; C1776; J2405; J2704

== ENCOUNTER 2022-09-06 15:11 | Emergency (ER) | payer BC, SELFPAY ==
[2022-09-06] VITALS (10 sets, daily range): BP systolic 123–190; BP diastolic 72–100; PULSE 64–98; RESP 17–19; TEMP 36.7–36.8; O2SAT 96–100; BMI 32.3
--- NOTE | 2022-09-06 16:03 | ECG_ITS ---
APPROVED REPORT Exam: Resting ECG HR:73 bpm ECG Measurements Heart Rate 73 AXES KS 151 P 51 QRSd 91 QRS 18 QT 379 T 52 QTc 405 Conclusion SINUS RHYTHM NORMAL ECG UNCONFIRMED REPORT Electronically signed by : Ash Boone MD 09/07/2022 21:30:00
--- NOTE | 2022-09-06 16:03 | HMH.EDGENADL ---
Discharge Plan Disposition Patient Disposition: Home, Self-Care Condition: Good Prescriptions Prescriptions: No Action linaclotide 290 mcg capsule 145 mcg PO DAILY baclofen 20 mg tablet 20 mg PO TID PRN (Reason: Pain) biotin 5,000 mcg tablet, sublingual 5,000 mcg sublingual DAILY flaxseed oil 1,000 mg capsule 2,000 mg PO DAILY Rx Instructions: administer with a meal folic acid 1 mg tablet 1 mg PO DAILY Label Comments: TAKE 1 TABLET BY MOUTH IN THE MORNING allopurinol 300 mg tablet 100 mg PO HS ropinirole 0.5 mg tablet 3 mg PO DAILY sulfamethoxazole-trimethoprim [Bactrim DS] 800-160 mg tablet 1 tab PO BID 10 Days Qty: 20 0RF oxycodone 10 mg tablet 10 mg PO Q6H PRN (Reason: severe pain) 5 Days Qty: 20 0RF gabapentin 100 mg capsule 100 mg PO HS omeprazole 40 mg capsule,delayed release(DR/EC) 40 mg PO DAILY Qty: 30 2RF aspirin [Adult Low Dose Aspirin] 81 mg tablet,delayed release (DR/EC) 81 mg PO DAILY Qty: 30 2RF ibuprofen 800 mg tablet 800 mg PO BID Qty: 60 3RF ondansetron 4 mg tablet,disintegrating 4 mg PO Q6H Qty: 30 2RF sulindac 150 MG tablet 150 mg PO Q12H Label Comments: TAKE 1 TABLET BY MOUTH EVERY 12 HOURS WITH FOOD duloxetine 60 MG capsule,delayed release(DR/EC) 120 mg PO DAILY Referrals Follow up/Referrals: Matt Arceo MD [Primary Care Provider] - See instructions Clinical Impressions Clinical Impression: Shortness of breath, Opiate withdrawal Instructions Patient Instructions: DI for Diarrhea and Traveler's Diarrhea -- Adult, DI for Diarrhea and Traveler's Diarrhea -- Child, DI for Nausea -- Adult, DI for Nausea -- Child Discharge ED Provider: Misha Baltazar General Adult HPI General Chief complaint: Nausea/Vomiting/Diarrhea Stated complaint: SOA, diarrhea, poss SI Time Seen by Provider: 09/06/22 15:25 Mode of Arrival: Wheelchair Source of Information: Patient Limitations: No Limitations Description of Symptoms (Recalled from ER Triage Doc. by RN): 61 F presents with son at bedside c/o right foot pain s/p surgery with shingle grader. Patient has been dealing with significant pain, has finished her Oxycodone 20mg and believes she is going through withdrawal from that. This has all started making her feel even worse emotionally. Patient repors she feels like she is gonna because of the pain which causes her to become SOA and that she would be better off taking a handful of pills and dying. Patient states, she understands she wouldn't kill herself, but would feel better off dying because of everything going on. Patient reports n/v/d, SOA, and feels dehydrated History of Present Illness HPI narrative: This is a 61-year-old female with history of recent surgeries right lower extremity presenting with multiple complaints. Patient states that she has not taken oxycodone or gabapentin in 3 days after running out of it. She had oxycodone 20 which she was taking every 6 hours, gabapentin 300 which she was taking every 6 hours. She stopped taking them 2 nights prior to arrival secondary to running out. She was taking these after right lower extremity surgery where she had ORIF of her ankle. Because of this, patient has not been able to sleep at night. 1 day prior to arrival, patient stated that she woke up and was feeling suicidal. Had plan of ingesting medications in order to complete suicide, but has not acted on this plan. Because of this, was brought to the emergency department. Patient states that she has also been yawning, having abdominal cramping, diarrhea, diaphoresis, and numerous other signs of opiate withdrawal. Unable to manage the symptoms and has had depressive/suicidal thoughts secondary to this. Related Data Home Medications Medication Instructions Recorded Confirmed allopurinol 300 mg tablet 100 mg PO HS gout 01/04/18 09/03/22 duloxetine 60 mg capsule,delay
--- NOTE | 2022-09-06 16:04 | XR_ITS ---
PROCEDURE INFORMATION: Exam: XR Chest Exam date and time: 09/06/2022 4:28 PM Age: 61 years old Clinical indication: Shortness of breath; Additional info: SOA TECHNIQUE: Imaging protocol: Radiologic exam of the chest. Views: 1 view. COMPARISON: CR XR CHEST 2V 07/20/2022 3:08 PM FINDINGS: Lungs: Unremarkable. No consolidation. Pleural spaces: Unremarkable. No pleural effusion. No pneumothorax. Heart/Mediastinum: Unremarkable. No cardiomegaly. Bones/joints: Unremarkable. IMPRESSION: Stable chest x-ray with no acute disease.
[2022-09-06 16:05] LABS: Basophils % 0.3 % (0.1-2.0); Eosinophils # 0.2 K/mm3 (0.0-0.4); Eosinophils % 1.8 % (0.1-12.0); Hematocrit 44.1 % (37.0-47.0); Hemoglobin 13.9 g/dL (12.2-16.2); Lymphocytes # 1.2 K/mm3 (0.7-4.5); Mean Corpuscular HGB Conc 31.4 g/dL (31.8-35.4); Mean Corpuscular Hemoglobin 30.2 pg (27.0-31.2); Mean Corpuscular Volume 96.2 fl (81-99); Mean Platelet Volume 7.6 fl (7.4-10.4); Monocytes # 0.3 K/mm3 (0.1-1.0); Neutrophils # 6.5 K/mm3 (1.8-7.8); Neutrophils % 78.9 % (37.0-80.0); Platelet Count 425 K/mm3 (142-424); Red Blood Count 4.59 M/mm3 (4.20-5.40); Red Cell Distribution Width 13.2 % (11.5-17.5); White Blood Count 8.3 K/mm3 (4.8-10.8)
[2022-09-06 16:09] LABS: Coronavirus 19, PCR Not Detected (NotDetected); Influenza A, PCR Not Detected (NotDetected); Influenza B, PCR Not Detected (NotDetected)
[2022-09-06 16:15] LABS: Chloride 103 mmol/L (98-107)
[2022-09-06 16:16] LABS: Potassium 3.7 mmoL/L (3.5-5.1); Sodium 138 mmol/L (136-145)
--- NOTE | 2022-09-06 16:17 | PC.NURSE ---
pt assisted to and from bathroom
[2022-09-06 16:18] LABS: Alanine Aminotransferase 25 U/L (12-78); Albumin Level 4.3 g/dl (3.5-5.0); Albumin/Globulin Ratio 1.3 (1.1-1.8); Alkaline Phosphatase 122 U/L (38-126); Anion Gap 15.7 mEq/L (5-15); Aspartate Amino Transferase 29 U/L (14-36); Bilirubin,Total 0.6 mg/dl (0.2-1.3); Blood Urea Nitrogen 15 mg/dl (7-17); Carbon Dioxide 23 mmol/L (22.0-30.0); Creatinine Clearance Estimated 71 mL/min (50-200); Estimated Glomerular Filt Rate 46 ml/min (>60); GFR (African American) 55 ML/MIN (>60); Globulin 3.2 g/dL (1.3-3.2); Total Protein,Serum 7.5 g/dl (6.3-8.2)
[2022-09-06 16:19] LABS: Calcium 9.6 mg/dl (8.4-10.2); Glucose 102 mg/dl (74-100)
[2022-09-06 16:22] LABS: Acetaminophen < 10 ug/ml (10-30); Ethyl Alcohol < 10 mg/dl (0-10)
[2022-09-06 16:23] LABS: D-Dimer 1.53 ug/mL (0.0-0.5)
[2022-09-06 16:25] LABS: Microscopic, Urine URINE MICROSCOPIC (MICROSCOPIC)
[2022-09-06 16:29] LABS: Appearance,Urine CLEAR (Clear); Bilirubin,Urine Negative (Negative); Blood, Urine Negative (Negative); Color,Urine YELLOW (Yellow); Glucose,Urine (UA) Negative (Negative); Ketones,Urine TRACE (Negative); Leukocyte Esterase,Urine Negative (Negative); Nitrate,Urine Negative (Negative); PH,Urine 7.5 (5.0-8.5); Protein,Urine Negative (Negative)
[2022-09-06 16:41] LABS: Barbiturates Screen,Urine Negative ng/ml (<200)
[2022-09-06 16:42] LABS: Amphetamine/Metha Screen,Urine Negative ng/ml (<1000); Benzodiazepines Screen,Urine Negative ng/ml (<200)
[2022-09-06 16:43] LABS: Cocaine Screen,Urine Negative ng/ml (<300); Methadone Screen,Urine Negative ng/ml (<300)
[2022-09-06 16:44] LABS: Cannabinoid Screen,Urine Negative ng/ml (<50)
[2022-09-06 16:45] LABS: Opiate Screen,Urine Negative ng/ml (<300); Phencyclidine Screen,Urine Negative ng/ml (<25)
--- NOTE | 2022-09-06 17:14 | CT_ITS ---
PROCEDURE INFORMATION: Exam: CTA Chest With Contrast Exam date and time: 09/06/2022 5:36 PM Age: 61 years old Clinical indication: Shortness of breath; Additional info: SOA, tachycardia TECHNIQUE: Imaging protocol: Computed tomographic angiography of the chest with contrast. Exam focused on the arteries. 3D rendering (Not supervised by radiologist): MIP and/or 3D reconstructed images were created by the technologist. Radiation optimization: All CT scans at this facility use at least one of these dose optimization techniques: automated exposure control; mA and/or kV adjustment per patient size (includes targeted exams where dose is matched to clinical indication); or iterative reconstruction. Contrast material: ISOVUE; Contrast volume: 70 ml; Contrast route: INTRAVENOUS (IV); REPORTING DATA: Count of CT and Cardiac NM exams in prior 12 months: This patient has received 0 known CTs and 0 known cardiac nuclear medicine studies in the 12 months prior to the current study. COMPARISON: CR XR CHEST PORTABLE 09/06/2022 4:28 PM FINDINGS: Pulmonary arteries: Normal. No pulmonary emboli. Aorta: Unremarkable. No aortic aneurysm. No aortic dissection. Lungs: Unremarkable. No consolidation. No masses. Pleural spaces: Unremarkable. No pneumothorax. No pleural effusion. Heart: Unremarkable. No cardiomegaly. No pericardial effusion. Lymph nodes: Unremarkable. No enlarged lymph nodes. Bones/joints: Unremarkable. No acute fracture. Soft tissues: Unremarkable. IMPRESSION: No acute findings.
== END 2022-09-06 19:43 | disposition home or self-care (01) ==
PROVIDERS: Emergency Provider Emergency Medicine; PCP Family Medicine
DX: F11.23 Opioid dependence with withdrawal (principal); R45.851 Suicidal ideations; R06.02 Shortness of breath; I10 Essential (primary) hypertension; J45.909 Unspecified asthma, uncomplicated
CPT/HCPCS: 71045; 71275; 80053; 80305; 80329; 81001; 85025; 85378; 87635; 87636; 93005; 96360; 99285; C9803; Q9967; U0003; U0005

== ENCOUNTER → 2022-09-24 08:36 | Outpatient (CLI) | payer BC, SELFPAY ==
--- NOTE | 2022-09-24 08:40 | XR_ITS ---
FINAL REPORT CLINICAL HISTORY: Foot Pain Hx of arthritis and gout. F/u from sx on 08/19/2022 COMPARISON: 08/19/2022 FINDINGS: RIGHT FOOT SERIES Three views of the right foot were obtained. There is no acute fracture or dislocation. The joint spaces are preserved. There is a plantar calcaneal spur with a small calcification anterior to the plantar calcaneal spur. There are postoperative changes to the midfoot with multiple screw plates, screws, and dean. The bony alignment is otherwise stable. There are postoperative changes in the lateral malleolus. IMPRESSION: Postoperative changes as stated above are stable. Reviewed, Interpreted and Dictated by Morgan Segura III, MD Transcribed by Dario Sweeney Authenticated and [facility]
== END ==
PROVIDERS: PCP Family Medicine; Visit Provider Podiatrist
DX: M79.671 Pain in right foot (principal); G89.18 Other acute postprocedural pain
CPT/HCPCS: 73630

== ENCOUNTER → 2022-10-15 12:07 | Outpatient (CLI) | payer BC, SELFPAY ==
--- NOTE | 2022-10-15 12:10 | XR_ITS ---
FINAL REPORT CLINICAL HISTORY: Foot Pain, post op, open wound on top of foot FINDINGS: Right foot Three views were obtained. There is no acute fracture or dislocation. There are postoperative changes of the midfoot with multiple screw plates, screws, and dean. There are postoperative changes in the lateral malleolus. Mild degenerative changes are present. Plantar calcaneal spur is identified. No soft tissue abnormality is identified. IMPRESSION: Degenerative and postoperative changes. Reviewed, Interpreted and Dictated by Morgan Segura III, MD Transcribed by Anitra Ochoa Authenticated and [facility]
== END ==
PROVIDERS: PCP Family Medicine; Visit Provider Podiatrist
DX: M79.671 Pain in right foot (principal)
CPT/HCPCS: 73630

== ENCOUNTER → 2022-11-05 12:18 | Outpatient (CLI) | payer BC, SELFPAY ==
--- NOTE | 2022-11-05 12:21 | XR_ITS ---
FINAL REPORT CLINICAL HISTORY: Post foot surgery, sx august 16 COMPARISON: 10/15/2022 FINDINGS: Right foot Three views were obtained. Side plates and screws are seen in the 1st, 2nd, and 3rd tarsometatarsal joints. Small plantar spur is identified. There is soft tissue swelling in the dorsum of the foot measuring 1.8 cm. IMPRESSION: Internal fixation of the 1st, 2nd, and 3rd tarsometatarsal joints. Reviewed, Interpreted and Dictated by Chalo Urena MD Transcribed by Anitra Ochoa Authenticated and [facility]
== END ==
PROVIDERS: PCP Family Medicine; Visit Provider Nurse Practitioner Family
DX: Z98.890 Other specified postprocedural states (principal); M79.671 Pain in right foot
CPT/HCPCS: 73630

== ENCOUNTER 2022-12-03 14:00 | Outpatient (RCR) | payer BC, SELFPAY ==
--- NOTE | 2022-11-17 16:04 | HMH.PTOPEV ---
PT Outpatient Evaluation Rehab PT Outpatient Evaluation Start: 11/17/22 15:10 Freq: Status: Active Protocol: Document 11/17/22 15:37 JOHN (Rec: 11/17/22 16:04 JOHN [id number]) E-signed By Torsten Pavon, PT Outpatient Therapy Subjective History Subjective History Pt presents s/p right mid-foot /ankle/MT arthrodesis, post. tib. tenosynovectomy sx. on 08/19/22. Pt reports foot/ankle jt (s) 'are doing good. The slowest part has been this wound (blisters) on top of my foot to heal.' Pt reports still being under restrictions for ambulation in walking boot on RLE, and reports wound care is improving wound on right foot, and 'I think I've avoided needing a skin graft.' New diagnosis of cancer in past 12 No months? Chief Complaint Pain,Stiff,Swelling,Weakness Symptom Type Ache,Dull Symptoms Relieved By Rest/Positioning,Ice,Activity Symptoms Aggravated By Standing,Walking Prior Functional Limitations Housework,Standing,Walking Current Functional Limitations Housework,Standing,Walking Symptom Description Intermittent Level of pain today (0-10) 0 Pain scale - at its best (0-10) 0 Pain scale - at its worst (0-10) 2 Ankle/Foot Eval Gait Observation General Gait Pattern Observation Antalgic Gait,Wide Based Gait Palpation Tenderness right Ankle/Foot Palpation Findings Tenderness Ankle/Foot Palpation Overall Comment 1-2/4 post. tib tendon ROM Ankle/Foot Dorsiflexion w/Knee Extended 0-15 Active Range Motion (degrees) Ankle/Foot Plantar Flexion Active Range 0-35 of Motion (degrees) Ankle/Foot Eversion Active Range of 0-18 Motion (degrees) Ankle/Foot Inversion Active Range of 0-30 Motion (degrees) MMT Ankle Dorsiflexion Strength Grade 4- Good- Ankle Plantarflexion Strength Grade 4- Good- Foot Eversion Strength Grade 4- Good- Foot Inversion Strength Grade 3+ Fair+ Outpatient Therapy Assessment Impairments Problems/Impairmments Palpation Tenderness,Impaired Range of Motion,Impaired Strength,Impaired Gait Pattern ,Impaired Walking,Impaired Standing,Impaired Household Care,Increased Edema, Subjective C/O Pain,Impaired Self Care/Self Management Prognosis
== END 2022-12-03 14:05 | disposition home or self-care (01) ==
LOC: PT 14:00
PROVIDERS: PCP Family Medicine; Visit Provider Nurse Practitioner Family
DX: Z98.890 Other specified postprocedural states (principal); M79.671 Pain in right foot
CPT/HCPCS: 97010; 97014; 97016; 97110; 97140; 97163; 97530; 97535; 97760; G0283

== ENCOUNTER → 2023-02-24 14:12 | Outpatient (CLI) | payer BC, SELFPAY | PROVIDERS: PCP Family Medicine; Visit Provider Physician Assistant | DX: R00.2 Palpitations (principal) | CPT/HCPCS: 93225 ==

== ENCOUNTER → 2023-03-29 09:00 | Outpatient (CLI) | payer BC, SELFPAY | LOC: SL 03-31 08:04 | PROVIDERS: PCP Physician Assistant; Visit Provider Physician Assistant | DX: G47.33 Obstructive sleep apnea (adult) (pediatric) (principal); G47.36 Sleep related hypoventilation in conditions classified elsewhere | CPT/HCPCS: G0399 ==

== ENCOUNTER 2023-04-07 15:27 | Outpatient (CLI) | payer BC, SELFPAY ==
--- NOTE | 2023-04-07 15:30 | MM_ITS ---
PROCEDURE INFORMATION: Exam: MG Bilateral Screening 3D Mammography Exam date and time: 04/07/2023 3:24 PM Age: 62 years old Clinical indication: Screening examination TECHNIQUE: Imaging protocol: Bilateral Screening tomosynthesis and 2D mammography including computer-aided detection (CAD) when performed. COMPARISON: 1. MG MM DIG MAMM DX UNILAT LT CAD 12/02/2020 2:42 PM 2. MG MM DIG MAMM DX UNILAT LT CAD 04/12/2020 2:17 PM FINDINGS: MAMMOGRAPHY: Breast composition: The breasts are almost entirely fatty. Mass: None. Architectural distortion: None. Calcifications: No suspicious calcifications. Asymmetric density: None. Skin thickening: None. Axillary adenopathy: None. IMPRESSION: No mammographic evidence of malignancy. Annual screening is recommended unless otherwise clinically indicated. ASSESSMENT: BI-RADS Category 1: Negative
== END 2023-04-07 23:59 ==
LOC: RAD 15:28
PROVIDERS: PCP Physician Assistant; Visit Provider Physician Assistant
DX: Z12.31 Encounter for screening mammogram for malignant neoplasm of breast (principal)
CPT/HCPCS: 77063; 77067

== ENCOUNTER 2023-05-19 13:34 | Outpatient (CLI) | payer BC, SELFPAY ==
--- NOTE | 2023-05-19 13:51 | XR_ITS ---
FINAL REPORT CLINICAL HISTORY: Left knee pain..surgery on tendon years ago COMPARISON: 05/29/2022 FINDINGS: Left knee Three views were obtained. There is no acute fracture or dislocation. There are moderate degenerative changes. Postoperative changes are seen from ACL repair, stable. IMPRESSION: Degenerative and postsurgical changes, stable. Reviewed, Interpreted and Dictated by Morgan Segura III, MD Transcribed by Anitra Ochoa Authenticated and [facility]
== END 2023-05-19 23:59 ==
LOC: RAD 13:36
PROVIDERS: PCP Physician Assistant; Visit Provider Orthopaedic Surgery
DX: M25.562 Pain in left knee (principal)
CPT/HCPCS: 73562

== ENCOUNTER 2023-06-10 08:40 | Outpatient (CLI) | payer BC, SELFPAY ==
--- NOTE | 2023-06-10 08:44 | XR_ITS ---
FINAL REPORT CLINICAL HISTORY: Foot Pain COMPARISON: 11/05/2022 FINDINGS: Right foot Three views were obtained. No acute fracture is identified. There are sideplate and screws securing the 1st, 2nd, and 3rd tarsometatarsal joints. Orthopedic hardware appears stable. There are mild hypertrophic changes at the 1st metatarsophalangeal joint. There is a moderate plantar spur. There is soft tissue edema over the dorsum of the foot measuring 1.8 cm. IMPRESSION: Degenerative and postsurgical changes. Reviewed, Interpreted and Dictated by Chalo Urena MD Transcribed by Anitra Ochoa Authenticated and [facility]
--- NOTE | 2023-06-10 08:44 | XR_ITS ---
FINAL REPORT CLINICAL HISTORY: Foot Pain COMPARISON: 05/21/2020 FINDINGS: Left foot Three views were obtained. There is no acute fracture or dislocation. There are moderate hypertrophic changes of the intertarsal joints and the 2nd and 3rd tarsometatarsal joints consistent with osteoarthritis. There is a small plantar spur. There is an ossific fragment over the dorsal aspect of the mid foot, probably due to old trauma. Fragment is unchanged from previous. IMPRESSION: Degenerative and chronic appearing findings. Reviewed, Interpreted and Dictated by Chalo Urena MD Transcribed by Anitra Ochoa Authenticated and [facility]
== END 2023-06-10 23:59 ==
LOC: RAD 08:41
PROVIDERS: PCP Physician Assistant; Visit Provider Podiatrist
DX: M79.671 Pain in right foot (principal); M79.672 Pain in left foot
CPT/HCPCS: 73630

== ENCOUNTER 2023-07-30 11:43 | Outpatient (CLI) | payer BC, SELFPAY ==
--- NOTE | 2023-07-30 11:48 | XR_ITS ---
FINAL REPORT CLINICAL HISTORY: BRONCHITIS COMPARISON: 09/06/2022 FINDINGS: Two views of the chest were obtained. The heart size and pulmonary vascularity are within normal limits. The mediastinum is normal. No acute pulmonary abnormality is identified. There is no pneumothorax. The bony thorax is intact. IMPRESSION: No active cardiopulmonary disease. Reviewed, Interpreted and Dictated by Morgan Segura III, MD Transcribed by Anitra Ochoa Authenticated and [facility]
== END 2023-07-30 23:59 | disposition home or self-care (01) ==
LOC: RAD 11:43
PROVIDERS: PCP Physician Assistant; Visit Provider Physician Assistant
DX: J40 Bronchitis, not specified as acute or chronic (principal)
CPT/HCPCS: 71046

== ENCOUNTER 2023-08-19 11:57 | Outpatient (CLI) | payer BC, SELFPAY ==
[2023-08-19 12:34] LABS: Basophils # 0.1 K/mm3 (0-0.2); Basophils % 0.8 % (0.1-2.0); Eosinophils # 0.4 K/mm3 (0.0-0.4); Eosinophils % 4.9 % (0.1-12.0); Hematocrit 43.1 % (37.0-47.0); Hemoglobin 13.6 g/dL (12.2-16.2); Lymphocytes # 1.5 K/mm3 (0.7-4.5); Lymphocytes % 18.6 % (10-50); Mean Corpuscular HGB Conc 31.6 g/dL (31.8-35.4); Mean Corpuscular Hemoglobin 33.7 pg (27.0-31.2); Mean Corpuscular Volume 106.6 fl (81-99); Mean Platelet Volume 7.7 fl (7.4-10.4); Monocytes # 0.3 K/mm3 (0.1-1.0); Monocytes % 3.7 % (1.7-9.3); Neutrophils # 5.9 K/mm3 (1.8-7.8); Platelet Count 331 K/mm3 (142-424); Red Blood Count 4.05 M/mm3 (4.20-5.40); Red Cell Distribution Width 15.1 % (11.5-17.5); White Blood Count 8.2 K/mm3 (4.8-10.8)
[2023-08-19 13:01] LABS: Alanine Aminotransferase 28 U/L (12-78); Albumin Level 4.3 g/dl (3.5-5.0); Albumin/Globulin Ratio 1.8 (1.1-1.8); Alkaline Phosphatase 96 U/L (38-126); Anion Gap 13.4 mEq/L (5-15); Aspartate Amino Transferase 32 U/L (14-36); Bilirubin,Total 0.6 mg/dl (0.2-1.3); Blood Urea Nitrogen 17 mg/dl (7-17); Calcium 9.9 mg/dl (8.4-10.2); Carbon Dioxide 26 mmol/L (22.0-30.0); Chloride 104 mmol/L (98-107); Estimated Glomerular Filt Rate 64 ml/min (>60); GFR (African American) 77 ML/MIN (>60); Globulin 2.4 g/dL (1.3-3.2); Glucose 94 mg/dl (74-100); Potassium 4.4 mmoL/L (3.5-5.1); Sodium 139 mmol/L (136-145); Total Protein,Serum 6.7 g/dl (6.3-8.2)
[2023-08-19 15:03] LABS: Hemoglobin A1C 5.1 % (4.0-6.0)
== END 2023-08-19 23:59 | disposition home or self-care (01) ==
PROVIDERS: PCP Physician Assistant; Visit Provider Orthopaedic Surgery
DX: Z01.818 Encounter for other preprocedural examination (principal); M17.0 Bilateral primary osteoarthritis of knee
CPT/HCPCS: 36415; 80053; 83036; 85025

== ENCOUNTER 2023-08-23 11:00 | Outpatient (RCR) | payer BC, SELFPAY ==
--- NOTE | 2023-08-03 16:28 | HMH.PTOPEV ---
PT Outpatient Evaluation Rehab PT Outpatient Evaluation Start: 08/03/23 16:12 Freq: Status: Active Protocol: Document 08/03/23 16:12 PHORSOLANGE (Rec: 08/03/23 16:28 PHORNE Laptop) E-signed By Efren Medrano, PT Outpatient Therapy Subjective History Subjective History This is the initial PT eval for Kristin Anna, 62 yowf who presents with L knee pain and stiffness due to OA and who is scheduled for L TKA in ~ 1 mo. She reports long hx of chronic L knee pain with prior ACL injury as a teen and later ACL/MCL reconstruction surgery. She reports pain has steadily increased for several years now and is interrupting her ADLs daily. She reports pain is worse in the evening, especially with prolonged knee extension. She reports PMH of RA, HTN, and sleep apnea. New diagnosis of cancer in past 12 No months? Chief Complaint Pain,Stiff Symptom Type Ache,Sharp Symptoms Relieved By Rest/Positioning Symptoms Aggravated By Physical Activity Prior Functional Limitations None Current Functional Limitations Housework,Sleeping,Standing, Walking Symptom Description Constant but Variable Level of pain today (0-10) 4 Pain scale - at its worst (0-10) 9 Hip/Knee Eval Palpation Tenderness left Knee Palpation Finding Tenderness Knee Palpation Overall Comment medial knee jt / MMT Hip Flexion Strength Grade 3+ Fair+ Hip Abduction Strength Grade 4 Good Hip Adduction Strength Grade 3+ Fair+ Hip Extension Strength Grade 4- Good- Hip External Rotation Strength Grade 3+ Fair+ Hip Internal Rotation Strength Grade 4 Good Knee Extension Strength Grade 4 Good Knee Flexion Strength Grade 5 Normal ROM Knee Extension Active Range of Motion ( 0 degrees) Knee Flexion Active Range of Motion ( 0-124 degrees) Special Tests Hip Scouring (Quadrant) Test Negative Left,Negative Right Knee Anterior Drawer Test Negative Left,Negative Right Knee Valgus Stress Test Negative Left,Negative Right Knee Varus Stress Test Negative Left,Negative Right Lower Extremity Functional Index Activities Today, do you or would you have any difficulty at all with: a.Any of your usual work, housework or Extreme difficulty or unable school activities to perform activity b. Your usual hobbies, recreational or Extreme difficulty or unable sporting activities to perform activity c. Getting into or out of the bath Quite a bit of difficulty d. Walking between rooms Moderate difficulty e. Putting on your shoes or socks Moderate difficulty f. Squatting Extreme difficulty or unable to perform activity g. Lifting an object, like a bag of Quite a bit of difficulty groceries from the floor h. Performing light activities around Extreme difficulty or unable your home to perform activity i. Performing heavy activities around Quite a bit of difficulty your home j. Getting into or out of a car Extreme difficulty or unable to perform activity k. Walking 2 blocks Extreme difficulty or unable to perform activity l. Walking a mile Extreme difficulty or unable to perform activity m. Going up or down 10 stairs (about 1 Extreme difficulty or unable flight of stairs) to perform activity n. Standing for 1 hour Extreme difficulty or unable to perform activity o. Sitting for 1 hour Extreme difficulty or unable to perform activity p. Running on even ground Extreme difficulty or unable to perform activity q. Running on uneven ground Extreme difficulty or unable to perform activity r. Making sharp turns while running fast Extreme difficulty or unable to perform activity s. Hopping Extreme difficulty or unable to perform activity t. Rolling over in bed Quite a bit of difficulty LEFI Score Lower Extremity Functional Index Score 8 Outpatient Therapy Assessment Impairments Problems/Impairmments Palpation Tenderness,Impaired Range of Motion,Impaired Strength,Impaired Endurance, Impaired Gait Pattern,Impaired Walking,Impaired Standing, Impaired Household Care, Impaired Stair Climbing, Impaired Incline Stepping, Impaired Stepping on Uneven Surface,Impaired Squatting, Impaired Recreational Activities,Increased Edema, Subjective C/O Pain,Impaired Self Care/Self Management Prognosis Rehab Potential Good Comment Skilled therapy services are necessary to prepare patient for surgery and assist in improving her functional mobility after surgery. Clinical Impression Consistent with Diagnosis Yes Short Term Goals Number of Weeks 4 Increase Range of Motion Yes: L knee after surgery 0- 100 deg Increase Strength Yes: L LE at least 4/5 throughout Improve Gait Pattern with Assistive Yes: minimal antalgic gait Device pattern Improve LEFI Score Yes: > 20 Decrease Subjective C/O Pain Yes: 7/10 at worst L knee Patient to be Ind w/ HEP Yes Retirement Goals Number of Weeks 8 Decreased Palpation Tenderness Yes: 0/4 L knee Increase Range of Motion Yes: L knee after surgery 0- 120 Increase Strength Yes: L LE 5/5 throughout Improve Gait Pattern without Assistive Yes: No antalgic gait pattern Device Improve Ability For Household Care Yes: without pain Return to Recreational Activities Yes Improve LEFI Score Yes: > 40 Decrease Subjective C/O Pain Yes: 4/10 at worst L knee Patient to be Ind w/ Advanced HEP Yes Outpatient Therapy Plan of Care Treatment Plan May Include Therapeutic Exercise Including Home Yes Exercise Program Manual Therapy Techniques Yes Neuromuscular Re-education Yes Therapeutic Activities to Return to Yes Previous Functional/Work Level Gait Training Yes ADL/Self Care Education Yes Thermal Modalities Yes Electrical Stimulation Yes Orthotics/Bracing/Splinting Yes Vasopneumatic Compression Pump Yes Manual Lymphatic Drainage Yes Eval/Re-Eval Yes Frequency Times per week 2 Duration Number of Weeks 8 Addendums This patient is a candidate for social No or vocational rehab? Patient/Guardian verbally acknowledges Yes understanding of treatment program and consents to further treatment? Patient/Guardian verbally acknowledges Yes understanding of diagnosis, prognosis and goals for treatment? Eval Complexity PT Charges 40952 - High Complexity Shoulder/Elbow Eval Shoulder Objective Measurements Elbow Objective Measurements PHYSICIAN CERTIFICATION: I certify the specified therapy services for Kristin Colemankolby are required, authorized, and reviewed every 30 days.
== END 2023-08-23 12:00 | disposition home or self-care (01) ==
LOC: PT 11:00
PROVIDERS: Visit Provider Orthopaedic Surgery
DX: M25.562 Pain in left knee (principal); M17.12 Unilateral primary osteoarthritis, left knee
CPT/HCPCS: 97110; 97112; 97163; 97530

== ENCOUNTER 2023-08-24 06:17 | Observation (INO) | payer BC, SELFPAY ==
--- NOTE | 2023-08-16 14:17 | SW/DCPLANNER ---
I spoke w/ this patient regarding upcoming knee procedure on 08/24/23. Patient stated that she plans to return back home w/ her and return to outpatient PT once medically stable for discharge. Patient stated that she does have a rolling walker at home. I will follow up w/ this patient after procedure.
[2023-08-20 14:01] VITALS: BMI 36.0
[2023-08-24] VITALS (15 sets, daily range): BP systolic 110–153; BP diastolic 65–105; PULSE 74–88; RESP 16–18; TEMP 36.1–37.3; O2SAT 93–100
--- NOTE | 2023-08-24 06:20 | ECG_ITS ---
APPROVED REPORT Exam: Resting ECG HR:68 bpm ECG Measurements Heart Rate 68 AXES AR 173 P 2 QRSd 93 QRS -7 QT 395 T 17 QTc 411 Conclusion SINUS RHYTHM MODERATE VOLTAGE CRITERIA FOR LVH, CONSIDER NORMAL VARIANT [MEETS CRITERIA IN ONE OF: R(aVL), S(V1), R(V5), R(V5/V6)+S(V1)] BORDERLINE ECG UNCONFIRMED REPORT Electronically signed by : Ash Boone MD 08/25/2023 15:03:51
[2023-08-24] MEDS: LACTATED RINGERS 1000ML 1,000 ML 25 ML IV (06:41)
--- NOTE | 2023-08-24 07:13 | P.PNANES_ITS ---
[facility] Disclaimer: The information contained in this section may have been updated after the patient was seen, as this information can be updated by other users. Medical History (Updated 08/24/23 @ 06:26 by Audrey Michelle RN) Sleep apnea Rheumatoid arthritis Chronic rhinitis Perforated nasal septum Hypertension Arthritis Hepatitis B Asthma Surgical History (Updated 08/24/23 @ 06:26 by Audrey Michelle RN) History of surgery H/O arthroscopy of shoulder History of bladder surgery History of repair of ACL History of hysterectomy History of cholecystectomy Family History Other Cancer Social History (Updated 08/24/23 @ 06:26 by Audrey Michelle RN) Smoking Status: Never smoker alcohol intake: never substance use type: denies use current occupational status: retired Travel in the last 8 weeks: None household members: spouse housing: house caffeine: Yes [facility] Anesthesia Checklist Patient Identification Patient Identification: Arm Band and Family Structural Data Admitted From: Home Planned Operative Procedure/s: Left TKR Consent for Planned Operative Procedure(s) Verified: Yes Verified Documents: Surgical Consent and History and Physical NPO Status Verified Time NPO: 00:00 Additional verifications Patient : No Anesthesia Reactions: Yes (vomiting) Hx Blood Transfusions: No Blood Transfusion Reaction: No Previous Colonoscopy: Yes Airway Assessment Mallampati Score:: Class II C-Spine Mobility Assessed: Yes TMJ Mobility Assessed: Yes Dentition: Good Dentition Neurological Assessment Level of Consciousness: Awake, Alert and Appropriate Hx Seizures: No Numbness or tingling in extremities: No Anesthesia Plan Anesthesia Risk discussed: Yes ASA Class: II Anesthesia Type: General w/block Preoperative Comments Pre-Operative Comments: History of Hep B 30 years ago. IBS PONV
--- NOTE | 2023-08-24 07:33 | HMH.PHAINT1 ---
Pharmacy Intervention Comments: HOME MEDICATION LIST VERIFIED USING LIST FROM OUTPATIENT PHARMACY
[2023-08-24] MEDS: CEFAZOLIN 2GM VIAL 2 GM (08:10)
[2023-08-24] MEDS: ROPIVACAINE 0.5% 30ML VIAL 150 MG (08:11)
[2023-08-24] MEDS: MORPHINE PF 10 MG/10ML AMP (08:11)
[2023-08-24] MEDS: SODIUM CHLORIDE 0.9% IV ×2 (08:14→09:18)
[2023-08-24] MEDS: TRANEXAMIC ACID IV ×2 (08:14→09:18)
--- NOTE | 2023-08-24 09:36 | P.OP_ITS ---
Date of procedure: 08/24/23 Pre-op Diagnosis:: Left knee osteoarthritis and retained hardware to include metal interference screws from prior ACL reconstruction Post-op Diagnosis:: Left knee osteoarthritis and retained hardware to include metal interference screws from prior ACL reconstruction Procedure performed:: Left total knee replacement and removal of deep implants to include 2 metal interference screws from prior ACL reconstruction Surgeon:: Bart Garibay MD Station Installation Supervisor(s):: None RESOURCE RECOVERY SPECIALIST:: Melanie Valdivia Anesthesia: regional, local and spinal Estimated blood loss (mL): 5 Clinical Note:: Bilateral knee x-rays 05/29/2022 reveal moderate tricompartmental degenerative changes in the left knee with loss of medial joint space and marginal osteophyte formation with mild varus deformity. Metal interference screws from prior ACL reconstruction noted in the femur and tibia. Left knee x-rays 05/19/2023 reveal severe tricompartmental degenerative changes with complete loss of medial joint space and marginal osteophyte formation with varus deformity. Metal interference screws from prior ACL reconstruction noted in the femur and tibia. Kristin is a pleasant 62-year-old female with activity limiting left knee pain s econdary to osteoarthritis that is affecting her quality of life. History of a left knee ACL reconstruction when she was in her 30s. Cortisone injections were providing relief but the last left knee cortisone injection in January did not help and a Monovisc injection in April made her knee pain worse. We have discussed the importance of low impact exercise. At this point she is a reasonable candidate for left total knee replacement along with possible hardware removal of the metal interference screws. We discussed all the risks, benefits and alternatives to left knee replacement and she agrees to proceed. She understands risk to include but are not limited to infection, pain, stiffness, fracture, loosening, neurovascular injury and medical risks associated with surgery. She understands they recovery course involved. Surgical consent was signed for left total knee replacement along with possible hardware removal of the metal interference screws. Operative findings:: Left knee severe tricompartmental degenerative changes with varus deformity. Retained metal interference screws removed without difficulty from the femur and tibia. Operative note:: The patient was seen in the preoperative holding area. The left knee was marked to confirm the correct operative site. She was seen by anesthesia. She received Ancef 2 g IV prophylactic antibiotics within 1 hour incision time. She received a gram of IV TXA just prior to the incision and as we were closing to help minimize bleeding. She was brought back to the operating room. Spinal was performed out difficulty and IV sedation given throughout the case. A nonsterile tourniquet was applied to the left thigh. The left lower extremity was prepped and draped in the usual sterile fashion. Timeout was performed to confirm left knee replacement with removal of hardware on patient Kristin Anna. The left lower extremity was exsanguinated with an Esmarch and tourniquet was inflated to 250 mmHg. I made a midline incision with a 10 blade scalpel. This was carried down through subucutaneous tissue. Full-thickness medial and lateral flaps were elevated. Adequate hemostasis maintained with the Bovie. I made a medial parapatellar arthrotomy with a fresh 10 blade scalpel. The patella was everted. Infrapatellar fat pad and anterior femoral fat pads were excised with the Bovie. A medial release was performed with the Bovie electrocautery. Marginal osteophytes were removed with a rongeur. Medial and lateral Z retractors were placed. The distal femur was then drilled and we placed an intramedullary distal femoral cutting guide for a 5 degree valgus cut to remove approximately 1 centimeter of bone from the distal femur. This guide was pinned in place. This cut was then made with the oscillating saw. The femur was then sized to a size 5 set at 3 degrees of external rotation. The 4-in-1 size 5 cutting guide was pinned in place. We made the anterior and posterior cuts and the chamfer cuts with the oscillating saw. We then turned our attention to the tibia. A PCL retractor was placed as were medial and lateral Hohmann retractors. Using an extramedullary tibial cutting guide set at a 3 degree posterior slope we excised approximately 5 mm of bone from the low medial side and a centimeter from the high lateral side with oscillating saw. We then excised medial and lateral menisci with the Bovie. With a [address] we achieved full extension with excellent alignment. We finished preparation of the tibia and sized the tibia to a size 3 tibial tray. This was pinned in place centered off the medial third of the tibial tubercle. We then used the punch for the tibia. We placed the size 5 trial femur. Elected to use a narrow femur for the final implant. We were able to remove a metal interference screw from the tibia prior to placement of the tibial tray with the rongeur as it was very prominent. The metal interference screw from the femur was removed prior to making the box cut with a screwdriver. The box cut for the femur was then made with a drill and box osteotome. We then trialed with a size 5 femur, 3 tibial tray and 9 polyethylene. With these trial components in place there was full extension and flexion with excellent alignment and stable throughout. We then made the patellar cut. Patella was sized to 20 mm in thickness so we made a 7 mm patellar cut. The patella was sized to a 29 size button. Drill holes for the button were made. With the trial button in place there was excellent tracking. Trial components removed and final components opened on the back table. The knee was copiously irrigated with Pulsavac lavage and thoroughly dried. We injected the posterior capsule with 20 cc of half percent Naropin and 5 mg morphine for local anesthetic. We placed a bone plug in the distal femoral drill hole. Cement was mixed on the back table. Once the cement was ready we applied cement to the cut tibial surface and impacted in place a size 3 tibial tray. We then applied cement to the femur and impacted in place a size 5 narrow femur. Excess cement was removed. We placed the 9 mm poly. It was seen to be fully engaged in the tibial tray. The knee was left in extension while the cement cured. We applied cement to the cut patellar surface and held in place the 29 mm thin patellar button with the clamp. Once the cement was fully cured we proceeded with closure. The knee was irrigated with a dilute Betadine solution and then Pulsavac lavage. The deep fascia was closed with #1 strata fix barbed suture. The dermis was closed with interrupted 2-0 Vicryl sutures. The skin was closed with a 3-0 strata fix barbed subcuticular suture. We then applied a Prineo mesh dressing with Dermabond glue. We then applied a sterile dressing with 4 x 4's, ABD, soft roll and Galo bandage. Tourniquet was deflated at 77 minutes. Anesthesia rev ersed without difficulty and transferred to recovery in stable condition. All sponge and needle counts were correct. Postoperative plan: She will be admitted to the hospitalist service for medical management Initiate aspirin 81 mg twice daily for DVT prophylaxis in the morning Mobilize as tolerated with PT and OT marketing communication manager for home equipment needs and schedule outpatient physical therapy at [facility] Follow-up in the office on Saturday 09/02. Tourniquet time (min): 77 Condition: stable Disposition: PACU Specimens:: Implants: [employer] posterior stabilized total knee arthroplasty with a size 5 narrow femur, 3 tibia, 9 polyethylene and 29 thin patella Complications:: None
--- NOTE | 2023-08-24 09:41 | P.PNANES_ITS ---
[facility] Anesthesia Record Part I Anesthesia Record I Intake, IV Amount: 2,000 Hydration: Adequate Estimated blood loss (mL): 30 Urine output (mL): 0 Blood Products used (#): none Blood Pressure: 117/105 SaO2: 100 Pulse Rate: 81 Airway Patency: Patent Respiratory Rate: 18 Temperature: 97 F Patient is:: Awake and Stable Stable to PACU at:: 09:33
--- NOTE | 2023-08-24 09:50 | XR_ITS ---
FINAL REPORT CLINICAL HISTORY: Status post left knee replacement COMPARISON: 05/19/2023 FINDINGS: Two views of the left knee were obtained. There are interval postoperative changes from knee arthroplasty. Anterior soft tissue air is noted. There is no evidence of complication. IMPRESSION: Postoperative changes as above. Reviewed, Interpreted and Dictated by Morgan Segura III, MD Transcribed by Robyn Sotelo Authenticated and [facility]
--- NOTE | 2023-08-24 10:40 | SUR.PHASEI ---
1000- detailed report called to thania valenzuela on medsur floor. 1005- radiology in for post op xrays 1013- pt left in stable condition with thania valenzuela in pt room. VSS, dressings cdi, family at bedside. Pt informed us that she had a polar pack cooler of her own at home, and that her would go home and get it. Knee pad for polar pack supplied to the patient.
--- NOTE | 2023-08-24 11:54 | HMH.OTEV ---
OT Inpatient Evaluation Rehab OT IP Evaluation Start: 08/24/23 09:50 Freq: ONCE Status: Active Protocol: Document 08/24/23 11:48 LORNA (Rec: 08/24/23 11:54 LORNA [id number]) Rehab OT IP Assessment Subjective History 62 year old female referred to skilled IP OT Services for s /p Left total knee replacement and removal of deep implants to include 2 metal interference screws from prior ACL reconstruction. Patient was independent with all ADLs and fx'l mobility prior to produre. Continues to drive. Lives with in 1 story home with 1 [address]. Subjective I need to use the restroom. Instructed Patient on completing proper hand and foot placement to complete bed mobility from supine->sit @ EOB->SPT with usage of RW requiring Mod A x2. Patient completed toilet hygiene with SBA. Assisted patient back to EOB with Mod A x2. Patient complete EOB->supine with Min A. Left patient sitting upright in bed with needs met at end of session. CAll light in reach. Objective Patient Orientation Person,Place,Name,Age,Birthday ,Year Right Upper Extremity Gross ROM WFL Left Upper Extremity Gross ROM WFL Bed Mobility bed mobility - supine/sit Assist Level Minimal x 1 (25% assist) Transfer Training Sit/Stand/Pivot Transfer Assist Level Moderate x 2 (50% assist) Chair Transfer Ability Moderate x 2 (50% assist) Chair Transfer Technique Sit to/from Ambulatory Chair Transfer Assistive Devices Rolling Walker Lower Body Dressing Ability Maximum Assistance Performing Toilet Hygiene Ability Standby Assistance Overall Commode/Toilet Transfer Ability Moderate Assistance Commode/Toilet Transfer Technique Sit to/from Ambulatory Rehab OT IP prob,goals,plan Problems Date of Evaluation: 08/24/23 OT IP Problems Bed Mobility,Transfers,Balance ,Self care,Safety Rehab Potential Rehab Potential Good Equipment Needs Assistive Devices Rolling / Wheeled Walker Plan OT intervention Plan Bed Mobility,Transfers,Balance ,Self care,Safety,Therapeutic Exercise OT Plan Frequency Daily Duration LOS Discharge Goals Bed Mobility Ability Standby Assistance Sit to Stand Chair Transfer Ability Minimal x 2 (25% assist) Chair Transfer Ability Minimal x 2 (25% assist) Chair Transfer Technique Sit to/from Ambulatory Chair Transfer Assistive Devices Rolling Walker Lower Body Dressing Ability Moderate Assistance Performing Toilet Hygiene Ability Independent Overall Commode/Toilet Transfer Ability Minimal Assistance Commode/Toilet Transfer Technique Sit to/from Ambulatory Discharge Plan OT Discharge Plan Recommend patient to return home with family. REcommend OP PT services for rehabilitation. Continue skilled IP OT services while here at [facility]. Eval Complexity Eval Charge Codes 85034 - Low Complexity PHYSICIAN CERTIFICATION: I certify the specified therapy services for Kristin Anna are required, authorized, and reviewed every 30 days.
[2023-08-24] MEDS: 0.9 % SODIUM CHLORIDE 1000ML 1,000 ML 75 ML IV (12:20)
[2023-08-24] MEDS: KETOROLAC 30MG/ML VIAL 15 MG IV ×2 (12:28→20:32)
--- NOTE | 2023-08-24 13:23 | EXP.ACUTE.PN ---
Subjective *Date: 08/24/23 *Time: 14:53 Interval history: Ms Anna is a 62-year-old female with a history of Left knee osteoarthritis and retained hardware who was admitted by Dr. GARIBAY to the services of Dr. Rodrigues after a total knee left knee replacement and removal of deep implants this a.m. See Dr. Garibay's history and physical. At the time of this exam patient is sitting up in the bed and states she feels well. She did walk to the bathroom with a walker which did cause some left knee pain. She has been seen by physical therapy and will be seeing them again this p.m. She denies any nausea or vomiting, chest pain or shortness of breath. Medical Exam Vital signs and Labs for Last 24 Hours: Vital Signs Temp Pulse Pulse Resp BP BP Pulse Ox 08/24/23 12:39 08/24/23 12:15 97.6 F 88 18 132/65 99 08/24/23 11:45 97.6 F 79 18 110/79 100 08/24/23 11:15 97.6 F 78 18 119/75 99 08/24/23 11:00 97.6 F 80 18 153/72 H 94 L 08/24/23 10:48 08/24/23 10:45 97.6 F 86 18 134/79 95 08/24/23 10:30 97.6 F 78 18 128/84 93 L 08/24/23 10:03 98.0 F 75 18 146/89 H 98 08/24/23 10:03 98.0 F 81 18 141/79 H 98 08/24/23 09:53 80 18 131/75 96 08/24/23 09:43 97 F L 81 18 117/105 H 08/24/23 09:43 80 18 124/74 96 08/24/23 09:33 97.0 F L 81 18 139/81 95 08/24/23 08:00 08/24/23 06:20 98.0 F 74 18 119/74 99 O2 Del Method O2 Flow Rate 08/24/23 12:39 Room Air 08/24/23 12:15 Room Air 08/24/23 11:45 Room Air 08/24/23 11:15 Room Air 08/24/23 11:00 Room Air 2 08/24/23 10:48 Nasal Cannula 2 08/24/23 10:45 Nasal Cannula 2 08/24/23 10:30 Room Air 08/24/23 10:03 Room Air 08/24/23 10:03 Room Air 08/24/23 09:53 Room Air 08/24/23 09:43 08/24/23 09:43 Room Air 08/24/23 09:33 Room Air 08/24/23 08:00 Room Air 08/24/23 06:20 Room Air Intake and Output 08/24/23 08/24/23 08/24/23 03:59 11:59 19:59 Intake Total 1999 Balance 1999 Intake: Intake, Total IV Amount 1999 I & O for Labs for Last 24 Hours: Intake & Output 08/22/23 08/23/23 08/24/23 08/25/23 11:59 11:59 11:59 11:59 Intake Total 1999 Balance 1999 Constitutional: Present no acute distress Comment:: Sitting up in the bed and is eating her lunch which she seems to be enjoying. She appears comfortable at this point. Respiratory: Present CTA bilaterally (Anteriorly and posteriorly) Cardiac: Present Regular Rhythm GI: Present soft and normal bowel sounds; Absent distention or tenderness Extremities: Absent edema Comment:: Left knee with dressing which is clean and dry. Neuro: Present alert, awake and oriented x 3 Assessment and Plan *Assessment and plan (1) Total knee replacement status: Status: Acute Category: Surgical Code(s): Z96.659 - Presence of unspecified artificial knee joint (2) Osteoarthritis: Status: Acute Category: Medical Code(s): M19.90 - Unspecified osteoarthritis, unspecified site Plan Patient is admitted overnight for care to the services of Dr. Rodrigues. Orthopedics has arranged outpatient therapy and prescribed medications. Dr. Rodrigues entry - Saw patient, agree with above note. Pre-op/admission H&P reviewed.
--- NOTE | 2023-08-24 13:43 | HMH.PTEV ---
Physical Therapy Evaluation Rehab PT IP Evaluation Start: 08/24/23 09:50 Freq: ONCE Status: Active Protocol: Document 08/24/23 13:38 MISTY (Rec: 08/24/23 13:42 MISTY [id number]) Subjective/History History History 62 year old female referred to skilled IP PT Services for s /p Left TKA and removal of deep implants to include 2 metal interference screws from prior ACL reconstruction. Subjective Subjective Patient was independent with all ADLs and fx'l mobility prior to produre. Continues to drive. Lives with in 1 story home with 1 [address]. Has a RW. New diagnosis of cancer in past 12 No months? Rehab PT IP Eval Objective Appearance Patient Behavior Appropriate,Cooperative Patient Orientation Person,Place,Situation Difficulty following instructions none Speech Pattern Clear Ambulation Patient Able to Ambulate Yes Ambulation Observation IP General Gait Pattern Observation Antalgic Gait,Wide Based Gait Ambulation Distance (feet) 15 Ambulation Assistive Device Rolling Walker Ambulation Ability Contact Guard/Hand Hold Balance Ability to Arise Able, uses arms to help Sitting Balance Steady, safe Standing Balance Steady, wide stance Transfers Bed Transfer Ability Minimal x 1 (25% assist) Sit to Stand Bed Transfer Ability Contact Guard/Hand Hold Rehab PT IP prob,goals,plan Problems Date of Evaluation: 08/24/23 PT IP Problems Bed Mobility,Transfers,Gait, Balance,Safety Rehab Potential Rehab Potential Good Equipment Needs Assistive Devices Rolling / Wheeled Walker Plan PT Intervention Plan Bed Mobility,Transfers,Gait, Balance,Safety,Therapeutic Exercise Other Intervention Plan 1-2 times PT Plan Frequency Daily Duration LOS Discharge Goals Bed Transfer Ability Supervision/Stand by Sit to Stand Chair Transfer Ability Independent Ambulation Assistive Device Rolling Walker Ambulation Distance (feet) 30 Discharge Plan PT Discharge Plan Initial physical therapy evaluation performed. Patient presents below baseline at this time in functional mobility, transfers, gait, and strength. Pt would benefit from skilled PT while at [facility] to prevent further functional decline and maximize safety with mobility. Pt safe to d/c home when deemed medically necessary d/t current level of mobility, home set-up, and family support. PT recommending home health PT services to address deficits. PT educated pt on proper positioning of L knee and performing ankle pumps. PT will provide TKA HEP in morning. Eval Complexity Eval Charge Codes 91094 - Moderate Complexity PHYSICIAN CERTIFICATION: I certify the specified therapy services for Kristin Herrera Clevinger are required, authorized, and reviewed every 30 days.
[2023-08-24] MEDS: OXYCODONE 5MG IMMEDIATE RELEASE TABLET 5 MG PO (14:25)
[2023-08-24] MEDS: CEFAZOLIN SODIUM 2 GM in 0.9 % SODIUM CHLORIDE 100 ML IV ×2 (14:38→20:14)
[2023-08-24] MEDS: MORPHINE 2MG/ML SYRINGE 2 MG IV ×2 (19:15→21:19)
[2023-08-24] MEDS: ROPINIROLE 1MG TABLET 4 MG PO (20:37)
[2023-08-25] VITALS: BP 141/78; PULSE 89; RESP 18; TEMP 36.7; O2SAT 95
[2023-08-25] MEDS: MORPHINE 2MG/ML SYRINGE 2 MG IV ×3 (00:01→06:22)
[2023-08-25] MEDS: 0.9 % SODIUM CHLORIDE 1000ML 1,000 ML 75 ML IV (00:08)
[2023-08-25] MEDS: OXYCODONE 5MG IMMEDIATE RELEASE TABLET 5 MG PO ×2 (01:13→09:17)
[2023-08-25 04:00] VITALS: BP 148/76; PULSE 88; RESP 18; TEMP 36.7; O2SAT 99; BMI 37.0
--- NOTE | 2023-08-25 05:50 | PC.NURSE ---
Patient remains A/O x4 this shift. Patient has polar pack to left knee, dressing is C/D/I. Patient has c/o multiple times of pain to left knee, medicated per MAY. Patient has tolerated transfer to BSC and back to bed well. Patient has worn 2L O2 per NC on and off during shift, patient reports she has sleep apena and forgot her cpap machine at home. Bed is in low position, and call light within reach.
[2023-08-25 07:01] LABS: Basophils % 0.1 % (0.1-2.0); Eosinophils % 0.3 % (0.1-12.0); Hematocrit 37.2 % (37.0-47.0); Hemoglobin 11.9 g/dL (12.2-16.2); Lymphocytes # 1.1 K/mm3 (0.7-4.5); Lymphocytes % 9.7 % (10-50); Mean Corpuscular HGB Conc 31.9 g/dL (31.8-35.4); Mean Corpuscular Hemoglobin 33.3 pg (27.0-31.2); Mean Corpuscular Volume 104.4 fl (81-99); Mean Platelet Volume 7.9 fl (7.4-10.4); Monocytes # 0.4 K/mm3 (0.1-1.0); Monocytes % 3.4 % (1.7-9.3); Neutrophils # 9.9 K/mm3 (1.8-7.8); Neutrophils % 86.5 % (37.0-80.0); Platelet Count 293 K/mm3 (142-424); Red Blood Count 3.56 M/mm3 (4.20-5.40); Red Cell Distribution Width 14.8 % (11.5-17.5); White Blood Count 11.5 K/mm3 (4.8-10.8)
[2023-08-25 07:02] LABS: MANUAL DIFFERENTIAL MANUAL DIFFERENTIAL (MANUAL DIFF)
[2023-08-25] MEDS: KETOROLAC 30MG/ML VIAL 15 MG IV (07:06)
[2023-08-25 07:08] LABS: Chloride 104 mmol/L (98-107); Potassium 4.3 mmoL/L (3.5-5.1); Sodium 136 mmol/L (136-145)
[2023-08-25 07:11] LABS: Anion Gap 9.3 mEq/L (5-15); Blood Urea Nitrogen 13 mg/dl (7-17); Carbon Dioxide 27 mmol/L (22.0-30.0); Creatinine Clearance Estimated 92 mL/min (50-200); Estimated Glomerular Filt Rate 73 ml/min (>60); GFR (African American) 88 ML/MIN (>60)
[2023-08-25 07:12] LABS: Calcium 8.8 mg/dl (8.4-10.2); Glucose 108 mg/dl (74-100)
--- NOTE | 2023-08-25 07:27 | P.PNANES_ITS ---
[facility] Anesthesia Record Part II Anesthesia Record Part II Discharge Time: 10:03 Destination: Medical Surgical Department PACU nurse assessment reviewed?: Yes Patient Condition:: Good Anesthesia Complications:: None Swallowing reflex intact?: Yes Airway Patency: Patent Cyanosis?: No Blood Pressure: 146/89 SaO2: 98 Respiratory Rate: 18 Pulse Rate: 75 Temperature: 98 F Mental Status: Alert & Oriented Pain level:: 0 Nausea and/or vomitting:: None Intake, IV Amount: 0 Hydration: Adequate
[2023-08-25 07:28] VITALS: BP 146/89; PULSE 75; RESP 18; TEMP 36.6; O2SAT 98
[2023-08-25 07:30] VITALS: BP 122/81; PULSE 87; RESP 18; TEMP 36.1; O2SAT 97
[2023-08-25 08:14] LABS: Eosinophils % 1 % (0-3); Lymphocytes % 9 % (10-50); Monocytes % 3 % (2-9); Neutrophils % 87 % (42-76); Total Cells Counted 100
[2023-08-25 08:16] LABS: Macrocytosis 1+; Platelet Estimate Normal
[2023-08-25] MEDS: ASPIRIN EC 81MG TABLET 81 MG PO (09:10)
--- NOTE | 2023-08-25 12:48 | P.HPDS_ITS ---
General Admission date:: 08/24/23 Discharge date: 08/25/23 *Admission Date: 08/24/23 *Chief complaint: left knee pain *History of present illness: Ms Anna is a 62-year-old female with a history of Left knee osteoarthritis and retained hardware who was admitted by Dr. GARIBAY to the services of Dr. Rodrigues after a total knee left knee replacement and removal of deep implants this a.m. See Dr. Garibay's history and physical. At the time of this exam patient is sitting up in the bed and states she feels well. She did walk to the bathroom with a walker which did cause some left knee pain. She has been seen by physical therapy and will be seeing them again this p.m. She denies any nausea or vomiting, chest pain or shortness of breath. [facility] Disclaimer: The information contained in this section may have been updated after the patient was seen, as this information can be updated by other users. Medical History Sleep apnea Rheumatoid arthritis Chronic rhinitis Perforated nasal septum Hypertension Arthritis Hepatitis B Asthma Surgical History History of surgery H/O arthroscopy of shoulder History of bladder surgery History of repair of ACL History of hysterectomy History of cholecystectomy Family History Cancer Social History Smoking Status: Never smoker alcohol intake: never substance use type: denies use current occupational status: retired Travel in the last 8 weeks: None household members: spouse housing: house caffeine: Yes Review of Systems Constitutional Constitutional: Denies fatigue, Denies headache(s) and Denies weakness Eyes Eyes: Denies blurry vision and Denies diplopia ENT Ears, Nose, Mouth, and Throat: Denies headache(s), Denies nasal congestion, Denies sore throat and Denies vertigo *Cardiovascular Cardiovascular: Denies chest pain, Denies dyspnea and Denies leg edema *Respiratory Respiratory: Denies cough and Denies dyspnea *Gastrointestinal Gastrointestinal: Denies abdominal pain, Denies loose stools, Denies nausea and Denies vomiting *Musculoskeletal Musculoskeletal: Reports arthralgias (left knee) and Denies myalgias *Neurologic Neurologic: Denies headache(s), Denies vertigo and Denies weakness Endocrine Endocrine: Denies fatigue Exam Data for Last 24 hours Vital signs and Labs for Last 24 Hours: Temp Pulse Resp BP Pulse Ox O2 Del Method O2 Flow Rate 97.0 F L 87 18 122/81 97 Room Air 2 08/25/23 07:30 08/25/23 07:30 08/25/23 07:30 08/25/23 07:30 08/25/23 07:30 08/25/23 11:00 08/25/23 05:00 Laboratory Results - last 24 hr 08/25/23 06:14: WBC 11.5 H, RBC 3.56 L, Hgb 11.9 L, Hct 37.2, MCV 104.4 H, MCH 33.3 H, MCHC 31.9, RDW 14.8, Plt Count 293, MPV 7.9, Neut % (Auto) 86.5 H, Lymph % (Auto) 9.7 L, [place] % (Auto) 3.4, Eos % (Auto) 0.3, Baso % (Auto) 0.1, Neut # (Auto) 9.9 H, Lymph # (Auto) 1.1, [place] # (Auto) 0.4, Eos # (Auto) 0.0, Baso # (Auto) 0.0, Total Counted 100, Neutrophils % (Manual) 87 H, Lymphocytes % (Manual) 9 L, Monocytes % (Manual) 3, Eosinophils % (Manual) 1, Platelet Estimate Normal, Macrocytosis 1+, Sodium 136, Potassium 4.3, Chloride 104, Carbon Dioxide 27, Anion Gap 9.3, BUN 13, Creatinine 0.80, Estimated Creat Clear 92, Estimated GFR 73, Est GFR ( Amer) 88, Glucose 108 H, Calcium 8.8 I & O for Last 24 hours: Intake & Output 08/23/23 08/24/23 08/25/23 08/26/23 11:59 11:59 11:59 11:59 Intake Total 1999 Output Total 0 / 0 0 / 0 Balance 1999 0 / 0 Weight 217 lb Constitutional Constitutional: no acute distress *Routine HEENT Exam Head: Present normocephalic and atraumatic Eye: Present EOMI and PERRL ENT: Present mucous membranes moist *Routine Neck Exam Neck: Present supple and full ROM *Routine Respiratory Exam Respiratory: Present CTA bilaterally *Routine Cardiovascular Exam Cardiovascular: Present RRR *Routine Abdominal Exam Abdominal: Present soft and normoactive bowel sounds; Absent tenderness *Routine Rectal Exam Rectal:: deferred *Routine Genitalia Exam Genitalia:: deferred *Routine Extremities Exam Extremities: Present tenderness (of entire left knee, ice pack and BNONIE in place); Absent cyanosis, clubbing or edema *Routine Skin Exam Skin: Present intact; Absent erythema *Routine Neurological Exam Neurological: Present alert and oriented X3 Meds Home Medications and Allergies Home Medications Medication Instructions Recorded Confirmed Type allopurinol 300 mg tablet 100 mg PO HS 01/04/18 08/24/23 History folic acid 1 mg tablet 1 mg PO DAILY 07/20/22 08/24/23 History methotrexate sodium 2.5 mg tablet 15 mg PO WEEKLY 05/19/23 08/24/23 History ropinirole 4 mg tablet,extended 4 mg PO HS 05/19/23 08/24/23 History release 24 hr metoprolol succinate 100 mg 100 mg PO HS 06/10/23 08/24/23 History tablet,extended release 24 hr ascorbic acid (vitamin C) 25 mg 25 mg PO DAILY 08/24/23 08/24/23 History tablet aspirin 81 mg tablet,delayed 81 mg PO BID #60 tabs 08/24/23 Rx release (Adult Low Dose Aspirin) duloxetine 60 mg capsule,delayed 60 mg PO HS 08/24/23 08/24/23 History release linaclotide 145 mcg capsule 145 mcg PO DAILY 08/24/23 08/24/23 History (Linzess) oxycodone 5 mg tablet 5 mg PO Q4H PRN pain #30 tabs 08/24/23 Rx sulindac 200 mg tablet 200 mg PO BIDWMEAL 08/24/23 08/24/23 History New Prescriptions to Start Prescriptions: Allergies Allergy/AdvReac Type Severity Reaction Status Date / Time No Known Allergies Allergy Verified 08/24/23 06:15 Hospital Course Hospital Course Hospital Course: Patient did well postop and her pain has been controlled on pain medication. She has been up with her walker and has worked with PT. She is stable to be discharged home today and will f/u with Dr. Garibay. Results Data Completed and Pending Labs on day of discharge: Labs from last 24 hours 08/25/23 06:14 WBC 11.5 H RBC 3.56 L Hgb 11.9 L Hct 37.2 MCV 104.4 H MCH 33.3 H MCHC 31.9 RDW 14.8 Plt Count 293 MPV 7.9 Neut % (Auto) 86.5 H Lymph % (Auto) 9.7 L [place] % (Auto) 3.4 Eos % (Auto) 0.3 Baso % (Auto) 0.1 Neut # (Auto) 9.9 H Lymph # (Auto) 1.1 [place] # (Auto) 0.4 Eos # (Auto) 0.0 Baso # (Auto) 0.0 Total Counted 100 Neutrophils % (Manual) 87 H Lymphocytes % (Manual) 9 L Monocytes % (Manual) 3 Eosinophils % (Manual) 1 Platelet Estimate Normal Macrocytosis 1+ Sodium 136 Potassium 4.3 Chloride 104 Carbon Dioxide 27 Anion Gap 9.3 BUN 13 Creatinine 0.80 Estimated Creat Clear 92 Estimated GFR 73 Est GFR ( Amer) 88 Glucose 108 H Calcium 8.8 DS: Diagnosis Discharge Diagnosis (1) Total knee replacement status: Status: Acute Code(s): Z96.659 - Presence of unspecified artificial knee joint (2) Osteoarthritis: Status: Acute Code(s): M19.90 - Unspecified osteoarthritis, unspecified site Discharge Plan Disposition Patient Disposition: Home, Self-Care Condition: Good Follow up Plan Follow up with: Siobhan Melendrez PA [Primary Care Provider] - 09/01/23 1:15 pm Bart Garibay MD [Physician] - 09/03/23 9:30 am Prescriptions/Medication Reconciliation: Continued folic acid 1 mg tablet 1 mg PO DAILY Patient Comments: TAKE 1 TABLET BY MOUTH IN THE MORNING metoprolol succinate 100 mg tablet extended release 24 hr 100 mg PO HS Patient Comments: TAKE 1 TABLET BY MOUTH ONCE DAILY methotrexate sodium 2.5 mg tablet 15 mg PO WEEKLY Patient Comments: TAKE 4 TABLETS BY MOUTH ONCE A WEEK Rx Instructions: 15 mg weekly ropinirole 4 mg tablet extended release 24 hr 4 mg PO HS Patient Comments: TAKE 1 TABLET BY MOUTH ONCE DAILY allopurinol 300 mg tablet 100 mg PO HS oxycodone 5 mg tablet 5 mg PO Q4H PRN (Reason: pain) Qty: 30 0RF aspirin [Adult Low Dose Aspirin] 81 mg tablet,delayed release (DR/EC) 81 mg PO BID Qty: 60 0RF Rx Instructions: BID w meals for DVT prophylaxis for 4 weeks ascorbic acid (vitamin C) 25 mg Tablet 25 mg PO DAILY Rx Instructions: unknown dose sulindac 200 mg tablet 200 mg PO BIDWMEAL Patient Comments: TAKE 1 TABLET BY MOUTH TWICE DAILY WITH FOOD duloxetine 60 mg capsule,delayed release(DR/EC) 60 mg PO HS Patient Comments: TAKE 1 CAPSULE BY MOUTH ONCE DAILY Linzess 145 mcg capsule 145 mcg PO DAILY Patient Comments: TAKE 1 CAPSULE BY MOUTH ONCE DAILY DIRECTED Problem Reconciliation Problems Reviewed?: Yes Patient Discharge Instructions ACTIVITY: Limited activity DIET: continue same diet Patient Instructions: DI for Knee Replacement, Surgical Site Infection Providers Primary Care Provider: Siobhan Melendrez Admit Provider: Jamie Rodrigues Attending Provider: Jamie Rodrigues
== END 2023-08-25 12:58 | disposition home or self-care (01) ==
LOC: 2ND 09:11
PROVIDERS: Orthopaedic Surgery; Admitting Provider Family Medicine; PCP Physician Assistant; Visit Provider Family Medicine
PROC: (CPT 27447; principal; 2023-08-24 07:30)
DX: M17.12 Unilateral primary osteoarthritis, left knee (principal); M25.561 Pain in right knee; M25.562 Pain in left knee; I10 Essential (primary) hypertension; Z79.899 Other long term (current) drug therapy
CPT/HCPCS: 27447; 36415; 73560; 80048; 85007; 85025; 93005; 96374; 97162; 97165; 97530; C1713; C1776; G0378; J0690; J1885; J2270; J2274; J7120

== ENCOUNTER 2023-09-02 08:38 | Outpatient (CLI) | payer BC, SELFPAY ==
--- NOTE | 2023-09-02 | CA_ITS ---
FINAL REPORT TECHNIQUE: Compression dotson scale and Doppler evaluation CLINICAL HISTORY: HTN. Patient had a total knee replacement 08/24/23. States 4 days post op she noted LLE edema that has progressively gotten worse. She notes posterior left calf pain. FINDINGS: Femoral and popliteal veins show normal compressibility and flow. Visualized portion of the calf veins are patent by Doppler exam. IMPRESSION: No evidence of left lower extremity deep venous thrombosis Reviewed, Interpreted and Dictated by Harsha Garcia MD Transcribed by Anitra Ochoa Authenticated and . [facility]
== END 2023-09-02 23:59 | disposition home or self-care (01) ==
LOC: RT 08:39
PROVIDERS: PCP Physician Assistant; Visit Provider Physician Assistant
DX: M79.89 Other specified soft tissue disorders (principal)
CPT/HCPCS: 93971

== ENCOUNTER 2023-09-22 15:00 | Outpatient (RCR) | payer BC, SELFPAY ==
--- NOTE | 2023-08-26 14:49 | HMH.PTOPEV ---
PT Outpatient Evaluation Rehab PT Outpatient Evaluation Start: 08/26/23 14:22 Freq: Status: Active Protocol: Document 08/26/23 14:32 IKE (Rec: 08/26/23 14:49 IKE [id number]) E-signed By Erfen Medrano, PT Outpatient Therapy Subjective History Subjective History This is the initial PT eval for Kristin Anna, 62 yowf who presents with c/o pain, stiffness, weakness, and difficulty ambulationg as expected 2 days S/P L TKA. She reports difficulty with all ADLs, especially transfers and getting in and out of the truck. She reports significant pain remains with certain activities and positions. She does have a prior hx of ACL repair on the same leg many years ago. New diagnosis of cancer in past 12 No months? Chief Complaint Pain,Stiff,Weakness Symptom Type Ache,Sharp Symptoms Relieved By Rest/Positioning Symptoms Aggravated By Standing,Physical Activity, Walking Prior Functional Limitations None Current Functional Limitations Housework,Dressing,Standing, Squatting,Walking,Stairs Symptom Description Constant but Variable Level of pain today (0-10) 5 Pain scale - at its worst (0-10) 10 Lower Extremity Functional Index Activities Today, do you or would you have any difficulty at all with: a.Any of your usual work, housework or Extreme difficulty or unable school activities to perform activity b. Your usual hobbies, recreational or Extreme difficulty or unable sporting activities to perform activity c. Getting into or out of the bath Extreme difficulty or unable to perform activity d. Walking between rooms Quite a bit of difficulty e. Putting on your shoes or socks Extreme difficulty or unable to perform activity f. Squatting Extreme difficulty or unable to perform activity g. Lifting an object, like a bag of Quite a bit of difficulty groceries from the floor h. Performing light activities around Quite a bit of difficulty your home i. Performing heavy activities around Extreme difficulty or unable your home to perform activity j. Getting into or out of a car Extreme difficulty or unable to perform activity k. Walking 2 blocks Extreme difficulty or unable to perform activity l. Walking a mile Extreme difficulty or unable to perform activity m. Going up or down 10 stairs (about 1 Extreme difficulty or unable flight of stairs) to perform activity n. Standing for 1 hour Extreme difficulty or unable to perform activity o. Sitting for 1 hour Quite a bit of difficulty p. Running on even ground Extreme difficulty or unable to perform activity q. Running on uneven ground Extreme difficulty or unable to perform activity r. Making sharp turns while running fast Extreme difficulty or unable to perform activity s. Hopping Extreme difficulty or unable to perform activity t. Rolling over in bed Quite a bit of difficulty LEFI Score Lower Extremity Functional Index Score 5 Outpatient Therapy Assessment Impairments Problems/Impairmments Palpation Tenderness,Impaired Range of Motion,Impaired Strength,Impaired Endurance, Impaired Transfers,Impaired Gait Pattern,Impaired Walking, Impaired Standing,Impaired Sitting,Impaired Driving, Impaired Dressing,Impaired Shower/Bathing,Impaired Household Care,Impaired Stair Climbing,Impaired Incline Stepping,Impaired Stepping on Uneven Surface,Impaired Squatting,Impaired Recreational Activities, Increased Edema,Subjective C/O Pain,Impaired Self Care/Self Management Prognosis Rehab Potential Good Comment Pt with symptoms of expected post-TKA stiffness, immobility , weakness, and pain. Skilled therapy services are necessary to return to prior level of function. Clinical Impression Consistent with Diagnosis Yes Short Term Goals Number of Weeks 4 Decreased Palpation Tenderness Yes: 1/4 L knee jt line Increase Range of Motion Yes: L knee AROM 0-100 deg Increase Strength Yes: L LE >3+/5 throughout Improve Gait Pattern with Assistive Yes: with RW and minimal Device antalgic gait Improve LEFI Score Yes: >25 Decrease Subjective C/O Pain Yes: 7/10 at worst Patient to be Ind w/ HEP Yes Detention Goals Number of Weeks 8 Decreased Palpation Tenderness Yes: 0/4 L knee jt line Increase Range of Motion Yes: L knee AROM 0-120 deg Increase Strength Yes: L LE 4+/5-5/5 throughout Improve Gait Pattern without Assistive Yes: No antalgic gait Device Improve Ability For Household Care Yes: without pain Improve LEFI Score Yes: > 40 Decrease Subjective C/O Pain Yes: 4/10 at worst Patient to be Ind w/ Advanced HEP Yes Outpatient Therapy Plan of Care Treatment Plan May Include Therapeutic Exercise Including Home Yes Exercise Program Manual Therapy Techniques Yes Neuromuscular Re-education Yes Therapeutic Activities to Return to Yes Previous Functional/Work Level Gait Training Yes ADL/Self Care Education Yes Thermal Modalities Yes Electrical Stimulation Yes Orthotics/Bracing/Splinting Yes Manual Lymphatic Drainage Yes Eval/Re-Eval Yes Frequency Times per week 2-3 Duration Number of Weeks 6-8 Addendums This patient is a candidate for social No or vocational rehab? Patient/Guardian verbally acknowledges Yes understanding of treatment program and consents to further treatment? Patient/Guardian verbally acknowledges Yes understanding of diagnosis, prognosis and goals for treatment? Eval Complexity PT Charges 84911 - High Complexity Shoulder/Elbow Eval Shoulder Objective Measurements Elbow Objective Measurements PHYSICIAN CERTIFICATION: I certify the specified therapy services for Kristin Colemaner are required, authorized, and reviewed every 30 days.
== END 2023-09-22 16:20 | disposition home or self-care (01) ==
LOC: PT 15:00
PROVIDERS: Visit Provider Orthopaedic Surgery
DX: M17.12 Unilateral primary osteoarthritis, left knee (principal); Z96.652 Presence of left artificial knee joint
CPT/HCPCS: 97010; 97014; 97016; 97110; 97116; 97140; 97163; 97535; G0283

== ENCOUNTER 2023-11-25 11:46 | Outpatient (CLI) | payer BC, SELFPAY ==
[2023-11-25 13:45] LABS: Vitamin B12 209 pg/mL (239-931)
[2023-11-25 13:49] LABS: Folate > 20.00 ng/mL
[2023-11-25 15:59] LABS: Ferritin 60.9 ng/ml (11.1-264)
[2023-12-04 15:39] LABS: Narcolepsy DQA1*01:02 Negative (.); Narcolepsy DQB1*06:02 Negative (.)
== END 2023-11-25 23:59 | disposition home or self-care (01) ==
LOC: LAB 14:54
PROVIDERS: PCP Physician Assistant; Visit Provider Specialist
DX: E83.10 Disorder of iron metabolism, unspecified (principal); D64.9 Anemia, unspecified
CPT/HCPCS: 36415; 81383; 82607; 82728; 82746; 84443

== ENCOUNTER 2023-12-02 15:06 | Outpatient (CLI) | payer BC, SELFPAY ==
[2023-12-06 17:10] LABS: Antiparietal Cell Antibody 1.3 Units (0.0-20.0)
[2023-12-07 08:27] LABS: Intrinsic Factor Abs, Serum 17.3 AU/mL (0.0-1.1)
== END 2023-12-02 23:59 | disposition home or self-care (01) ==
LOC: LAB 15:08
PROVIDERS: Specialist; PCP Physician Assistant; Visit Provider Physician Assistant
DX: E53.8 Deficiency of other specified B group vitamins (principal)
CPT/HCPCS: 36415; 83516; 86340

== ENCOUNTER → 2023-12-30 11:24 | Outpatient (CLI) | payer BC, SELFPAY | LOC: SL 11:25 | PROVIDERS: Visit Provider Specialist | DX: G47.33 Obstructive sleep apnea (adult) (pediatric) (principal); R63.4 Abnormal weight loss | CPT/HCPCS: G0399 ==

== ENCOUNTER 2024-01-01 22:33 | Emergency (ER) | payer BC, SELFPAY ==
[2024-01-01 22:33] VITALS: BP 121/63; PULSE 98; RESP 25; TEMP 36.7; O2SAT 100
--- NOTE | 2024-01-01 22:34 | CT_ITS ---
PROCEDURE INFORMATION: Exam: CTA Head With Contrast, Arteriography Exam date and time: 01/01/2024 11:28 PM Age: 63 years old Clinical indication: Weakness; Additional info: Lue numbness/weakness TECHNIQUE: Imaging protocol: Computed tomographic angiography of the head with contrast. Exam focused on the arteries. 3D rendering (Not supervised by radiologist): MIP and/or 3D reconstructed images were created by the technologist. Radiation optimization: All CT scans at this facility use at least one of these dose optimization techniques: automated exposure control; mA and/or kV adjustment per patient size (includes targeted exams where dose is matched to clinical indication); or iterative reconstruction. Contrast material: ISOUVE 370; Contrast volume: 80 ml; Contrast route: INTRAVENOUS (IV); COMPARISON: CT ANGIO HEAD 01/01/2024 11:28 PM FINDINGS: ANTERIOR CIRCULATION: Right internal carotid artery: Intracranial segment is patent with no significant stenosis. No aneurysm. Right middle cerebral artery: No occlusion or significant stenosis. No aneurysm. Right anterior cerebral artery: No occlusion or significant stenosis. No aneurysm. Left internal carotid artery: Intracranial segment is patent with no significant stenosis. No aneurysm. Left middle cerebral artery: No occlusion or significant stenosis. No aneurysm. Left anterior cerebral artery: No occlusion or significant stenosis. No aneurysm. POSTERIOR CIRCULATION: Right vertebral artery: No occlusion or significant stenosis. No aneurysm. Left vertebral artery: No occlusion or significant stenosis. No aneurysm. Basilar artery: No occlusion or significant stenosis. No aneurysm. Right posterior cerebral artery: No occlusion or significant stenosis. No aneurysm. Left posterior cerebral artery: No occlusion or significant stenosis. No aneurysm. Brain: No definite mass, mass effect, or midline shift. Cerebral ventricles: No ventriculomegaly. Bones/joints: Unremarkable. No acute fracture. Soft tissues: Unremarkable. IMPRESSION: No large vessel stenosis or occlusion.
--- NOTE | 2024-01-01 22:34 | XR_ITS ---
PROCEDURE INFORMATION: Exam: XR Chest Exam date and time: 01/01/2024 11:26 PM Age: 63 years old Clinical indication: Shortness of breath TECHNIQUE: Imaging protocol: Radiologic exam of the chest. Views: 1 view. COMPARISON: CR XR CHEST 2V 07/30/2023 11:53 AM FINDINGS: Lungs: Unremarkable. No consolidation. Pleural spaces: Unremarkable. No pleural effusion. No pneumothorax. Heart/Mediastinum: Unremarkable. No cardiomegaly. Bones/joints: Unremarkable. Gastrointestinal tract: Moderate gaseous distension of bowel. IMPRESSION: 1. No focal infiltrates. 2. Moderate gaseous distension of bowel.
--- NOTE | 2024-01-01 22:34 | CT_ITS ---
PROCEDURE INFORMATION: Exam: CT Head Without Contrast Exam date and time: 01/01/2024 11:16 PM Age: 63 years old Clinical indication: Weakness, extremity; Left; Additional info: Lue numbness and weakness TECHNIQUE: Imaging protocol: Computed tomography of the head without contrast. Radiation optimization: All CT scans at this facility use at least one of these dose optimization techniques: automated exposure control; mA and/or kV adjustment per patient size (includes targeted exams where dose is matched to clinical indication); or iterative reconstruction. COMPARISON: CR (C SPINE OBL, CSPINE, C SPINE OBL) 09/07/2018 11:44 AM FINDINGS: Brain: Normal. No hemorrhage. Unremarkable white matter. No mass effect. Cerebral ventricles: No ventriculomegaly. Pituitary gland and sella: Negative Paranasal sinuses: Visualized sinuses are unremarkable. No fluid levels. Mastoid air cells: Visualized mastoid air cells are well aerated. Orbital cavities: Negative. Parotid and submandibular glands: Negative Bones: Unremarkable. No acute fracture. Soft tissues: Unremarkable. Vasculature: Negative. IMPRESSION: No acute intracranial abnormality.
--- NOTE | 2024-01-01 22:34 | CT_ITS ---
PROCEDURE INFORMATION: Exam: CTA Neck With Contrast Exam date and time: 01/01/2024 11:28 PM Age: 63 years old Clinical indication: Weakness; Additional info: Lue numbness/weakness TECHNIQUE: Imaging protocol: Computed tomographic angiography of the neck with contrast. Exam focused on the cervical segments of the vasculature. 3D rendering (Not supervised by radiologist): MIP and/or 3D reconstructed images were created by the technologist. Radiation optimization: All CT scans at this facility use at least one of these dose optimization techniques: automated exposure control; mA and/or kV adjustment per patient size (includes targeted exams where dose is matched to clinical indication); or iterative reconstruction. Contrast material: ISOUVE 370; Contrast volume: 80 ml; Contrast route: INTRAVENOUS (IV); COMPARISON: CT ANGIO HEAD 01/01/2024 11:28 PM FINDINGS: Right common carotid artery: No stenosis. No dissection or occlusion. Right internal carotid artery: No stenosis of the extracranial segment. No dissection or occlusion. Right external carotid artery: No occlusion or stenosis of the origin. Left common carotid artery: No stenosis. No dissection or occlusion. Left internal carotid artery: No stenosis of the extracranial segment. No dissection or occlusion. Left external carotid artery: No occlusion or stenosis of the origin. Right vertebral artery: No stenosis. No dissection or occlusion. Left vertebral artery: No stenosis. No dissection or occlusion. Soft tissues: Enlarged heterogeneous thyroid. No significant soft tissue swelling. Bones/joints: Severe multilevel degenerative change of the cervical spine predominantly at C4-C5 with disc space narrowing, discogenic sclerosis and small disc osteophyte complexes. Moderate disc space narrowing at C5-C6. IMPRESSION: 1. No stenosis or occlusion. 2. Enlarged heterogeneous thyroid gland. Ultrasound recommended. 3. Dorsal kyphosis. 4. Severe multilevel degenerative change of the cervical spine predominantly at C4-C5 with disc space narrowing, discogenic sclerosis and small disc osteophyte complexes. Moderate disc space narrowing at C5-C6. REFERENCES: NASCET CRITERIA. The degree of stenosis in the cervical segment of the internal carotid artery is based on NASCET criteria. Normal is no stenosis. Mild is less than 50% stenosis. Moderate is 50-69% stenosis. Severe is 70% to 99% stenosis. Total occlusion is no detectable patent lumen.
[2024-01-01 22:35] VITALS: O2SAT 100
--- NOTE | 2024-01-01 22:37 | ED_ITS ---
Discharge Plan Disposition Patient Disposition: Home, Self-Care Prescriptions Prescriptions: No Action folic acid 1 mg tablet 1 mg PO DAILY Patient Comments: TAKE 1 TABLET BY MOUTH IN THE MORNING metoprolol succinate 100 mg tablet extended release 24 hr 100 mg PO HS Patient Comments: TAKE 1 TABLET BY MOUTH ONCE DAILY methotrexate sodium 2.5 mg tablet 15 mg PO WEEKLY Patient Comments: TAKE 4 TABLETS BY MOUTH ONCE A WEEK Rx Instructions: 15 mg weekly ropinirole 4 mg tablet extended release 24 hr 4 mg PO HS Patient Comments: TAKE 1 TABLET BY MOUTH ONCE DAILY allopurinol 300 mg tablet 100 mg PO HS ascorbic acid (vitamin C) 25 mg Tablet 25 mg PO DAILY Rx Instructions: unknown dose sulindac 200 mg tablet 200 mg PO BIDWMEAL Patient Comments: TAKE 1 TABLET BY MOUTH TWICE DAILY WITH FOOD duloxetine 60 mg capsule,delayed release(DR/EC) 60 mg PO HS Patient Comments: TAKE 1 CAPSULE BY MOUTH ONCE DAILY Linzess 145 mcg capsule 145 mcg PO DAILY Patient Comments: TAKE 1 CAPSULE BY MOUTH ONCE DAILY DIRECTED Referrals Follow up/Referrals: Siobhan Melendrez PA [Primary Care Provider] - See instructions Activity Restrictions/Add. Instructions Additional Instructions/Restrictions: Your kidney numbers were mildly elevated. Please follow-up with your PCP for recheck. Your CT scan showed that the thyroid looked a little bit abnormal. Please follow-up with your PCP for thyroid ultrasound. The CT scan did not show any evidence of stroke, but it did show pretty severe arthritis in your neck. Recommend following up for further evaluation as I think this is the cause of your arm symptoms. Clinical Impressions Clinical Impression: Numbness and tingling in left hand, ELIDA (acute kidney injury), Abnormal imaging of thyroid Instructions Patient Instructions: DI for Numbness/Tingling, DI for Acute Kidney Injury Print Language Print Language: Mongolian Discharge ED Provider: Bakari Alvarez General Adult HPI <Vlad Thompson MD - Last Filed: 01/01/24 23:35> General Chief complaint: Neuro Symptoms/Deficit Stated complaint: numbness Time Seen by Provider: 01/01/24 22:33 History of Present Illness HPI narrative: Kristin Anna is a 63-year-old female with a history of arthritis, hypertension, left shoulder surgery, pernicious anemia, who presents to the emergency department from home due to 3 days of left arm numbness. Patient states that her left hand has been going numb over the past 3 days, which is not uncommon for her. She also reports that today, she felt like her left hand was drawing up , which is primary reason that she came to the emergency department. Patient feels that she may be hyperventilating. at bedside states that on the way here, she was answering all questions appropriately and did not seem confused I did not notice any facial drooping. Patient is not on any blood thinning medication. She denies any chest pain but states that she feels somewhat short of breath. She denies any weakness in her lower extremities or any numbness in her lower extremities. Related Data Home Medications ?Medication ?Instructions ?Recorded ?Confirmed allopurinol 300 mg tablet 100 mg PO HS 01/04/18 11/25/23 folic acid 1 mg tablet 1 mg PO DAILY 07/20/22 11/25/23 methotrexate sodium 2.5 mg tablet 15 mg PO WEEKLY 05/19/23 11/25/23 ropinirole 4 mg tablet,extended 4 mg PO HS 05/19/23 11/25/23 release 24 hr metoprolol succinate 100 mg 100 mg PO HS 06/10/23 11/25/23 tablet,extended release 24 hr ascorbic acid (vitamin C) 25 mg 25 mg PO DAILY 08/24/23 11/25/23 tablet duloxetine 60 mg capsule,delayed 60 mg PO HS 08/24/23 11/25/23 release linaclotide 145 mcg capsule 145 mcg PO DAILY 08/24/23 11/25/23 (Linzess) sulindac 200 mg tablet 200 mg PO BIDWMEAL 08/24/23 11/25/23 Allergies Allergy/AdvReac Type Severity Reaction Status Date / Time No Known Allergies Allergy Verified 11/24/23 20:42 [facility] <Vlad Thompson MD - Last Filed: 01/01/24 23:35> [facility] Disclaimer: The information contained in this section may have been updated after the patient was seen, as this information can be updated by other users. Medical History (Updated 01/02/24 @ 00:29 by Bakari Alvarez MD) Snoring Anemia Iron metabolism disorder Opiate withdrawal Postoperative cellulitis of surgical wound Colon obstruction Sleep apnea Rheumatoid arthritis Chronic rhinitis Perforated nasal septum Hypertension Arthritis Hepatitis B Asthma Surgical History (Updated 11/25/23 @ 09:22 by Chanel Titus) History of knee replacement History of surgery H/O arthroscopy of shoulder History of bladder surgery History of repair of ACL History of hysterectomy History of cholecystectomy Family History Other Cancer Social History Smoking Status: Never smoker alcohol intake: never substance use type: denies use current occupational status: retired Travel in the last 8 weeks: None household members: spouse housing: house caffeine: Yes Other Medical History Have you received the Flu Vaccine for this season: No Have you received the Pneumonia Vaccine: No <Vlad Thompson MD - Last Filed: 01/01/24 23:35> ROS Obtained: Yes Systems reviewed as appropriate & no additional complaints except as documented Physical Exam <Vlad Thompson MD - Last Filed: 01/01/24 23:35> General General appearance: alert, in no apparent distress and anxious Head Head exam: atraumatic Eye Eye exam: Present normal appearance, PERRL and EOMI ENT ENT exam: Present normal external ear exam Neck Neck exam: Present full ROM Chest Chest inspection: Present symmetric chest wall rise Respiratory Respiratory exam: Present normal lung sounds bilaterally and respiratory distress (Mild increased respiratory rate and mild respiratory distress); Absent wheezes or stridor Cardiovascular Cardiovascular exam: Present regular rate and normal rhythm Abdominal Exam Abdominal exam: Present soft; Absent tenderness or guarding Extremities Exam Extremities exam: Present normal inspection Back Exam Back exam: Present normal inspection Neurological Exam Neurological exam: Present alert, oriented X3 and CN II-XII intact Expanded Neurological Exam Patient oriented to: Present person, place and time Comment: Cranial nerves II through XII intact. 5 out of 5 strength in all extremities. Normal [id number]. Sensation intact and equal throughout all extremities. Some mild word finding difficulty, however difficult to distinguish if this is from her rapid breathing or from truly difficulty finding words Psychiatric Psychiatric exam: Present normal affect Skin Skin exam: Present warm and dry Medical Decision Making <Vlad Thompson MD - Last Filed: 01/01/24 23:35> Medical Records Screening: Per USPSTF and CDC recommendations, given the prevalence of disease in our region, it is our hospital?s policy to screen for HIV and viral Hepatitis for all patients aged 18 and over and those with ongoing risk factors. Jamel Inquiry Pt receiving controlled substance: No Vital Signs: 01/01/24 22:33 01/01/24 23:00 01/01/24 23:35 Temperature 98.0 F Temperature Source Oral Pulse Rate 80 82 Pulse Rate [Right] 98 H Respiratory Rate 25 H Blood Pressure 109/61 L Blood Pressure [Left Arm] 121/63 Blood Pressure Mean [Left Arm] 82 Blood Pressure Source [Left Arm] Automatic Cuff 02 Sat by Pulse Oximetry 100 97 98 Oxygen Delivery Method Room Air Room Air 01/02/24 00:36 Temperature 98.0 F Temperature Source Oral Pulse Rate 78 Pulse Rate [Right] Respiratory Rate 16 Blood Pressure 109/64 L Blood Pressure [Left Arm] Blood Pressure Mean [Left Arm] Blood Pressure Source [Left Arm] 02 Sat by Pulse Oximetry Oxygen Delivery Method Room Air Lab Data Lab Results 01/01/24 22:49: WBC 13.1 H, RBC 3.48 L, Hgb 11.9 L, Hct 34.8 L, MCV 100.0 H, MCH 34.1 H, MCHC 34.1, RDW 15.6, Plt Count 318, MPV 8.0, Neut % (Auto) 85.7 H, Lymph % (Auto) 8.8 L, [place] % (Auto) 2.5, Eos % (Auto) 2.7, Baso % (Auto) 0.4, Neut # (Auto) 11.2 H, Lymph # (Auto) 1.2, [place] # (Auto) 0.3, Eos # (Auto) 0.4, Baso # (Auto) 0.1, Total Counted 100, Neutrophils % (Manual) 84 H, Lymphocytes % (Manual) 11, Monocytes % (Manual) 3, Eosinophils % (Manual) 2, Platelet Estimate Normal, Macrocytosis 1+, PT 10.0 L, INR 0.88 L, Sodium 130 L, Potassium 4.4, Chloride 98, Carbon Dioxide 25, Anion Gap 11.4, BUN 37 H, Creatinine 1.50 H, Estimated Creat Clear 49, Estimated GFR 35 L, Est GFR ( Amer) 43 L, Glucose 98, Calcium 9.4, Troponin I < 0.01, TSH 7.68 H 01/01/24 22:49 01/01/24 22:49 Orders (Tests/Meds): ED MEDICATIONS Generic Name Dose Route Start Last Admin Trade Name Freq PRN Reason Stop Dose Admin Sodium Chloride 10 ml 10/19/24 23:37 01/01/24 23:38 Sodium Chloride 0.9% 10ml Syr (Rad Only) IV 01/31/24 23:36 10 ml NEEDED PRN Administration Maintain IV Site Discontinued Medications Generic Name Dose Route Start Last Admin Trade Name Freq PRN Reason Stop Dose Admin Lactated Ringer's 1,000 mls @ 999 mls/hr 01/01/24 23:08 01/01/24 23:14 Lactated Ringer's 1000 Ml Bag IV 01/02/24 00:08 999 mls/hr .Q1H1M ONE Administration Iopamidol 80 ml 01/01/24 23:37 01/01/24 23:38 Iopamidol-370 (76%);100ml Bottle IV 01/01/24 23:38 80 ml ONCE ONE Administration Sodium Chloride 50 ml 01/01/24 23:37 01/01/24 23:38 0.9 % Sodium Chloride 50 Ml Vial IV 01/01/24 23:38 50 ml ONCE ONE Administration ORDERS Category Date Time Status CT angio head Stat Cat Scan 01/01/24 22:[address] angio neck Stat Cat Scan 01/01/24 22:[address] head/brain wo con Stat Cat Scan 01/01/24 22:34 Completed CXR --portable [XR chest portable] Stat Exams 01/01/24 22:34 Completed BMP [Basic Metabolic Panel] Stat Lab 01/01/24 22:49 Completed CBC w/Auto Diff [Complete Blood Count Auto Diff] Stat Lab 01/01/24 22:49 Completed HIV (1&2) Antibody Rapid Stat Lab 01/01/24 22:49 Received Hep C Ab with Reflex to RNA Stat Lab 01/01/24 22:49 Received PT INR [Prothrombin Time INR] Stat Lab 01/01/24 22:49 Completed TSH [Thyroid Stimulating Hormone] Stat Lab 01/01/24 22:49 Completed Troponin I Q3H Lab 01/02/24 01:45 Ordered Troponin I Q3H Lab 01/02/24 04:45 Ordered Troponin I Stat Lab 01/01/24 22:49 Completed ECG Data Tracing #1: I reviewed this ECG and interpreted as documented below: EKG interpreted by me personally at 2227. Ventricular rate of 94 bpm. QTc normal at 428. Normal IN interval. No ST elevations or depressions. Medical Decision Narrative: Kristin Anna is a 63Y female with a history of pernicious anemia, rheumatoid arthritis, hypertension presents to the emergency department for 3 days of left upper extremity numbness with complaints that her left hand is drawing up that began today. Patient notes that she is hyperventilating. She states that she has had shoulder her left surgery before so does not uncommon for her to have numbness in this extremity. She denies any chest pain but complains of some mild shortness of breath currently. On arrival, patient is mildly hypertensive, heart rate within normal limits, breathing comfortably on room air in no acute respiratory distress. Cardiopulmonary exam revealed no murmurs. No abnormal lung sounds. Patient's neuroexam demonstrated GCS of 15, alert and oriented x 3, no focal neurological deficit. Sensation grossly intact throughout all extremities. Cranial nerves II through XII intact. No cerebellar signs. She is having occasional word finding difficulty with an NIHSS of 1. Patient's fingerstick blood glucose on arrival was 70. Differential diagnosis includes: Stroke, electrolyte derangement, hypoglycemia, panic attack, ACS, peripheral neuropathy Workup in the emergency department included: CTA head and neck, CT head without, CBC, BMP, troponin, EKG, chest x-ray Labs at this time are significant for mild leukocytosis of 13 with left shift, hemoglobin 11.9, sodium 130, potassium 4.4, ELIDA with creatinine 1.5 and BUN of 37 (creatinine previously 0.8), will give 1 L lactated ringer, calcium 9.4. Remainder of labs and CT imaging as well as chest x-ray pending at this time. The patient's care was handed off to oncoming physician, Dr. Alvarez. <Bakari Alvarez MD - Last Filed: 01/02/24 00:45> Vital Signs: 01/01/24 22:33 01/01/24 23:00 01/01/24 23:35 Temperature 98.0 F Temperature Source Oral Pulse Rate 80 82 Pulse Rate [Right] 98 H Respiratory Rate 25 H Blood Pressure 109/61 L Blood Pressure [Left Arm] 121/63 Blood Pressure Mean [Left Arm] 82 Blood Pressure Source [Left Arm] Automatic Cuff 02 Sat by Pulse Oximetry 100 97 98 Oxygen Delivery Method Room Air Room Air 01/02/24 00:36 Temperature 98.0 F Temperature Source Oral Pulse Rate 78 Pulse Rate [Right] Respiratory Rate 16 Blood Pressure 109/64 L Blood Pressure [Left Arm] Blood Pressure Mean [Left Arm] Blood Pressure Source [Left Arm] 02 Sat by Pulse Oximetry Oxygen Delivery Method Room Air Lab Data Lab Results 01/01/24 22:49: WBC 13.1 H, RBC 3.48 L, Hgb 11.9 L, Hct 34.8 L, MCV 100.0 H, MCH 34.1 H, MCHC 34.1, RDW 15.6, Plt Count 318, MPV 8.0, Neut % (Auto) 85.7 H, Lymph % (Auto) 8.8 L, [place] % (Auto) 2.5, Eos % (Auto) 2.7, Baso % (Auto) 0.4, Neut # (Auto) 11.2 H, Lymph # (Auto) 1.2, [place] # (Auto) 0.3, Eos # (Auto) 0.4, Baso # (Auto) 0.1, Total Counted 100, Neutrophils % (Manual) 84 H, Lymphocytes % (Manual) 11, Monocytes % (Manual) 3, Eosinophils % (Manual) 2, Platelet Estimate Normal, Macrocytosis 1+, PT 10.0 L, INR 0.88 L, Sodium 130 L, Potassium 4.4, Chloride 98, Carbon Dioxide 25, Anion Gap 11.4, BUN 37 H, Creatinine 1.50 H, Estimated Creat Clear 49, Estimated GFR 35 L, Est GFR ( Amer) 43 L, Glucose 98, Calcium 9.4, Troponin I < 0.01, TSH 7.68 H Orders (Tests/Meds): ED MEDICATIONS Generic Name Dose Route Start Last Admin Trade Name Freq PRN Reason Stop Dose Admin Sodium Chloride 10 ml 01/01/24 23:37 01/01/24 23:38 Sodium Chloride 0.9% 10ml Syr (Rad Only) IV 01/31/24 23:36 10 ml NEEDED PRN Administration Maintain IV Site Discontinued Medications Generic Name Dose Route Start Last Admin Trade Name Freq PRN Reason Stop Dose Admin Lactated Ringer's 1,000 mls @ 999 mls/hr 01/01/24 23:08 01/01/24 23:14 Lactated Ringer's 1000 Ml Bag IV 01/02/24 00:08 999 mls/hr .Q1H1M ONE Administration Iopamidol 80 ml 01/01/24 23:37 01/01/24 23:38 Iopamidol-370 (76%);100ml Bottle IV 01/01/24 23:38 80 ml ONCE ONE Administration Sodium Chloride 50 ml 01/01/24 23:37 01/01/24 23:38 0.9 % Sodium Chloride 50 Ml Vial IV 01/01/24 23:38 50 ml ONCE ONE Administration ORDERS Category Date Time Status CT angio head Stat Cat Scan 01/01/24 22:[address] angio neck Stat Cat Scan 01/01/24 22:[address] head/brain wo con Stat Cat Scan 01/01/24 22:34 Completed CXR --portable [XR chest portable] Stat Exams 01/01/24 22:34 Completed BMP [Basic Metabolic Panel] Stat Lab 01/01/24 22:49 Completed CBC w/Auto Diff [Complete Blood Count Auto Diff] Stat Lab 01/01/24 22:49 Completed HIV (1&2) Antibody Rapid Stat Lab 01/01/24 22:49 Received Hep C Ab with Reflex to RNA Stat Lab 01/01/24 22:49 Received PT INR [Prothrombin Time INR] Stat Lab 01/01/24 22:49 Completed TSH [Thyroid Stimulating Hormone] Stat Lab 01/01/24 22:49 Completed Troponin I Q3H Lab 01/02/24 01:45 Ordered Troponin I Q3H Lab 01/02/24 04:45 Ordered Troponin I Stat Lab 01/01/24 22:49 Completed Medical Decision Narrative: Kristin Anna is a 63Y female with a history of pernicious anemia, rheumatoid arthritis, hypertension presents to the emergency department for 3 days of left upper extremity numbness with complaints that her left hand is drawing up that began today. Patient notes that she is hyperventilating. She states that she has had shoulder her left surgery before so does not uncommon for her to have numbness in this extremity. She denies any chest pain but complains of some mild shortness of breath currently. On arrival, patient is mildly hypertensive, heart rate within normal limits, breathing comfortably on room air in no acute respiratory distress. Cardiopulmonary exam revealed no murmurs. No abnormal lung sounds. Patient's neuroexam demonstrated GCS of 15, alert and oriented x 3, no focal neurological deficit. Sensation grossly intact throughout all extremities. Cranial nerves II through XII intact. No cerebellar signs. She is having occasional word finding difficulty with an NIHSS of 1. Patient's fingerstick blood glucose on arrival was 70. Differential diagnosis includes: Stroke, electrolyte derangement, hypoglycemia, panic attack, ACS, peripheral neuropathy Workup in the emergency department included: CTA head and neck, CT head without, CBC, BMP, troponin, EKG, chest x-ray Labs at this time are significant for mild leukocytosis of 13 with left shift, hemoglobin 11.9, sodium 130, potassium 4.4, ELIDA with creatinine 1.5 and BUN of 37 (creatinine previously 0.8), will give 1 L lactated ringer, calcium 9.4. Remainder of labs and CT imaging as well as chest x-ray pending at this time. The patient's care was handed off to oncoming physician, Dr. Alvarez. Antonio DOUGLAS: I assumed care of the patient at the time of handoff from the prior provider. On reassessment patient reports symptomatic improvement. CT scans were independently interpreted by me, no evidence of acute ischemic pathology. It does show moderate to severe degenerative changes in the cervical spine. Given this, the patient's transient left upper extremity symptoms are most consistent with cervical radiculopathy. She reports that she has been evaluated for this in the past but it was not bad enough for surgery at that time. I recommended she get reassessed. CT scan also shows a heterogeneous thyroid. I recommended she follow-up with her PCP for risk assessment with ultrasound. I also recommended she follow-up for reassessment of her kidney function given she has a mild ELIDA. I had extensive discussion with patient regarding her presentation and workup. She was discharged in stable condition with return precautions. Critical Care <Vlad Thompson MD - Last Filed: 01/01/24 23:35> Critical Care Time Critical Care Time: No
[2024-01-01 22:57] LABS: Basophils # 0.1 K/mm3 (0-0.2); Basophils % 0.4 % (0.1-2.0); Eosinophils # 0.4 K/mm3 (0.0-0.4); Eosinophils % 2.7 % (0.1-12.0); Hematocrit 34.8 % (37.0-47.0); Hemoglobin 11.9 g/dL (12.2-16.2); Lymphocytes # 1.2 K/mm3 (0.7-4.5); Lymphocytes % 8.8 % (10-50); Mean Corpuscular HGB Conc 34.1 g/dL (31.8-35.4); Mean Corpuscular Hemoglobin 34.1 pg (27.0-31.2); Monocytes # 0.3 K/mm3 (0.1-1.0); Monocytes % 2.5 % (1.7-9.3); Neutrophils # 11.2 K/mm3 (1.8-7.8); Neutrophils % 85.7 % (37.0-80.0); Platelet Count 318 K/mm3 (142-424); Red Blood Count 3.48 M/mm3 (4.20-5.40); Red Cell Distribution Width 15.6 % (11.5-17.5); White Blood Count 13.1 K/mm3 (4.8-10.8)
[2024-01-01 22:59] LABS: MANUAL DIFFERENTIAL MANUAL DIFFERENTIAL (MANUAL DIFF)
[2024-01-01 23:00] VITALS: BP 109/61; PULSE 80; O2SAT 97
[2024-01-01 23:02] LABS: Chloride 98 mmol/L (98-107); Potassium 4.4 mmoL/L (3.5-5.1); Sodium 130 mmol/L (136-145)
[2024-01-01 23:04] LABS: Blood Urea Nitrogen 37 mg/dl (7-17); Creatinine Clearance Estimated 49 mL/min (50-200); Estimated Glomerular Filt Rate 35 ml/min (>60); GFR (African American) 43 ML/MIN (>60)
[2024-01-01 23:05] LABS: Anion Gap 11.4 mEq/L (5-15); Calcium 9.4 mg/dl (8.4-10.2); Carbon Dioxide 25 mmol/L (22.0-30.0); Glucose 98 mg/dl (74-100)
[2024-01-01 23:07] LABS: INR 0.88 (0.9-1.1)
[2024-01-01 23:11] LABS: Eosinophils % 2 % (0-3); Lymphocytes % 11 % (10-50); Monocytes % 3 % (2-9); Neutrophils % 84 % (42-76); Total Cells Counted 100
[2024-01-01 23:12] LABS: Macrocytosis 1+; Platelet Estimate Normal
[2024-01-01] MEDS: LACTATED RINGERS 1000ML 1,000 ML 999 ML IV (23:14)
[2024-01-01 23:18] LABS: Troponin I < 0.01 ng/ml (0.00-0.034)
[2024-01-01 23:35] VITALS: PULSE 82; O2SAT 98
[2024-01-01] MEDS: SODIUM CHLORIDE 0.9% 10ML SYR (RAD ONLY) 10 ML IV (23:38)
[2024-01-01] MEDS: 0.9 % SODIUM CHLORIDE 50 ML VIAL IV (23:38)
[2024-01-01] MEDS: IOPAMIDOL-370 (76%);100ML BOTTLE 80 ML IV (23:38)
[2024-01-02 00:12] LABS: Thyroid Stimulating Hormone 7.68 uIU/mL (0.465-4.68)
[2024-01-02 00:36] VITALS: BP 109/64; PULSE 78; RESP 16; TEMP 36.7; O2SAT 98
[2024-01-02 02:48] LABS: HIV (1&2) Antibody Rapid NONREACTIVE (NONREACTIVE)
--- NOTE | 2024-01-02 22:22 | ECG_ITS ---
APPROVED REPORT Exam: Resting ECG HR:94 bpm ECG Measurements Heart Rate 94 AXES IA 128 P 39 QRSd 90 QRS 16 QT 377 T 51 QTc 428 Conclusion SINUS RHYTHM NONSPECIFIC ST & T-WAVE ABNORMALITY BORDERLINE ECG UNCONFIRMED REPORT Electronically signed by : MIRELLA CASTREJON, 01/03/2024 06:46:56
[2024-01-04 05:16] LABS: HCV Ab Non Reactive (Non Reactive)
== END 2024-01-02 00:37 | disposition home or self-care (01) ==
PROVIDERS: Student in an Organized Health Care Education/Training Program; Emergency Provider Emergency Medicine; PCP Physician Assistant
DX: R93.89 Abnormal findings on diagnostic imaging of other specified body structures (principal); N17.9 Acute kidney failure, unspecified; R20.0 Anesthesia of skin; R06.02 Shortness of breath
CPT/HCPCS: 96360; 70450; 70496; 70498; 71045; 80048; 84443; 84484; 85007; 85025; 85610; 86803; 87389; 93005; 99285; J7120; Q9967

== ENCOUNTER 2024-01-05 10:05 | Outpatient (CLI) | payer BC, SELFPAY ==
[2024-01-05 10:25] LABS: Basophils % 0.2 % (0.1-2.0); Eosinophils # 0.3 K/mm3 (0.0-0.4); Eosinophils % 1.4 % (0.1-12.0); Hematocrit 38.5 % (37.0-47.0); Hemoglobin 12.6 g/dL (12.2-16.2); Lymphocytes # 0.8 K/mm3 (0.7-4.5); Mean Corpuscular HGB Conc 32.8 g/dL (31.8-35.4); Mean Corpuscular Hemoglobin 34.1 pg (27.0-31.2); Mean Corpuscular Volume 103.9 fl (81-99); Mean Platelet Volume 7.4 fl (7.4-10.4); Monocytes # 0.5 K/mm3 (0.1-1.0); Monocytes % 2.5 % (1.7-9.3); Neutrophils # 18.9 K/mm3 (1.8-7.8); Neutrophils % 91.9 % (37.0-80.0); Platelet Count 495 K/mm3 (142-424); Red Cell Distribution Width 15.5 % (11.5-17.5); White Blood Count 20.6 K/mm3 (4.8-10.8)
[2024-01-05 10:43] LABS: MANUAL DIFFERENTIAL MANUAL DIFFERENTIAL (MANUAL DIFF)
[2024-01-05 10:58] LABS: Albumin Level 4.1 g/dl (3.5-5.0); Chloride 97 mmol/L (98-107); Sodium 132 mmol/L (136-145)
[2024-01-05 11:00] LABS: Blood Urea Nitrogen 15 mg/dl (7-17); Estimated Glomerular Filt Rate 63 ml/min (>60); GFR (African American) 77 ML/MIN (>60)
[2024-01-05 11:01] LABS: Alanine Aminotransferase 15 U/L (12-78); Albumin/Globulin Ratio 1.6 (1.1-1.8); Alkaline Phosphatase 105 U/L (38-126); Aspartate Amino Transferase 21 U/L (14-36); Bilirubin,Total 0.7 mg/dl (0.2-1.3); Calcium 10.4 mg/dl (8.4-10.2); Carbon Dioxide 26 mmol/L (22.0-30.0); Globulin 2.5 g/dL (1.3-3.2); Glucose 107 mg/dl (74-100); Total Protein,Serum 6.6 g/dl (6.3-8.2)
[2024-01-05 12:13] LABS: Lymphocytes % 8 % (10-50); Macrocytosis 1+; Monocytes % 3 % (2-9); Neutrophils % 89 % (42-76); Total Cells Counted 100
[2024-01-05 12:14] LABS: Platelet Estimate Slight Increase
== END 2024-01-05 23:59 | disposition home or self-care (01) ==
LOC: LAB 10:08
PROVIDERS: PCP Physician Assistant; Visit Provider Physician Assistant
DX: G25.81 Restless legs syndrome (principal); N28.9 Disorder of kidney and ureter, unspecified; D72.829 Elevated white blood cell count, unspecified
CPT/HCPCS: 36415; 80053; 83735; 85007; 85025; 85027

== ENCOUNTER 2024-01-06 09:19 | Outpatient (CLI) | payer BC, SELFPAY ==
--- NOTE | 2024-01-06 09:43 | US_ITS ---
PROCEDURE INFORMATION: Exam: US Soft Tissue Head and Neck, TI-RADS Exam date and time: 01/06/2024 9:48 AM Age: 63 years old Clinical indication: Abnormal findings; Abnormal radiologic study of neck; Additional info: Abnormal thyroid exam TECHNIQUE: Imaging protocol: Real-time ultrasound scan of the neck with image documentation. Exam focused on the thyroid. Total images: 49 COMPARISON: CT ANGIO NECK 01/01/2024 11:28 PM FINDINGS: Right thyroid lobe: Right lobe measures 4.9 x 1.9 x 1.7 cm. Left thyroid lobe: Left lobe measures 5.0 x 1.8 x 1.8 cm. Isthmus: Isthmus measures 4 mm. Thyroid nodule 1 Size: 9 x 6 x 7 mm Thyroid nodule 1 Location: Lower pole right lobe Thyroid nodule 1 Composition: Solid Thyroid nodule 1 Echogenicity: Hypoechoic Thyroid nodule 1 Shape: Wider than tall Thyroid nodule 1 Margins: Smoothly marginated. Thyroid nodule 1 Echogenic foci: No echogenic foci Thyroid nodule 1 Points: 4 Thyroid nodule 2 Size: 1.1 x 1.2 x 0.9 cm Thyroid nodule 2 Location: Midpole left lobe Thyroid nodule 2 Composition: Solid Thyroid nodule 2 Echogenicity: Hypoechoic Thyroid nodule 2 Shape: Wider than tall Thyroid nodule 2 Margins: Smoothly marginated. Thyroid nodule 2 Echogenic foci: No echogenic foci Thyroid nodule 2 Points: 4 Thyroid nodule 3 Size: 4 x 3 x 4 mm Thyroid nodule 3 Location: Lower pole left lobe Thyroid nodule 3 Composition: Mixed solid and cystic Thyroid nodule 3 Echogenicity: Hypoechoic Thyroid nodule 3 Shape: Wider than tall Thyroid nodule 3 Margins: Smoothly marginated. Thyroid nodule 3 Echogenic foci: No echogenic foci Thyroid nodule 3 Points: 3 Thyroid nodule 4 Size: 3 x 4 x 2 mm Thyroid nodule 4 Location: Upper pole right lobe Thyroid nodule 4 Composition: Solid Thyroid nodule 4 Echogenicity: Hypoechoic Thyroid nodule 4 Shape: Wider than tall Thyroid nodule 4 Margins: Smoothly marginated. Thyroid nodule 4 Echogenic foci: No echogenic foci Thyroid nodule 4 Points: 4 Lymph nodes: No enlarged nodes. IMPRESSION: 1. Nodule 1: TI-RADS category TR4, Moderately Suspicious. No fine needle aspiration or follow-up ultrasound is recommended. (Reference: Kay) 2. Nodule 2: TI-RADS category TR4, Moderately Suspicious. Follow-up thyroid ultrasound at 1, 2, 3, and 5 years is recommended. (Reference: Kay) 3. Nodule 3: TI-RADS category TR3, Mildly Suspicious. No fine needle aspiration or follow-up ultrasound is recommended. (Reference: Kay) 4. Nodule 4: TI-RADS category TR4, Moderately Suspicious. No fine needle aspiration or follow-up ultrasound is recommended. (Reference: Kay) REFERENCES: Kay FN, Ana Laura WD, Azeem EG et al. ACR Thyroid Imaging, Reporting and Data System (TI-RADS): White Paper of the ACR TI-RADS Committee. J Am Sera Radiol. 2017; 14: 587-595.
== END 2024-01-06 23:59 | disposition home or self-care (01) ==
LOC: RAD 09:19
PROVIDERS: PCP Physician Assistant; Visit Provider Nurse Practitioner Family
DX: R94.6 Abnormal results of thyroid function studies (principal)
CPT/HCPCS: 76536

== ENCOUNTER 2024-01-14 12:56 | Outpatient (CLI) | payer BC, SELFPAY ==
[2024-01-14 14:22] LABS: Microscopic, Urine URINE MICROSCOPIC (MICROSCOPIC)
[2024-01-14 14:42] LABS: Appearance,Urine CLEAR (Clear); Basophils # 0.1 K/mm3 (0-0.2); Basophils % 0.7 % (0.1-2.0); Bilirubin,Urine Negative (Negative); Blood, Urine Negative (Negative); Color,Urine YELLOW (Yellow); Eosinophils # 0.4 K/mm3 (0.0-0.4); Glucose,Urine (UA) Negative (Negative); Hematocrit 36.6 % (37.0-47.0); Hemoglobin 11.7 g/dL (12.2-16.2); Ketones,Urine Negative (Negative); Leukocyte Esterase,Urine Negative (Negative); Lymphocytes # 1.8 K/mm3 (0.7-4.5); Lymphocytes % 14.8 % (10-50); Mean Corpuscular Hemoglobin 33.7 pg (27.0-31.2); Mean Corpuscular Volume 105.3 fl (81-99); Mean Platelet Volume 7.1 fl (7.4-10.4); Monocytes # 0.3 K/mm3 (0.1-1.0); Monocytes % 2.6 % (1.7-9.3); Neutrophils # 9.4 K/mm3 (1.8-7.8); Nitrate,Urine Negative (Negative); Platelet Count 514 K/mm3 (142-424); Protein,Urine Negative (Negative); Red Blood Count 3.47 M/mm3 (4.20-5.40); Red Cell Distribution Width 15.4 % (11.5-17.5); Urobilinogen,Urine 0.2 EU/dl (0.2); White Blood Count 11.9 K/mm3 (4.8-10.8)
[2024-01-14 14:57] LABS: Alanine Aminotransferase 18 U/L (12-78); Albumin Level 3.9 g/dl (3.5-5.0); Albumin/Globulin Ratio 1.9 (1.1-1.8); Alkaline Phosphatase 72 U/L (38-126); Aspartate Amino Transferase 20 U/L (14-36); Bilirubin,Total 0.6 mg/dl (0.2-1.3); Blood Urea Nitrogen 10 mg/dl (7-17); Calcium 9.2 mg/dl (8.4-10.2); Carbon Dioxide 24 mmol/L (22.0-30.0); Chloride 106 mmol/L (98-107); Creatine Kinase 51 U/L (30-135); Estimated Glomerular Filt Rate 73 ml/min (>60); GFR (African American) 88 ML/MIN (>60); Globulin 2.1 g/dL (1.3-3.2); Glucose 82 mg/dl (74-100); Sodium 137 mmol/L (136-145)
[2024-01-14 15:08] LABS: C-Reactive Protein 25.2 mg/L (0-4)
[2024-01-14 15:11] LABS: Bacteria,Urine 2+ /lpf; RBC,Urine Occasional #/hpf (0-3); Squamous Epithelial Cell,Urine 20-50 #/hpf (0-5); Uric Acid Crystals,Urine Trace /lpf
[2024-01-14 15:16] LABS: Free T4 (Free Thyroxine) 1.07 ng/dl (0.78-2.19)
[2024-01-14 15:35] LABS: Erythrocyte Sedimentation Rate 53 mm/hr (0-30)
[2024-01-14 21:00] LABS: Thyroid Stimulating Hormone 1.69 uIU/mL (0.465-4.68)
== END 2024-01-14 23:59 | disposition home or self-care (01) ==
PROVIDERS: Internal Medicine Rheumatology; PCP Physician Assistant; Visit Provider Student in an Organized Health Care Education/Training Program
DX: Z01.818 Encounter for other preprocedural examination (principal); Z51.81 Encounter for therapeutic drug level monitoring; E04.1 Nontoxic single thyroid nodule; D84.821 Immunodeficiency due to drugs; M05.79 Rheumatoid arthritis with rheumatoid factor of multiple sites without organ or systems involvement; Z68.37 Body mass index [BMI] 37.0-37.9, adult; E66.9 Obesity, unspecified
CPT/HCPCS: 36415; 80050; 80053; 81001; 82550; 84439; 84443; 85025; 85651; 86140; 86480; 87086; 87088; 87186

== ENCOUNTER 2024-01-18 08:16 | Outpatient (CLI) | payer BC, SELFPAY ==
--- NOTE | 2024-01-18 08:29 | US_ITS ---
FINAL REPORT CLINICAL HISTORY: LT THYROID FNA -- JEAN CLAUDE VENUTRA --- LT NODULE FINDINGS: Ultrasound guided thyroid biopsy. HISTORY: TR 4 nodule in the left lobe of the thyroid measuring up to 11 mm. Attending rradiologist: Dr. Segura Physician Criminal Research Specialist: Jean Claude Welsh PA-C PROCEDURE: After informed consent was obtained and a time-out was performed, the patient was prepped and draped in usual sterile fashion over the left neck. Utilizing local anesthesia and sterile technique with a 25-gauge needle, access to lesion was obtained. A total of 4 passes were made under direct ultrasound guidance. The patient received no conscious sedation. The patient tolerated procedure well and left the department in good condition. IMPRESSION: Status post ultrasound guided biopsy of thyroid without immediate complication. Films reviewed , interpreted and dictated by Dr. Segura. Transcribed by Jean Claude Rivera PA-C. Reviewed, Interpreted and Dictated by Morgan Segura III, MD Transcribed by LORENZO Rodriguez Authenticated and [facility]
[2024-01-20 20:42] LABS: QuantiFERON-TB Gold Plus Negative (Negative)
== END 2024-01-18 23:59 | disposition home or self-care (01) ==
LOC: RAD 08:17
PROVIDERS: Internal Medicine Rheumatology; PCP Physician Assistant; Visit Provider Student in an Organized Health Care Education/Training Program
DX: E04.1 Nontoxic single thyroid nodule (principal)
CPT/HCPCS: 10005; 86480

== ENCOUNTER 2024-02-11 09:58 | Outpatient (CLI) | payer BC, SELFPAY ==
--- NOTE | 2024-02-11 | XR_ITS ---
FINAL REPORT CLINICAL HISTORY: Nonspecific cough COMPARISON: 07/30/2023 FINDINGS: PA and lateral views of the chest were obtained. The cardiac and mediastinal silhouettes are within normal limits. The lungs are clear. There is no pleural effusion or pneumothorax. No acute osseous abnormality is identified. IMPRESSION: No radiographic evidence of acute cardiac or pulmonary disease. Reviewed, Interpreted and Dictated by Emmy Rainey MD Transcribed by Robyn Sotelo Authenticated and [facility]
--- NOTE | 2024-02-11 10:23 | ECG_ITS ---
APPROVED REPORT Exam: Resting ECG HR:79 bpm ECG Measurements Heart Rate [address] 139 P -13 QRSd 80 QRS 35 QT 364 T 46 QTc 398 Conclusion SINUS RHYTHM LOW QRS VOLTAGE IN PRECORDIAL LEADS [QRS DEFLECTION < 1.0 mV IN CHEST LEADS] BORDERLINE ECG UNCONFIRMED REPORT Electronically signed by : Ash Boone MD 02/11/2024 14:11:37
== END 2024-02-11 23:59 | disposition home or self-care (01) ==
LOC: RAD 09:59
PROVIDERS: PCP Physician Assistant; Visit Provider Physician Assistant
DX: Z01.818 Encounter for other preprocedural examination (principal)
CPT/HCPCS: 71046; 93005

== ENCOUNTER 2024-03-13 09:24 | Emergency (ER) | payer BC, SELFPAY ==
[2024-03-13 10:05] VITALS: BP 129/76; PULSE 116; RESP 19; TEMP 37.9; O2SAT 98; BMI 32.1
[2024-03-13 10:12] LABS: Coronavirus 19, PCR Not Detected (NotDetected); Influenza B, PCR Not Detected (NotDetected)
--- NOTE | 2024-03-13 10:18 | EXP.UTC ---
Discharge Plan Disposition Patient Disposition: Home, Self-Care Condition: Good Prescriptions Prescriptions: No Action levothyroxine 25 mcg tablet 25 mcg PO DAILY Patient Comments: TAKE 1 TABLET BY MOUTH IN THE MORNING ON AN EMPTY STOMACH tizanidine 2 mg tablet 2 mg PO HS PRN Patient Comments: TAKE 1 TO 2 TABLETS BY MOUTH ONCE DAILY AT BEDTIME NEEDED leflunomide 20 mg tablet 20 mg PO DAILY Patient Comments: TAKE 1 TABLET BY MOUTH ONCE DAILY diclofenac sodium 0.1 % drops 1 drp Eye-Right TID Patient Comments: INSTILL 1 DROP INTO RIGHT EYE EVERY 8 HOURS (THREE TIMES DAILY) STARTING 1 DAY BEFORE SURGERY prednisolone acetate 1 % drops,suspension 1 drp Eye-Right Q8H Patient Comments: INSTILL 1 DROP INTO RIGHT EYE EVERY 8 HOURS (THREE TIMES DAILY) STARTING 1 DAY BEFORE SURGERY allopurinol 100 mg tablet 100 mg PO DAILY Patient Comments: TAKE 1 TABLET BY MOUTH ONCE DAILY methylprednisolone [Medrol (Moises)] 4 mg tablets,dose pack See Rx Instructions PO PER PKG DIR Qty: 21 0RF Rx Instructions: PO PER PKG DIR for 6 days Horizant 600 mg tablet extended release 600 mg PO BID Qty: 60 5RF ascorbic acid (vitamin C) 25 mg Tablet 25 mg PO DAILY Rx Instructions: unknown dose sulindac 200 mg tablet 200 mg PO BIDWMEAL Patient Comments: TAKE 1 TABLET BY MOUTH TWICE DAILY WITH FOOD duloxetine 60 mg capsule,delayed release(DR/EC) 60 mg PO HS Patient Comments: TAKE 1 CAPSULE BY MOUTH ONCE DAILY Referrals Follow up/Referrals: Siobhan Melendrez PA [Primary Care Provider] - See instructions Activity Restrictions/Add. Instructions Additional Instructions/Restrictions: *Monitor Temp, Over the counter Motrin or Tylenol as directed/as needed Tylenol every 4 hours and Motrin every 6 hours (as long as your family doctor has told you that you can take it) for fever or pain. and straight to ER if unable to lower temp less than 101.0 after medication given *Warm salt water gargles may help to soothe the throat *Throat Lozenges? *Sleep elevated *Humidifier/Vaporizer Follow up IMMEDIATELY for new or worsening symptoms or no Noticeable improvement over the next 48-72 hours. 911 for difficulty breathing or swallowing You were tested for today for COVID19 and Influenza A & B,your test result should be back later today and will be available for viewing on your [facility] My Health Portal Clinical Impressions Clinical Impression: Viral syndrome Instructions Patient Instructions: DI for Viral Syndrome Print Language Print Language: Turkish Discharge ED Provider: Kristie Caba [facility] [place] General Stated complaint: fever, cough, no taste, exp to covid Mode of Arrival: Ambulatory Source of Information: Patient Limitations: No Limitations Time Seen by Provider: 03/13/24 10:18 Description of Symptoms (Recalled from Triage Doc. by RN): PATIENT C/O PRODUCTIVE COUGH, SOA, AND NO SMELL OR TASTE SINCE WEDNESDAY HEENT Symptoms (Recalled from RN notes): Yes Resp Symptoms (Recalled from RN notes): Yes Skin Symptoms (Recalled from RN notes): No MS Symptoms (Recalled from RN notes): No Functional Status (Recalled from RN notes): WNL History of Present Illness Provider Complaint: Patient states that she was around her sister that tested positive for COVID States that since then she has started having symptoms States that she has had a fever, chills, body aches, loss of taste and smell pressure in her ears and cough States today she was still not feeling any better so she came in requesting to get tested for COVID Related Data Home Medications ?Medication ?Instructions ?Recorded ?Confirmed ascorbic acid (vitamin C) 25 mg 25 mg PO DAILY 08/24/23 03/02/24 tablet duloxetine 60 mg capsule,delayed 60 mg PO HS 08/24/23 03/02/24 release sulindac 200 mg tablet 200 mg PO BIDWMEAL 08/24/23 03/02/24 allopurinol 100 mg tablet 100 mg PO DAILY 03/01/24 03/02/24 diclofenac sodium 0.1 % eye drops 1 drp Eye-Right TID 03/01/24 03/02/24 leflunomide 20 mg tablet 20 mg PO DAILY 03/01/24 03/02/24 levothyroxine 25 mcg tablet 25 mcg PO DAILY 03/01/24 03/02/24 prednisolone acetate 1 % eye 1 drp Eye-Right Q8H 03/01/24 03/02/24 drops,suspension tizanidine 2 mg tablet 2 mg PO HS PRN 03/01/24 03/02/24 Previous Rx's ?Medication ?Instructions ?Recorded methylprednisolone 4 mg tablets in See Rx Instructions PO PER PKG DIR 03/01/24 a dose pack (Medrol (Moises)) #21 tabs gabapentin enacarbil 600 mg 600 mg PO BID RLS, neuropathic 03/02/24 tablet,extended release (Horizant pain #60 tabs ER) Allergies Allergy/AdvReac Type Severity Reaction Status Date / Time No Known Allergies Allergy Verified 03/01/24 20:26 Worker's Comp Is this a Worker's Comp case?: No [facility] Disclaimer: The information contained in this section may have been updated after the patient was seen, as this information can be updated by other users. Medical History Fluid level behind tympanic membrane of both ears Nasal septum perforation Thyroid nodule Snoring Anemia Iron metabolism disorder Opiate withdrawal Postoperative cellulitis of surgical wound Colon obstruction Sleep apnea Rheumatoid arthritis Chronic rhinitis Perforated nasal septum Hypertension Arthritis Hepatitis B Asthma Surgical History History of knee replacement History of surgery ankle/ foot surgery right side H/O arthroscopy of shoulder History of bladder surgery bladder tuck History of repair of ACL History of hysterectomy History of cholecystectomy Family History Other Cancer Social History Smoking Status: Never smoker alcohol intake: never substance use type: denies use current occupational status: retired Travel in the last 8 weeks: None household members: spouse housing: house caffeine: Yes Have you lived/traveled outside US in past 30 days?: No Contact w/someone who lives/traveled outside US past 30 days?: No Exposure to someone with infectious disease in past 14 days?: Yes Do you have a fever (greater than 100.4 F or 38 C)?: Yes Have you tested positive for COVID-19: No Exposed to someone with COVID-19 in past 14 days?: Yes Do you have a sore throat?: No Do you have a cough?: Yes Do you have any weakness?: Yes Do you have any diarrhea?: No Are you experiencing any unusual bleeding?: No Do you have any muscle aches/pain?: Yes Do you have any abdominal pain?: No Are you experiencing loss of taste or smell?: Yes ROS Obtained: Yes All systems reviewed & no additional complaints except as documented and Yes Systems reviewed as appropriate & no additional complaints except as documented Constitutional Constitutional: Reports system reviewed and no additional complaints, except as documented, Reports as per HPI, Reports body ache, Reports chills, Reports fever(s) and Reports headache(s) Eyes Eyes: Reports system reviewed and no additional complaints, except as documented and Reports as per HPI ENT Ears, Nose, Mouth, and Throat: Reports system reviewed and no additional complaints, except as documented, Reports as per HPI, Reports headache(s), Reports nasal congestion and Reports nasal discharge Cardiovascular Cardiovascular: Reports system reviewed and no additional complaints, except as documented, Reports as per HPI and Denies chest pain Respiratory Respiratory: Reports system reviewed and no additional complaints, except as documented, Reports as per HPI, Denies chest congestion and Reports cough Gastrointestinal Gastrointestingal: Reports system reviewed and no additional complaints, except as documented and as per HPI Genitourinary Female Genitourinary: Reports system reviewed and no additional complaints, except as documented and Reports as per HPI Neurologic Neurologic: Reports headache(s) Physical Exam General General appearance: alert and in no apparent distress ENT ENT exam: Present mucous membranes moist Expanded ENT Exam TM/Canal exam: Bilateral TM: bulging (clear fluid noted) Nose exam: Absent sinus tenderness Throat exam: Present normal inspection Respiratory Respiratory exam: Present normal lung sounds bilaterally; Absent respiratory distress or wheezes Cardiovascular Cardiovascular exam: Present regular rate, normal rhythm and tachycardia Abdominal Exam Abdominal exam: Present soft and normal bowel sounds; Absent distention or tenderness Neurological Exam Neurological exam: Present alert, oriented X3 and normal gait Medical Decision Making Medical Records Screening: Per USPSTF and CDC recommendations, given the prevalence of disease in our region, it is our hospital?s policy to screen for HIV and viral Hepatitis for all patients aged 18 and over and those with ongoing risk factors. Jamel Inquiry Pt receiving controlled substance: No Jamel was queried for this patient: No Vital Signs: 03/13/24 10:05 Temperature 100.2 F H Temperature Source Oral Pulse Rate [Left Brachial] 116 H Respiratory Rate 19 Blood Pressure [Left Arm] 129/76 Blood Pressure Mean [Left Arm] 93 Blood Pressure Source [Left Arm] Automatic Cuff Blood Pressure Position [Left Arm] Sitting 02 Sat by Pulse Oximetry 98 Oxygen Delivery Method Room Air Lab Data Lab results reviewed: Yes I reviewed the patient's lab results. Orders (Tests/Meds): ORDERS Category Date Time Status Rapid PCR Covid and Flu A/B Stat Lab 03/13/24 10:01 Received
[2024-03-13 10:23] VITALS: BP 129/76; PULSE 116; RESP 19; TEMP 37.9; O2SAT 98
[2024-03-13 12:22] LABS: Influenza A, PCR Detected (NotDetected)
== END 2024-03-13 10:36 | disposition home or self-care (01) ==
PROVIDERS: Emergency Provider Nurse Practitioner; PCP Physician Assistant
DX: B34.9 Viral infection, unspecified (principal); R06.02 Shortness of breath; R50.9 Fever, unspecified; R05.9 Cough, unspecified; R43.8 Other disturbances of smell and taste; M79.10 Myalgia, unspecified site; H93.8X3 Other specified disorders of ear, bilateral; Z20.822 Contact with and (suspected) exposure to COVID-19
CPT/HCPCS: 87636; 99212; G0381

== ENCOUNTER 2024-03-20 11:19 | Emergency (ER) | payer BC, SELFPAY ==
--- NOTE | 2024-03-20 11:23 | XR_ITS ---
FINAL REPORT TECHNIQUE: Chest PA & Lateral CLINICAL HISTORY: yadira neil COMPARISON: 09/06/2022 FINDINGS: 2 views of the chest were performed. The heart size is normal. The mediastinum is within normal limits. There is no acute cardiopulmonary process. There are no pleural effusions. There is no pneumothorax. The bony thorax appears intact. IMPRESSION: No acute cardiopulmonary process. Reviewed, Interpreted and Dictated by Chalo Urena MD Transcribed by Katerin Aguirre Authenticated and [facility] [place]
[2024-03-20 11:43] VITALS: BP 146/83; PULSE 90; RESP 20; TEMP 36.9; O2SAT 96; BMI 32.8
[2024-03-20 11:47] LABS: Basophils # 0.1 K/mm3 (0-0.2); Basophils % 0.6 % (0.1-2.0); Eosinophils # 0.2 K/mm3 (0.0-0.4); Eosinophils % 2.3 % (0.1-12.0); Hematocrit 38.7 % (37.0-47.0); Hemoglobin 12.5 g/dL (12.2-16.2); Lymphocytes # 1.1 K/mm3 (0.7-4.5); Lymphocytes % 12.2 % (10-50); Mean Corpuscular HGB Conc 32.3 g/dL (31.8-35.4); Mean Corpuscular Hemoglobin 31.4 pg (27.0-31.2); Mean Corpuscular Volume 97.2 fl (81-99); Mean Platelet Volume 9.6 fl (7.4-10.4); Monocytes # 0.7 K/mm3 (0.1-1.0); Neutrophils # 6.7 K/mm3 (1.8-7.8); Neutrophils % 76.6 % (37.0-80.0); Platelet Count 348 K/mm3 (142-424); Red Blood Count 3.98 M/mm3 (4.20-5.40); Red Cell Distribution Width 11.7 % (11.5-17.5); White Blood Count 8.8 K/mm3 (4.8-10.8)
--- NOTE | 2024-03-20 11:50 | ED_ITS ---
Discharge Plan Disposition Patient Disposition: Home, Self-Care Condition: Good Prescriptions Prescriptions: New doxycycline hyclate 100 mg capsule 100 mg PO BID Qty: 20 0RF prednisone 20 mg tablet 20 mg PO BID Qty: 10 0RF Rx Instructions: start tomorrow albuterol sulfate 90 mcg/actuation HFA aerosol inhaler 1 inh inhalation QID PRN (Reason: shortness of breath or wheezing) Qty: 6.7 0RF No Action levothyroxine 25 mcg tablet 25 mcg PO DAILY Patient Comments: TAKE 1 TABLET BY MOUTH IN THE MORNING ON AN EMPTY STOMACH tizanidine 2 mg tablet 2 mg PO HS Patient Comments: TAKE 1 TO 2 TABLETS BY MOUTH ONCE DAILY AT BEDTIME NEEDED leflunomide 20 mg tablet 20 mg PO DAILY Patient Comments: TAKE 1 TABLET BY MOUTH ONCE DAILY allopurinol 100 mg tablet 100 mg PO DAILY Patient Comments: TAKE 1 TABLET BY MOUTH ONCE DAILY sulindac 200 mg tablet 200 mg PO BIDWMEAL Patient Comments: TAKE 1 TABLET BY MOUTH TWICE DAILY WITH FOOD Horizant 600 mg tablet extended release 600 mg PO DAILY Patient Comments: TAKE 1 TABLET BY MOUTH TWICE DAILY Linzess 145 mcg capsule 145 mcg PO DAILY Patient Comments: TAKE 1 CAPSULE BY MOUTH ONCE DAILY Referrals Follow up/Referrals: Siobhan Melendrez PA [Primary Care Provider] - See instructions Activity Restrictions/Add. Instructions Additional Instructions/Restrictions: Start antibiotic today. Be sure to complete entire prescription even if feeling better Tylenol and ibuprofen as needed for pain or fever Humidifier/vaporizer/hot steamy shower Follow-up with primary care tomorrow. Follow[facility]up immediately in the ER of the [facility] for new or worsening symptoms or no noticeable improvement over the next 48-72 hours. Stop smoking Inhaler every 4-6 hours as needed. Should help open airways improved cough, wheezing, shortness of breath Start steroids tomorrow. Helps with inflammation therefore coughing and wheezing. Follow directions on package. Clinical Impressions Clinical Impression: Atypical pneumonia Instructions Patient Instructions: Pneumonia--Adult Print Language Print Language: Occitan Discharge ED Provider: Travis Arredondo [facility] [place] General Stated complaint: SOA, cough, congestion, headache, flu Type A+ Mode of Arrival: Ambulatory Source of Information: Patient Time Seen by Provider: 03/20/24 11:44 Description of Symptoms (Recalled from Triage Doc. by RN): cough, mouth pain, razo, TESTED + FOR FLU A LAST WEDNESDAY HEENT Symptoms (Recalled from RN notes): Yes Resp Symptoms (Recalled from RN notes): Yes Skin Symptoms (Recalled from RN notes): No MS Symptoms (Recalled from RN notes): No Functional Status (Recalled from RN notes): WNL History of Present Illness Provider Complaint: 63-year-old female presents for complaints of shortness of air, cough, headache, and mouth pain patient states she was tested positive for flu a on Wednesday Related Data Home Medications ?Medication ?Instructions ?Recorded ?Confirmed sulindac 200 mg tablet 200 mg PO BIDWMEAL 08/24/23 03/20/24 allopurinol 100 mg tablet 100 mg PO DAILY 03/01/24 03/20/24 leflunomide 20 mg tablet 20 mg PO DAILY 03/01/24 03/20/24 levothyroxine 25 mcg tablet 25 mcg PO DAILY 03/01/24 03/20/24 tizanidine 2 mg tablet 2 mg PO HS 03/01/24 03/20/24 gabapentin enacarbil 600 mg 600 mg PO DAILY 03/20/24 03/20/24 tablet,extended release (Horizant ER) linaclotide 145 mcg capsule 145 mcg PO DAILY 03/20/24 03/20/24 (Linzess) Previous Rx's ?Medication ?Instructions ?Recorded albuterol sulfate 90 mcg/actuation 1 inh inhalation QID PRN shortness 03/20/24 aerosol inhaler of breath or wheezing #6.7 grams doxycycline hyclate 100 mg capsule 100 mg PO BID #20 caps 03/20/24 prednisone 20 mg tablet 20 mg PO BID #10 tabs 03/20/24 Allergies Allergy/AdvReac Type Severity Reaction Status Date / Time No Known Allergies Allergy Verified 03/01/24 20:26 Worker's Comp Is this a Worker's Comp case?: No [facility] Disclaimer: The information contained in this section may have been updated after the patient was seen, as this information can be updated by other users. Medical History , [employer]) Fluid level behind tympanic membrane of both ears Nasal septum perforation Thyroid nodule Snoring Anemia Iron metabolism disorder Opiate withdrawal Postoperative cellulitis of surgical wound Colon obstruction Sleep apnea Rheumatoid arthritis Chronic rhinitis Perforated nasal septum Hypertension Arthritis Hepatitis B Asthma Surgical History , [employer]) History of knee replacement History of surgery H/O arthroscopy of shoulder History of bladder surgery History of repair of ACL History of hysterectomy History of cholecystectomy Family History , [employer]) Cancer Social History , [employer]) Smoking Status: Never smoker alcohol intake: never substance use type: denies use current occupational status: retired Travel in the last 8 weeks: None household members: spouse housing: house caffeine: Yes Have you lived/traveled outside US in past 30 days?: No Contact w/someone who lives/traveled outside US past 30 days?: No Exposure to someone with infectious disease in past 14 days?: No Do you have a fever (greater than 100.4 F or 38 C)?: No Have you tested positive for COVID-19: No Exposed to someone with COVID-19 in past 14 days?: No Do you have a sore throat?: No Do you have a cough?: Yes Do you have any weakness?: Yes Do you have any diarrhea?: Yes Are you experiencing any unusual bleeding?: No Do you have any muscle aches/pain?: Yes Do you have any abdominal pain?: No Are you experiencing loss of taste or smell?: No ROS Obtained: Yes Systems reviewed as appropriate & no additional complaints except as documented Physical Exam General General appearance: alert and in no apparent distress Eye Eye exam: Present normal appearance ENT ENT exam: Present mucous membranes moist and TM's normal bilaterally Expanded ENT Exam Throat exam: Present tonsillar erythema and tonsillomegaly Respiratory Respiratory exam: Present wheezes Cardiovascular Cardiovascular exam: Present regular rate and normal rhythm Neurological Exam Neurological exam: Present alert and oriented X3 Skin Skin exam: Present warm and intact Lymphatic Lymphatic Findings: no adenopathy Medical Decision Making Medical Records Medical records reviewed: Yes I reviewed the patient's medical records. Screening: Per USPSTF and CDC recommendations, given the prevalence of disease in our region, it is our hospital?s policy to screen for HIV and viral Hepatitis for all patients aged 18 and over and those with ongoing risk factors. Jamel Inquiry Pt receiving controlled substance: No Vital Signs: 03/20/24 11:43 Temperature 98.4 F Temperature Source Oral Pulse Rate [Left Radial] 90 Respiratory Rate 20 Blood Pressure [Left Arm] 146/83 H Blood Pressure Mean [Left Arm] 104 02 Sat by Pulse Oximetry 96 Lab Data Lab results reviewed: Yes I reviewed the patient's lab results. 03/20/24 11:37 03/20/24 11:37 Orders (Tests/Meds): ED MEDICATIONS Generic Name Dose Route Start Last Admin Trade Name Delores PRN Reason Stop Dose Admin Albuterol Sulfate 2.5 mg 03/20/24 11:48 Albuterol 0.083% 2.5 Mg/3 Ml Neb IH 03/20/24 11:49 ONCE ONE ORDERS Category Date Time Status Chest XR 2 view (NOT portable) [XR chest 2V] Stat Exams 03/20/24 11:23 Taken CBC w/Auto Diff [Complete Blood Count Auto Diff] Stat Lab 03/20/24 11:37 Received CMP [Comprehensive Metabolic Panel] Stat Lab 03/20/24 11:37 Received Radiology Data #1: Image(s): Chest Image Reviewed: Yes I reviewed the patient's radiology image Preliminary Findings: Abnormal Right lower lobe pneumonia Medical Decision Narrative: In summary patient is a 63-year-old female who presents to the urgent treatment care. Patient is hemodynamically stable upon arrival, afebrile. Wheezing and hoarseness noted. Differential diagnosis includes bronchitis, pneumonia. Initial workup will be conducted with labs, chest x-ray. Initial inventions include albuterol breathing treatment, labs, chest x-ray, Solu-Medrol IV. Initial workup reviewed by me labs chest x-ray. Upon repeat evaluation patient states she is breathing has improved. Given this patient was appropriate for discharge at this time will discharge home with prescription of steroids, antibiotics, and inhaler and close following up with PCP I informally interpreted patient's chest x-ray -right lower lobe pneumonia
[2024-03-20] MEDS: ALBUTEROL 0.083% 2.5 MG/3 ML NEB IH (11:52)
[2024-03-20 12:01] LABS: UTC Strep Screen (Rapid) Negative (Negative)
[2024-03-20] MEDS: METHYLPREDNISOLONE SOD SUCC 125MG VIAL 60 MG IV (12:13)
[2024-03-20 12:15] LABS: Albumin Level 3.2 g/dl (3.5-5.0); Chloride 106 mmol/L (98-107)
[2024-03-20 12:16] LABS: Potassium 4.5 mmoL/L (3.5-5.1)
[2024-03-20 12:18] LABS: Blood Urea Nitrogen 15 mg/dl (7-17); Carbon Dioxide 26 mmol/L (22.0-30.0); Creatinine Clearance Estimated 80 mL/min (50-200); Estimated Glomerular Filt Rate 56 ml/min (>60); GFR (African American) 68 ML/MIN (>60)
[2024-03-20 12:19] LABS: Alanine Aminotransferase 26 U/L (12-78); Albumin/Globulin Ratio 1.3 (1.1-1.8); Alkaline Phosphatase 170 U/L (38-126); Aspartate Amino Transferase 25 U/L (14-36); Bilirubin,Total 0.8 mg/dl (0.2-1.3); Calcium 9.1 mg/dl (8.4-10.2); Globulin 2.5 g/dL (1.3-3.2); Glucose 97 mg/dl (74-100); Total Protein,Serum 5.7 g/dl (6.3-8.2)
[2024-03-20 12:40] VITALS: BP 146/83; PULSE 90; RESP 20; TEMP 36.9
[2024-03-20 12:55] LABS: Anion Gap 9.5 mEq/L (5-15); Sodium 137 mmol/L (136-145)
== END 2024-03-20 12:45 | disposition home or self-care (01) ==
PROVIDERS: Emergency Provider Nurse Practitioner Family; PCP Physician Assistant
DX: J18.9 Pneumonia, unspecified organism (principal)
CPT/HCPCS: 71046; 80053; 85025; 87880; 94640; 96374; 99214; G0381; J2919; J7613

== ENCOUNTER 2024-08-09 09:00 | Outpatient (RCR) | payer BC, SELFPAY ==
--- NOTE | 2024-08-01 09:15 | HMH.PTOPEV ---
PT Outpatient Evaluation Rehab PT Outpatient Evaluation Start: 08/01/24 08:02 Freq: Status: Active Protocol: Document 08/01/24 08:02 ELIGIO (Rec: 08/01/24 09:05 ELIGIO [id number]) E-signed By Refugio Awad, PT Outpatient Therapy Subjective History Subjective History Pt is a 63 yof who is referred to [facility] outpatient PT with complaints of R sided Low back , hip and leg pain. Pt reports that her pain began approximately 6 months ago. She describes the pain as a burning, aching pain that radiates from her back into her R buttock, R posterior thigh and calf. Pt reports that she was given a steroid shot approximately 2 weeks ago , which has given her immense relief. 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 PMH: OA, RA, Gout, HTN New diagnosis of cancer in past 12 No months? Chief Complaint Pain Symptom Type Ache,Burning Symptoms Relieved By Ice,Prescription Meds Symptoms Aggravated By Supine,Standing,Bending/ Stooping,Walking Prior Functional Limitations None Current Functional Limitations Lifting,Housework,Standing, Sitting,Squatting,Recreation Activity,Walking,Stairs, Balance Symptom Description Constant but Variable,Activity Dependent Level of pain today (0-10) 7 Pain scale - at its best (0-10) 3 Pain scale - at its worst (0-10) 9 Lumbopelvic Eval Posture Thoracic Spine Posture Standing Position Neutral Lumbar Spine Posture Standing Position Flexed Gait Observation General Gait Pattern Observation Antalgic Gait,Hips Posterior to TERA,Decrease Weight Bear (R ),Decrease Stride Lngth (L) Palapation tenderness right lumbar spinal tenderness Yes: L4-L5 3/4 TTP paraspinal tenderness Yes: L4-L5 3/4 TTP buttock tenderness Yes: TTP 3/4 to Glute med, piriformis Lumbar/Sacral Palpation Findings Tenderness,Trigger Point Accessory Movement L4 right L5 right S1 right Range of Motion Lumbar Spine Active Flexion Range of 100% Motion (degrees) Lumbar Spine Active Extension Range of 40% Motion (degrees) Left Lumbar Spine Lateral Flexion Active 50% Range of Motion (degrees) Right Lumbar Spine Lateral Flexion 50% Active Range of Motion (degrees) Lumbar Spine ROM Limitations Soft Tissue Tightness,Pain Manual Muscle Test Right Knee Extension Strength Grade 4- Good- Knee Flexion Strength Grade 4- Good- Hip Flexion Strength Grade 3+ Fair+ Hip Abduction Strength Grade 2+ Poor+ Hip Adduction Strength Grade 2+ Poor+ Hip Extension Strength Grade 3- Fair- Extensor Hallucis Longus Strength Grade 4 Good Ankle Dorsiflexion Strength Grade 5 Normal Gastronemius/Soleus Strength Grade 4 Good DTR Rt Patellar 2+ Lt Patellar 2+ Rt Gastroc/Soleus 1+ Lt Gastroc/Soleus 1+ Altered Sensation Bilateral Comment Intact to LT globally Special Tests Anterior/Posterior Rib Compression Test Negative Left Rib Inspiration/Expiration Breathing Negative Test Forward Bending Test- Standing Positive Right Hip Scouring (Quadrant) Test Positive Right Hip Gabriel (SHERICE) Test Positive Right Sciatic Nerve Tension Test Positive Right Hip Stephanie's Test Negative Right Sacroiliac Joint Compression Test Negative Right Sacroiliac Joint Distraction Test Negative Right Lower Extremity Functional Index Activities Today, do you or would you have any difficulty at all with: a.Any of your usual work, housework or Quite a bit of difficulty school activities b. Your usual hobbies, recreational or Quite a bit of difficulty sporting activities c. Getting into or out of the bath Moderate difficulty d. Walking between rooms A little bit of difficulty e. Putting on your shoes or socks Moderate difficulty f. Squatting Quite a bit of difficulty g. Lifting an object, like a bag of Moderate difficulty groceries from the floor h. Performing light activities around Moderate difficulty your home i. Performing heavy activities around Quite a bit of difficulty your home j. Getting into or out of a car Moderate difficulty k. Walking 2 blocks Quite a bit of difficulty l. Walking a mile Quite a bit of difficulty m. Going up or down 10 stairs (about 1 Quite a bit of difficulty flight of stairs) n. Standing for 1 hour Extreme difficulty or unable to perform activity o. Sitting for 1 hour Quite a bit of difficulty p. Running on even ground Extreme difficulty or unable to perform activity q. Running on uneven ground Extreme difficulty or unable to perform activity r. Making sharp turns while running fast Extreme difficulty or unable to perform activity s. Hopping Quite a bit of difficulty t. Rolling over in bed Moderate difficulty LEFI Score Lower Extremity Functional Index Score 24 Miscellaneous Dx PT Eval Objective Objective Tandem Stance: R 14s, L 12s Outpatient Therapy Assessment Impairments Problems/Impairmments Palpation Tenderness,Impaired Range of Motion,Impaired Strength,Impaired Gait Pattern ,Impaired Walking,Impaired Standing,Impaired Sitting, Impaired Household Care, Impaired Stair Climbing, Impaired Work Activities, Impaired Balance,Subjective C/ O Pain Prognosis Rehab Potential Good Clinical Impression Consistent with Diagnosis Yes Consistent with Piriformis Syndrome Short Term Goals Number of Weeks 4 Decreased Palpation Tenderness Yes: 1-2/4 to TTP assessment above Increase Range of Motion Yes: Improve Lumbar Extension 50-75% Increase Strength Yes: Improve R hip/knee strength to 4/5 Increase Ability to Stand Yes: 20 minutes without increasing pain Improve Balance Yes: TS on even surface for 30s Improve LEFI Score Yes: >34 Decrease Subjective C/O Pain Yes: 5/10 pain with above assessment Patient to be Ind w/ HEP Yes Reel Operator Goals Number of Weeks 8 Decreased Palpation Tenderness Yes: 0/4 to TTP assessment above Increase Range of Motion Yes: Improve Lumbar Extension to 75-100% Increase Strength Yes: 4+/5 to R hip/knee Increase Ability to Stand Yes: 1 hour without increasing pain Improve Ability For Household Care Yes: Able to cook/clean house without taking breaks and increasing pain Improve Ability to Climb Stairs Yes: Flight of stairs with reciprocal stepping pattern Improve Balance Yes: TS on uneven surface Improve LEFI Score Yes: >45 Decrease Subjective C/O Pain Yes: 2-3/10 with above assessment Patient to be Ind w/ Advanced HEP Yes Outpatient Therapy Plan of Care Treatment Plan May Include Therapeutic Exercise Including Home Yes Exercise Program Manual Therapy Techniques Yes Neuromuscular Re-education Yes Therapeutic Activities to Return to Yes Previous Functional/Work Level Gait Training Yes ADL/Self Care Education Yes Mechanical Traction Yes Dry Needling Yes Thermal Modalities Yes Electrical Stimulation Yes Massage Yes Manual Lymphatic Drainage Yes Eval/Re-Eval Yes Frequency Times per week 2 Duration Number of Weeks 8 Addendums This patient is a candidate for social No or vocational rehab? Patient/Guardian verbally acknowledges Yes understanding of treatment program and consents to further treatment? Patient/Guardian verbally acknowledges Yes understanding of diagnosis, prognosis and goals for treatment? Shoulder/Elbow Eval Shoulder Objective Measurements Elbow Objective Measurements PHYSICIAN CERTIFICATION: I certify the specified therapy services for Kristin Herrera Clevinger are required, authorized, and reviewed every 30 days.
== END 2024-08-09 23:59 | disposition home or self-care (01) ==
LOC: PT 09:00
PROVIDERS: PCP Physician Assistant; Visit Provider Physician Assistant
DX: G57.01 Lesion of sciatic nerve, right lower limb (principal)
CPT/HCPCS: 97014; 97110; 97163; 97530; G0283

== ENCOUNTER 2024-08-22 14:00 | Outpatient (RCR) | payer BC, SELFPAY | END 2024-08-22 23:59 | disposition home or self-care (01) | LOC: PT 14:00 | PROVIDERS: PCP Physician Assistant; Visit Provider Physician Assistant | DX: G57.01 Lesion of sciatic nerve, right lower limb (principal); Z68.31 Body mass index [BMI] 31.0-31.9, adult | CPT/HCPCS: 97014; 97110; G0283 ==

== ENCOUNTER 2024-08-24 09:26 | Outpatient (CLI) | payer BC, SELFPAY ==
--- OUTSIDE RECORDS SUMMARY | 2024-08-24 09:37 | XMS_ITS | Clinical Summary ---
Author Organization [facility] Address [address] [place] [address] Care Team Providers Care Heavy Rail Train Operator Name Role Phone William Boles MD Primary Care Provider [phone] Allergies No known active allergies Medications allopurinol (Zyloprim) 100 MG tablet Take 100 mg by mouth 1 (one) time each day. as directed 11/22/2021 Active cyclobenzaprine (Flexeril) 5 MG tablet Take 10 mg by mouth 1 (one) time each day. Active DULoxetine (Cymbalta) [address] capsule Take 120 mg by mouth 1 (one) time each day. Active gabapentin (Neurontin) 300 MG capsule Take 300 mg by mouth 1 (one) time each day. Active HYDROcodone-jules taminophen (Canby) 5-325 MG tablet Take 1 tablet by mouth every 6 (six) hours if needed. 12/05/2021 Active linaCLOtide (Linzess) 290 MCG capsule Take 290 mcg by mouth 1 (one) time each day. Active rOPINIRole (Requip) 0.5 MG tablet TAKE 3 TO 4 TABLETS BY MOUTH AT BEDTIME 10/16/2021 Active sulindac (Clinoril) 150 MG tablet Take 150 mg by mouth twice a day. Active tegaserod (ZELNORM) 6 MG tablet Take 6 mg by mouth twice a day. Active atropine 1 % ophthalmic solution INSTILL 1 DROP INTO RIGHT EYE TWICE DAILY 01/21/2022 Active difluprednate (Durezol) 0.05 % ophthalmic emulsion INSTILL 1 DROP INTO RIGHT EYE 4 TIMES DAILY 12/30/2021 Active Lotemax 0.5 % ophthalmic suspension INSTILL 1 DROP INTO RIGHT EYE SIX TIMES DAILY 12/30/2021 Active trimethoprim-po lymyxin b (Polytrim) ophthalmic solution INSTILL 1 DROP INTO RIGHT EYE 4 TIMES DAILY FOR 7 DAYS 12/29/2021 Active Motegrity 2 MG tablet Take 2 mg by mouth 1 (one) time each day. 01/13/2022 Active sulindac (Clinoril) 200 MG tablet Take 200 mg by mouth 2 (two) times a day with meals. 01/21/2022 Active Social History Tobacco Use Types Packs/Day Years Used Date Smoking Tobacco: Never Assessed Comments Unknown Sex and Gender Information Value Date Recorded Sex Assigned at Not on file Legal Sex Female 6:34 PM EDT Gender Identity Not on file Sexual Orientation Not on file Last Filed Vital Signs Vital Sign Reading Time Taken Comments Blood Pressure 145/103 08/03/2022 1:26 PM EDT Pulse 93 08/03/2022 1:26 PM EDT Temperature - - Respiratory Rate - - Oxygen Saturation - - Inhaled Oxygen Concentration - - Weight 90.7 kg (200 lb) 08/03/2022 1:26 PM EDT Height 167.6 cm (5' 6 ) 08/03/2022 1:26 PM EDT Body Mass Index 32.28 08/03/2022 1:26 PM EDT Plan of Treatment Health Maintenance Due Date Last Done Comments [facility]-Depression Screening 1960 [facility]-HIV Screening 1960 [facility]-Hepatitis C Screening 1960 [facility]-Infant/Child/Adol SDOH Screenings 1960 [facility]- SDOH Screenings 12/05/1979 [facility]-Adult SDOH Screenings 12/05/1979 [facility]-Pap Smear 1982 [facility]-Cervical Cancer Screening 12/05/1991 [facility]-HPV/Cotest 12/05/1991 CT Colonography 2006 Colonoscopy 2006 FIT-DNA 2006 FIT 2006 FOBT 2006 Sigmoidoscopy 2006 [facility]-Colorectal Cancer Screening 2006 [facility]-Breast Cancer Screening 12/05/2011 [facility]-Pneumococcal Vaccine: 50 + Years (1 of 1 - PCV) 12/05/2011 [facility]-Zoster Vaccines (1 of 2) 12/05/2011 [id number] Vaccine ( - 2024-25 season) 2023 04/15/2021, 07/12/2020, 06/12/2020 [facility]-Influenza Vaccine ([place]as[place] n Ended) 2024 12/12/2020 [facility]-DTaP,Tdap,and Td Vaccine s (2 - Td or Tdap) 04/20/2028 04/20/2018 [facility]-RSV Vaccine: 60+ Years o r (1 - 1-dose 75+ series) 2036 [facility]-Hepatitis A Vaccines Aged Out 07/29/2018 No longer eligible based on patient's age to complete this topic [facility]-Obesity Intervention Completed 022, 12/10/2021 HPV Vaccines Aged Out No longer eligi ble based on patient's age to complete this topic [facility]-HIB Vaccines Aged Out No longer e ligible based on patient's age to complete this topic [facility]-IPV Vaccines Aged Out No longer e ligible based on patient's age to complete this topic [facility]-Rotavirus Vaccines Aged Out No lo nger eligible based on patient's age to complete this topic Insurance [employer]M Care Teams Heavy Rail Train Operator Relationship Specialty Start Date End Date William Boles MD [address] [place] [id number] PCP - General 07/26/20
[2024-08-24 11:28] LABS: Ferritin 111 ng/ml (11.1-264)
== END 2024-08-24 23:59 | disposition home or self-care (01) ==
LOC: LAB 09:27
PROVIDERS: PCP Physician Assistant; Visit Provider Specialist
DX: E83.10 Disorder of iron metabolism, unspecified (principal)
CPT/HCPCS: 36415; 82728

== ENCOUNTER 2024-09-14 08:53 | Outpatient (CLI) | payer BC, SELFPAY ==
--- OUTSIDE RECORDS SUMMARY | 2024-05-24 09:15 | XMS_ITS ---
Author Organization [facility] Address [address] [facility] [address] [place] [id number] Care Team Providers Care Hotel Concierge Name Role Phone Ravi Jamie Primary Care Provider Siobhan Melendrez Unavailable [phone] Allergies No Known Allergies Results Component Value Reference Range Notes Influenza Screen (in house) Reviewed date:05/25/2024 04:24:55 PM Interpretation: Performing Lab: Notes/Report: results Neg Covid test (in house) Reviewed date:05/25/2024 08:09:59 AM Interpretation: Performing Lab: Notes/Report: Result: Pos REASON FOR VISIT BP elevated 196/112 this morning Medications Medication SIG (Take, Route, Frequency, Duration) Notes Start Date End Date Status Albuterol Sulfate (2.5 MG/3ML) 0.083% 3 ml Inhalation every 6 hrs Not-Taking Linzess 145 MCG 1 cap(s) Orally once a day; Duration: 90 days Active Sulindac 200 MG 1 tablet with food Orally Twice a day; Duration: 30 day(s) Active Albuterol Sulfate HFA 108 (90 Base) MCG/ACT 1 puff as needed Inhalation every 4 hrs, prn 07/21/2023 Active Leflunomide 20 MG 1 tablet Orally Once a day; Duration: 30 day(s) Active Metoprolol Succinate 100 MG 1 capsule Orally Once a day 05/24/2024 Active Horizant 600 MG 1 tablet in the even ing (5pm) with food Orally Once a day; Duration: 30 day(s) Active Allopurinol 100 MG Take 1 tablet by once daily; Duration: 90 Active Paxlovid (300/100) 20 x 150 MG & 10 x 100MG 3 tablets Orally Twice a day; Duration: 5 day(s) 05/24/2024 Active Enbrel 50 MG/ML 1 mL Subcutaneous on ce a week Active DULoxetine HCl 60 MG 1 capsule orally on ce a day; Duration: 90 days Active tiZANidine HCl 2 MG TAKE 1 TO 2 TABLETS BY MOUTH ONCE DAILY AT BEDTIME NEEDED; Duration: 30 Active Levothyroxine Sodium 25 MCG 1 tablet in the morning on an empty stomach Orally Once a day; Duration: 30 day(s) 02/25/2024 Active Vital Signs Weight 189.0 lbs 05/24/2024 Blood pressure systolic 124 mm Hg 05/25/19 25 Blood pressure diastolic 80 mm Hg 025 Heart Rate 75 /min 05/24/2024 Height 65 in 05/24/2024 BMI 31.45 kg/m2 05/24/2024 Encounters Encounter Location Date Provider Diagnosis [place] [address] [facility] [address] [facility] [address] [place] [address], [place] [phone] 05/24/2024 Siobhan Melendrez Essential hypertensi on I10 and COVID-19 U07.1 Assessments Encounter Date Diagnosis (ICD Code) Assessment Notes Treatment Notes Treatment Clinical Notes Section Notes 05/24/2024 Essential hypertension (ICD-10 - I10) Patient had metoprolol at home she took this am. It is working as her BP is down. Will continue taking this and monitor BP twice a day for the next 2 weeks. 05/24/2024 COVID-19 (ICD-10 - U07.1) Fluids, rest, supportive measures for fever and symptoms relief, discussed covid vitamins and isolation period. Will call rheumatology to see what medications she needs to stop until she is better. Plan Of Treatment Medication Medication Name Sig Start Date Stop Date Notes Metoprolol Succinate 100 MG 1 capsule Orally Once a day Paxlovid (300/100) 20 x 150 MG & 10 x 100MG 3 tablets Orally Twice a day; Duration: 5 day(s) 05/24/2024 Treatment Notes Assessment Notes Essential hypertension Patient had metop rolol at home she took this am. It is working as her BP is down. Will continue taking this and monitor BP twice a day for the next 2 weeks. COVID-19 Fluids, rest, suppor tive measures for fever and symptoms relief, discussed covid vitamins and isolation period. Will call rheumatology to see what medications she needs to stop until she is better. Next Appt Details Follow Up: 2 Weeks via phone , Reason: Provider Name:Siobhan morrison, 10/18/2024 09:00:00 AM, [address] [facility] [address], [place], [place], [id number], Progress Notes * ELIAZARKRAEEN ASTUDILLOOB: 2 (63 yo F)Acc No.[id number]:05/24/2024 Progress Notes Patient: KENNEDI LISA Provider: LORENZO Chamberlain :1960 A ge:63 Y S ex:Female Date:05/24/2024 Address:[address] [place], [place] [address] [facility], [place], [id number] Pcp:Jamie Rodrigues Subjective: * Chief Complaints: * 1 . BP elevated 196/112 this morning. * HPI: C ardiology: The pt states she had a steroid injection in the left shoulder on and her BP was 158/109. Pt states this morning it was 196/112. Pt states the highest reading she has had was 196/129. Pt states she has had head aches off and on for 3 weeks. Pt states she started Enbrel once a week about 4 weeks ago. 63 year old female presents with c/o Short of Breath. c/o Palpitations f eels heart racing. c/o Blood Pressure Elevated. c/o Headaches. Denies : Chest Pain. D enies : Dizziness. E NT/respiratory: c/o cough. c/o nasal congestion. Denies : sore throat. * ROS: D ERMATOLOGY: no R amisha. n o H doris. G ASTROENTEROLOGY: no N ausea. n o V omiting. n o D iarrhea.? U ROLOGY: no D ifficulty urinating. n o B lood in urine. * Medical History: A sthma, Allergic rhinitis, Depression, Left ACL tear 1976, repaired 1995. * Surgical History: k nee , gallbladder , BTL , Bladder tuck , hysterectomy , heart cath. 4-10, Valtrectomy 12/11/2021, 3 Teeth Extracted 12/30/2023. * Hospitalization/Major Diagno stic Procedure: d ehydration 2002. * Family History: F ather: alive 65 yrs. M other: alive 64 yrs. P aternal Grand Father: , colon carcinoma, coronary artery disease. P aternal Grand Mother: , coronary artery disease, TB. M aternal Grand Father: alive 86 yrs. M aternal Grand Mother: , copd. S iblings: thyroid disease. 1 brother(s) , 2 sister(s) - healthy. 2 son(s) , 1 daughter(s) - healthy. . * Social History: C URRENT TOBACCO USE S moking Status: Patient does NOT smoke. C affeine: yes, frequency:1 glass tea/d. Exercise: no. Home smoke detector use: yes. Marital Status: . Occupation: [employer]. Past smoking status: no, Smoking status: Does not smoke. Recreational drug use: no. Alcohol: no, rare. Sexually active: no.. Travel ouside [place]: no. * Medications: T aking Enbrel 50 MG/ML Solution Prefilled Syringe 1 mL Subcutaneous once a week , Taking Horizant 600 MG Tablet Extended Release 1 tablet in the evening (5pm) with food Orally Once a day , Taking Leflunomide 20 MG Tablet 1 tablet Orally Once a day , Taking Sulindac 200 MG Tablet 1 tablet with food Orally Twice a day , Taking Albuterol Sulfate HFA 108 (90 Base) MCG/ACT Aerosol Solution 1 puff as needed Inhalation every 4 hrs, prn , Taking Linzess 145 MCG Capsule 1 cap(s) Orally once a day , Taking DULoxetine HCl 60 MG Capsule Delayed Release Particles 1 capsule orally once a day , Taking tiZANidine HCl 2 MG Tablet TAKE 1 TO 2 TABLETS BY MOUTH ONCE DAILY AT BEDTIME NEEDED , Taking Levothyroxine Sodium 25 MCG Tablet 1 tablet in the morning on an empty stomach Orally Once a day , Taking Allopurinol 100 MG Tablet Take 1 tablet by mouth once daily , Not-Taking Albuterol Sulfate (2.5 MG/3ML) 0.083% Nebulization Solution 3 ml Inhalation every 6 hrs , Discontinued Doxycycline Monohydrate 100 MG Capsule 1 capsule Orally Two times a day , Discontinued Lyjgysleu-Zrnunjvw-MS 30-2-10 MG/5ML Syrup 5-10 ml Orally 4 times a day, prn , Medication List reviewed and reconciled with the patient * Allergies: N .K.D.A. Objective: * Vitals: W t:189.0, Temp:98.2, BP:124/80, HR:75, O2 Sat:98% on RA, Nurse:AIXA, Ht: 65, BMI:31.45. * Examination: G eneral Examination: General Appearance: N AD. H EENT: sclera and conjunctiva clear, PERRLA, TM's normal, translucent, nose congested. O ral cavity: n o lesions, mucosa moist and WNL, no erythema. N annette: s upple, no lymphadenopathy. C hest: n ormal shape and expansion. H eart: R SR. L ungs: c lear to auscultation. A bdomen:? bowel sounds present, soft and nontender, no organomegaly or masses, no guarding or rigidity. Neurologic Exam: I ntact, gait normal. S kin: n ormal, no rash. P eripheral pulses: n ormal (2+) bilaterally. E xtremities: n o leg edema. Assessment: * Assessment: 1. E ssential hypertension - I10 (Primary) 2 . C OVID-19 - U07.1 Plan: * Treatment: 2. C OVID-19 Start Paxlovid (300/100) Tablet Therapy Pack, 20 x 150 MG & 10 x 100MG, 3 tablets, Orally, Twice a day, 5 day(s), 30 Tablet, Refills 0. L AB: Influenza Screen (in house) (Collection Date & Time - 05/24/2024) Value Reference Range r esults Neg * Shaye Yap 05/25/2024 12: 57:20 PM > 1+ Provider reviewed results while patient in office. ?LAB: Covid test (in house) (Collection Date & Time - 05/24/2024)* Value Reference Range R esult: Pos * Anahi Burk 05/24/2024 1:40:51 PM > , Provider reviewed results while patient in office. Notes: Fluids, rest, supportive measures for fever and symptoms relief, discussed covid vitamins and isolation period. Will call rheumatology to see what medications she needs to stop until she is better.?? * Procedure Codes: 9 [address] [place], [address] Flu Test- Nasal Swab, Modifiers: QW , 55131 COVID TEST IN HOUSE, Modifiers: QW , 3074F SYST BP LT 130 MM HG, 3079F DIAST BP 80-89 MM HG * Follow Up: 2 Weeks via phone * Images: Billing Information: * Visit Code: 93914 Office Visit, Est Pt., Level 4. * Procedure Codes: [address] [place]. [address] Flu Test- Nasal Swab. Modifiers: QW 86668 COVID TEST IN HOUSE. Modifiers: QW 3074F SYST BP LT 130 MM HG. 3079F DIAST BP 80-89 MM HG. * Electronic signature of LORENZO Carcamo on 09/14/2024 at 09:03 AM EDT Sign off status: Pending * Provider: LORENZO Chamberlain Date: 0 05/24/2024 Generated for Salomei ng/Faxing/eTransmitting on: 0 09/14/2024 09:03 AM EDT History and Physical Notes * HPI (History of Present Illness) Category Sub-Category Detail Notes Category Not es ENT/respiratory sore throat cough nasal congestion Cardiology Short of Breath Chest Pain Palpitations feels heart racing Dizziness Blood Pressure Elevated Headaches Examination Category Sub-Category Detail Notes Category Not es General Examination HEENT: sclera and c onjunctiva clear, PERRLA, TM's normal, translucent, nose congested Heart: RSR Lungs: clear to auscultatio n Abdomen: bowel sounds present , soft and nontender, no organomegaly or masses, no guarding or rigidity Extremities: no leg edema General Appearance: NAD Skin: normal, no rash Neurologic Exam: Intact, gait normal Neck: supple, no lymphaden opathy Oral cavity: no lesions, mucosa m oist and WNL, no erythema Peripheral pulses: normal (2+) bilatera lly Chest: normal shape and exp ansion
--- OUTSIDE RECORDS SUMMARY | 2024-06-09 11:00 | XMS_ITS ---
[facility] Organization [facility] Address [address] [facility] [address] [id number] Care Team Providers Care Rolling Chair Pusher Name Role Phone Jamie Rodrigues Primary Care Provider Siobhan Melendrez Unavailable [phone] Allergies No Known Allergies REASON FOR VISIT [facility] f/u after a surgery and needs b12 shot Medications Medication SIG (Take, Route, Frequency, Duration) Notes Start Date End Date Status Horizant 600 MG 1 tablet in the even ing (5pm) with food Orally Once a day; Duration: 30 day(s) Active Enbrel 50 MG/ML 1 mL Subcutaneous on ce a week Active Albuterol Sulfate (2.5 MG/3ML) 0.083% 3 ml Inhalation every 6 hrs Not-Taking tiZANidine HCl 2 MG TAKE 1 TO 2 TABLETS BY MOUTH ONCE DAILY AT BEDTIME NEEDED; Duration: 30 Active Metoprolol Succinate 100 MG 1 capsule Orally Once a day 05/24/2024 Active DULoxetine HCl 60 MG 1 capsule orally on ce a day; Duration: 90 days Active Linzess 145 MCG 1 cap(s) Orally once a day; Duration: 90 days Active Albuterol Sulfate HFA 108 (90 Base) MCG/ACT 1 puff as needed Inhalation every 4 hrs, prn 07/21/2023 Active Allopurinol 100 MG Take 1 tablet by elia th once daily; Duration: 90 Active Levothyroxine Sodium 25 MCG 1 tablet in the morning on an empty stomach Orally Once a day; Duration: 30 day(s) 02/25/2024 Active Sulindac 200 MG 1 tablet with food Orally Twice a day; Duration: 30 day(s) Active Leflunomide 20 MG 1 tablet Orally Once a day; Duration: 30 day(s) Active Vital Signs Weight 192.8 lbs 06/09/2024 Blood pressure systolic 140 mm Hg 06/10/19 25 Blood pressure diastolic 78 mm Hg 025 Heart Rate 69 /min 06/09/2024 Height 65 in 06/09/2024 BMI 32.08 kg/m2 06/09/2024 Encounters Encounter Location Date Provider Diagnosis [facility] [address] [place] [id number] 06/09/2024 Siobhan Melendrez Calculus of bile chiquis t without cholecystitis with obstruction K80.51 and Vitamin B12 deficiency E53.8 Assessments Encounter Date Diagnosis (ICD Code) Assessment Notes Treatment Notes Treatment Clinical Notes Section Notes 06/09/2024 Calculus of bile duct without cholecystitis with obstruction (ICD-10 - K80.51) Patient had stones removed at [facility] by Dr. Villar. We will need to get records. She has f/u with him in a week. She had labs checked at this community development officer this am at [facility] and they rechecked a CMP, but she does not have results yet. She will fax them to us once she gets them so we do not have to draw more labs today. 06/09/2024 Vitamin B12 deficiency (ICD-10 - E53.8) Plan Of Treatment Treatment Notes Assessment Notes Calculus of bile duct withou t cholecystitis with obstruction Patient had stones removed at [facility] by Dr. Villar. We will need to get records. She has f/u with him in a week. She had labs checked at this community development officer this am at [facility] and they rechecked a CMP, but she does not have results yet. She will fax them to us once she gets them so we do not have to draw more labs today. Next Appt Details Follow Up: via phone to repo rt progress, Reason: Provider Name:Siobhan morrison, 10/18/2024 09:00:00 AM, [address], [address], [place], [phone], Medications Administered Medication Instructions Date of Administration Dosage Notes B-12 06/09/2024 1 mL Progress Notes * KAREEN ANNAOB: 2 (63 yo F)Acc No.[id number]:06/09/2024 Progress Notes Patient: KENNEDI LISA Provider: LORENZO Chamberlain :1960 A ge:63 Y S ex:Female Date:06/09/2024 Address:[address], [id number] Pcp:Jamie Rodrigues Subjective: * Chief Complaints: * 1 . [facility] f/u after a surgery and needs b12 shot. * HPI: H PI: 63 year old female presents with c/o Here for follow up on:?Pt is here today for a f/u from [facility] after having gallstones removed from her bile duct. She states she started having pain over the weekend and went to [place] ER t wice. Her LFT's and bilirubin doubled in 2 days so they took her for emergency surgery on Wednesday to remove numerous gallstones that were stuck in her bile duct. They were able to do this laproscopically. She still has some soreness but is feeling better. She w ould like her B12 shot today as well. * ROS: D ERMATOLOGY: no R amisha. [...] cath. 4-10, Valtrectomy 12/11/2021, 3 Teeth Extracted 12/30/2023, Gallstones removed from bile duct 06/05/24. * Hospitalization/Major Diagno stic Procedure: d ehydration [...] detector use: yes. Marital Status: . Occupation: [employer]. Past smoking status: no, [...] capsule orally once a day , Taking Levothyroxine Sodium 25 MCG Tablet 1 tablet in the morning on an empty stomach Orally Once a day , Taking Allopurinol 100 MG Tablet Take 1 tablet by mouth once daily , Taking Metoprolol Succinate 100 MG Capsule ER 24 Hour Sprinkle 1 capsule Orally Once a day , Taking tiZANidine HCl 2 MG Tablet TAKE 1 TO 2 TABLETS BY MOUTH ONCE DAILY AT BEDTIME NEEDED , Not-Taking Albuterol Sulfate (2.5 MG/3ML) 0.083% Nebulization Solution 3 ml Inhalation every 6 hrs , Medication List reviewed and reconciled with the patient * Allergies: N .K.D.A. Objective: * Vitals: W t: 192.8, Temp: 97.7, BP: 140/78, HR: 69, Nurse: kristin, Ht: 65, BMI:32.08. * Examination: G eneral Examination: General Appearance: N AD. H EENT: u nremarkable.?Oral cavity: n o lesions, mucosa moist and WNL, no erythema. N annette: s upple, no lymphadenopathy. C hest: n ormal shape and expansion. H eart: R SR. L ungs: c lear to auscultation. A bdomen: b owel sounds present, soft, ttp in the RUQ. N eurologic Exam: I ntact, gait normal. S kin: n ormal, no rash. P eripheral pulses: n ormal (2+) bilaterally. E xtremities: n o leg edema. Assessment: * Assessment: 1. C alculus of bile duct without cholecystitis with obstruction - K80.51 (Primary) ?2. V itamin B12 deficiency - E53.8 Plan: * Treatment: * Therapeutic Injections: B-12 : 1 mL (Route: Intramuscular) given by KRISTIN Vidal on left gluteus (Vitamin B12 deficiency) * Procedure Codes: J 3420 B-12, 06966 ADMINISTRATION OF INJECTION, 3077F SYST BP = 140 MM HG6 IT, 3078F DIAST BP < 80 MM HG * Follow Up: v ia phone to report progress * Images: Billing Information: * Visit Code: 58734 Office Visit, Est Pt., Level 4. Modifiers: 25 * Procedure Codes: J3420 B-12. 21827 ADMINISTRATION OF INJECTION. 3077F SYST BP = 140 MM HG6 IT. 3078F DIAST BP < 80 MM HG. * Electronic signature of LORENZO Carcamo on 09/14/2024 at 09:04 AM EDT Sign off status: Pending * Provider: LORENZO Chamberlain Date: 06/09/2024 Generated for Carmina garces/Mariano/eTransmitting on: 0 09/14/2024 09:04 AM EDT History and Physical Notes * HPI (History of Present Illness) Category Sub-Category Detail Notes Category Not es HPI Here for follow up on: Pt is her e today for a f/u from [facility] after having gallstones removed from her bile duct. She states she started having pain over the weekend and went to [place] ER twice. Her LFT's and bilirubin doubled in 2 days so they took her for emergency surgery on Wednesday to remove numerous gallstones that were stuck in her bile duct. They were able to do this laproscopically. She still has some soreness but is feeling better. She would like her B12 shot today as well Examination Category Sub-Category Detail Notes Category Not es General Examination HEENT: unremarkable Heart: RSR Lungs: clear to auscultatio n Abdomen: bowel sounds present , soft, ttp in the RUQ Extremities: no leg edema General Appearance: NAD Skin: normal, no rash Neurologic Exam: Intact, gait normal Neck: supple, no lymphaden opathy Oral cavity: no lesions, mucosa m oist and WNL, no erythema Peripheral pulses: normal (2+) bilatera lly Chest: normal shape and exp ansion
--- OUTSIDE RECORDS SUMMARY | 2024-07-14 05:15 | XMS_ITS ---
[facility] Address [address] [place] [id number] Care Team Providers Care Cook Barbecue Name Role Phone Jamie Rodrigues Primary Care Provider Siobhan Melendrez Unavailable [phone] Allergies No Known Allergies Reason For Referral Diagnosis 1 Piriformis syndrome of right side (G57.01) Referral Organization [facility] Referring Provider First Name Siobhan Referring Provider Last Name Parvin Referring Provider Speciality Physician Processing Mgr Referred Provider Specialty Physical The rapist General Notes Siobhan Melendrez 04/2024 10:08:23 AM [facility] 07/14/2024 10:12:29 AM > faxed to [facility] PT Referral Priority Routine REASON FOR VISIT check up and B12 shot Medications Medication SIG (Take, Route, Frequency, Duration) Notes Start Date End Date Status Allopurinol 100 MG Take 1 tablet by once daily; Duration: 90 Active Metoprolol Succinate 100 MG 1 capsule Orally Once a day 05/24/2024 Active Zepbound 2.5 MG/0.5ML 2.5 mg Subcutaneou s once a week 07/14/2024 Active DULoxetine HCl 60 MG 1 capsule orally on ce a day; Duration: 90 days Active tiZANidine HCl 2 MG TAKE 1 TO 2 TABLETS BY MOUTH ONCE DAILY AT BEDTIME NEEDED Orally once daily; Duration: 30 days Active Linzess 145 MCG 1 cap(s) Orally once a day; Duration: 90 days Active Horizant 600 MG 1 tablet in the even ing (5pm) with food Orally Once a day; Duration: 30 day(s) Active Sulindac 200 MG 1 tablet with food O rally Twice a day; Duration: 30 day(s) Active Albuterol Sulfate HFA 108 (90 Base) MCG/ACT 1 puff as needed Inhalation every 4 hrs, prn 07/21/2023 Active Leflunomide 20 MG 1 tablet Orally Once a day; Duration: 30 day(s) Active Enbrel 50 MG/ML 1 mL Subcutaneous on ce a week Active Problems Problem Type SNOMED Code ICD Code Onset Dates Problem Status W/U Status Risk Notes Problem Body mass index 30.00 to 34.99 (581837915695 107) BMI 31.0-31.9,adult (Z68.31) Active confirmed Problem Sciatic nerve lesion (397718330) Piriformis syndrome of right side (G57.01) Active confirmed Vital Signs Weight 189.6 lbs 07/14/2024 Blood pressure systolic 120 mm Hg 07/15/19 25 Blood pressure diastolic 82 mm Hg 025 Heart Rate 60 /min 07/14/2024 Height 65 in 07/14/2024 BMI 31.55 kg/m2 07/14/2024 Encounters Encounter Location Date Provider Diagnosis [facility] [address] [facility] [address] [place] [phone] 07/14/2024 Siobhan Melendrez BMI 31.0-31.9,adult Z68.31 ; Encounter for weight management Z76.89 ; Piriformis syndrome of right side G57.01 and B12 deficiency E53.8 Assessments Encounter Date Diagnosis (ICD Code) Assessment Notes Treatment Notes Treatment Clinical Notes Section Notes 07/14/2024 BMI 31.0-31.9,adult (ICD-10 - Z68.31) 07/14/2024 Encounter for weight management (ICD-10 - Z76.89) 07/14/2024 Piriformis syndrome of right side (ICD-10 - G57.01) 07/14/2024 B12 deficiency (ICD-10 - E53.8) Plan Of Treatment Medication Medication Name Sig Start Date Stop Date Notes Zepbound 2.5 MG/0.5ML 2.5 mg Subcutaneous once a week 04/2024 Referrals Referral Date Details 07/14/2024 07/14/2024 Next Appt Details Follow Up: 3 Months, Reason: Provider Name:Siobhan Lepe y, 10/18/2024 09:00:00 AM, [address], [address], [place], [phone], Medications Administered Medication Instructions Date of Administration Dosage Notes B-12 07/14/2024 1 mL Depo- Medrol 40 mg/ml 07/14/2024 1.5 mL Progress Notes * HEATHERDAQUANKAREENOB: 2 (63 yo F)Acc No.[id number]:07/14/2024 Progress Notes Patient: KENNEDI LISA Provider: LORENZO Chamberlain :1960 A ge:63 Y S ex:Female Date:07/14/2024 Address:[facility] [address], [id number] Pcp:Jamie Rodrigues Subjective: * Chief Complaints: * 1 . check up and B12 shot. * HPI: H PI: 63 year old female presents with c/o Patient is here today for?Pt is here today for a check up and B12 shot, she would like to start back on zepbound and also would like to talk about her right sided sciatica. * ROS: D ERMATOLOGY: no R amisha. [...] detector use: yes. Marital Status: . Occupation: [employer]. Past smoking status: no, [...] capsule orally once a day , Taking Allopurinol 100 MG Tablet Take 1 tablet by mouth once daily , Taking Metoprolol Succinate 100 MG Capsule ER 24 Hour Sprinkle 1 capsule Orally Once a day , Taking tiZANidine HCl 2 MG Tablet TAKE 1 TO 2 TABLETS BY MOUTH ONCE DAILY AT BEDTIME NEEDED Orally once daily , Medication List reviewed and reconciled with the patient * Allergies: N .K.D.A. Objective: * Vitals: W t: 189.6, Temp: 97.9, BP: 120/82, HR: 60, Nurse: kristin, Ht: 65, BMI:31.55. * Examination: G eneral Examination: General Appearance: N AD. C hest: n ormal shape and expansion. H eart: R SR. L ungs: c lear to auscultation. N eurologic Exam: I ntact, gait normal. S kin: n ormal, no rash. P eripheral pulses: n ormal (2+) bilaterally. E xtremities: n o leg edema. L ower back: Inspection: n ormal curvature of spine. P alpation:?tender piriformis area on the right. S traight leg raising test: n egative bilaterally.?Motor system: V / V bilaterally , pain with figure 4 test on right. S ensory exam: n ormal bilateral LE. G ait: f avoring affected side. R kat of motion: d ecreased at terminal ranges. Assessment: * Assessment: 1. E ncounter for weight management - Z76.89 (Primary) 2 . B RI 31.0-31.9,adult - Z68.31 3 . P iriformis syndrome of right side - G57.01 4 . B 12 deficiency - E53.8 Plan: * Treatment: 2. P iriformis syndrome of right side Referral To:Physical Therapist Reason: * Therapeutic Injections: Depo- Medrol 40 mg/ml : 1.5 mL (Route: Intramuscular) given by KRISTIN Vidal on right gluteus (Piriformis syndrome of right side) B-12 : 1 mL (Route: Intramuscular) given by KRISTIN Vidal on left gluteus (Piriformis syndrome of right side) * Procedure Codes: J 3420 B-12, J1010 Inj, methylpred acetate 1 mg, Units: 1.50 , 42649 ADMINISTRATION OF INJECTION, Units: 2.00 , 3074F SYST BP LT 130 MM HG, 3079F DIAST BP 80-89 MM HG * Follow Up: 3 Months * Images: Billing Information: * Visit Code: 25914 Office Visit, Est Pt., Level 4. Modifiers: 25 * Procedure Codes: J3420 B-12. J1010 Inj, methylpred acetate 1 mg. Units: 1.50. 53187 ADMINISTRATION OF INJECTION. Units: 2.00. 3074F SYST BP LT 130 MM HG. 3079F DIAST BP 80-89 MM HG. * Electronic signature of LORENZO Carcamo on 09/14/2024 at 09:04 AM EDT Sign off status: Pending * Provider: LORENZO Chamberlain Date: 0 07/14/2024 Generated for Carmina garces/Mariano/eTransmitting on: 0 09/14/2024 09:04 AM EDT History and Physical Notes * HPI (History of Present Illness) Category Sub-Category Detail Notes Category Not es HPI Patient is here today for Pt is here today for a check up and B12 shot, she would like to start back on zepbound and also would like to talk about her right sided sciatica Examination Category Sub-Category Detail Notes Category Not es General Examination Heart: RSR Lungs: clear to auscultatio n Extremities: no leg edema General Appearance: NAD Skin: normal, no rash Neurologic Exam: Intact, gait normal Peripheral pulses: normal (2+) bilatera lly Chest: normal shape and exp ansion Lower back Straight leg raising test: negative bilat erally Motor system: V/ V bilaterally , p ain with figure 4 test on right Sensory exam: normal bilateral LE Gait: favoring affected si de Inspection: normal curvature of spine Palpation: tender piriformis ar ea on the right Range of motion: decreased at termina l ranges Consultation Request Notes Referral Date Referring Provider Referred Provider Not es 07/14/2024 Siobhan Melendrez ,
--- NOTE | 2024-09-14 08:30 | US_ITS ---
PROCEDURE: US TRANSVAGINAL CLINICAL INDICATION: pelvic pain COMPARISON: No exams were available for comparison FINDINGS: Transvaginal sonographic images of the pelvis were obtained. UTERUS: The uterus is surgically absent. The vaginal vault is intact and appears normal. LEFT OVARY: 1.1cmx1.1cmx0.8cm with a volume of 0.5ml. RIGHT OVARY: Not visualized. There is no fluid in the cul-de-sac. IMPRESSION: 1. The uterus is surgically absent. The vaginal vault is intact. 2. The right ovary is not visualized. The left ovary is seen and appears atrophic. 3. No fluid in the cul-de-sac. Dictated by: Sae Mora MD 09/14/2024 13:57 Sae Mora MD in OV 09/14/2024 13:57
--- OUTSIDE RECORDS SUMMARY | 2024-09-14 09:05 | XMS_ITS | Patient Health Record ---
Author Organization [facility] Address [address] [place] [id number] Care Team Providers Care Postulant Name Role Phone Jamie Rodrigues Primary Care Provider Cherry Carson Unavailable [phone] Siobhan Melendrez Unavailable [phone] Allergies No Known Allergies Results Component Value Reference Range Notes H-CBC Reviewed date:01/10/2024 12:26:25 PM Interpretation:wbc 20.6, rbc 3.7, mcv 103.9, mch 34.1, plt 495 Performing Lab: Notes/Report: WBC 20.6 4.8-10.8 K/mm3 RBC 3.70 4.20-5.40 M/mm3 HGB 12.6 12.2-16.2 g/dL HCT 38.5 37.0-47.0 % MCV 103.9 81-99 fl MCH 34.1 27.0-31.2 pg MCHC 32.8 31.8-35.4 g/dL RDW 15.5 11.5-17.5 % PLT 495 142-424 K/mm3 Delta: 318 on 01/01/24-2248 MPV 7.4 7.4-10.4 fl NE% 91.9 37.0-80.0 % LY% 4.0 10-50 % MO% 2.5 1.7-9.3 % EO% 1.4 0.1-12.0 % BA% 0.2 0.1-2.0 % NE# 18.9 1.8-7.8 K/mm3 LY# 0.8 0.7-4.5 K/mm3 MO# 0.5 0.1-1.0 K/mm3 EO# 0.3 0.0-0.4 K/mm3 BA# 0.0 0-0.2 K/mm3 H-CMP Reviewed date:01/10/2024 12:26:25 PM Interpretation:Na 132, cl 97, gluc 107, Ca 10.4 Performing Lab: Notes/Report: NA 132 136-145 mmol/L K 5.0 3.5-5.1 mmoL/L CL 97 98-107 mmol/L CO2 26 22.0-30.0 mmol/L GAP 14.0 5-15 mEq/L BUN 15 7-17 mg/dl CREATT 0.90 0.52-1.04 mg/dl GFRAA 77 >60 ML/MIN EGFR 63 >60 ml/min GLU 107 74-100 mg/dl CA 10.4 8.4-10.2 mg/dl BILIT 0.7 0.2-1.3 mg/dl AST 21 14-36 U/L ALT 15 12-78 U/L TP 6.6 6.3-8.2 g/dl ALB 4.1 3.5-5.0 g/dl GLOB 2.5 1.3-3.2 g/dL AGRATIO 1.6 1.1-1.8 ALP 105 38-126 U/L H-Magnesium Reviewed date:01/10/2024 12:26:25 PM Interpretation:Normal Performing Lab: Notes/Report: MG 2.0 1.6-2.3 mg/dl H-DIFF Reviewed date:01/10/2024 12:26:25 PM Interpretation:neut 89, lymph 8 Performing Lab: Notes/Report: MDIFF MANUAL DIFFERENTIAL MANUAL DIFF TCC 100 NEUT%M 89 42-76 % LYMPH%M 8 10-50 % MONO%M 3 2-9 % PLTE Slight Increase MACROC 1+ Covid test (in house) Reviewed date:03/23/2024 03:57:44 PM Interpretation: Performing Lab: Notes/Report: Result: Neg Influenza Screen (in house) Reviewed date:03/23/2024 03:57:44 PM Interpretation: Performing Lab: Notes/Report: results Neg P-TSH Reviewed date:02/18/2024 01:08:59 PM Interpretation:Normal Performing Lab: Notes/Report: Test performed by [facility] [address] [place] [address] , [place] [address] Klever Anne MD, [address] CLIA: [id number] TSH 1.52 0.43-5.25 mU/L P-Thyroid Antibody Panel (TA BS) Reviewed date:02/18/2024 01:08:59 PM Interpretation:Normal Performing Lab: Notes/Report: Test performed by [facility] [address] , [place] [address] Klever Anne MD, [address] CLIA: [id number] Thyroid Peroxidase Antibody 11 <9-34 IU/mL An elevated Thyroid Peroxidase Antibody should not be used alone to make the diagnosis of autoimmune thyroid disease. A result of <34 IU/mL does not definitively rule out the possibility of autoimmune thyroid disease. Thyroglobulin Antibody 11.3 <10-115.0 IU/mL The test is performed by the [employer] ECLIA methodology. Values obtained with different assay methods or kits cannot be directly compared. P-T4 Free (thyroxine) Reviewed date:02/18/2024 01:08:59 PM Interpretation:0.68 Performing Lab: Notes/Report: Test performed by [facility] [address] , [place] [address] Klever Anne MD, [address] [place] CLIA: [id number] Thyroxine Free (free T4) 0.68 0.86-1.76 ng/dL P-Comprehensive Metabolic Pa sola (CMP) Reviewed date:02/18/2024 01:08:59 PM Interpretation:gluc 101, alk phos 129 Performing Lab: Notes/Report: Test performed by [facility] [employer] [employer] [address] [place] [address] , [place] [address] Klever Anne MD, [address] [place] CLIA: [id number] Sodium 141 135-145 mmol/L Potassium 4.3 3.5-5.3 mmol/L Chloride 104 97-108 mmol/L CO2 26 22-32 mmol/L Glucose 101 65-99 mg/dL BUN 22 8-23 mg/dL Creatinine 0.99 0.50-1.00 mg/dL Calcium 9.8 8.6-10.4 mg/dL eGFR by Creatinine 64 >59 mL/min/1.73m2 Protein 6.4 6.0-8.3 g/dL Albumin 4.4 3.5-5.3 g/dL Alkaline Phosphatase 129 35-121 IU/L ALT (SGPT) 16 <5-47 IU/L AST (SGOT) 16 <5-40 IU/L Bilirubin, Total 0.4 <0.2-1.2 mg/dL A/G Ratio 2.2 1.1-2.5 CBC Venipuncture (in house) Reviewed date:02/11/2024 01:49:02 PM Interpretation: Performing Lab: Notes/Report: wbc 6.7 3.5 - 10 lymph 17.3 15 - 50 mid 4.9 2 - 15 gran 77.8 35 - 80 rbc 4.11 3.5 - 5.5 hgb 13.6 11.5 - 16.5 hct 42.5 35 - 55 mcv 103.2 75 - 100 mch 33.1 25 - 35 mchc 32.1 31 - 38 platlet 350 100 - 400 CBC Fingerstick (in house) Reviewed date:01/21/2024 11:41:45 AM Interpretation: Performing Lab: Notes/Report: wbc 9.0 3.5 - 10 lym 16.4 15 - 50 mid 4.8 2 - 15 gran 78.8 35 - 80 rbc 3.74 3.5 - 5.5 hgb 12.7 11.5 - 16.5 hct 39.0 35 - 55 mcv 104.4 75 - 100 mch 34.0 25 - 35 mchc 32.5 31 - 38 plat 403 100 - 400 Urinalysis - Inhouse Reviewed date:01/21/2024 11:41:53 AM Interpretation: Performing Lab: Notes/Report: Color/Clarity yellow Leuk neg Nitrite neg Urobili 3.2 Protein neg pH 7.0 Blood neg Sp. Gr. 1.025 Ketone neg Bili neg Gluc neg ultrasound : thyroid Reviewed date:01/10/2024 12:55:30 PM Interpretation:Abnormal Performing Lab: Notes/Report: Abnormal P-TSH Reviewed date:01/04/2024 01:21:56 PM Interpretation:6.54 Performing Lab: Notes/Report: Test performed by [facility] [address] [place] [address] , [address], [place] [address] Klever Anne MD, [address] CLIA: [id number] TSH 6.54 0.43-5.25 mU/L P-T4 (Thyroxine) Reviewed date:01/04/2024 01:27:43 PM Interpretation:8.78 Performing Lab: Notes/Report: Test performed by [facility] [employer] [employer] [address] [place] [address] , [address], [place] [address] Klever Anne MD, [address] CLIA: [id number] Thyroxine (T4) 8.78 4.50-11.70 ug/dL P-Comprehensive Metabolic Pa sola (CMP) Reviewed date:01/04/2024 01:21:36 PM Interpretation: Performing Lab: Notes/Report: Test performed by [facility] [address] [place] [address] , [address], [place] [address] Klever Anne MD, [address] CLIA: [id number] Sodium 131 135-145 mmol/L Potassium 5.0 3.5-5.3 mmol/L Chloride 97 97-108 mmol/L CO2 23 22-32 mmol/L Glucose 89 65-99 mg/dL BUN 25 8-23 mg/dL Creatinine 1.06 0.50-1.00 mg/dL Calcium 9.7 8.6-10.4 mg/dL eGFR by Creatinine 59 >59 mL/min/1.73m2 Protein 6.5 6.0-8.3 g/dL Albumin 4.2 3.5-5.3 g/dL Alkaline Phosphatase 129 35-121 IU/L ALT (SGPT) 11 <5-47 IU/L AST (SGOT) 14 <5-40 IU/L Bilirubin, Total 0.5 <0.2-1.2 mg/dL A/G Ratio 1.8 1.1-2.5 P-B12 and Folate Reviewed date:01/04/2024 01:21:10 PM Interpretation: Performing Lab: Notes/Report: Test performed by [facility] [address] [place] [address] , [address], [place] [address] Klever Anne MD, [address] CLIA: [id number] Vitamin B12 9344 773-2506 pg/mL Folate 8.62 >4.59 ng/mL CBC Venipuncture (in house) Reviewed date:01/03/2024 01:04:07 PM Interpretation: Performing Lab: Notes/Report: wbc 16.0 3.5 - 10 lymph 10.3 15 - 50 mid 3.5 2 - 15 gran 86.2 35 - 80 rbc 3.55 3.5 - 5.5 hgb 12.2 11.5 - 16.5 hct 35.5 35 - 55 mcv 99.9 75 - 100 mch 34.5 25 - 35 mchc 34.5 31 - 38 platlet 384 100 - 400 Urinalysis - Inhouse Reviewed date:01/03/2024 01:01:31 PM Interpretation: Performing Lab: Notes/Report: Color/Clarity yellow Leuk neg Nitrite neg Urobili 3.2 Protein neg pH 6.0 Blood neg Sp. Gr. 1.010 Ketone neg Bili neg Gluc neg P-TSH reflex to FT4 Reviewed date:05/03/2024 02:06:46 PM Interpretation:low Performing Lab: Notes/Report: Test performed by [facility] [employer] [employer] [address] [place] [address] , [place] [id number] Klever Anne MD, [address] CLIA: [id number] TSH reflex to FT4 0.30 0.43-5.25 mU/L P-T4 Free (thyroxine) Reviewed date:05/03/2024 02:06:56 PM Interpretation:low Performing Lab: Notes/Report: Test performed by [facility] [employer] [employer] [address] [place] [address] , [address], [place] [address] Klever Anne MD, [address] CLIA: [id number] Thyroxine Free (free T4) 0.67 0.86-1.76 ng/dL EKG with rhythm strip Reviewed date:02/16/2024 01:38:06 PM Interpretation:borderline Performing Lab: Notes/Report: borderline CXR Reviewed date:02/16/2024 01:37:58 PM Interpretation:nothing acute Performing Lab: Notes/Report: nothing acute Influenza Screen (in house) Reviewed date:05/25/2024 04:24:55 PM Interpretation: Performing Lab: Notes/Report: results Neg Covid test (in house) Reviewed date:05/25/2024 08:09:59 AM Interpretation: Performing Lab: Notes/Report: Result: Pos Medications Medication SIG (Take, Route, Frequency, Duration) Notes Start Date End Date Status Allopurinol 100 MG Take 1 tablet by once daily; Duration: 90 Active Metoprolol Succinate 100 MG 1 capsule Orally Once a day 05/24/2024 Active Zepbound 5 MG/0.5ML 0.5 mL Subcutaneous once a week; Duration: 30 days Active Linzess 145 MCG 1 cap(s) Orally once a day; Duration: 90 days Active DULoxetine HCl 60 MG 1 capsule orally on ce a day; Duration: 90 days Active Enbrel 50 MG/ML 1 mL Subcutaneous on ce a week Active Horizant 600 MG 1 tablet in the even ing (5pm) with food Orally Once a day; Duration: 30 day(s) Active Sulindac 200 MG 1 tablet with food O rally Twice a day; Duration: 30 day(s) Active tiZANidine HCl 2 MG TAKE 1 TO 2 TABLETS Orally once daily as needed; Duration: 30 days Active Albuterol Sulfate HFA 108 (90 Base) MCG/ACT 1 puff as needed Inhalation every 4 hrs, prn 07/21/2023 Active Leflunomide 20 MG 1 tablet Orally Once a day; Duration: 30 day(s) Active Immunizations Vaccine Route Administration Date Status Comme nts COVID 19 Moderna Unknown 06/12/2020 Administered COVID 19 Moderna Unknown 07/12/2020 Administered COVID 19 Moderna Unknown 04/15/2021 Administered Fluzone Quad (6months&older) IM Intramuscular 12/12/2020 Administered Hepatitis A (adult) Unknown 07/29/2018 Administered Shingrix Unknown 03/03/2023 Administered Tetanus Tdap-Adacel (over 7yrs) IM Intramuscular 07/27/2007 Administered Tetanus Tdap-Adacel (over 7yrs) Unknown 04/05/2018 Pending Tetanus Tdap-Adacel (over 7yrs) IM Intramuscular 04/20/2018 Administered Problems Problem Type SNOMED Code ICD Code Onset Dates Problem Status W/U Status Risk Notes Problem Radiculopathy (80038441) Radiculopathy (729.2) Active confirmed Problem Gout (28718265) Gout NOS (274.9) Active confirm ed Problem Allergic rhinitis (90237901) ALLERGIC RHINITIS NOS (477.9) Active confirmed Problem Asthma (388238518) ASTHMA NOS (493.90) Active c onfirmed Problem Insomnia (587901997) Insomnia (G47.00) Active c onfirmed Problem Vitamin D deficiency (02729401) Vitamin D deficiency (E55.9) Active confirmed Problem Essential hypertension (86352897) Essential hypertension (I10) Active confirmed Problem Morbid obesity (239487908) Morbid obesity (E66.01) Active confirmed Problem Vitamin B12 deficiency (non anemic) (01057259) B12 deficiency (E53.8) Active confirmed Problem Sciatic nerve lesion (035938440) Piriformis syndrome of right side (G57.01) Active confirmed Problem Asthma (873808877) Asthma (J45.909) Active conf irmed Problem Paresthesia (51932208) Paresthesia (R20.2) Active confirmed Problem Obesity (995839493) Obesity (E66.9) Active conf irmed Problem Mixed anxiety and depressive disorder (278073952) Depression with anxiety (F41.8) Active confirmed Problem Restless legs syndrome (27868415) Restless leg syndrome (G25.81) Active confirmed Problem Sciatica (68905556) Sciatica of left side (M54.32) Active confirmed Problem Increased blood leukocyte number (779754201) Other elevated white blood cell count (D72.828) Active confirmed Problem Mixed hyperlipidemia (611470210) Mixed hyperlipidemia (E78.2) Active confirmed Problem Insomnia (838280498) Other insom tiffanie (G47.09) Active confirmed Problem Paresthesia (finding ) (90023926) Paresthesia of skin (R20.2) Active confirmed Problem Obesity (527319789) Obesity (BMI 30-39.9) (E66.9) Active confirmed Problem Thyroid nodule (223472599) Thyroid nodule (E04.1) Active confirmed Problem Left ventricular hypertrophy (94147732) Left ventricular hypertrophy (I51.7) Active confirmed Problem Restless legs (68396704) Restless leg (G25.81) Active confirmed Problem Constipation (41373992) Constipation, unspecified constipation type (K59.00) Active confirmed Problem Depression (890714622) Depression (F32.9) Active confirmed Problem Gout (71375278) Gout, unspecifie d cause, unspecified chronicity, unspecified site (M10.9) Active confirmed Problem Polyarthritis (569229869) Polyarthritis (M13.0) Active confirmed Problem Rheumatoid arthritis (80133079) Rheumatoid arthritis (M06.9) Active confirmed Problem Body mass index 30.0 0 to 34.99 (084759747614911) BMI 31.0-31.9,adult (Z68.31) Active confirmed Problem Hypersomnia (12284435) Hypersomnia (G47.10) Active confirmed Problem Skin sensation disturbance (04142759) Paresthesia of both feet (R20.2) Active confirmed Problem Restless legs (27337469) RLS (restless legs syndrome) (G25.81) Active confirmed Problem Leucocytosis (279740804) Leucocytosis (D72.829) Active confirmed Problem Osteoarthritis (786495962) Osteoarthritis, unspecified osteoarthritis type, unspecified site (M19.90) Active confirmed Problem Pure hypercholesterolemia (653825810) Pure hypercholesterolemia (E78.00) Active confirmed Problem Irritable bowel syndrome characterized by constipation (436035248) Irritable bowel syndrome with constipation (K58.1) Active confirmed Problem Sexual dysfunction (43693396) Sexual dysfunction (R37) Active confirmed Problem Artificial knee join t present (895040786913) Status post left knee replacement (Z96.652) Active confirmed Problem Rotator cuff arthropathy of left shoulder (13376776109078365) Rotator cuff arthropathy of left shoulder (M12.812) Active confirmed Problem Artificial knee join t present (616449445471) Artificial knee joint present, unspecified laterality (Z96.659) Active confirmed Problem Imaging of thyroid gland abnormal (finding) (121555228) Abnormal thyroid ultrasound (R93.89) Active confirmed Problem Dyskinesia (1480037) Dyskinesia (G24.9) Active confirmed Problem Neuropathy of upper limb (092164719) 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) Active confirmed Problem Cervical arthritis (427509314) Cervical arthritis (M47.812) Active confirmed Problem 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) Active confirmed Problem Cervical radiculopathy (96321517) Radiculopathy, cervical (M54.12) Active confirmed Problem Sciatic nerve lesion (800050166) Bilateral piriformis syndrome (G57.03) Active confirmed Problem Obesity (943078156) Obesity, Cla ss II, BMI 35-39.9 (E66.9) Active confirmed Vital Signs Heart Rate 60 /min 07/14/2024 Blood pressure diastolic 82 mm Hg 07/14/2024 Height 65 in 07/14/2024 Blood pressure systolic 120 mm Hg 07/14/2024 Weight 189.6 lbs 07/14/2024 BMI 31.55 kg/m2 07/14/2024 Encounters Encounter Location Date Provider Diagnosis [facility] [address] [facility] [address] [place] [id number] 12/02/2023 Siobhan Melendrez Vitamin B12 deficien cy E53.8 [facility] [address] [place] [id number] 12/10/2023 Siobhan Melendrez Encounter for immunization Z23 and B12 deficiency E53.8 [facility] [address] [place] [id number] 12/20/2023 Siobhan Melendrez B12 deficiency E53.8 [facility] [address] [place] [id number] 12/24/2023 Siobhan Melendrez B12 deficiency E53.8 [facility] [address] [facility] [address] [place] [id number] 12/31/2023 Siobhan Melendrez Obesity (BMI 30-39.9 ) E66.9 ; B12 deficiency E53.8 ; Hypotension due to drugs I95.2 and Other insomnia G47.09 [facility] [address] [place] [id number] 01/03/2024 Cherry Carson Abnormal thyroid function test R94.6 ; Abnormal thyroid exam R94.6 ; Vitamin B 12 deficiency E53.8 ; Leucocytosis D72.829 ; Renal insufficiency N28.9 ; Neuropathy of left upper extremity G56.92 ; Cervical arthritis M47.812 ; Radiculopathy, cervical M54.12 ; Dental disorder K08.9 ; Obesity E66.9 ; Hypotension I95.9 and Rheumatoid arthritis M06.9 [facility] [address] [facility] [address] [place] [id number] 01/05/2024 Siobhan Melendrez Renal insufficiency N28.9 ; Thyroid function study abnormality R94.6 ; Restless leg G25.81 and Leucocytosis D72.829 [facility] [address] [place], [place] [id number] 01/07/2024 Siobhan Crowdy B12 deficiency E53.8 [facility] [address] [place], [place] [id number] 01/14/2024 Siobhan Crowdy B12 deficiency E53.8 and Pre-op exam Z01.818 [facility] [address] [facility] [address] [place], [place] [id number] 01/21/2024 Siobhan Crowdy Other elevated white blood cell count D72.828 ; Abnormal urinalysis R82.90 ; S/P thyroid biopsy Z98.890 and B12 deficiency E53.8 [facility] [address] [place], [place] [id number] 01/28/2024 Siobhan Crowdy B12 deficiency E53.8 [facility] [address] [place], [place] [id number] 02/04/2024 Siobhan Crowdy B12 deficiency E53.8 [facility] [address] [place], [place] [id number] 02/11/2024 Siobhan Crowdy Thyroid nodule E04.1 ; Hot flashes R23.2 and Abnormal TSH R79.89 [facility] [address] [place], [place] [id number] 02/25/2024 Siobhan Crowdy Thyroid nodule E04.1 ; Abnormal thyroid blood test R79.89 and Neck muscle spasm M62.838 [facility] [address] [facility] [address] [place], [place] [id number] 03/03/2024 Siobhan Crowdy B12 deficiency E53.8 [facility] [address] [facility] [address] [place], [place] [id number] 03/23/2024 Siobhan Crowdy Bronchitis J40 [facility] [address] [place], [place] [id number] 04/21/2024 Siobhan Crowdy Thyroid nodule E04.1 and B12 deficiency E53.8 [facility] [address] [place], [place] [id number] 05/24/2024 Siobhan Crowdy Essential hypertensi on I10 and COVID-19 U07.1 [facility] [address] [place], [place] [id number] 06/09/2024 Siobhan Crowdy Calculus of bile chiquis t without cholecystitis with obstruction K80.51 and Vitamin B12 deficiency E53.8 [facility] [address] [place], [place] [id number] 07/14/2024 Siobhan Crowdy BMI 31.0-31.9,adult Z68.31 ; Encounter for weight management Z76.89 ; Piriformis syndrome of right side G57.01 and B12 deficiency E53.8 [facility] [address] [place], [place] [id number] 10/06/2023 Siobhan Crowdy [facility] [address] [place], [place] [id number] 10/08/2023 Jamie Richmond Constipation, unspecified constipation type K59.00 [facility] [address] [place], [place] [id number] 11/25/2023 Jamie Richmond [facility] [address] [place], [place] [id number] 11/26/2023 Siobhan Crowdy [facility] [address] [place], [place] [id number] 11/29/2023 Siobhan Crowdy Obesity (BMI 30-39.9 ) E66.9 [facility] [address] [place], [place] [id number] 12/08/2023 Siobhan Crowdy [facility] [address] [place] [id number] 12/10/2023 Siobhan Crowdy [facility] [address] [place], [place] [id number] 01/03/2024 Jamie Richmond [facility] [address] [place], [place] [id number] 01/04/2024 Cherry Carson [facility] [address] [place] [id number] 01/07/2024 Siobhan Crowdy [facility] [address] [place] [id number] 02/18/2024 Siobhan Crowdy [facility] [address] [place] [id number] 02/23/2024 Jamie Richmond [facility] [address] [place], [place] [id number] 05/03/2024 Siobhan Jasondy Abnormal thyroid blo od test R79.89 [facility] [address] [place], [place] [id number] 05/23/2024 Siobhan Crowdy [facility] [address] [place] [id number] 06/09/2024 Siobhan Crowdy [facility] [address] [place] [id number] 06/30/2024 Siobhan Crowdy [facility] [address] [place] [id number] 07/28/2024 Jamie Richmond [facility] [address] [place], [place] [id number] 08/08/2024 Jamie Richmond BMI 31.0-31.9,adult Z68.31 [facility] [address] [place], [place] [id number] 08/08/2024 Jamie Richmond Assessments Encounter Date Diagnosis (ICD Code) Assessment Notes Treatment Notes Treatment Clinical Notes Section Notes 10/08/2023 Constipation, unspecified constipation type (ICD-10 - K59.00) 11/29/2023 Obesity (BMI 30-39.9) (ICD-10 - E66.9) 12/02/2023 Vitamin B12 deficiency (ICD-10 - E53.8) Will give a B12 shot once a week x 4 weeks and if labs show she can absorb oral B12, can either begin taking oral B12 or continue getting shots once a month. 12/10/2023 B12 deficiency (ICD-10 - E53.8) 12/10/2023 Encounter for immunization (ICD-10 - Z23) 12/20/2023 B12 deficiency (ICD-10 - E53.8) 12/24/2023 B12 deficiency (ICD-10 - E53.8) 12/31/2023 B12 deficiency (ICD-10 - E53.8) 12/31/2023 Obesity (BMI 30-39.9) (ICD-10 - E66.9) Will stay on the 7.5mg as she has lost quite a bit of weight and is really unable to eat much at all. Will try adding protein shakes. 01/03/2024 Abnormal thyroid function test (ICD-10 - R94.6) TSH elevated in the ER; will repeat with a T4 01/03/2024 Abnormal thyroid exam (ICD-10 - R94.6) will hold Zepbound until thyroid US completed 01/05/2024 Thyroid function study abnormality (ICD-10 - R94.6) 01/07/2024 B12 deficiency (ICD-10 - E53.8) 01/14/2024 B12 deficiency (ICD-10 - E53.8) 01/14/2024 Pre-op exam (ICD-10 - Z01.818) Patient is getting labs done at [facility] and will have a CBC and CMP checked. Labs, CXR, and EKG reviewed and patient is cleared for surgery. 01/05/2024 Renal insufficiency (ICD-10 - N28.9) 01/21/2024 Other elevated white blood cell count (ICD-10 - D72.828) CBC has normalized. 01/21/2024 Abnormal urinalysis (ICD-10 - R82.90) Repeat U/A is clear. 01/28/2024 B12 deficiency (ICD-10 - E53.8) 02/04/2024 B12 deficiency (ICD-10 - E53.8) 02/11/2024 Thyroid nodule (ICD-10 - E04.1) 02/25/2024 Abnormal thyroid blood test (ICD-10 - R79.89) Free T4 was low. Patient has symptoms of hypothyroidism. Her TSH and thyroid antibodies were normal. Will go ahead and start on a low dose of levothyroxine and recheck in 6-8 weeks. 03/03/2024 B12 deficiency (ICD-10 - E53.8) 03/23/2024 Bronchitis (ICD-10 - J40) Was given 5 days of doxycycline in the ER. Will give 5 more days and start on Bromfed. Will finish prednisone. 04/21/2024 Thyroid nodule (ICD-10 - E04.1) 05/03/2024 Abnormal thyroid blood test (ICD-10 - R79.89) 05/24/2024 Essential hypertension (ICD-10 - I10) Patient [...] needs to stop until she is better. 06/09/2024 Vitamin B12 deficiency (ICD-10 - E53.8) 06/09/2024 Calculus of bile duct without cholecystitis with obstruction (ICD-10 - K80.51) Patient had stones removed at [facility] by Dr. Villar. We will need to get records. She has f/u with him in a week. She had labs checked at this philosophy faculty member this am at [facility] and they rechecked a CMP, but she does not have results yet. She will fax them to us once she gets them so we do not have to draw more labs today. 02/11/2024 Hot flashes (ICD-10 - R23.2) 02/25/2024 Thyroid nodule (ICD-10 - E04.1) 07/14/2024 BMI 31.0-31.9,adult (ICD-10 - Z68.31) 07/14/2024 Encounter for weight management (ICD-10 - Z76.89) 08/08/2024 BMI 31.0-31.9,adult (ICD-10 - Z68.31) 02/25/2024 Neck muscle spasm (ICD-10 - M62.838) 01/05/2024 Restless leg (ICD-10 - G25.81) 07/14/2024 Piriformis syndrome of right side (ICD-10 - G57.01) 04/21/2024 B12 deficiency (ICD-10 - E53.8) 02/11/2024 Abnormal TSH (ICD-10 - R79.89) 01/21/2024 S/P thyroid biopsy (ICD-10 - Z98.890) STill awaiting pathology results. 01/03/2024 Vitamin B 12 deficiency (ICD-10 - E53.8) 12/31/2023 Hypotension due to drugs (ICD-10 - I95.2) Will stop the metoprolol and check BP the next few days. She may not need it anymore since she has lost weight or it may be low due to anesthesia. She will call with BP readings holding the metoprolol. 12/31/2023 Other insomnia (ICD-10 - G47.09) 01/03/2024 Leucocytosis (ICD-10 - D72.829) will stop amoxicillin and start Clinda due to increase in WBC's; stressed importance of increasing water intake 01/05/2024 Leucocytosis (ICD-10 - D72.829) 01/21/2024 B12 deficiency (ICD-10 - E53.8) Will give injection today and can move to once a month injections. 07/14/2024 B12 deficiency (ICD-10 - E53.8) 01/03/2024 Renal insufficiency (ICD-10 - N28.9) 01/03/2024 Neuropathy of left upper extremity (ICD-10 - G56.92) will hold methotrexate today 01/03/2024 Cervical arthritis (ICD-10 - M47.812) 01/03/2024 Radiculopathy, cervical (ICD-10 - M54.12) to start MDP 01/03/2024 Dental disorder (ICD-10 - K08.9) to continue with oral care as per dentist; change ABX to clindamycin 01/03/2024 Obesity (ICD-10 - E66.9) will hold Zepbound for now 01/03/2024 Hypotension (ICD-10 - I95.9) will hold zepbound for now; she will continue to do home BP 01/03/2024 Rheumatoid arthritis (ICD-10 - M06.9) will hold Methotrexate today and start MDP with food 01/14/2024 Other Plan Of Treatment Pending Test Test Name Order Date H-CBC 01/14/2024 H-CMP 01/14/2024 H-CMP 04/09/2022 intrinsic factor blocking antibody 12/01 Next Appt Details Provider Name:Siobhan morrison, 10/18/2024 09:00:00 AM, [address], [address], [place], [place], [id number], Insurance Providers Payer Name Payer Address Payer Phone Subscriber Number Group Number Insured Name Patient Relationship to Insured Coverage Start Date Coverage End Date [employer] [address] [place] [address] [id number] JASMEET MILLARD Natural Child - Insured has Financial Responsibility [employer] [address] [place] [address] [phone] [id number] JASMEET MILLARD Spouse - patient is the spouse of the insured Medications Administered Medication Instructions Date of Administration Dosage Notes B-12 12/02/2023 1 mL B-12 12/10/2023 1 mL B-12 12/20/2023 1 mL B-12 12/24/2023 1 mL B-12 12/31/2023 1 mL B-12 01/07/2024 1 mL B-12 01/14/2024 1 mL B-12 01/21/2024 1 mL B-12 01/28/2024 1 mL B-12 02/04/2024 1 mL B-12 03/03/2024 1 mL B-12 04/21/2024 1 mL B-12 06/09/2024 1 mL B-12 07/14/2024 1 mL Depo- Medrol 40 mg/ml 06/30/2011 Depo- Medrol 40 mg/ml 08/21/2014 1 mL Depo- Medrol 40 mg/ml 05/24/2015 1 mL Depo- Medrol 40 mg/ml 01/18/2016 1 mL Depo- Medrol 40 mg/ml 07/14/2024 1.5 mL Dexamethasone 04/07/2005 0.5 mL Medical (General) History Medical History History ICD Code asthma allergic rhinitis depression Left ACL tear 1976, repaired 1995 Surgical History Surgery Date(Month/Year) knee gallbladder BTL Bladder tuck hysterectomy heart cath. 4-10 Valtrectomy 12/11/2021 3 Teeth Extracted 12/30/2023 Gallstones removed from bile duct 5 Hospitalization History Reason Date(Month/Year) dehydration 2002
--- OUTSIDE RECORDS SUMMARY | 2024-09-14 09:06 | XMS_ITS | Encounter Summary ---
Author Organization [employer] ([place], [place], [place], [place]) Address [address] [place] [address] Care Team Providers Care Napping Machine Operator Name Role Phone [facility], Provider Not In The System MD Primary Care Provider Unavailable Reason for Visit * Reason Onset Date Comments medication refill 02/27/2022 medication refill 03/02/2022 2nd attempt Encounter Details Date Type Department Care Team (Late st Contact Info) Description 02/27/2022 Telephone [facility] Rheumatology [address] [place] [address] Maddie Estes MD [address] [facility] [address] [place] [address] medication refill; medication refill (2nd attempt) Social History Tobacco Use Types Packs/Day Years Used Date Smoking Tobacco: Never Assessed Comments Unknown Sex and Gender Information Value Date Recorded Sex Assigned at Not on file Legal Sex Female 6:39 PM CDT Gender Identity Not on file Sexual Orientation Not on file documented as of this encounter Miscellaneous Notes * Telephone Encounter - Alexx Montano LPN - 03/03/2022 2:25 PM EST Called Patient Left a message . Dr Estes is Out until 03/17 and since another Doctor Took her Off the Cyclobenziprine then She Would Need to contact There Office In order For This To be Changed or sent In to the pharmacy . Dr Estes Can Address It at her Next Follow Up . ERIZER MACHINE OPERATOR * Telephone Encounter - Ceci Pena - 03/02/2022 3:50 PM EST Patient calling back regarding the muscle relaxer,she is going out of town on and would like a call back regarding this. She uses [facility] in [place] if something could be called in. She would rather have the tazadine, ERIZER MACHINE OPERATOR * Telephone Encounter - Debra M Dom - 02/27/2022 10:12 AM EST Patient called because she needs a prescription refill, but is confused as to which muscle relaxer she should be taking. Patient stated that she is no longer taking cyclobenzaprine HCI 5mg tablets, and had been prescribed another muscle relaxer by her physician, but it is too strong. Patient statedthat she is in urgent need of her medication due to spasms. Patient was scheduled for the next available appointment at her request. She will need her prescription before this appointment. Please call patient at [phone] ERIZER MACHINE OPERATOR documented in this encounter Plan of Treatment Not on file documented as of this encounter Visit Diagnoses Not on filedocumented in this encounter Care Teams Napping Machine Operator Relationship Specialty Start Date End Date [facility], Provider Not In The System, [place] [address] PCP - General 06/26/22 documented as of this encounter
--- OUTSIDE RECORDS SUMMARY | 2024-09-14 09:06 | XMS_ITS | Referral Summary ---
Author Organization [employer] ([place], [place], [place], [place]) Address [address] [place] [address] Care Team Providers Care Nurse Aide Evaluator Name Role Phone [facility], Provider Not In The System MD Primary Care Provider Unavailable Allergies No known active allergies Medications biotin 5,000 mcg TbDL Take 2 tablets by mouth daily. Active DULoxetine (CYMBALTA) 60 MG capsule Take 1 capsule (60 mg total) by mouth daily. Active flaxseed oiL Oil Take by mouth. Active linaCLOtide (LINZESS) 145 mcg Cap Take 1 capsule (145 mcg total) by mouth. Active polyethylene glycol (GLYCOLAX) 17 gram/dose powder Take 17 g by mouth. Active rOPINIRole (REQUIP) 0.5 MG tablet TAKE 3 TO 4 TABLETS BY MOUTH EVERY DAY AT BEDTIME 10/17/19 22 Active sacrosidase (Sucraid) 8,500 unit/mL Soln Take by mouth. Ac tive metoprolol succinate (TOPROL-XL) 25 MG 24 hr tablet Take 3 tablets (75 mg total) by mouth daily. 03/22/19 24 Active etanercept (EnbreL SureClick) 50 mg/mL (1 mL) PnIjIndications:Se ropositive rheumatoid arthritis of multiple sites (HCC) Inject 50 mg subcutaneously every 7 days. 4 mL 5 05/03/19 24 Active sulindac (CLINORIL) 200 MG tabletIndications: Other osteoarthritis involving multiple joints Take 1 tablet (200 mg total) by mouth 2 (two) times daily with breakfast and dinner. 180 tablet 05/03/19 24 Active methotrexate 2.5 MG tabletIndications: Seropositive rheumatoid arthritis of multiple sites (HCC) Take 6 tablets (15 mg total) by mouth once a week. 24 tablet 1 05/19/19 24 Active Active Problems No known active problems Social History Tobacco Use Types Packs/Day Years Used Date Smoking Tobacco: Never Smokeless Tobacco: Never Tobacco Cessation:Counseling Given: Not Answered Alcohol Use Standard Drinks/Week Comments Not Currently 0 (1 standard drink = 0.6 oz pur e alcohol) Family and Community Support Answer Eric e Recorded Help with Day to Day Activities Not on file 03/26/2023 Feeling Lonely or Isolated Not on file 03/26 Educational Attainment Answer Date Adalberto rded Speak language other than Yemeni at home Not on file 03/26/2023 Want help with school or training Not on file 03/26/2023 Substance Use Answer Date Recorded Used prescription meds for non-medical reasons N ot on file 03/26/2023 Used illegal drugs past 12 months Not on file 03/26/2023 Comments Unknown Sex and Gender Information Value Date Recorded Sex Assigned at Not on file Legal Sex Female 6:39 PM CDT Gender Identity Not on file Sexual Orientation Not on file Last Filed Vital Signs Vital Sign Reading Time Taken Comments Blood Pressure 164/88 05/03/2023 9:37 AM EST Pulse 64 05/03/2023 9:33 AM EST Temperature 36.4 C (97.6 F) 06/18/2022 4:10 PM EDT Respiratory Rate 18 05/03/2023 9:33 AM EST Oxygen Saturation 96% 05/03/2023 9:33 AM EST Inhaled Oxygen Concentration - - Weight 100.7 kg (222 lb) 05/03/2023 9:33 AM EST Height 167.6 cm (5' 6 ) 05/03/2023 9:33 AM EST Body Mass Index 35.83 05/03/2023 9:33 AM EST Plan of Treatment Not on file Procedures Procedure Name Priority Date/Time Associated Diagnosis Comments HEPATITIS C ANTIBODY Routine 05/21/2022 11:32 AM EST Encounter for therapeutic drug monitoring from Last 3 Months or Most Recently Relevant to Health Maintenance Results * Hepatitis C antibody (05/21/2022 11:32 AM EST) Hep C Virus Ab Non Reactive Non Reactive [facility] Comment: HCV antibody alone does not differentiate between previously resolved infection and active infection. Equivocal and Reactive HCV antibody results should be followed up with an HCV RNA test to support the diagnosis of active HCV infection. Blood 05/21/2022 11:3 2 AM EST 05/21/2022 Narrative [facility] - 05/29/2022 1:06 AM EDT Performed at: - [facility] [address] [id number] Insurance Agency Owner: Jerome Rebolledo PhD, Phone: [phone] us Maddie Estes MD LAB BLOOD ORDERABLES Final Resul t [facility] from Last 3 Months or Most Recently Relevant to Health Maintenance Insurance [employer] Who Can Fix My Car CROSS/Who Can Fix My Car SHIELD Care Teams Nurse Aide Evaluator Relationship Specialty Start Date End Date [facility], Provider Not In The System, [place] [address] PCP - General 06/26/22
--- OUTSIDE RECORDS SUMMARY | 2024-09-14 09:06 | XMS_ITS | Clinical Summary ---
Author Organization [facility] Address [address] [place] [address] Care Team Providers Care Tennis Court Attendant Name Role Phone William Boles MD Primary Care Provider [phone] Allergies No known active allergies Medications allopurinol [...] (one) time each day. Active HYDROcodone-jules taminophen (Sulphur) 5-325 MG tablet Take 1 tablet by [...] 12/05/2011 [facility]-Zoster Vaccines (1 of 2) 12/05/2011 [id number] Vaccine ( - 2024-25 season) 2023 04/15/2021, 07/12/2020, 06/12/2020 [facility]-Influenza Vaccine (#1) 2024 12/12/2020 [facility]-DTaP,Tdap,and Td Vaccine s (2 [...] this topic Insurance CELESTE ANTHEM Care Teams Tennis Court Attendant Relationship Specialty Start Date End Date William Boles MD [address] [place] [address] PCP - General 07/26/20
--- OUTSIDE RECORDS SUMMARY | 2024-09-14 09:06 | XMS_ITS | Encounter Summary ---
Author Organization [employer] ([place], [place], [place], [place]) Address [address] [place] [address] Care Team Providers Care Cloth Finishing Range Operator Chief Name Role Phone [facility], Provider Not In The System MD Primary Care Provider Unavailable Reason for Visit * Reason Onset Date Comments PA 05/19/2023 Encounter Details Date Type Department Care Team (Late st Contact Info) Description 05/19/2023 Telephone [facility] Rheumatology [address] [place] [address] Maddie Estes MD [address] [facility] [address] [place] [address] [place] Social History Tobacco Use Types Packs/Day Years Used Date Smoking Tobacco: Never Smokeless Tobacco: Never Alcohol Use Standard Drinks/Week Comments Not Currently 0 (1 standard drink = 0.6 oz pur e alcohol) Family and Community Support Answer Eric e Recorded Help with Day to Day Activities Not on file 03/26/2023 Feeling Lonely or Isolated Not on file 03/26 Educational Attainment Answer Date Adalberto rded Speak language other than Slovenian at home Not on file 03/26/2023 Want [...] encounter Miscellaneous Notes * Telephone Encounter - Mila Prieto - 05/19/2023 10:59 AM EST Last Visit:05/03/23 Next Visit: Caller Message pt is calling to check on the status of Enalyssa PA. (please include as much detail aspossible)? Is follow up action needed? Return call Explain: Caller Name: Kristin Anna Relation to patient: Best Call Back OK to leave message on voicemail: D WASTE LANDFILL TECHNICIAN documented in this encounter Plan of Treatment Not on file documented as of this encounter Visit Diagnoses Not on filedocumented in this encounter Care Teams Cloth Finishing Range Operator Chief Relationship Specialty Start Date End Date [facility], Provider Not In The System, [place] [address] PCP - General 06/26/22 documented as of this encounter
--- OUTSIDE RECORDS SUMMARY | 2024-09-14 09:06 | XMS_ITS | Clinical Summary ---
Author Organization [employer] ([place], [place], [place], [place]) Address [address] [place] [address] Care Team Providers Care Asphalt Paver Operator Name Role Phone [facility], Provider Not In The System MD [...] Date Adalberto rded Speak language other than Gibraltarian at home Not on file 03/26/2023 Want [...] 05/03/2023 9:33 AM EST Plan of Treatment Health Maintenance Due Date Last Done Comments CT Colonography 1961 Colonoscopy 1961 Colorectal Cancer Screening 1961 FOBT/FIT 1961 Fit-DNA (Cologuard) 1961 Sigmoidoscopy 1961 Depression Screening (12+) 1973 HIV Screening 1976 Pneumococcal 50+ years (1 of 2 - PCV) 1980 Shingles Vaccine (Zoster) (1 of 2) 1980 Pap Smear 1982 Breast Cancer Screening 2001 Lipid Panel 2006 Respiratory Syncytial Virus (RSV) Adult or (1 - Risk 60-74 years 1-dose series) 2021 COVID-19 VACCINE (4 - 2023- season) 2023 04/15/2021, 07/12/2020, 06/12/2020 Tobacco Cessation Counseling and Screening (12+) 05/03/2024 05/03/2023 Influenza Vaccine (Season Ended) 2024 01/12/2023, 01/12/2021, 12/12/2020 DTAP/TDAP/TD VACCINES (2 - T d or Tdap) 04/20/2028 04/20/2018 Hepatitis C Screening Completed 05/21/2022 Procedures Procedure Name Priority Date/Time Associated Diagnosis [...] - 05/29/2022 1:06 AM EDT Performed at: 01 - [facility] [address] [id number] Bodily Injury Adjuster: Jerome Rebolledo PhD, Phone: [phone] us Maddie Estes MD LAB BLOOD ORDERABLES Final Resul t [facility] from Last 3 Months or Most Recently Relevant to Health Maintenance Insurance [address] [id number] BLUE CROSS/BLUE SHIELD BLUE CROSS/BLUE SHIELD Care Teams Asphalt Paver Operator Relationship Specialty Start Date End Date [facility], Provider Not In The System, [place] [address] PCP - General 06/26/22
--- OUTSIDE RECORDS SUMMARY | 2024-09-14 09:06 | XMS_ITS | Encounter Summary ---
Author Organization [employer] ([place], [place], [place], [place]) Address [address] [place] [address] Care Team Providers Care Hazardous Substances Scientist Name Role Phone [facility], Provider Not In The System Primary Care Provider Unavailable Reason for Visit * Reason Comments Medication Refill Encounter Details Date Type Department Care Team (Late st Contact Info) Description 05/03/2024 Refill [facility] Rheumatology [address] [place] [address] Maddie Estes MD [address] [facility] [address] [place] [address] Seropositive rheumatoid arthritis of multiple sites (HCC) Social History Tobacco Use Types Packs/Day Years [...] Date Adalberto rded Speak language other than Luxembourgish at home Not on file 03/26/2023 Want [...] on file documented as of this encounter Plan of Treatment Not on file documented as of this encounter Visit Diagnoses Diagnosis Seropositive rheumatoid arthritis of multiple sites (HCC) documented in this encounter Care Teams Hazardous Substances Scientist Relationship Specialty Start Date End Date [facility], Provider Not In The System, [place] [address] PCP - General 06/26/22 documented as of this encounter
== END 2024-09-14 23:59 | disposition home or self-care (01) ==
LOC: RAD 08:53
PROVIDERS: PCP Physician Assistant; Visit Provider Obstetrics & Gynecology
DX: N83.312 Acquired atrophy of left ovary (principal); Z90.710 Acquired absence of both cervix and uterus; R10.2 Pelvic and perineal pain
CPT/HCPCS: 76830

== ENCOUNTER 2024-10-11 15:07 | Outpatient (CLI) | payer BC, SELFPAY ==
--- OUTSIDE RECORDS SUMMARY | 2024-07-14 05:15 | XMS_ITS ---
Author Organization [facility] Address [address] [place] [id number] Care Team Providers Care Skip Load Driver Name Role Phone Jamie Rodrigues Primary Care Provider Siobhan Melendrez Unavailable [phone] Allergies No Known Allergies Reason For Referral Diagnosis 1 Piriformis syndrome of right side (G57.01) Referral Organization [facility] Referring Provider First Name Siobhan Referring Provider Last Name Parvin Referring Provider Speciality Physician Camp Dining Room Attendant Referred Provider Specialty Physical The rapist General Notes Siobhan Melendrez 04/2024 10:08:23 AM [facility] 07/14/[facility]24 10:12:29 AM > [facility] PT Referral Priority Routine REASON FOR VISIT [...] Problem Body mass index 30.00 to 34.99 ([id number] 107) BMI 31.0-31.9,adult (Z68.31) Active confirmed Problem Sciatic nerve lesion (001900549) Piriformis syndrome of right side (G57.01) Active confirmed Vital Signs Blood pressure systolic 120 mm Hg 07/15/19 25 Blood pressure diastolic 82 mm Hg 025 Heart Rate 60 /min 07/14/2024 Height 65 in 07/14/2024 Weight 189.6 lbs 07/14/2024 BMI 31.55 kg/m2 07/14/2024 Encounters Encounter Location Date Provider Diagnosis [facility] [address] [facility] [address] [place], [place] [phone] 07/14/2024 Siobhan Melendrez BMI 31.0-31.9,adult Z68.31 ; [address], [place], [id number], Medications Administered Medication Instructions Date of Administration Dosage Notes B-12 07/14/2024 1 mL Depo- Medrol 40 mg/ml 07/14/2024 1.5 mL Progress Notes * HEATHERDAQUANKAREENOB: 2 (63 yo F)Acc No.[id number]:07/14/2024 Progress Notes Patient: KENNEDI LISA Provider: LORENZO Chamberlain :1960 A ge:63 Y S ex:Female Date:07/14/2024 Address:[facility] [address], [id number] Pcp:Jamie Rodrigues Subjective: * Chief Complaints: * [...] detector use: yes. Marital Status: . Occupation: [employer]. Past smoking status: no, [...] management - Z76.89 (Primary) 2 . B ME 31.0-31.9,adult - Z68.31 3 . P iriformis [...] methylpred acetate 1 mg, Units: 1.50 , 67858 ADMINISTRATION OF INJECTION, Units: 2.00 , 3074F SYST BP LT 130 MM HG, 3079F DIAST BP 80-89 MM HG * Follow Up: 3 Months * Images: Billing Information: * Visit Code: 20130 Office Visit, Est Pt., Level 4. Modifiers: 25 * Procedure Codes: J3420 B-12. J1010 Inj, methylpred acetate 1 mg. Units: 1.50. 51586 ADMINISTRATION OF INJECTION. Units: 2.00. 3074F SYST BP LT 130 MM HG. 3079F DIAST BP 80-89 MM HG. * Electronic signature of LORENZO Carcamo on 10/11/2024 at 03:09 PM EDT Sign off status: Pending * Provider: LORENZO Chamberlain Date: 0 07/14/2024 Generated for Carmina garces/Mariano/eTransmitting on: 0 10/11/2024 03:09 PM EDT History and Physical Notes * HPI [...]
--- OUTSIDE RECORDS SUMMARY | 2024-09-21 07:30 | XMS_ITS ---
Author [facility] Address [address] [facility] [address] [facility] [address] [place] [id number] Care Team Providers Care Head Of Commission Department Name Role Phone Jamie Rodrigues Primary Care Provider [phone] Siobhan Melendrez Unavailable [phone] REASON FOR VISIT B12 Medications Medication SIG [...] Encounter Location Date Provider Diagnosis Karena [address] [facility] [address] [facility] [address] [place] [phone] 09/21/2024 Siobhan Melendrez B12 deficiency E53.8 Assessments Encounter Date Diagnosis (ICD Code) Assessment Notes Treatment Notes Treatment Clinical Notes Section Notes 09/21/2024 B12 deficiency (ICD-10 - E53.8) Plan Of Treatment Next Appt Details Provider Name:Siobhan morrison, 10/18/2024 09:00:00 AM, [address] [facility] [address] [facility], [address], [place], [id number], Medications Administered Medication Instructions Date of Administration Dosage Notes B-12 09/21/2024 1 mL Progress Notes * KAREEN ANNAOB: 2 (63 yo F)Acc No.[id number]:09/21/2024 Patient: KENNEDI LISA Provider: LORENZO Chamberlain :1960 A ge:63 Y S ex:Female Date:09/21/2024 Address:[address] [place], [place] [address], [place] Pcp:Jamie Rodrigues Subjective: * Chief Complaints: * [...] deficiency) * Procedure Codes: J 3420 B-12, 51346 ADMINISTRATION OF INJECTION * Images: Billing Information: * Visit Code: * Procedure Codes: J3420 B-12. 34172 ADMINISTRATION OF INJECTION. * Electronic signature of LORENZO Carcamo on 10/11/2024 at 03:10 PM EDT Sign off status: Pending * Provider: LORENZO Chamberlain Date: 09/21/2024 Generated for Carmina garces/Mariano/Agus on: 10/11/2024 03:10 PM EDT
--- OUTSIDE RECORDS SUMMARY | 2024-10-06 07:30 | XMS_ITS ---
Author Organization [facility] Address [address] [facility] [address] [place] [phone] Care Team Providers Care Unloader Name Role Phone Jamie Rodrigues Primary Care Provider Siobhan Melendrez Unavailable [phone] Allergies No Known Allergies REASON FOR VISIT pain in lower LT [...] by elia once daily; Duration: 90 Active Vital Signs Blood pressure systolic 120 mm Hg 10/07/19 Blood pressure diastolic 72 mm Hg 025 Heart Rate 86 /min 10/06/2024 Height 65 in 10/06/2024 Weight 171 lbs 10/06/2024 BMI 28.45 kg/m2 10/06/2024 Encounters Encounter Location Date Provider Diagnosis [facility] [address] [facility] [address] [facility] [address] [place] [id number] 10/06/2024 Siobhan Melendrez Left lower quadrant pain R10.32 and Screening mammogram, encounter for Z12.31 Assessments Encounter Date Diagnosis (ICD Code) Assessment Notes Treatment Notes Treatment Clinical Notes Section Notes 10/06/2024 Left lower quadrant pain (ICD-10 - R10.32) Recent labs reviewed with patient and WBC was normal. 10/06/2024 Screening mammogram, encounter for (ICD-10 - Z12.31) Plan Of Treatment Treatment Notes Assessment Notes Left lower quadrant pain Recent labs rev iewed with patient and WBC was normal. Pending Test Test Name Order Date Mammogram 10/06/2024 CT Scan : Abd and Pelvis w/ oral & IV co ntrast 10/06/2024 Next Appt Details Follow Up: via phone to repo rt test results, Reason: Provider Name:Siobhan Lepe y, 10/18/2024 09:00:00 AM, [address] [facility] [address] [facility], [place], [id number], Progress Notes * KAREEN ANNAOB: 2 (63 yo F)Acc No.[id number]:10/06/2024 Progress Notes Patient: KENNEDI LISA Provider: LORENZO Chamberlain :1960 A ge:63 Y S ex:Female Date:10/06/2024 Address:[facility] [address] [id number] Pcp:Jamie Rodrigues Subjective: * Chief Complaints: * 1 . pain in lower LT stomach. * HPI: G astroenterology: 63 year old female presents with c/o Abdominal Pain P t is here today with c/o having pain in her left lower side of her stomach. Pt sts she has already been to [facility] and had a vaginal ultrasound done and [...] detector use: yes. Marital Status: . Occupation: [employer]. Past smoking status: no, [...] S creening mammogram, encounter for - Z12.31 Plan: * Treatment: Notes: Recent labs reviewed with patient and WBC was normal.??2.?Screening mammogram, encounter for?Imaging: Mammogram* Lilliam Nash 10/06/2024 12:5 1:44 PM EDT > no auth required * Follow Up: v ia phone to report test results * Images: Billing Information: * Visit Code: 79318 Office Visit, Est Pt., Level 3. * Procedure Codes: * Electronic signature of LORENZO Carcamo on 10/11/2024 at 03:09 PM EDT Sign off status: Pending * Provider: LORENZO Chamberlain Date: 10/06/2024 Generated for Carmina garces/Mariano/Tristonitting on: 10/11/2024 03:09 PM EDT History and Physical Notes * HPI (History of Present Illness) Category Sub-Category Detail Notes Category Not es Gastroenterology Abdominal Pain Pt is here toda y with c/o having pain in her left lower side of her stomach. Pt sts she has already been to [facility] and had a vaginal ultrasound done and [...]
--- NOTE | 2024-10-11 15:09 | MM_ITS ---
PROCEDURE INFORMATION: Exam: MG Bilateral Screening 3D Mammography Exam date and time: 10/11/2024 3:10 PM Age: 63 years old Clinical indication: Screening examination TECHNIQUE: Imaging protocol: Bilateral Screening tomosynthesis and 2D mammography including computer-aided detection (CAD) when performed. COMPARISON: 1. MG MM DIG SCREENING MAMM BI W/CAD 04/07/2023 3:24 PM 2. MG MM DIG MAMM DX UNILAT LT CAD 12/02/2020 2:42 PM FINDINGS: MAMMOGRAPHY: Breast composition: The breasts are almost entirely fatty. Mass: None. Architectural distortion: None. Calcifications: No suspicious calcifications. Asymmetric density: None. Skin thickening: None. Axillary adenopathy: None. IMPRESSION: No mammographic evidence of malignancy. Annual screening is recommended unless otherwise clinically indicated. ASSESSMENT: BI-RADS Category 1: Negative.
--- OUTSIDE RECORDS SUMMARY | 2024-10-11 15:09 | XMS_ITS | Encounter Summary ---
Author Organization [employer] [facility] ([place], [place], [place], [place]) Address [address] [place] [address] Care Team Providers Care Real Estate Branch Manager Name Role Phone [facility], Provider Not In The System MD Primary Care Provider Unavailable Reason for Visit * Reason Onset Date Comments PA 05/19/2023 Encounter Details Date Type Department Care Team (Late st Contact Info) Description 05/19/2023 Telephone [facility] Rheumatology [address] [place] [address] Maddie Estes MD [address] [facility] [address] [place] [address] PA Social History Tobacco Use Types Packs/Day [...] Date Adalberto rded Speak language other than Salvadorean at home Not on file 03/26/2023 Want [...] Back OK to leave message on voicemail: ATRIC ONCOLOGIST documented in this encounter Plan of Treatment Not on file documented as of this encounter Visit Diagnoses Not on filedocumented in this encounter Care Teams Real Estate Branch Manager Relationship Specialty Start Date End Date [facility], Provider Not In The System, [place] [address] PCP - General 06/26/22 documented as of this encounter
--- OUTSIDE RECORDS SUMMARY | 2024-10-11 15:09 | XMS_ITS | Clinical Summary ---
Author Organization [facility] Address [address] [place] [address] Care Team Providers Care Carpet Cleaner Name Role Phone Matt Arceo MD Primary Care Provider Allergies No known active allergies Medications DULoxetine (CYMBALTA) 60 MG capsule Take 2 capsules by mouth Daily. Active allopurinol (ZYLOPRIM) 100 MG tablet Take 1 tablet by mouth Daily. 03/23/2022 Active Linzess 145 MCG capsule capsule Take 1 capsule by mouth Daily. 05/04/2022 Active sulindac (CLINORIL) 200 MG tablet 04/30/2022 Active Horizant 600 MG tablet controlled-rele ase Take 600 mg by mouth Every 12 (Twelve) Hours. 05/09/2024 Active metoprolol succinate XL (TOPROL-XL) 100 MG 24 hr tablet Take 1 tablet by mouth Daily. Active leflunomide (ARAVA) 20 MG tablet Take 1 tablet by mouth Daily. 06/02/2024 Active tiZANidine (ZANAFLEX) 2 MG tablet Take 2 tablets by mouth Every Night. 05/30/2024 Active albuterol sulfate HFA 108 (90 Base) MCG/ACT inhaler Inhale 2 puffs As Needed. 03/20/2024 Active Black Cohosh 40 MG capsule Take 40 mg by mouth 2 (Two) Times a Day. Takes in the morning Active Active Problems Problem Noted Date Diagnosed Date Multiple thyroid nodules 06/08/2024 S/P abdominoplasty 01/31/2021 Family History Medical History Relation Name Comments Thyroid disease Brother Matt Padilla Cancer Father Ganga Padilla Arthritis Mother Merna Padilla pituitary adenoma Mother Merna Padilla Thyroid disease Sister 1 Hilaria Lazar Thyroid disease Sister 2 Georgina Reeves Relation Name Status Comments Brother Matt Padilla Alive Father Ganga Padilla Mother Merna Padilla Sister 1 Hilaria Lazar Alive Sister 2 Georgina Reeves Alive Social History Tobacco Use Types Packs/Day Years Used Date Smoking Tobacco: Never Passive Smoke Exposure: Past Smokeless Tobacco: Never Tobacco Cessation:Counseling Given: No Alcohol Use Standard Drinks/Week Comments Not Currently 0 (1 standard drink = 0.6 oz pur e alcohol) Comments No Sex and Gender Information Value Date Recorded Sex Assigned at Female 06/01/2024 12:00 PM EDT Legal Sex Female 2:29 PM EDT Gender Identity Not on file Sexual Orientation Not on file Last Filed Vital Signs Vital Sign Reading Time Taken Comments Blood Pressure 154/84 06/08/2024 1:28 PM EDT Pulse 58 06/08/2024 1:28 PM EDT Temperature 36.1 C (96.9 F) 05/19/2022 8:40 AM EST Respiratory Rate 16 02/01/2021 11:0 0 AM EST Oxygen Saturation 97% 06/08/2024 1:28 PM EDT Inhaled Oxygen Concentration - - Weight 88.8 kg (195 lb 12.8 oz) 06/08/2024 1:28 PM EDT Height 167.6 cm (5' 5.98 ) 06/08/2024 1:28 PM ED T Body Mass Index 31.62 06/08/2024 1:28 PM EDT Plan of Treatment Upcoming Encounters Date Type Department Care Team (Late st Contact Info) Description 11/30/2024 2:00 PM EDT Office Visit [facility] ENDOCRINOLOGY [address] [place] [address] Lala Castaneda, [address] [place] [address] Health Maintenance Due Date Last Done Comments Annual Gynecologic Pelvic an d Breast Exam 1960 TDAP/TD VACCINES (1 - Tdap) 1980 MAMMOGRAM 2001 COLOGUARD 2006 COLON CANCER SCREENING 5 YEA R SIGMOIDOSCOPY 2006 COLONOSCOPY [address] CANCER SCREENING 2006 CT COLONOGRAPHY 2006 FECAL OCCULT BLOOD TEST 2006 FIT Testing (1 year) 2006 Pneumococcal Vaccine 50+ (1 of 1 - PCV) 12/05/2011 ANNUAL PHYSICAL 01/27/2021 ZOSTER VACCINE (2 of 2) 04/28/2023 03/03/2023 COVID-19 Vaccine ( - season) 2023 04/15/2021, 07/12/2020, 06/12/2020 INFLUENZA VACCINE 12/13/2024 03/09/2024, 12/12/2020 HEPATITIS C SCREENING Completed 05/21/2022 Insurance Member Subscriber Plan / Payer (Ef fective 2020-Present) Name:Kristin Anna Relation to Subscriber:Self Name:Kristin Anna Payer ID:[id number] (NAIC) Type:Not on file Address: [address] Care Teams Carpet Cleaner Relationship Specialty Start Date End Date Matt Arceo MD [address] [place] [facility] [address] [place] [address] PCP - General Family Medicine 04/30/22
--- OUTSIDE RECORDS SUMMARY | 2024-10-11 15:09 | XMS_ITS | Encounter Summary ---
Author Organization [facility] Address [address] [place] [address] Care Team Providers Care Lead Enterprise Architect Name Role Phone Matt Arceo MD Primary Care Provider Encounter Details Date Type Department Care Team (Late Contact Info) Description 06/12/2024 Results Follow-Up [facility] ENDOCRINOLOGY [address] [place] [address] Lala Castaneda DO [address] [place] [address] Social History Tobacco Use Types Packs/Day Years Used Date Smoking Tobacco: Never Passive Smoke Exposure: Past Smokeless Tobacco: Never Alcohol Use Standard Drinks/Week Comments Not Currently 0 (1 standard drink = 0.6 oz pur e alcohol) Comments No Sex and Gender Information Value Date Recorded Sex Assigned at Female 06/01/2024 12:00 PM EDT Legal Sex Female 2:29 PM EDT Gender Identity Not on file Sexual Orientation Not on file documented as of this encounter Plan of Treatment Upcoming Encounters Date Type Department Care Team (Late Contact Info) Description 11/30/2024 2:00 PM EDT Office Visit [facility] ENDOCR[facility] [address] [place] [address] Lala Castaneda DO [address] [place], [place] [id number] Scheduled Orders Name Type Priority Associated Diagnoses Orde r Schedule T4, Free Lab Routine Nonspecific abnormal results of thyroid function study Expected: 12/07/2024 (Approximate), Expires: 09/14/2025 TSH Lab Routine Nonspecific abnormal results of thyroid function study Expected: 12/07/2024 (Approximate), Expires: 09/14/2025 T4 Lab Routine Nonspecific abnormal results of thyroid function study Expected: 12/07/2024 (Approximate), Expires: 09/14/2025 documented as of this encounter Visit Diagnoses Diagnosis Multiple thyroid nodules- Primary Nontoxic multinodular goiter Nonspecific abnormal results of thyroid function study documented in this encounter Care Teams Lead Enterprise Architect Relationship Specialty Start Date End Date Matt Arceo MD [address] [place] [address] [address] PCP - General Family Medicine 04/30/22 documented as of this encounter
--- OUTSIDE RECORDS SUMMARY | 2024-10-11 15:09 | XMS_ITS | Referral Summary ---
Author Organization [employer] ([place], [place], [place], [place]) Address [address] [place] [address] Care Team Providers Care Facility Rehab Director Name Role Phone [facility], Provider Not In The System MD [...] Date Adalberto rded Speak language other than Romansh at home Not on file 03/26/2023 Want [...] 1:06 AM EDT Performed at: - [facility] [address] [id number] Lawn Service Worker: Jerome Rebolledo PhD, Phone: [phone] us Maddie Estes MD LAB BLOOD ORDERABLES Final Resul t [facility] from Last 3 Months or Most Recently Relevant to Health Maintenance Insurance [employer]! CREAT CROSS/CREAT SHIELD Care Teams Facility Rehab Director Relationship Specialty Start Date End Date [facility], Provider Not In The System, [place] [address] PCP - General 06/26/22
--- OUTSIDE RECORDS SUMMARY | 2024-10-11 15:09 | XMS_ITS | Encounter Summary ---
Author Organization [employer] ([place], [place], [place], [place]) Address [address] [place] [address] Care Team Providers Care Dye Stand Loader Name Role Phone [facility], Provider Not In The System Primary Care Provider Unavailable Reason for Visit * Reason Comments Medication Refill Encounter Details Date Type Department Care Team (Late st Contact Info) Description 05/03/2024 Refill [facility] Rheumatology [address] [place] [address] Maddie Estes MD [address] [facility] [address] [place] [address] Seropositive rheumatoid arthritis of multiple sites (HCC) [...] Date Adalberto rded Speak language other than Citizen Of [place] at home Not on file 03/26/2023 Want [...] (HCC) documented in this encounter Care Teams Dye Stand Loader Relationship Specialty Start Date End Date [facility], Provider Not In The System, [place] [address] PCP - General 06/26/22 documented as of this encounter
--- OUTSIDE RECORDS SUMMARY | 2024-10-11 15:09 | XMS_ITS | Clinical Summary ---
Author Organization [facility] Address [address] [place] [address] Care Team Providers Care Park Guide Name Role Phone William Boles MD Primary Care Provider [phone] Allergies No known active allergies Medications allopurinol [...] (one) time each day. Active HYDROcodone-jules taminophen ([place]) 5-325 MG tablet Take 1 tablet by [...] 12/05/2011 UKY-Zoster Vaccines (1 of 2) 12/05/2011 [id number] Vaccine ( - 2024-25 season) 2023 04/15/2021, [...] this topic Insurance CELESTE ANTHEM Care Teams Park Guide Relationship Specialty Start Date End Date William Boles MD [address] [place] [address] PCP - General 07/26/20
--- OUTSIDE RECORDS SUMMARY | 2024-10-11 15:10 | XMS_ITS | Clinical Summary ---
Author Organization [employer] ([place], [place], [place], [place]) Address [address] [place] [address] Care Team Providers Care Assistant Attorney General Name Role Phone [facility], [...] Date Adalberto rded Speak language other than Kinyarwanda at home Not on file 03/26/2023 Want [...] and Screening (12+) 05/03/2024 05/03/2023 Influenza Vaccine (#1) 2024 , 01/12/2021, 12/12/2020 DTAP/TDAP/TD VACCINES (2 - T [...] AM EDT Performed at: 01 - [facility] [address] [id number] Radio Repair Teacher: Jerome Rebolledo PhD, Phone: [phone] us Maddie Estes MD LAB BLOOD ORDERABLES Final Resul t [facility] from Last 3 Months or Most Recently Relevant to Health Maintenance Insurance [address] [id number] BLUE CROSS/BLUE SHIELD BLUE CROSS/BLUE SHIELD Care Teams Assistant Attorney General Relationship Specialty Start Date End Date [facility], Provider Not In The System, [place] [address] PCP - General 06/26/22
--- OUTSIDE RECORDS SUMMARY | 2024-10-11 15:10 | XMS_ITS | Encounter Summary ---
Author Organization [employer] ([place], [place], [place], [place]) Address [address] [place] [address] Care Team Providers Care Entrepreneur Name Role Phone [facility], Provider Not In The System MD Primary Care Provider Unavailable Reason for Visit * Reason Onset Date Comments medication refill 02/27/2022 medication refill 03/02/2022 2nd attempt Encounter Details Date Type Department Care Team (Late st Contact Info) Description 02/27/2022 Telephone [facility] Rheumatology [address] [place] [address] Maddie Estes MD [address] [facility] [address] [place] [address] medication refill; medication refill (2nd attempt) Social [...] It at her Next Follow Up . CARRIER TECHNICIAN * Telephone Encounter - Ceci Pena - 03/02/2022 3:50 PM EST Patient calling back regarding the muscle relaxer,she is going out of town on and would like a call back regarding this. She uses [facility] in [place] if something could be called in. She would rather have the tazadine, CARRIER TECHNICIAN * Telephone Encounter - Debra M Dom [...] before this appointment. Please call patient at [phone] CARRIER TECHNICIAN documented in this encounter Plan of Treatment Not on file documented as of this encounter Visit Diagnoses Not on filedocumented in this encounter Care Teams Entrepreneur Relationship Specialty Start Date End Date [facility], Provider Not In The System, [place] [address] PCP - General 06/26/22 documented as of this encounter
== END 2024-10-11 23:59 | disposition home or self-care (01) ==
LOC: RAD 15:07
PROVIDERS: Visit Provider Physician Assistant
DX: Z12.31 Encounter for screening mammogram for malignant neoplasm of breast (principal); R92.313 Mammographic fatty tissue density, bilateral breasts
CPT/HCPCS: 77063; 77067

== ENCOUNTER 2024-10-25 10:26 | Outpatient (CLI) | payer BC, SELFPAY ==
--- OUTSIDE RECORDS SUMMARY | 2024-09-21 07:30 | XMS_ITS ---
[facility] Address [address] [facility] 36 [facility] [address] [place] [id number] Care Team Providers Care Psychiatric Tech Name Role Phone Jamie Rodrigues Primary Care Provider Siobhan Melendrez Unavailable [phone] REASON FOR VISIT B12 Medications Medication SIG [...] Encounter Location Date Provider Diagnosis Karena [address] [facility] [address] [facility] [address] [place] [phone] 09/21/2024 Siobhan Melendrez B12 deficiency E53.8 Assessments Encounter Date Diagnosis (ICD Code) Assessment Notes Treatment Notes Treatment Clinical Notes Section Notes 09/21/2024 B12 deficiency (ICD-10 - E53.8) Plan Of Treatment No Information Medications Administered Medication Instructions Date of Administration Dosage Notes B-12 09/21/2024 1 mL Progress Notes * ELIAZARKAREEN ASTUDILLOOB: 2 (63 yo F)Acc No.[id number]:09/21/2024 Patient: KENNEDI LISA Provider: LORENZO Chamberlain :1960 A ge:63 Y S ex:Female Date:09/21/2024 Address:[facility] [place] Pcp:Jamie Rodrigues Subjective: * [...] deficiency) * Procedure Codes: J 3420 B-12, 33037 ADMINISTRATION OF INJECTION * Images: Billing Information: * Visit Code: * Procedure Codes: J3420 B-12. 99132 ADMINISTRATION OF INJECTION. * Electronic signature of LORENZO Carcamo on 10/25/2024 at 10:31 AM EDT Sign off status: Pending * Provider: LORENZO Chamberlain Date: 0 09/21/2024 Generated for Carmina garces/Mariano/Bentonsmitting on: 0 10/25/2024 10:31 AM EDT
--- OUTSIDE RECORDS SUMMARY | 2024-10-06 07:30 | XMS_ITS ---
Author Organization [facility] Address [address] [place] [id number] Care Team Providers Care Advanced Practice Rn Name Role Phone Jamie Rodrigues Primary Care Provider [phone] Siobhan Melendrez Unavailable [phone] Allergies No Known Allergies Results Component Value Reference Range Notes Mammogram Reviewed date:10/16/2024 09:23:36 AM Interpretation:Negative Performing Lab: Notes/Report: Negative result Negative REASON FOR VISIT pain in lower LT stomach Medications Medication SIG (Take, Route, Frequency, Duration) Notes Start Date End Date Status Leflunomide 20 MG 1 tablet Orally Once a day; Duration: 30 day(s) Active DULoxetine HCl 60 MG 1 capsule orally on ce a day; Duration: 90 days Active Albuterol Sulfate HFA 108 (90 Base) MCG/ACT 1 puff as needed Inhalation every 4 hrs, prn 07/21/2023 Active Linzess 145 MCG 1 cap(s) Orally once a day; Duration: 90 days Active Sulindac 200 MG 1 tablet with food O rally Twice a day; Duration: 30 day(s) Active Metoprolol Succinate 100 MG 1 capsule Orally Once a day; Duration: 30 days 05/24/2024 Active Enbrel 50 MG/ML 1 mL Subcutaneous on ce a week Active Horizant 600 MG 1 tablet in the even ing (5pm) with food Orally Once a day; Duration: 30 day(s) Active tiZANidine HCl 2 MG TAKE 1 TO 2 TABLETS Orally once daily as needed; Duration: 30 days Active Zepbound 5 MG/0.5ML 0.5 mL Subcutaneous once a week; Duration: 30 days Active Allopurinol 100 MG Take 1 tablet by once daily; Duration: 90 Active Vital Signs Blood pressure systolic 120 mm Hg 10/07/19 Blood pressure diastolic 72 mm Hg 025 Heart Rate 86 /min 10/06/2024 Height 65 in 10/06/2024 Weight 171 lbs 10/06/2024 BMI 28.45 kg/m2 10/06/2024 Encounters Encounter Location Date Provider Diagnosis [facility] [address] [place] [id number] 10/06/2024 Siobhan Melendrez Left lower quadrant pain R10.32 ; Screening mammogram, encounter for Z12.31 and BMI 28.0-28.9,adult Z68.28 Assessments Encounter Date Diagnosis (ICD Code) Assessment Notes Treatment Notes Treatment Clinical Notes Section Notes 10/06/2024 Left lower quadrant pain (ICD-10 - R10.32) Recent labs reviewed with patient and WBC was normal. 10/06/2024 Screening mammogram, encounter for (ICD-10 - Z12.31) 10/06/2024 BMI 28.0-28.9,adult (ICD-10 - Z68.28) Plan Of Treatment Treatment Notes Assessment Notes Left lower quadrant pain Recent labs rev iewed with patient and WBC was normal. Pending Test Test Name Order Date CT Scan : Abd and Pelvis w/ oral & IV co ntrast 10/06/2024 Next Appt Details Follow Up: via phone to repo rt test results, Reason: Progress Notes * KAREEN ANNAOB: 2 (63 yo F)Acc No.[id number]:10/06/2024 Progress Notes Patient: Bertha GHOSHKATELYNNY Provider: LORENZO Chamberlain :1960 A ge:63 Y S ex:Female Date:10/06/2024 Address:[address] [id number] Pcp:Jamie Rodrigues Subjective: * Chief Complaints: * 1 . pain in lower LT stomach. * HPI: G astroenterology: 63 year old female presents with c/o Abdominal Pain P t is here today with c/o having pain in her left lower side of her stomach. Pt sts she has already been to [facility] and had a vaginal ultrasound done and sts they did not find anything. Pt sts the pain started about 3 months ago, and sts it is about the same. Pt she thought it would get better, but that it is still there. Pt sts she did have labs done and some of her liver numbers were high. Pt sts that gastro said she had an EUS and sts they did not find any stones. Pt sts she does have an appt with them next week. * ROS: D ERMATOLOGY: no R amisha. [...] detector use: yes. Marital Status: . Occupation: [employer]. Past smoking status: no, [...] 0.5 mL Subcutaneous once a week , Taking Metoprolol Succinate 100 MG Capsule ER 24 Hour Sprinkle 1 capsule Orally Once a day , Medication List reviewed and reconciled with the patient * Allergies: N .K.D.A. Objective: * Vitals: W t: 171, Temp: 97.6, BP: 120/72, HR: 86, Nurse: kerrie, Ht: 65, BMI:28.45. * Examination: G eneral Examination: General Appearance: N AD. C hest: n ormal shape and expansion. H eart: R SR. L ungs: c lear to auscultation. A bdomen: b owel sounds present, soft, ttp in the LLQ with mild guarding. Assessment: * Assessment: 1. L eft lower quadrant pain - R10.32 (Primary) 2 . S creening mammogram, encounter for - Z12.31 3 . B HI 28.0-28.9,adult - Z68.28 Plan: * Treatment: Notes: Recent labs reviewed with patient and WBC was normal.??2.?Screening mammogram, encounter for?Imaging: Mammogram (Performed Date - 10/11/2024)?Negative* Value Reference Range r esult Negative * Lilliam Nash 10/06/2024 12:5 1:44 PM EDT > no auth Sheryl Muñoz 10/16/2024 09:23:26 AM EDT > pt informed * Procedure Codes: 1 036F TOBACCO NON-USER, 3074F SYST BP LT 130 MM HG, 3078F DIAST BP < 80 MM HG * Follow Up: v ia phone to report test results * Images: Billing Information: * Visit Code: 12024 Office Visit, Est Pt., Level 3. * Procedure Codes: 1036F TOBACCO NON-USER. 3074F SYST BP LT 130 MM HG. 3078F DIAST BP < 80 MM HG. * Electronic signature of LORENZO Carcamo on 10/25/2024 at 10:30 AM EDT Sign off status: Pending * Provider: LORENZO Chamberlain Date: 0 10/06/2024 Generated for Carmina garces/Mariano/Tristonitting on: 0 10/25/2024 10:30 AM EDT History and Physical Notes * HPI (History of Present Illness) Category Sub-Category Detail Notes Category Not es Gastroenterology Abdominal Pain Pt is here toda y with c/o having pain in her left lower side of her stomach. Pt sts she has already been to [facility] and had a vaginal ultrasound done and sts they did not find anything. Pt sts the pain started about 3 months ago, and sts it is about the same. Pt she thought it would get better, but that it is still there. Pt sts she did have labs done and some of her liver numbers were high. Pt sts that gastro said she had an EUS and sts they did not find any stones. Pt sts she does have an appt with them next week Examination Category Sub-Category Detail Notes Category Not es General Examination Heart: RSR Lungs: clear to auscultatio n Abdomen: bowel sounds present , soft, ttp in the LLQ with mild guarding General Appearance: NAD Chest: normal shape and exp ansion
--- OUTSIDE RECORDS SUMMARY | 2024-10-18 12:15 | XMS_ITS ---
Author Organization [facility] Address [address] [facility] [address] [facility] [address] [place] [id number] Care Team Providers Care Welder Fitter Arc Name Role Phone Jamie Rodrigues Primary Care Provider Siobhan Melendrez [phone] Allergies No Known Allergies REASON FOR VISIT 3 months, Needs labs, mammogram, bone density screening, & shingles vaccine Encounters Encounter Location Date Provider Diagnosis Karena [address] [facility] [address] [facility] [address] [place] [phone] 10/18/2024 Siobhan Melendrez Plan Of Treatment No Information Progress Notes * ELIAZARKAREEN ASTUDILLOOB: 2 (63 yo F)Acc No.[id number]:10/18/2024 Progress Notes Patient: KENNEDI LISA Provider: LORENZO Chamberlain :1960 A ge:63 Y S ex:Female Date:10/18/2024 Address[place], [id number] Pcp:Jamie Rodrigues Subjective: * Chief Complaints: * [...] detector use: yes. Marital Status: . Occupation: [employer]. Past smoking status: no, [...] Chamberlain Date: 0 10/18/2024 Generated for Carmina garces/Mariano/Trsitonitting on: 0 10/25/2024 10:30 AM EDT
--- OUTSIDE RECORDS SUMMARY | 2024-10-25 10:30 | XMS_ITS | Clinical Summary ---
Author Organization [facility] Address [address] [place] [address] Care Team Providers Care Charge Master Analyst Name Role Phone William Boles MD Primary Care Provider [phone] Allergies No known active allergies Medications allopurinol [...] (one) time each day. Active HYDROcodone-jules taminophen ([place]) 5-325 MG tablet Take 1 tablet by [...] UKY-HIV Screening 1960 UKY-Hepatitis C Screening 1960 UKY-/Child/Adol SDOH Screenings 1960 UKY- SDOH Screenings 12/05/1979 UKY-Adult SDOH Screenings 12/05/1979 UKY-Pap Smear 1982 UKY-Cervical Cancer Screening 12/05/1991 UKY-HPV/Cotest 12/05/1991 CT Colonography 2006 Colonoscopy 2006 FIT-DNA 2006 FIT 2006 FOBT 2006 Sigmoidoscopy 2006 UKY-Colorectal Cancer Screening 2006 UKY-Breast Cancer Screening 12/05/2011 UKY-Pneumococcal Vaccine: 50 + Years (1 of 1 - PCV) 12/05/2011 UKY-Zoster Vaccines (1 of 2) 12/05/2011 [id number] Vaccine ( - 2024-25 season) 2023 04/15/2021, [...] this topic Insurance CELESTE ANTHEM Care Teams Charge Master Analyst Relationship Specialty Start Date End Date William Boles MD [address] [place] [address] PCP - General 07/26/20
--- OUTSIDE RECORDS SUMMARY | 2024-10-25 10:30 | XMS_ITS | Patient Health Record ---
Author Organization [facility] Address [address] [place] [id number] Care Team Providers Care Automatic Operator Name Role Phone Jamie Rodrigues Primary Care Provider CarsonTyesha pollockine Unavailable [phone] JasonSiobhan burroughs Unavailable [phone] Allergies No Known Allergies Results Component Value Reference Range Notes Covid test (in house) Reviewed date:03/23/2024 03:57:44 PM Interpretation: Performing Lab: Notes/Report: Result: Neg Influenza Screen (in house) Reviewed date:03/23/2024 03:57:44 PM Interpretation: Performing Lab: Notes/Report: results Neg P-TSH Reviewed date:02/18/2024 01:08:59 PM Interpretation:Normal Performing Lab: Notes/Report: Test performed by [facility] [address] [place] [address] , [place] [address] Klever Anne MD, Insurance Healthcare Consultant CLIA: [id number] TSH 1.52 0.43-5.25 mU/L P-Thyroid Antibody Panel (TA BS) Reviewed date:02/18/2024 01:08:59 PM Interpretation:Normal Performing Lab: Notes/Report: Test performed by [facility] [address] [place] [address] , [address], [place] [address] Klever Anne MD, Insurance Healthcare Consultant CLIA: [id number] Thyroid Peroxidase Antibody 11 <9-34 IU/mL An [...] Interpretation:0.68 Performing Lab: Notes/Report: Test performed by [facility] [address] [place] [address] , [place] [address] Klever Anne MD, Insurance Healthcare Consultant CLIA: [id number] Thyroxine Free (free T4) 0.68 0.86-1.76 ng/dL P-Comprehensive Metabolic Pa sola (CMP) Reviewed date:02/18/2024 01:08:59 PM Interpretation:gluc 101, alk phos 129 Performing Lab: Notes/Report: Test performed by [facility] [address] [place] [address] , [place] [address] Klever Anne MD, Insurance Healthcare Consultant CLIA: [id number] Sodium 141 135-145 mmol/L Potassium 4.3 3.5-5.3 [...] - 38 platlet 350 100 - 400 ultrasound : thyroid Reviewed date:01/10/2024 12:55:30 PM Interpretation:Abnormal Performing Lab: Notes/Report: Abnormal P-TSH Reviewed date:01/04/2024 01:21:56 PM Interpretation:6.54 Performing Lab: Notes/Report: Test performed by [facility] [address] , [address], [place] [address] Klever Anne MD, Insurance Healthcare Consultant CLIA: [id number] TSH 6.54 0.43-5.25 mU/L P-T4 (Thyroxine) Reviewed date:01/04/2024 01:27:43 PM Interpretation:8.78 Performing Lab: Notes/Report: Test performed by [facility] [address] , [address], [place] [address] Klever Anne MD, Insurance Healthcare Consultant CLIA: [id number] Thyroxine (T4) 8.78 4.50-11.70 ug/dL P-Comprehensive Metabolic Pa sola (CMP) Reviewed date:01/04/2024 01:21:36 PM Interpretation: Performing Lab: Notes/Report: Test performed by [facility] [address] , [address], [place] [address] Klever Anne MD, Insurance Healthcare Consultant CLIA: [id number] Sodium 131 135-145 mmol/L Potassium 5.0 3.5-5.3 [...] Interpretation: Performing Lab: Notes/Report: Test performed by [facility] [address] [place] [address] , [address], [place] [address] Klever Anne MD, Insurance Healthcare Consultant CLIA: [id number] Vitamin B12 4460 143-7994 pg/mL Folate 8.62 >4.59 ng/mL CBC Venipuncture [...] 1.010 Ketone neg Bili neg Gluc neg H-CBC Reviewed date:01/10/2024 12:26:25 PM Interpretation:wbc 20.6, [...] Performing Lab: Notes/Report: MG 2.0 1.6-2.3 mg/dl Influenza Screen (in house) Reviewed date:05/25/2024 04:24:55 PM Interpretation: Performing Lab: Notes/Report: results Neg Covid test (in house) Reviewed date:05/25/2024 08:09:59 AM Interpretation: Performing Lab: Notes/Report: Result: Pos Mammogram Reviewed date:10/16/2024 09:23:36 AM Interpretation:Negative Performing Lab: Notes/Report: Negative result Negative H-DIFF Reviewed date:01/10/2024 12:26:25 PM Interpretation:neut 89, lymph 8 Performing Lab: Notes/Report: MATT MANUAL DIFFERENTIAL MANUAL DIFF TCC 100 NEUT%M 89 42-76 % LYMPH%M 8 10-50 % MONO%M 3 2-9 % PLTE Slight Increase MACROC 1+ CXR Reviewed date:02/16/2024 01:37:58 PM Interpretation:nothing acute Performing Lab: Notes/Report: nothing acute EKG with rhythm strip Reviewed date:02/16/2024 01:38:06 PM Interpretation:borderline Performing Lab: Notes/Report: borderline Urinalysis - Inhouse Reviewed date:01/21/2024 11:41:53 AM Interpretation: Performing Lab: Notes/Report: Color/Clarity yellow Leuk neg Nitrite neg Urobili 3.2 Protein neg pH 7.0 Blood neg Sp. Gr. 1.025 Ketone neg Bili neg Gluc neg CBC Fingerstick (in house) Reviewed date:01/21/2024 11:41:45 [...] - 38 plat 403 100 - 400 P-T4 Free (thyroxine) Reviewed date:05/03/2024 02:06:56 PM Interpretation:low Performing Lab: Notes/Report: Test performed by [facility] [place] , [address], [place] [address] Klever Anne MD, Insurance Healthcare Consultant CLIA: [id number] Thyroxine Free (free T4) 0.67 0.86-1.76 ng/dL P-TSH reflex to FT4 Reviewed date:05/03/2024 02:06:46 PM Interpretation:low Performing Lab: Notes/Report: Test performed by [facility] [address] [place], [place] [address] [place] , [address], [place] [address] Klever Anne MD, Insurance Healthcare Consultant CLIA: [id number] TSH reflex to FT4 0.30 0.43-5.25 mU/L Medications Medication SIG (Take, Route, Frequency, Duration) Notes Start Date End Date Status Metoprolol Succinate 100 MG 1 capsule Orally Once a day; Duration: 30 days 05/24/2024 Active Enbrel 50 MG/ML 1 mL Subcutaneous on ce a week Active Horizant 600 MG 1 tablet in the even ing (5pm) with food Orally Once a day; Duration: 30 day(s) Active Leflunomide 20 MG 1 tablet Orally Once a day; Duration: 30 day(s) Active DULoxetine HCl 60 MG 1 capsule orally on ce a day; Duration: 90 days Active Allopurinol 100 MG Take 1 tablet by once daily; Duration: 90 Active tiZANidine HCl 2 MG TAKE 1 TO 2 TABLETS Orally once daily as needed; Duration: 30 days Active Zepbound 5 MG/0.5ML 0.5 mL Subcutaneous once a week; Duration: 30 days Active Albuterol Sulfate HFA 108 (90 Base) MCG/ACT 1 puff as needed Inhalation every 4 hrs, prn 07/21/2023 Active Linzess 145 MCG 1 cap(s) Orally once a day; Duration: 90 days Active Sulindac 200 MG 1 tablet with food O rally Twice a day; Duration: 30 day(s) Active Immunizations [...] Status W/U Status Risk Notes Problem Radiculopathy (47075685) Radiculopathy (729.2) Active confirmed Problem Gout (14455774) Gout NOS (274.9) Active confirm ed Problem Allergic rhinitis (72114290) ALLERGIC RHINITIS NOS (477.9) Active confirmed Problem Asthma (861258885) ASTHMA NOS (493.90) Active c onfirmed Problem Insomnia (429811397) Insomnia (G47.00) Active c onfirmed Problem Vitamin D deficiency (42546244) Vitamin D deficiency (E55.9) Active confirmed Problem Essential hypertension (71991375) Essential hypertension (I10) Active confirmed Problem Morbid obesity (989490679) Morbid obesity (E66.01) Active confirmed Problem Vitamin B12 deficiency (non anemic) (01876997) B12 deficiency (E53.8) Active confirmed Problem Sciatic nerve lesion (512655122) Piriformis syndrome of right side (G57.01) Active confirmed Problem Asthma (508208923) Asthma (J45.909) Active conf irmed Problem Paresthesia (14258419) Paresthesia (R20.2) Active confirmed Problem Obesity (611612357) Obesity (E66.9) Active conf irmed Problem Mixed anxiety and depressive disorder (169556140) Depression with anxiety (F41.8) Active confirmed Problem Restless legs syndrome (04461812) Restless leg syndrome (G25.81) Active confirmed Problem Sciatica (40963561) Sciatica of left side (M54.32) Active confirmed Problem Increased blood leukocyte number (139359047) Other elevated white blood cell count (D72.828) Active confirmed Problem Mixed hyperlipidemia (616473923) Mixed hyperlipidemia (E78.2) Active confirmed Problem Insomnia (932255718) Other insom tiffanie (G47.09) Active confirmed Problem Paresthesia (finding ) (68314587) Paresthesia of skin (R20.2) Active confirmed Problem Obesity (598281439) Obesity (BMI 30-39.9) (E66.9) Active confirmed Problem Thyroid nodule (077130907) Thyroid nodule (E04.1) Active confirmed Problem Left ventricular hypertrophy (31690237) Left ventricular hypertrophy (I51.7) Active confirmed Problem Restless legs (17400109) Restless leg (G25.81) Active confirmed Problem Constipation (95828202) Constipation, unspecified constipation type (K59.00) Active confirmed Problem Depression (908232907) Depression (F32.9) Active confirmed Problem Gout (47928154) Gout, unspecifie d cause, unspecified chronicity, unspecified site (M10.9) Active confirmed Problem Polyarthritis (165950590) Polyarthritis (M13.0) Active confirmed Problem Rheumatoid arthritis (30948704) Rheumatoid arthritis (M06.9) Active confirmed Problem Body mass index 30.0 0 to 34.99 (178684131331862) BMI 31.0-31.9,adult (Z68.31) Active confirmed Problem Hypersomnia (02035030) Hypersomnia (G47.10) Active confirmed Problem Skin sensation disturbance (40804377) Paresthesia of both feet (R20.2) Active confirmed Problem Restless legs (78776646) RLS (restless legs syndrome) (G25.81) Active confirmed Problem Leucocytosis (161634511) Leucocytosis (D72.829) Active confirmed Problem Osteoarthritis (931781891) Osteoarthritis, unspecified osteoarthritis type, unspecified site (M19.90) Active confirmed Problem Pure hypercholesterolemia (519383262) Pure hypercholesterolemia (E78.00) Active confirmed Problem Irritable bowel syndrome characterized by constipation (533746897) Irritable bowel syndrome with constipation (K58.1) Active confirmed Problem Sexual dysfunction (92410831) Sexual dysfunction (R37) Active confirmed Problem Artificial knee join t present (190008425265) Status post left knee replacement (Z96.652) Active confirmed Problem Rotator cuff arthropathy of left shoulder (66752021637883816) Rotator cuff arthropathy of left shoulder (M12.812) Active confirmed Problem Artificial knee join t present (397665324246) Artificial knee joint present, unspecified laterality (Z96.659) Active confirmed Problem Imaging of thyroid gland abnormal (finding) (695792736) Abnormal thyroid ultrasound (R93.89) Active confirmed Problem Dyskinesia (3949580) Dyskinesia (G24.9) Active confirmed Problem Neuropathy of upper limb (772756904) 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) Active confirmed Problem Cervical arthritis (116616951) Cervical arthritis (M47.812) Active confirmed Problem 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) Active confirmed Problem Cervical radiculopathy (45418837) Radiculopathy, cervical (M54.12) Active confirmed Problem Sciatic nerve lesion (664892920) Bilateral piriformis syndrome (G57.03) Active confirmed Problem Obese class II (finding) (273815971068740) Obesity, Class II, BMI 35-39.9 (E66.9) Active confirmed Vital Signs Heart Rate 86 /min 10/06/2024 Blood pressure diastolic 72 mm Hg 10/06/2024 Height 65 in 10/06/2024 Blood pressure systolic 120 mm Hg 10/06/2024 Weight 171 lbs 10/06/2024 BMI 28.45 kg/m2 10/06/2024 Encounters Encounter Location Date Provider Diagnosis [facility] [address] [id number] 12/02/2023 Siobhan Melendrez Vitamin B12 deficien cy E53.8 [facility] [address] [place] [id number] 12/10/2023 Siobhan Melendrez Encounter for immunization Z23 and B12 deficiency E53.8 [facility] [address] [place] [id number] 12/20/2023 Siobhan Melendrez B12 deficiency E53.8 [facility] [address] [facility] [address] [place] [id number] 12/24/2023 Siobhan Parvin B12 deficiency E53.8 [facility] [address] [facility] [address] [place] [id number] 12/31/2023 Siobhan Melendrez Obesity (BMI 30-39.9 ) E66.9 ; B12 deficiency E53.8 ; Hypotension due to drugs I95.2 and Other insomnia G47.09 [facility] [address] [place], [place] [id number] 01/03/2024 Cherry Carson Abnormal thyroid function test R94.6 ; Abnormal thyroid exam R94.6 ; Vitamin B 12 deficiency E53.8 ; Leucocytosis D72.829 ; Renal insufficiency N28.9 ; Neuropathy of left upper extremity G56.92 ; Cervical arthritis M47.812 ; Radiculopathy, cervical M54.12 ; Dental disorder K08.9 ; Obesity E66.9 ; Hypotension I95.9 and Rheumatoid arthritis M06.9 [facility] [address] [facility] [address] [place], [place] [id number] 01/05/2024 Siobhan Crowdy Renal insufficiency N28.9 ; Thyroid function study abnormality R94.6 ; Restless leg G25.81 and Leucocytosis D72.829 [facility] [address] [facility] [address] [place], [place] [id number] 01/07/2024 Siobhan Crowdy B12 deficiency E53.8 [facility] [address] [facility] [address] [place] [id number] 01/14/2024 Siobhan Crowdy B12 deficiency E53.8 and Pre-op exam Z01.818 [facility] [address] [facility] [place] [id number] 01/21/2024 Siobhan Crowdy Other elevated white blood cell count D72.828 ; Abnormal urinalysis R82.90 ; S/P thyroid biopsy Z98.890 and B12 deficiency E53.8 [facility] [address] [facility] [place] [id number] 01/28/2024 Siobhan Crowdy B12 deficiency E53.8 [facility] [address] [place] [id number] 02/04/2024 Siobhan Crowdy B12 deficiency E53.8 [facility] [address] [facility] [address] [place] [id number] 02/11/2024 Siobhan Crowdy Thyroid nodule E04.1 ; Hot flashes R23.2 and Abnormal TSH R79.89 [facility] [address] [facility] [address] [place] [id number] 02/25/2024 Siobhan Crowdy Thyroid nodule E04.1 ; Abnormal thyroid blood test R79.89 and Neck muscle spasm M62.838 [facility] [address] [facility] [address] [place] [id number] 03/03/2024 Siobhan Crowdy B12 deficiency E53.8 [facility] [address] [facility] [place] [id number] 03/23/2024 Siobhan Crowdy Bronchitis J40 [facility] [address] [place] [id number] 04/21/2024 Siobhan Crowdy Thyroid nodule E04.1 and B12 deficiency E53.8 [facility] [address] [place] [id number] 05/24/2024 Siobhan Crowdy Essential hypertensi on I10 and COVID-19 U07.1 [facility] [address] [place] [id number] 06/09/2024 Siobhan Crowdy Calculus of bile chiquis t without cholecystitis with obstruction K80.51 and Vitamin B12 deficiency E53.8 [facility] [address] [place] [id number] 07/14/2024 Siobhan Crowdy BMI 31.0-31.9,adult Z68.31 ; Encounter for weight management Z76.89 ; Piriformis syndrome of right side G57.01 and B12 deficiency E53.8 [facility] [address] [place] [id number] 09/21/2024 Siobhan Crowdy B12 deficiency E53.8 [facility] [address] [place] [id number] 10/06/2024 Siobhan Crowdy Left lower quadrant pain R10.32 ; Screening mammogram, encounter for Z12.31 and BMI 28.0-28.9,adult Z68.28 [facility] [address] [place] [id number] 11/25/[address] [place] [facility] [address] [place] [id number] 11/26/2023 Siobhan Crowdy [facility] [address] [place] [id number] 11/29/2023 Siobhan Crowdy Obesity (BMI 30-39.9 ) E66.9 [facility] [address] [place] [id number] 12/08/2023 Siobhan Crowdy [facility] [address] [place] [id number] 12/10/2023 Siobhan Crowdy [facility] [address] [place] [id number] 01/03/[address] [place] [facility] [address] [place] [id number] 01/04/2024 Cherry Carson [facility] [address] [place] [id number] 01/07/2024 Siobhan Crowdy [facility] [address] [place] [id number] 02/18/2024 Siobhan Crowdy [facility] [address] [place] [id number] 02/23/[address] [place] [facility] [address] [place] [id number] 05/03/2024 Siobhan Crowdy Abnormal thyroid blo od test R79.89 [facility] [address] [place] [id number] 05/23/2024 Siobhan Crowdy [facility] [address] [place] [id number] 06/09/2024 Siobhan Crowdy [facility] [address] [place] [id number] 06/30/2024 Siobhan Crowdy [facility] [address] [place] [id number] 07/28/[address] [place] [facility] [address] [place] [id number] 08/08/[address] [place] BMI 31.0-31.9,adult Z68.31 [facility] [address] [place] [id number] 08/08/[address] [place] [facility] [address] [place] [id number] 10/05/2024 Siobhan Crowdy Essential hypertensi on I10 [facility] [address] [place] [id number] 10/10/2024 Siobhan Melendrez [facility] [address] [facility] [address] [place] [id number] 10/10/2024 Jamie Rodrigues Assessments Encounter Date Diagnosis (ICD Code) Assessment Notes Treatment Notes Treatment Clinical Notes Section Notes 11/29/2023 Obesity (BMI 30-39.9) (ICD-10 - E66.9) [...] Z01.818) Patient is getting labs done at [facility] and will have a CBC and CMP [...] - K80.51) Patient had stones removed at [facility] by Dr. Villar. We will need to get records. She has f/u with him in a week. She had labs checked at this railway patrol officer this am at [facility] and they rechecked a CMP, but she [...] Z76.89) 08/08/2024 BMI 31.0-31.9,adult (ICD-10 - Z68.31) 09/21/2024 B12 deficiency (ICD-10 - E53.8) 10/05/2024 Essential hypertension (ICD-10 - I10) 10/06/2024 Left lower quadrant pain (ICD-10 - R10.32) Recent labs reviewed with patient and WBC was normal. 10/06/2024 Screening mammogram, encounter for (ICD-10 - Z12.31) 10/06/2024 BMI 28.0-28.9,adult (ICD-10 - Z68.28) 02/25/2024 Neck muscle spasm (ICD-10 - M62.838) [...] Treatment Pending Test Test Name Order Date CT Scan : Abd and Pelvis w/ oral & IV co ntrast 10/06/2024 H-CBC 01/14/2024 H-CMP 01/14/2024 H-CMP 04/09/2022 intrinsic factor blocking antibody 12/01 Insurance Providers Payer Name Payer Address Payer Phone Subscriber Number Group Number Insured Name Patient Relationship to Insured Coverage Start Date Coverage End Date [employer] [address] [place] [address] [id number] 1 [id number] JASMEET MILLARD Natural Child - Insured has Financial Responsibility [employer] [address] [place] [address] [id number] JASMEET MILLARD Spouse - patient is the [...] 06/09/2024 1 mL B-12 07/14/2024 1 mL B-12 09/21/2024 1 mL Depo- Medrol 40 mg/ml 06/30/2011 [...]
--- OUTSIDE RECORDS SUMMARY | 2024-10-25 10:31 | XMS_ITS | Referral Summary ---
Author Organization [employer] ([place], [place], [place], [place]) Address [address] [place] [address] Care Team Providers Care Knitting Machine Operator Helper Name Role Phone [facility], Provider Not In The System MD [...] Date Adalberto rded Speak language other than Mauritanian at home Not on file 03/26/2023 Want [...] 1:06 AM EDT Performed at: - [facility] [address] [id number] Ssrs Report Developer: Jerome Rebolledo PhD, Phone: [phone] us Maddie Estes MD LAB BLOOD ORDERABLES Final Resul t [facility] from Last 3 Months or Most Recently Relevant to Health Maintenance Insurance [employer] SHIELD Care Teams Knitting Machine Operator Helper Relationship Specialty Start Date End Date [facility], Provider Not In The System, [place] [address] PCP - General 06/26/22
--- OUTSIDE RECORDS SUMMARY | 2024-10-25 10:31 | XMS_ITS | Clinical Summary ---
Author Organization [employer] ([place], [place], [place], [place]) Address [address] [place] [address] Care Team Providers Care Package Lift Operator Name Role Phone [facility], Provider Not In The System MD [...] Date Adalberto rded Speak language other than Bulgarian at home Not on file 03/26/2023 Want [...] AM EDT Performed at: 01 - [facility] [address] [id number] Manager Diesel: Jerome Rebolledo PhD, Phone: [phone] us Maddie Estes MD LAB BLOOD ORDERABLES Final Resul t [facility] from Last 3 Months or Most Recently Relevant to Health Maintenance Insurance [address] [id number] BLUE [employer]OSS[employer] BLUE [employer] Care Teams Package Lift Operator Relationship Specialty Start Date End Date [facility], Provider Not In The System, [place] [address] PCP - General 06/26/22
--- OUTSIDE RECORDS SUMMARY | 2024-10-25 10:31 | XMS_ITS | Encounter Summary ---
Author Organization [email or web address] ([place], [place], [place], [place]) Address [address] [place] [address] Care Team Providers Care Order Tracer Name Role Phone [facility], Provider Not In The System Primary Care Provider Unavailable Reason for Visit * Reason Comments Medication Refill Encounter Details Date Type Department Care Team (Late st Contact Info) Description 05/03/2024 Refill [facility] Rheumatology [address] [place] [address] Maddie Estes MD [address] [facility] [address] [place] [address] Seropositive rheumatoid arthritis of multiple sites (HCC) [...] Date Adalberto rded Speak language other than Palestinian at home Not on file 03/26/2023 Want [...] (HCC) documented in this encounter Care Teams Order Tracer Relationship Specialty Start Date End Date [facility], Provider Not In The System, [place] [address] PCP - General 06/26/22 documented as of this encounter
--- OUTSIDE RECORDS SUMMARY | 2024-10-25 10:31 | XMS_ITS | Encounter Summary ---
Author Organization [facility] Address [address] [place] [address] Care Team Providers Care Floor Space Allocator Name Role Phone Matt Arceo MD Primary Care Provider Encounter Details Date Type Department Care Team (Late Contact Info) Description 06/12/2024 Results Follow-Up [facility] ENDO[facility] [address] [place] [address] Lala Castaneda DO [address] [place] [address] Social History Tobacco Use Types Packs/Day Years [...] Description 11/30/2024 2:00 PM EDT Office Visit [facility] [address] [place] [address] Lala Castaneda DO [address] [place], [place] [id number] Scheduled Orders Name Type Priority Associated Diagnoses [...] study documented in this encounter Care Teams Floor Space Allocator Relationship Specialty Start Date End Date Matt Arceo MD [address] [place] [address] [address] PCP - General Family Medicine 04/30/22 documented as of this encounter
--- OUTSIDE RECORDS SUMMARY | 2024-10-25 10:31 | XMS_ITS | Clinical Summary ---
Author Organization [facility] Address [address] [place] [address] Care Team Providers Care Colon And Rectal Surgeon Name Role Phone Matt Arceo MD Primary [...] Description 11/30/2024 2:00 PM EDT Office Visit [facility] [address] [place] [address] Lala Castaneda, [address] [place] [address] Health Maintenance Due Date Last [...] ID:[id number] (NAIC) Type:Not on file Address: [address] Care Teams Colon And Rectal Surgeon Relationship Specialty Start Date End Date Matt Arceo MD [address] [place] [facility] [address] [place] [address] PCP - General Family Medicine 04/30/22
--- OUTSIDE RECORDS SUMMARY | 2024-10-25 10:31 | XMS_ITS | Encounter Summary ---
Author Organization [employer] ([place], [place], [place], [place]) Address [address] [place] [address] Care Team Providers Care Automation Qa Analyst Name Role Phone [facility], Provider Not In The System MD Primary Care Provider Unavailable Reason for Visit * Reason Onset Date Comments PA 05/19/2023 Encounter Details Date Type Department Care Team (Late st Contact Info) Description 05/19/2023 Telephone [facility] Rheumatology [address] [place] [address] Maddie Estes MD [address] [facility] [address] [place] [address] PA Social History Tobacco Use Types Packs/Day [...] Date Adalberto rded Speak language other than Cypriot at home Not on file 03/26/2023 Want [...] Back OK to leave message on voicemail: ATCH SUPERVISOR documented in this encounter Plan of Treatment Not on file documented as of this encounter Visit Diagnoses Not on filedocumented in this encounter Care Teams Automation Qa Analyst Relationship Specialty Start Date End Date [facility], Provider Not In The System, [place] [address] PCP - General 06/26/22 documented as of this encounter
--- OUTSIDE RECORDS SUMMARY | 2024-10-25 10:31 | XMS_ITS | Encounter Summary ---
Author Organization [employer] ([place], [place], [place], [place]) Address [address] [place] [address] Care Team Providers Care Clark Driver Name Role Phone [facility], Provider Not In The System MD Primary Care Provider Unavailable Reason for Visit * Reason Onset Date Comments medication refill 02/27/2022 medication refill 03/02/2022 2nd attempt Encounter Details Date Type Department Care Team (Late st Contact Info) Description 02/27/2022 Telephone [facility] Rheumatology [address] [place] [address] Maddie Estes MD [address] [facility] [address] [place] [address] medication refill; medication refill (2nd attempt) Social [...] It at her Next Follow Up . ISION MACHINE OPERATOR * Telephone Encounter - Ceci Pena - 03/02/2022 3:50 PM EST Patient calling back regarding the muscle relaxer,she is going out of town on and would like a call back regarding this. She uses [facility] in [place] if something could be called in. She would rather have the tazadine, ISION MACHINE OPERATOR * Telephone Encounter - Debra [...] before this appointment. Please call patient at [phone] ISION MACHINE OPERATOR documented in this encounter Plan of Treatment Not on file documented as of this encounter Visit Diagnoses Not on filedocumented in this encounter Care Teams Clark Driver Relationship Specialty Start Date End Date [facility], Provider Not In The System, [place] [address] PCP - General 06/26/22 documented as of this encounter
[2024-10-25 10:56] LABS: Blood Urea Nitrogen 13 mg/dl (7-17); Creatinine,Serum 0.90 mg/dl (0.52-1.04); Estimated Glomerular Filt Rate 63 ml/min (>60); GFR (African American) 77 ML/MIN (>60)
== END 2024-10-25 23:59 | disposition home or self-care (01) ==
LOC: LAB 10:27
PROVIDERS: PCP Physician Assistant; Visit Provider Physician Assistant
DX: R10.32 Left lower quadrant pain (principal)
CPT/HCPCS: 36415; 82565; 84520

== ENCOUNTER 2024-10-26 10:41 | Outpatient (CLI) | payer BC, SELFPAY ==
--- OUTSIDE RECORDS SUMMARY | 2024-09-21 07:30 | XMS_ITS ---
Author Organization [facility] Address [address] [facility] 36 [facility] [address] [place] [id number] Care Team Providers Care Environmental Conservation Professor Name Role Phone Jamie Rodrigues Primary Care Provider [phone] Siobhan Melendrez Unavailable [phone] REASON FOR VISIT B12 Medications Medication SIG [...] Encounter Location Date Provider Diagnosis Karena [address] [facility] [address] [facility] [address] [place] [phone] 09/21/2024 Siobhan Melendrez B12 deficiency E53.8 Assessments Encounter Date Diagnosis (ICD Code) Assessment Notes Treatment Notes Treatment Clinical Notes Section Notes 09/21/2024 B12 deficiency (ICD-10 - E53.8) Plan Of Treatment No Information Medications Administered Medication Instructions Date of Administration Dosage Notes B-12 09/21/2024 1 mL Progress Notes * ELIAZARKAREEN ASTUDILLOOB: 2 (63 yo F)Acc No.[id number]:09/21/2024 Patient: KENNEDI LISA Provider: LORENZO Chamberlain :1960 A ge:63 Y S ex:Female Date:09/21/2024 Address:[facility] [place] Pcp:Jamie Rodrigues Subjective: * [...] deficiency) * Procedure Codes: J 3420 B-12, 20278 ADMINISTRATION OF INJECTION * Images: Billing Information: * Visit Code: * Procedure Codes: J3420 B-12. 00072 ADMINISTRATION OF INJECTION. * Electronic signature of LORENZO Carcamo on 10/26/2024 at 10:45 AM EDT Sign off status: Pending * Provider: LORENZO Chamberlain Date: 09/21/2024 Generated for Carmina garces/Mariano/Bentonsmitting on: 0 10/26/2024 10:45 AM EDT
--- OUTSIDE RECORDS SUMMARY | 2024-10-06 07:30 | XMS_ITS ---
Author Organization [facility] Address [address] [place] [id number] Care Team Providers Care Line Installer Trolley Name Role Phone Jamie Rodrigues Primary Care Provider Siobhan Melendrez Unavailable [phone] Allergies No Known Allergies Results Component Value [...] [address] [place] [phone] 10/06/2024 Siobhan Melendrez Left lower quadrant pain [...] * KAREEN ANNAOB: 2 (63 yo F)Acc No.[id number]:10/06/2024 Progress Notes Patient: Bertha GHOSHKATELYNNY Provider: LORENZO Chamberlain :1960 A ge:63 Y S ex:Female Date:10/06/2024 Address: [address] [id number] Pcp:Jamie Rodrigues Subjective: * Chief Complaints: * 1 . pain in lower LT stomach. * HPI: G astroenterology: 63 year old female presents with c/o Abdominal Pain P t is here today with c/o having pain in her left lower side of her stomach. Pt sts she has already been to [facility] and had a vaginal ultrasound done and [...] detector use: yes. Marital Status: . Occupation: [employer]. Past smoking status: no, [...] encounter for - Z12.31 3 . B NM 28.0-28.9,adult - Z68.28 [...] * Images: Billing Information: * Visit Code: 29009 Office Visit, Est Pt., Level 3. * Procedure Codes: 1036F TOBACCO NON-USER. 3074F SYST BP LT 130 MM HG. 3078F DIAST BP < 80 MM HG. * Electronic signature of LORENZO Carcamo on 10/26/2024 at 10:45 AM EDT Sign off status: Pending * Provider: LORENZO Chamberlain Date: 0 10/06/2024 Generated for Carmina garces/Mariano/Tristonitting on: 0 10/26/2024 10:45 AM EDT History and Physical Notes * HPI (History of Present Illness) Category Sub-Category Detail Notes Category Not es Gastroenterology Abdominal Pain Pt is here toda y with c/o having pain in her left lower side of her stomach. Pt sts she has already been to [facility] and had a vaginal ultrasound done and [...]
--- OUTSIDE RECORDS SUMMARY | 2024-10-18 12:15 | XMS_ITS ---
Author Organization [facility] Address [address] [facility] [address] [facility] [address] [place] [id number] Care Team Providers Care Pantry Attendant Name Role Phone Jamie Rodrigues Primary Care Provider Siobhan Melendrez [phone] Allergies No Known Allergies REASON FOR VISIT 3 months, Needs labs, mammogram, bone density screening, & shingles vaccine Encounters Encounter Location Date Provider Diagnosis Karena [address] [facility] [address] [facility] [address] [place] [id number] 10/18/2024 Siobhan Melendrez Plan Of Treatment No Information Progress Notes * ELIAZARKAREEN ASTUDILLOOB: 2 (63 yo F)Acc No.[id number]:10/18/2024 Progress Notes Patient: KENNEDI LISA Provider: LORENZO Chamberlain :1960 A ge:63 Y S ex:Female Date:10/18/2024 Address[place], [id number] Pcp:Jamie Rodrigues Subjective: * Chief Complaints: * 1 . 3 months. 2. Needs labs, mammogram, bone density screening, & shingles vaccine. * ROS: D ERMATOLOGY: no R amisha. [...] detector use: yes. Marital Status: . Occupation: [employer]. Past smoking status: no, Smoking status: Does not smoke. Recreational drug use: no. Alcohol: no, rare. Sexually active: no.. Travel ouside [place]: no. * Allergies: N .K.D.A. Objective: * Vitals: Assessment: Plan: * Treatment: * Images: Billing Information: * Visit Code: * Procedure Codes: * Electronic signature of LORENZO Carcamo on 10/26/2024 at 10:45 AM EDT Sign off status: Pending * Provider: LORENZO Chamberlain Date: 0 10/18/2024 Generated for Carmina garces/Mariano/Tristonitting on: 0 10/26/2024 10:45 AM EDT
--- NOTE | 2024-10-26 10:44 | CT_ITS ---
FINAL REPORT TECHNIQUE: Thin section axial images were obtained through the abdomen after intravenous contrast. Oral contrast was given. Reconstruction images were obtained from the axial data. Exam was performed using dose reduction techniques. CLINICAL HISTORY: LLQ PAIN COMPARISON: 02/26/2019 FINDINGS: The lung bases are clear. The liver is homogeneous. The gallbladder is absent. The spleen, adrenal glands, and pancreas are unremarkable. There is no hydronephrosis or solid renal mass. Abdominal GI tract is without acute abnormality. There is no abdominal lymphadenopathy or ascites. There is no evidence of small bowel obstruction. The appendix is not identified but there are no secondary findings to suggest appendicitis. There is a moderate mount stool throughout the colon. The uterus is absent. There is no pelvic lymphadenopathy or ascites. No acute osseous abnormalities identified. IMPRESSION: Moderate stool burden. Reviewed, Interpreted and Dictated by Emmy Rainey MD Transcribed by Anitra Ochoa Authenticated and [facility]
--- OUTSIDE RECORDS SUMMARY | 2024-10-26 10:45 | XMS_ITS | Encounter Summary ---
Author Organization [employer] ([place], [place], [place], [place]) Address [address] [place] [address] Care Team Providers Care Drive In Waiter/Waitress Name Role Phone [facility], Provider Not In The System MD Primary Care Provider Unavailable Reason for Visit * Reason Onset Date Comments PA 05/19/2023 Encounter Details Date Type Department Care Team (Late st Contact Info) Description 05/19/2023 Telephone [facility] Rheumatology [address] [place] [address] Maddie Estes MD 101 [facility] [address] [place] [address] PA Social History Tobacco Use Types Packs/Day [...] Date Adalberto rded Speak language other than Emirati at home Not on file 03/26/2023 Want [...] Back OK to leave message on voicemail: N DIR documented in this encounter Plan of Treatment Not on file documented as of this encounter Visit Diagnoses Not on filedocumented in this encounter Care Teams Drive In Waiter/Waitress Relationship Specialty Start Date End Date [facility], Provider Not In The System, [place] [address] PCP - General 06/26/22 documented as of this encounter
--- OUTSIDE RECORDS SUMMARY | 2024-10-26 10:45 | XMS_ITS | Patient Health Record ---
Author Organization [facility] Address [address] [facility] [address] [place] [id number] Care Team Providers Care Specimen Technician Name Role Phone Jamie Rodrigues Primary Care Provider Cherry Carson Unavailable [phone] Siobhan Melendrez Unavailable [phone] Allergies No Known Allergies Results Component Value Reference Range Notes H-DIFF Reviewed date:01/10/2024 12:26:25 PM Interpretation:neut 89, lymph 8 Performing Lab: Notes/Report: MATT MANUAL DIFFERENTIAL MANUAL DIFF TCC 100 NEUT%M 89 42-76 % LYMPH%M 8 10-50 % MONO%M 3 2-9 % PLTE Slight Increase MACROC 1+ CBC Fingerstick (in house) Reviewed date:01/21/2024 11:41:45 [...] 1.025 Ketone neg Bili neg Gluc neg Covid test (in house) Reviewed date:03/23/2024 03:57:44 PM Interpretation: Performing Lab: Notes/Report: Result: Neg Influenza Screen (in house) Reviewed date:03/23/2024 03:57:44 PM Interpretation: Performing Lab: Notes/Report: results Neg H-BUN/CREAT (Not yet reviewe d by provider) Interpretation: Performing Lab: Notes/Report: BUN 13 7-17 mg/dl CREATT 0.90 0.52-1.04 mg/dl GFRAA 77 >60 ML/MIN EGFR 63 >60 ml/min Mammogram Reviewed date:10/16/2024 09:23:36 AM Interpretation:Negative Performing Lab: Notes/Report: Negative result Negative P-TSH Reviewed date:02/18/2024 01:08:59 PM Interpretation:Normal Performing Lab: Notes/Report: Test performed by [facility] [address] [place] [address] , [place] [address] Klever Anne MD, Data Entry Clerk CLIA: [id number] TSH 1.52 0.43-5.25 mU/L P-Thyroid Antibody Panel (TA BS) Reviewed date:02/18/2024 01:08:59 PM Interpretation:Normal Performing Lab: Notes/Report: Test performed by [facility] [address] [place] [address] , [place] [address] Klever Anne MD, Data Entry Clerk CLIA: [id number] Thyroid Peroxidase Antibody 11 <9-34 IU/mL An [...] Interpretation:0.68 Performing Lab: Notes/Report: Test performed by [facility] [address] [place], [place] [address], [place] [address] Klever Anne MD, Data Entry Clerk CLIA: [id number] Thyroxine Free (free T4) 0.68 0.86-1.76 ng/dL P-Comprehensive Metabolic Pa sola (CMP) Reviewed date:02/18/2024 01:08:59 PM Interpretation:gluc 101, alk phos 129 Performing Lab: Notes/Report: Test performed by [email or web address] [address] [place] [address] , [address], [place] [address] Klever Anne MD, Data Entry Clerk CLIA: [id number] Sodium 141 135-145 mmol/L Potassium 4.3 3.5-5.3 [...] - 38 platlet 350 100 - 400 H-Magnesium Reviewed date:01/10/2024 12:26:25 PM Interpretation:Normal Performing Lab: Notes/Report: MG 2.0 1.6-2.3 mg/dl H-CMP Reviewed date:01/10/2024 12:26:25 PM Interpretation:Na 132, [...] AGRATIO 1.6 1.1-1.8 ALP 105 38-126 U/L H-CBC Reviewed date:01/10/2024 12:26:25 PM Interpretation:wbc 20.6, [...] 0.3 0.0-0.4 K/mm3 BA# 0.0 0-0.2 K/mm3 ultrasound : thyroid Reviewed date:01/10/2024 12:55:30 PM Interpretation:Abnormal Performing Lab: Notes/Report: Abnormal P-TSH Reviewed date:01/04/2024 01:21:56 PM Interpretation:6.54 Performing Lab: Notes/Report: Test performed by [facility] [address] [place] [address] , [address], [place] [address] Klever Anne MD, Data Entry Clerk CLIA: [id number] TSH 6.54 0.43-5.25 mU/L P-T4 (Thyroxine) Reviewed date:01/04/2024 01:27:43 PM Interpretation:8.78 Performing Lab: Notes/Report: Test performed by [facility] [address] , [address], [place] [address] Klever Anne MD, Data Entry Clerk CLIA: [id number] Thyroxine (T4) 8.78 4.50-11.70 ug/dL P-Comprehensive Metabolic Pa sola (CMP) Reviewed date:01/04/2024 01:21:36 PM Interpretation: Performing Lab: Notes/Report: Test performed by [facility] [address] [place] [address] , [address], [place] [address] Klever Anne MD, Data Entry Clerk CLIA: [id number] Sodium 131 135-145 mmol/L Potassium 5.0 3.5-5.3 [...] Interpretation: Performing Lab: Notes/Report: Test performed by [facility] [address] [place] [address] , [address], [place] [address] Klever Anne MD, Data Entry Clerk CLIA: [id number] Vitamin B12 5118 214-9718 pg/mL Folate 8.62 >4.59 ng/mL CBC Venipuncture [...] 1.010 Ketone neg Bili neg Gluc neg EKG with rhythm strip Reviewed date:02/16/2024 01:38:06 PM Interpretation:borderline Performing Lab: Notes/Report: borderline CXR Reviewed date:02/16/2024 01:37:58 PM Interpretation:nothing acute Performing Lab: Notes/Report: nothing acute Influenza Screen (in house) Reviewed date:05/25/2024 04:24:55 PM Interpretation: Performing Lab: Notes/Report: results Neg Covid test (in house) Reviewed date:05/25/2024 08:09:59 AM Interpretation: Performing Lab: Notes/Report: Result: Pos P-T4 Free (thyroxine) Reviewed date:05/03/2024 02:06:56 PM Interpretation:low Performing Lab: Notes/Report: Test performed by [facility] [address] [place] [address] [address], [address], [place] [address] Klever Anne MD, Data Entry Clerk CLIA: [id number] Thyroxine Free (free T4) 0.67 0.86-1.76 ng/dL P-TSH reflex to FT4 Reviewed date:05/03/2024 02:06:46 PM Interpretation:low Performing Lab: Notes/Report: Test performed by [email or web address] [address] [place] [address] , [address], [place] [address] Klever Anne MD, Data Entry Clerk CLIA: [id number] TSH reflex to FT4 0.30 0.43-5.25 mU/L [...] Allopurinol 100 MG Take 1 tablet by [facility] once daily; Duration: 90 Active tiZANidine HCl [...] Vaccine Route Administration Date Status Comme nts Hepatitis A (adult) Unknown 07/29/2018 Administered Shingrix Unknown 03/03/2023 Administered Fluzone Quad (6months&older) IM Intramuscular 12/12/2020 Administered COVID 19 Moderna Unknown 06/12/2020 Administered COVID 19 Moderna Unknown 07/12/2020 Administered COVID 19 Moderna Unknown 04/15/2021 Administered Tetanus Tdap-Adacel (over 7yrs) IM Intramuscular 07/27/2007 Administered Tetanus Tdap-Adacel (over 7yrs) Unknown 04/05/2018 Pending Tetanus Tdap-Adacel (over 7yrs) IM Intramuscular 04/20/2018 Administered Problems Problem Type SNOMED Code ICD Code Onset Dates Problem Status W/U Status Risk Notes Problem Radiculopathy (81004970) Radiculopathy (729.2) Active confirmed Problem Gout (54236567) Gout NOS (274.9) Active confirm ed Problem Allergic rhinitis (75656911) ALLERGIC RHINITIS NOS (477.9) Active confirmed Problem Asthma (534834744) ASTHMA NOS (493.90) Active c onfirmed Problem Insomnia (186984132) Insomnia (G47.00) Active c onfirmed Problem Vitamin D deficiency (17566039) Vitamin D deficiency (E55.9) Active confirmed Problem Essential hypertension (69542033) Essential hypertension (I10) Active confirmed Problem Morbid obesity (781445317) Morbid obesity (E66.01) Active confirmed Problem Vitamin B12 deficiency (non anemic) (39204676) B12 deficiency (E53.8) Active confirmed Problem Sciatic nerve lesion (241304274) Piriformis syndrome of right side (G57.01) Active confirmed Problem Asthma (554600209) Asthma (J45.909) Active conf irmed Problem Paresthesia (12032889) Paresthesia (R20.2) Active confirmed Problem Obesity (770016139) Obesity (E66.9) Active conf irmed Problem Mixed anxiety and depressive disorder (447598673) Depression with anxiety (F41.8) Active confirmed Problem Restless legs syndrome (40300360) Restless leg syndrome (G25.81) Active confirmed Problem Sciatica (34297604) Sciatica of left side (M54.32) Active confirmed Problem Increased blood leukocyte number (015904004) Other elevated white blood cell count (D72.828) Active confirmed Problem Mixed hyperlipidemia (733727216) Mixed hyperlipidemia (E78.2) Active confirmed Problem Insomnia (544036656) Other insom tiffanie (G47.09) Active confirmed Problem Paresthesia (finding ) (66907494) Paresthesia of skin (R20.2) Active confirmed Problem Obesity (665217941) Obesity (BMI 30-39.9) (E66.9) Active confirmed Problem Thyroid nodule (018549850) Thyroid nodule (E04.1) Active confirmed Problem Left ventricular hypertrophy (32375969) Left ventricular hypertrophy (I51.7) Active confirmed Problem Restless legs (02870475) Restless leg (G25.81) Active confirmed Problem Constipation (27633632) Constipation, unspecified constipation type (K59.00) Active confirmed Problem Depression (798633763) Depression (F32.9) Active confirmed Problem Gout (16134002) Gout, unspecifie d cause, unspecified chronicity, unspecified site (M10.9) Active confirmed Problem Polyarthritis (216327764) Polyarthritis (M13.0) Active confirmed Problem Rheumatoid arthritis (08414203) Rheumatoid arthritis (M06.9) Active confirmed Problem Body mass index 30.0 0 to 34.99 (392320173559850) BMI 31.0-31.9,adult (Z68.31) Active confirmed Problem Hypersomnia (04321397) Hypersomnia (G47.10) Active confirmed Problem Skin sensation disturbance (79044833) Paresthesia of both feet (R20.2) Active confirmed Problem Restless legs (64911595) RLS (restless legs syndrome) (G25.81) Active confirmed Problem Leucocytosis (817361057) Leucocytosis (D72.829) Active confirmed Problem Osteoarthritis (963743463) Osteoarthritis, unspecified osteoarthritis type, unspecified site (M19.90) Active confirmed Problem Pure hypercholesterolemia (837313581) Pure hypercholesterolemia (E78.00) Active confirmed Problem Irritable bowel syndrome characterized by constipation (577293577) Irritable bowel syndrome with constipation (K58.1) Active confirmed Problem Sexual dysfunction (67333259) Sexual dysfunction (R37) Active confirmed Problem Artificial knee join t present (249529995988) Status post left knee replacement (Z96.652) Active confirmed Problem Rotator cuff arthropathy of left shoulder (87932894709825722) Rotator cuff arthropathy of left shoulder (M12.812) Active confirmed Problem Artificial knee join t present (447265304101) Artificial knee joint present, unspecified laterality (Z96.659) Active confirmed Problem Imaging of thyroid gland abnormal (finding) (678096005) Abnormal thyroid ultrasound (R93.89) Active confirmed Problem Dyskinesia (6302828) Dyskinesia (G24.9) Active confirmed Problem Neuropathy of upper limb (239137220) 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) Active confirmed Problem Cervical arthritis (269828678) Cervical arthritis (M47.812) Active confirmed Problem 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) Active confirmed Problem Cervical radiculopathy (30203526) Radiculopathy, cervical (M54.12) Active confirmed Problem Sciatic nerve lesion (597246005) Bilateral piriformis syndrome (G57.03) Active confirmed Problem Obese class II (finding) (936550912051547) Obesity, Class II, BMI 35-39.9 (E66.9) Active confirmed Vital Signs Heart Rate 86 /min 10/06/2024 Blood pressure diastolic 72 mm Hg 10/06/2024 Height 65 in 10/06/2024 Blood pressure systolic 120 mm Hg 10/06/2024 Weight 171 lbs 10/06/2024 BMI 28.45 kg/m2 10/06/2024 Encounters Encounter Location Date Provider Diagnosis [facility] [address] [facility] [address] [id number] 12/02/2023 Siobhan Melendrez Vitamin B12 deficien cy E53.8 [facility] [address] [id number] 12/10/2023 Siobhan Melendrez Encounter for immunization Z23 and B12 deficiency E53.8 [facility] [address] [id number] 12/20/2023 Siobhan Melendrez B12 deficiency E53.8 [facility] [address] [facility] [address] [id number] 12/24/2023 Siobhan Melendrez B12 deficiency E53.8 [facility] [address] [facility] [address] [id number] 12/31/2023 Siobhanbrandon Melendrez Obesity (BMI 30-39.9 ) E66.9 ; B12 deficiency E53.8 ; Hypotension due to drugs I95.2 and Other insomnia G47.09 [facility] [address] [place] [id number] 01/03/2024 Cherry Carson Abnormal thyroid function test R94.6 ; Abnormal thyroid exam R94.6 ; Vitamin B 12 deficiency E53.8 ; Leucocytosis D72.829 ; Renal insufficiency N28.9 ; Neuropathy of left upper extremity G56.92 ; Cervical arthritis M47.812 ; Radiculopathy, cervical M54.12 ; Dental disorder K08.9 ; Obesity E66.9 ; Hypotension I95.9 and Rheumatoid arthritis M06.9 [facility] [address] [place] [id number] 01/05/2024 Siobhan Crowdy Renal insufficiency N28.9 ; Thyroid function study abnormality R94.6 ; Restless leg G25.81 and Leucocytosis D72.829 [facility] [address] [place] [id number] 01/07/2024 Siobhan Crowdy B12 deficiency E53.8 [facility] [address] [place] [id number] 01/14/2024 Siobhan Crowdy B12 deficiency E53.8 and Pre-op exam Z01.818 [facility] [address] [place] [id number] 01/21/2024 Siobhan Crowdy Other elevated white blood cell count D72.828 ; Abnormal urinalysis R82.90 ; S/P thyroid biopsy Z98.890 and B12 deficiency E53.8 [facility] [address] [place] [id number] 01/28/2024 Siobhan Crowdy B12 deficiency E53.8 [facility] [address] [place] [id number] 02/04/2024 Siobhan Crowdy B12 deficiency E53.8 [facility] [address] [place] [id number] 02/11/2024 Siobhan Crowdy Thyroid nodule E04.1 ; Hot flashes R23.2 and Abnormal TSH R79.89 [facility] [address] [place] [id number] 02/25/2024 Siobhan Crowdy Thyroid nodule E04.1 ; Abnormal thyroid blood test R79.89 and Neck muscle spasm M62.838 [facility] [address] [place] [id number] 03/03/2024 Siobhan Crowdy B12 deficiency E53.8 [facility] [address] [facility] [address] [place], [place] [id number] 03/23/2024 Siobhan Crowdy Bronchitis J40 [facility] [address] [facility] [address] [place], [place] [id number] 04/21/2024 Siobhan Crowdy Thyroid nodule E04.1 and B12 deficiency E53.8 [facility] [address] [facility] [address] [place] [id number] 05/24/2024 Siobhan Crowdy Essential hypertensi on I10 and COVID-19 U07.1 [facility] [address] [place], [place] [id number] 06/09/2024 Siobhan Crowdy Calculus of bile chiquis t without cholecystitis with obstruction K80.51 and Vitamin B12 deficiency E53.8 [facility] [address] [place], [place] [id number] 07/14/2024 Siobhan Crowdy BMI 31.0-31.9,adult Z68.31 ; Encounter for weight management Z76.89 ; Piriformis syndrome of right side G57.01 and B12 deficiency E53.8 [facility] [address] [place], [place] [id number] 09/21/2024 Siobhan Crowdy B12 deficiency E53.8 [facility] [address] [place], [place] [id number] 10/06/2024 Siobhan Crowdy Left lower quadrant pain R10.32 ; Screening mammogram, encounter for Z12.31 and BMI 28.0-28.9,adult Z68.28 [facility] [address] [facility] [address] [place], [place] [id number] 11/25/2023 Jamie Carlisle [facility] [address] [facility] [address] [place], [place] [id number] 11/26/2023 Siobhan Crowdy [facility] [address] [place] [id number] 11/29/2023 Siobhan Crowdy Obesity (BMI 30-39.9 ) E66.9 [facility] [address] [place], [place] [id number] 12/08/2023 Siobhan Crowdy [facility] [address] [place], [place] [id number] 12/10/2023 Siobhan Crowdy [facility] [address] [place], [place] [id number] 01/03/2024 Jamie Carlisle [facility] [address] [place], [place] [id number] 01/04/2024 Cherry Carson [facility] [address] [place], [place] [id number] 01/07/2024 Siobhan Crowdy [facility] [address] [place], [place] [id number] 02/18/2024 Siobhan Crowdy [facility] [address] [place] [id number] 02/23/2024 Jamie Carlisle [facility] [address] [place], [place] [id number] 05/03/2024 Siobhan Crowdy Abnormal thyroid blo od test R79.89 [facility] [address] [place], [place] [id number] 05/23/2024 Siobhan Crowdy [facility] [address] [place], [place] [id number] 06/09/2024 Siobhan Crowdy [facility] [address] [place], [place] [id number] 06/30/2024 Siobhan Crowdy [facility] [address] [place], [place] [id number] 07/28/2024 Jamie Carlisle [facility] [address] [place], [place] [id number] 08/08/2024 Jamie Carlisle BMI 31.0-31.9,adult Z68.31 [facility] [address] [place], [place] [id number] 08/08/2024 Jamiedelmis Rodrigues [facility] [address] [place], [place] [id number] 10/05/2024 Siobhan Melendrez Essential hypertensi on I10 [facility] [address] [place], [place] [id number] 10/10/2024 Siobhan Melendrez [facility] [address] [place], [place] [id number] 10/10/2024 Jamie Rodrigues Assessments Encounter Date Diagnosis [...] Z01.818) Patient is getting labs done at [facility] and will have a CBC and CMP [...] - K80.51) Patient had stones removed at [facility] by Dr. Villar. We will need to get records. She has f/u with him in a week. She had labs checked at this credit resolution representative this am at [facility] and they rechecked a [...] 10/06/2024 H-CBC 01/14/2024 H-CMP 01/14/2024 H-CMP 04/09/2022 H-BUN/CREAT 10/25/2024 intrinsic factor blocking antibody 12/01 Insurance Providers Payer Name Payer Address Payer Phone Subscriber Number Group Number Insured Name Patient Relationship to Insured Coverage Start Date Coverage End Date [employer] [address] [place] [id number] [phone] [id number] JASMEET MILLARD Child - Insured has Financial Responsibility [employer] [address] [place] [address] [id number] JASMEET MILLARD Spouse - patient is the [...]
--- OUTSIDE RECORDS SUMMARY | 2024-10-26 10:45 | XMS_ITS | Encounter Summary ---
Author Organization [facility] Address [address] [place] [address] Care Team Providers Care Wound Specialist Name Role Phone Matt Arceo MD Primary Care Provider Encounter Details Date Type Department Care Team (Late Contact Info) Description 06/12/2024 Results Follow-Up [facility] [address] [place] [address] Lala Castaneda DO [address] [place] [address] Social History Tobacco Use Types Packs/Day Years [...] Description 11/30/2024 2:00 PM EDT Office Visit [facility] [address] [place] [address] Lala Castaneda DO [address] [place], [place] [id number] Scheduled Orders Name Type Priority Associated Diagnoses [...] study documented in this encounter Care Teams Wound Specialist Relationship Specialty Start Date End Date Matt Arceo MD [address] [place] [address] [address] PCP - General Family Medicine 04/30/22 documented as of this encounter
--- OUTSIDE RECORDS SUMMARY | 2024-10-26 10:45 | XMS_ITS | Encounter Summary ---
Author Organization [employer] ([place], [place], [place], [place]) Address [address] [place] [address] Care Team Providers Care Dinkey Engineer Name Role Phone [facility], Provider Not In The System MD Primary Care Provider Unavailable Reason for Visit * Reason Onset Date Comments medication refill 02/27/2022 medication refill 03/02/2022 2nd attempt Encounter Details Date Type Department Care Team (Late st Contact Info) Description 02/27/2022 Telephone [facility] Rheumatology [address] [place] [address] Maddie Estes MD [address] [facility] [address] [place] [address] medication refill; medication refill (2nd attempt) Social [...] It at her Next Follow Up . ICULUM AND INSTRUCTION SPECIALIST * Telephone Encounter - Ceci Pena - 03/02/2022 3:50 PM EST Patient calling back regarding the muscle relaxer,she is going out of town on and would like a call back regarding this. She uses [facility] in [place] if something could be called in. She would rather have the tazadine, ICULUM AND INSTRUCTION SPECIALIST * Telephone Encounter - Debra M Dom [...] before this appointment. Please call patient at [phone] ICULUM AND INSTRUCTION SPECIALIST documented in this encounter Plan of Treatment Not on file documented as of this encounter Visit Diagnoses Not on filedocumented in this encounter Care Teams Dinkey Engineer Relationship Specialty Start Date End Date [facility], Provider Not In The System, [place] [address] PCP - General 06/26/22 documented as of this encounter
--- OUTSIDE RECORDS SUMMARY | 2024-10-26 10:45 | XMS_ITS | Encounter Summary ---
Author Organization [employer] ([place], [place], [place], [place]) Address [address] [place] [address] Care Team Providers Care Drill Punch Operator Name Role Phone [facility], Provider Not In The System Primary Care Provider Unavailable Reason for Visit * Reason Comments Medication Refill Encounter Details Date Type Department Care Team (Late st Contact Info) Description 05/03/2024 Refill [facility] Rheumatology [address] [place] [address] Maddie Estes MD [address] [facility] [address] [place] [address] Seropositive rheumatoid arthritis of multiple sites (HCC) [...] (HCC) documented in this encounter Care Teams Drill Punch Operator Relationship Specialty Start Date End Date [facility], Provider Not In The System, [place] [address] PCP - General 06/26/22 documented as of this encounter
--- OUTSIDE RECORDS SUMMARY | 2024-10-26 10:45 | XMS_ITS | Referral Summary ---
Author Organization [employer] ([place], [place], [place], [place]) Address [address] [place] [address] Care Team Providers Care Adoption Coordinator Name Role Phone [facility], Provider Not In The System MD Primary [...] Date Adalberto rded Speak language other than Moldovan at home Not on file 03/26/2023 Want [...] 1:06 AM EDT Performed at: - [facility] [address] [id number] Justowriter Operator: Jerome Rebolledo PhD, Phone: [phone] us Maddie Estes MD LAB BLOOD ORDERABLES Final Resul t [facility] from Last 3 Months or Most Recently Relevant to Health Maintenance Insurance [employer] Zomazz CROSS/Zomazz SHIELD Care Teams Adoption Coordinator Relationship Specialty Start Date End Date [facility], Provider Not In The System, [place] [address] PCP - General 06/26/22
--- OUTSIDE RECORDS SUMMARY | 2024-10-26 10:45 | XMS_ITS | Clinical Summary ---
Author Organization [facility] Address [address] [place] [address] Care Team Providers Care Educational Institution Curator Name Role Phone Matt Arceo MD Primary [...] Description 11/30/2024 2:00 PM EDT Office Visit [facility] [address] [place] [address] Lala Castaneda, [address] [place] [address] Health Maintenance Due Date Last [...] ID:[id number] (NAIC) Type:Not on file Address: [id number] Care Teams Educational Institution Curator Relationship Specialty Start Date End Date Matt Arceo MD [address] [place] [facility] [address] [place] [address] PCP - General Family Medicine 04/30/22
--- OUTSIDE RECORDS SUMMARY | 2024-10-26 10:45 | XMS_ITS | Clinical Summary ---
Author Organization [facility] Address [address] [place] [address] Care Team Providers Care Integration Lead Name Role Phone William Boles MD Primary Care Provider [phone] Allergies No known active allergies Medications allopurinol [...] (one) time each day. Active HYDROcodone-jules taminophen ([place]) 5-325 MG tablet Take 1 tablet by [...] 12/05/2011 UKY-Zoster Vaccines (1 of 2) 12/05/2011 [id number] Vaccine ( - 2024-25 season) 2023 04/15/2021, [...] this topic Insurance CELESTE ANTHEM Care Teams Integration Lead Relationship Specialty Start Date End Date William Boles MD [address] [place] [address] PCP - General 07/26/20
--- OUTSIDE RECORDS SUMMARY | 2024-10-26 10:45 | XMS_ITS | Clinical Summary ---
Author Organization [employer] ([place], [place], [place], [place]) Address [address] [place] [address] Care Team Providers Care Stove Carriage Operator Name Role Phone [facility], Provider [...] Date Adalberto rded Speak language other than Japanese at home Not on file 03/26/2023 Want [...] AM EDT Performed at: 01 - [facility] [address] [id number] Terrazzo Tile Setter: Jerome Rebolledo PhD, Phone: [phone] us Maddie Estes MD LAB BLOOD ORDERABLES Final Resul t [facility] from Last 3 Months or Most Recently Relevant to Health Maintenance Insurance [address] [id number] BLUE CROSS/BLUE SHIELD BLUE CROSS/BLUE SHIELD Care Teams Stove Carriage Operator Relationship Specialty Start Date End Date [facility], Provider Not In The System, [place] [address] PCP - General 06/26/22
[2024-10-26] MEDS: IOPAMIDOL-370 (76%);100ML BOTTLE 75 ML IV (10:58)
[2024-10-26] MEDS: BARIUM SULFATE(READI-CAT2);450ML BOTTLE 450 ML PO (10:58)
[2024-10-26] MEDS: SODIUM CHLORIDE 0.9% 10ML SYR (RAD ONLY) 10 ML IV (10:58)
== END 2024-10-26 23:59 | disposition home or self-care (01) ==
LOC: RAD 10:41
PROVIDERS: PCP Physician Assistant; Visit Provider Physician Assistant
DX: R93.3 Abnormal findings on diagnostic imaging of other parts of digestive tract (principal); R10.32 Left lower quadrant pain
CPT/HCPCS: 74177; Q9967

== ENCOUNTER 2024-11-03 11:10 | Outpatient (CLI) | payer BC, SELFPAY ==
--- OUTSIDE RECORDS SUMMARY | 2024-09-21 07:30 | XMS_ITS ---
[facility] Address [address] [facility] [address] [facility] [address] [place] [id number] Care Team Providers Care Coater Carbon Paper Name Role Phone Jamie Rodrigues Primary Care Provider Siobhan Melendrez Unavailable [phone] REASON FOR VISIT B12 Medications Medication SIG (Take, Route, Frequency, Duration) Notes Start Date End Date Status Metoprolol Succinate 100 MG 1 capsule Orally Once a day 05/24/2024 Active DULoxetine HCl 60 MG 1 capsule orally on ce a day; Duration: 90 days Active Zepbound 5 MG/0.5ML 0.5 mL Subcutaneous once a week; Duration: 30 days Active tiZANidine HCl 2 MG TAKE 1 TO 2 TABLETS Orally once daily as needed; Duration: 30 days Active Allopurinol 100 MG Take 1 tablet by elia once daily; Duration: 90 Active Linzess 145 MCG 1 cap(s) Orally once a day; Duration: 90 days Active Albuterol Sulfate HFA 108 (90 Base) MCG/ACT 1 puff as needed Inhalation every 4 hrs, prn 07/21/2023 Active Sulindac 200 MG 1 tablet with food O rally Twice a day; Duration: 30 day(s) Active Leflunomide 20 MG 1 tablet Orally Once a day; Duration: 30 day(s) Active Horizant 600 MG 1 tablet in the even ing (5pm) with food Orally Once a day; Duration: 30 day(s) Active Enbrel 50 MG/ML 1 mL Subcutaneous on ce a week Active Encounters Encounter Location Date Provider Diagnosis Karena [address] [facility] [address] [facility] [address] [place] [phone] 09/21/2024 Siobhan Melendrez B12 deficiency E53.8 Assessments Encounter Date Diagnosis (ICD Code) Assessment Notes Treatment Notes Treatment Clinical Notes Section Notes 09/21/2024 B12 deficiency (ICD-10 - E53.8) Plan Of Treatment No Information Medications Administered Medication Instructions Date of Administration Dosage Notes B-12 09/21/2024 1 mL Progress Notes * ELIAZARKAREEN ASTUDILLOOB: 2 (63 yo F)Acc No.[id number]:09/21/2024 Patient: KENNEDI LISA Provider: LORENZO Chamberlain :1960 A ge:63 Y S ex:Female Date:09/21/2024 Address:[facility] [address] [id number] Pcp:Jamie Rodrigues Subjective: * Chief Complaints: * 1 . B12. * Medical History: * Medications: T aking Enbrel 50 MG/ML [...] capsule orally once a day , Taking Metoprolol Succinate 100 MG Capsule ER 24 Hour Sprinkle 1 capsule Orally Once a day , Taking Allopurinol 100 MG Tablet Take 1 tablet by mouth once daily , Taking tiZANidine HCl 2 MG Tablet TAKE 1 TO 2 TABLETS Orally once daily as needed , Taking Zepbound 5 MG/0.5ML Solution Auto-injector 0.5 mL Subcutaneous once a week , Medication List reviewed and reconciled with the patient Objective: * Vitals: Assessment: * Assessment: 1. B 12 deficiency - E53.8 (Primary) Plan: * Treatment: * Therapeutic Injections: B-12 : 1 mL (Route: Intramuscular) given by DARCIE Cantu on right gluteus (B12 deficiency) * Procedure Codes: J 3420 B-12, 31697 ADMINISTRATION OF INJECTION * Images: Billing Information: * Visit Code: * Procedure Codes: J3420 B-12. 99045 ADMINISTRATION OF INJECTION. * Electronic signature of LORENZO Carcamo on 11/03/2024 at 11:15 AM EDT Sign off status: Pending * Provider: LORENZO Chamberlain Date: 0 09/21/2024 Generated for Carmina garces/Mariano/Tristonitting on: 0 11/03/2024 11:15 AM EDT
--- OUTSIDE RECORDS SUMMARY | 2024-10-06 07:30 | XMS_ITS ---
[facility] Address [address] [place] [id number] Care Team Providers Care Solderer Assembler Name Role Phone Thang Rodriguesian Primary Care Provider Siobhan Melendrez Unavailable [phone] Allergies No Known Allergies Results Component Value Reference Range Notes CT Scan : Abd and Pelvis w/ oral & IV contrast (Not yet reviewed by provider) Interpretation:Moderate stool burden Performing Lab: Notes/Report: Moderate stool burden Mammogram Reviewed date:10/16/2024 09:23:36 AM Interpretation:Negative Performing [address] [place] [id number] 10/06/2024 Siobhan Melendrez Left lower quadrant pain [...] * KAREEN ANNAOB: 2 (63 yo F)Acc No.[id number]:10/06/2024 Progress Notes Patient: KENNEDI LISA Provider: LORENZO Chamberlain :1960 A ge:63 Y S ex:Female Date:10/06/2024 Address:[facility] [address] [id number] Pcp:Jamie Rodrigues Subjective: * Chief Complaints: * 1 . pain in lower LT stomach. * HPI: G astroenterology: 63 year old female presents with c/o Abdominal Pain P t is here today with c/o having pain in her left lower side of her stomach. Pt sts she has already been to [facility] and had a vaginal ultrasound done [...] detector use: yes. Marital Status: . Occupation: [employer]. Past smoking status: no, [...] . S creening mammogram, encounter for - Z03.14 3 . B NM 28.0-28.9,adult - Z68.28 Plan: * Treatment: Notes: [...] * Images: Billing Information: * Visit Code: 41800 Office Visit, Est Pt., Level 3. * Procedure Codes: 1036F TOBACCO NON-USER. 3074F SYST BP LT 130 MM HG. 3078F DIAST BP < 80 MM HG. * Electronic signature of LORENZO Carcamo on 11/03/2024 at 11:14 AM EDT Sign off status: Pending * Provider: LORENZO Chamberlain Date: 0 10/06/2024 Generated for Salomei ng/Mariano/eTransmitting on: 0 11/03/2024 11:14 AM EDT History and Physical Notes * HPI (History of Present Illness) Category Sub-Category Detail Notes Category Not es Gastroenterology Abdominal Pain Pt is here toda y with c/o having pain in her left lower side of her stomach. Pt sts she has already been to [facility] and had a vaginal ultrasound done [...]
--- OUTSIDE RECORDS SUMMARY | 2024-10-18 12:15 | XMS_ITS ---
Author Organization [facility] Address [address] [facility] [address] [facility] [address] [address] [id number] Care Team Providers Care Feller Operator Name Role Phone Jamie Rodrigues Primary Care Provider Siobhan Melendrez [phone] Allergies No Known Allergies REASON FOR VISIT 3 months, Needs labs, mammogram, bone density screening, & shingles vaccine Encounters Encounter Location Date Provider Diagnosis Karena [address] [facility] [address] [facility] [address] [place] [phone] 10/18/2024 Siobhan Melendrez Plan Of Treatment No Information Progress Notes * ELIAZARKAREEN ASTUDILLOOB: 2 (63 yo F)Acc No.[id number]:10/18/2024 Progress Notes Patient: KENNEDI LISA Provider: LORENZO Chamberlain :1960 A ge:63 Y S ex:Female Date:10/18/2024 Address:[address], [id number] Pcp:Jamie Rodrigues Subjective: * Chief Complaints: * [...] detector use: yes. Marital Status: . Occupation: [employer]. Past smoking status: no, [...] status: Pending * Provider: LORENZO Chamberlain Date: 10/18/2024 Generated for Carmina garces/Mariano/Tristonitting on: 11/03/2024 11:14 AM EDT
--- OUTSIDE RECORDS SUMMARY | 2024-11-03 11:14 | XMS_ITS | Clinical Summary ---
Author Organization [facility] Address [address] [place] [address] Care Team Providers Care Dredge Worker Name Role Phone William Boles MD Primary Care Provider [phone] Allergies No known active allergies Medications allopurinol [...] (one) time each day. Active HYDROcodone-jules taminophen ([place]) 5-325 MG tablet Take 1 tablet by [...] 12/05/2011 UKY-Zoster Vaccines (1 of 2) 12/05/2011 [id number] Vaccine ( - 2024-25 season) 2023 04/15/2021, [...] this topic Insurance CELESTE ANTHEM Care Teams Dredge Worker Relationship Specialty Start Date End Date William Boles MD [address] [place] [address] PCP - General 07/26/20
--- OUTSIDE RECORDS SUMMARY | 2024-11-03 11:14 | XMS_ITS | Patient Health Record ---
Author Organization [facility] Address [address] [facility] [address] [place] [id number] Care Team Providers Care Director Of Digital Technology Name Role Phone Jamie Rodrigues Primary Care Provider Cherry Carson Unavailable [phone] Siobhan Melendrez Unavailable [phone] Allergies No Known Allergies Results Component Value Reference Range Notes Urinalysis - Inhouse Reviewed date:01/21/2024 11:41:53 AM [...] - 38 plat 403 100 - 400 H-DIFF Reviewed date:01/10/2024 12:26:25 PM Interpretation:neut 89, lymph 8 Performing Lab: Notes/Report: MDIFF MANUAL DIFFERENTIAL MANUAL DIFF TCC 100 NEUT%M 89 42-76 % LYMPH%M 8 10-50 % MONO%M 3 2-9 % PLTE Slight Increase MACROC 1+ Mammogram Reviewed date:10/16/2024 09:23:36 AM Interpretation:Negative Performing Lab: Notes/Report: Negative result Negative CT Scan : Abd and Pelvis w/ oral & IV contrast (Not yet reviewed by provider) Interpretation:Moderate stool burden Performing Lab: Notes/Report: Moderate stool burden Covid test (in house) Reviewed date:05/25/2024 08:09:59 AM Interpretation: Performing Lab: Notes/Report: Result: Pos Influenza Screen (in house) Reviewed date:05/25/2024 04:24:55 PM Interpretation: Performing Lab: Notes/Report: results Neg EKG with rhythm strip Reviewed date:02/16/2024 01:38:06 PM Interpretation:borderline Performing Lab: Notes/Report: borderline CXR Reviewed date:02/16/2024 01:37:58 PM Interpretation:nothing acute Performing Lab: Notes/Report: nothing acute H-Magnesium Reviewed date:01/10/2024 12:26:25 PM Interpretation:Normal Performing [...] PLT 495 142-424 K/mm3 Delta: 318 on 01/01/24-2249 MPV 7.4 7.4-10.4 fl NE% 91.9 37.0-80.0 [...] Interpretation:6.54 Performing Lab: Notes/Report: Test performed by [facility] [address] [place] [address] , [place] [address] Klever Anne MD, Elevator Examiner And Adjuster CLIA: [id number] TSH 6.54 0.43-5.25 mU/L P-T4 (Thyroxine) Reviewed date:01/04/2024 01:27:43 PM Interpretation:8.78 Performing Lab: Notes/Report: Test performed by [facility] [address] [place] [address] , [address], [place] [address] Klever Anne MD, Elevator Examiner And Adjuster CLIA: [id number] Thyroxine (T4) 8.78 4.50-11.70 ug/dL P-Comprehensive Metabolic Pa sola (CMP) Reviewed date:01/04/2024 01:21:36 PM Interpretation: Performing Lab: Notes/Report: Test performed by [facility] [address] [place] [address] , [address], [place] [address] Klever Anne MD, Elevator Examiner And Adjuster CLIA: [id number] Sodium 131 135-145 mmol/L Potassium 5.0 3.5-5.3 [...] Interpretation: Performing Lab: Notes/Report: Test performed by [facility] [address] [place] [address] [address] C, [place] [address] Klever Anne MD, Elevator Examiner And Adjuster CLIA: [id number] Vitamin B12 8996 969-4435 pg/mL Folate 8.62 >4.59 ng/mL CBC Venipuncture [...] 1.010 Ketone neg Bili neg Gluc neg Influenza Screen (in house) Reviewed date:03/23/2024 03:57:44 PM Interpretation: Performing Lab: Notes/Report: results Neg Covid test (in house) Reviewed date:03/23/2024 03:57:44 PM Interpretation: Performing Lab: Notes/Report: Result: Neg P-T4 Free (thyroxine) Reviewed date:05/03/2024 02:06:56 PM Interpretation:low Performing Lab: Notes/Report: Test performed by [facility] [address] [place] [address] , [place] [address] Klever Anne MD, Elevator Examiner And Adjuster CLIA: [id number] Thyroxine Free (free T4) 0.67 0.86-1.76 ng/dL P-TSH reflex to FT4 Reviewed date:05/03/2024 02:06:46 PM Interpretation:low Performing Lab: Notes/Report: Test performed by [facility] [address] [place] [address] , [address], [place] [address] Klever Anne MD, Elevator Examiner And Adjuster CLIA: [id number] TSH reflex to FT4 0.30 0.43-5.25 mU/L H-BUN/CREAT Reviewed date:10/27/2024 05:04:22 PM Interpretation: Performing Lab: Notes/Report: BUN 13 7-17 mg/dl CREATT 0.90 0.52-1.04 mg/dl GFRAA 77 >60 ML/MIN EGFR 63 >60 ml/min CBC Venipuncture (in house) Reviewed date:02/11/2024 01:49:02 [...] - 38 platlet 350 100 - 400 P-Comprehensive Metabolic Pa sola (CMP) Reviewed date:02/18/2024 01:08:59 PM Interpretation:gluc 101, alk phos 129 Performing Lab: Notes/Report: Test performed by [facility] [address] [place] [address] , [place] [address] Klever Anne MD, Elevator Examiner And Adjuster CLIA: [id number] Sodium 141 135-145 mmol/L Potassium 4.3 3.5-5.3 [...] 0.4 <0.2-1.2 mg/dL A/G Ratio 2.2 1.1-2.5 P-T4 Free (thyroxine) Reviewed date:02/18/2024 01:08:59 PM Interpretation:0.68 Performing Lab: Notes/Report: Test performed by [facility] [address] [place] [address] , [place] [address] Klever Anne MD, Elevator Examiner And Adjuster CLIA: [id number] Thyroxine Free (free T4) 0.68 0.86-1.76 ng/dL P-Thyroid Antibody Panel (TA BS) Reviewed date:02/18/2024 01:08:59 PM Interpretation:Normal Performing Lab: Notes/Report: Test performed by [facility] [address] [place] [address] , [place] [address] Klever Anne MD, Elevator Examiner And Adjuster CLIA: [id number] Thyroid Peroxidase Antibody 11 <9-34 IU/mL An [...] methods or kits cannot be directly compared. P-TSH Reviewed date:02/18/2024 01:08:59 PM Interpretation:Normal Performing Lab: Notes/Report: Test performed by [facility] [facility] [address] [place] [address] , Suite , [place] [address] Klever Anne MD, Elevator Examiner And Adjuster CLIA: [id number] TSH 1.52 0.43-5.25 mU/L Medications Medication SIG (Take, Route, [...] elia th once daily; Duration: 90 Active tiZANidine HCl [...] Status W/U Status Risk Notes Problem Radiculopathy (59190699) Radiculopathy (729.2) Active confirmed Problem Gout (32149904) Gout NOS (274.9) Active confirm ed Problem Allergic rhinitis (05639214) ALLERGIC RHINITIS NOS (477.9) Active confirmed Problem Asthma (025741406) ASTHMA NOS (493.90) Active c onfirmed Problem Insomnia (937019226) Insomnia (G47.00) Active c onfirmed Problem Vitamin D deficiency (05507500) Vitamin D deficiency (E55.9) Active confirmed Problem Essential hypertension (88979310) Essential hypertension (I10) Active confirmed Problem Morbid obesity (866099465) Morbid obesity (E66.01) Active confirmed Problem Vitamin B12 deficiency (non anemic) (85424317) B12 deficiency (E53.8) Active confirmed Problem Sciatic nerve lesion (543261141) Piriformis syndrome of right side (G57.01) Active confirmed Problem Asthma (082379449) Asthma (J45.909) Active conf irmed Problem Paresthesia (27943580) Paresthesia (R20.2) Active confirmed Problem Obesity (993891258) Obesity (E66.9) Active conf irmed Problem Mixed anxiety and depressive disorder (350094293) Depression with anxiety (F41.8) Active confirmed Problem Restless legs syndrome (45169915) Restless leg syndrome (G25.81) Active confirmed Problem Sciatica (60149030) Sciatica of left side (M54.32) Active confirmed Problem Increased blood leukocyte number (371482575) Other elevated white blood cell count (D72.828) Active confirmed Problem Mixed hyperlipidemia (778536694) Mixed hyperlipidemia (E78.2) Active confirmed Problem Insomnia (701138699) Other insom tiffanie (G47.09) Active confirmed Problem Paresthesia (finding ) (08149946) Paresthesia of skin (R20.2) Active confirmed Problem Obesity (556804487) Obesity (BMI 30-39.9) (E66.9) Active confirmed Problem Thyroid nodule (504569505) Thyroid nodule (E04.1) Active confirmed Problem Left ventricular hypertrophy (22889652) Left ventricular hypertrophy (I51.7) Active confirmed Problem Restless legs (11454396) Restless leg (G25.81) Active confirmed Problem Constipation (28244621) Constipation, unspecified constipation type (K59.00) Active confirmed Problem Depression (957514889) Depression (F32.9) Active confirmed Problem Gout (32653022) Gout, unspecifie d cause, unspecified chronicity, unspecified site (M10.9) Active confirmed Problem Polyarthritis (121104601) Polyarthritis (M13.0) Active confirmed Problem Rheumatoid arthritis (40686465) Rheumatoid arthritis (M06.9) Active confirmed Problem Body mass index 30.0 0 to 34.99 (045396668907010) BMI 31.0-31.9,adult (Z68.31) Active confirmed Problem Hypersomnia (60588627) Hypersomnia (G47.10) Active confirmed Problem Skin sensation disturbance (26905221) Paresthesia of both feet (R20.2) Active confirmed Problem Restless legs (27718414) RLS (restless legs syndrome) (G25.81) Active confirmed Problem Leucocytosis (564804523) Leucocytosis (D72.829) Active confirmed Problem Osteoarthritis (652341217) Osteoarthritis, unspecified osteoarthritis type, unspecified site (M19.90) Active confirmed Problem Pure hypercholesterolemia (935663614) Pure hypercholesterolemia (E78.00) Active confirmed Problem Irritable bowel syndrome characterized by constipation (139530737) Irritable bowel syndrome with constipation (K58.1) Active confirmed Problem Sexual dysfunction (65938931) Sexual dysfunction (R37) Active confirmed Problem Artificial knee join t present (165523152820) Status post left knee replacement (Z96.652) Active confirmed Problem Rotator cuff arthropathy of left shoulder (34580341972062201) Rotator cuff arthropathy of left shoulder (M12.812) Active confirmed Problem Artificial knee join t present (508830859110) Artificial knee joint present, unspecified laterality (Z96.659) Active confirmed Problem Imaging of thyroid gland abnormal (finding) (412125747) Abnormal thyroid ultrasound (R93.89) Active confirmed Problem Dyskinesia (2610482) Dyskinesia (G24.9) Active confirmed Problem Neuropathy of upper limb (816103778) 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) Active confirmed Problem Cervical arthritis (355632723) Cervical arthritis (M47.812) Active confirmed Problem 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) Active confirmed Problem Cervical radiculopathy (90572867) Radiculopathy, cervical (M54.12) Active confirmed Problem Sciatic nerve lesion (218375854) Bilateral piriformis syndrome (G57.03) Active confirmed Problem Obese class II (finding) (214411216202104) Obesity, Class II, BMI 35-39.9 (E66.9) Active confirmed Vital Signs Heart Rate 86 /min 10/06/2024 Blood pressure diastolic 72 mm Hg 10/06/2024 Height 65 in 10/06/2024 Blood pressure systolic 120 mm Hg 10/06/2024 Weight 171 lbs 10/06/2024 BMI 28.45 kg/m2 10/06/2024 Encounters Encounter Location Date Provider Diagnosis [facility] [address] [facility] [address] [place] [id number] 12/02/2023 Siobhan Melendrez Vitamin B12 deficien cy E53.8 [facility] 121 [facility] [address] [place] [id number] 12/10/2023 Siobhan Melendrez Encounter for immunization Z23 and B12 deficiency E53.8 [facility] [address] [facility] [address] [place] [id number] 12/20/2023 Siobhan Parvin B12 deficiency E53.8 [facility] [address] [facility] [address] [place] [id number] 12/24/2023 Siobhan Crowdy B12 deficiency E53.8 [facility] [address] [facility] [address] [place], [place] [id number] 12/31/2023 Siobhan Parvin Obesity (BMI 30-39.9 ) E66.9 ; B12 deficiency E53.8 ; Hypotension due to drugs I95.2 and Other insomnia G47.09 [facility] [address] [facility] [address] [place] [id number] 01/03/2024 Cherry Carson Abnormal thyroid function test R94.6 ; Abnormal thyroid exam R94.6 ; Vitamin B 12 deficiency E53.8 ; Leucocytosis D72.829 ; Renal insufficiency N28.9 ; Neuropathy of left upper extremity G56.92 ; Cervical arthritis M47.812 ; Radiculopathy, cervical M54.12 ; Dental disorder K08.9 ; Obesity E66.9 ; Hypotension I95.9 and Rheumatoid arthritis M06.9 [facility] [address] [place], [place] [id number] 01/05/2024 Siobhan Crowdy Renal insufficiency N28.9 ; Thyroid function study abnormality R94.6 ; Restless leg G25.81 and Leucocytosis D72.829 [facility] [address] [place], [place] [id number] 01/07/2024 Siobhan Crowdy B12 deficiency E53.8 [facility] [address] [place] [id number] 01/14/2024 Siobhan Crowdy B12 deficiency E53.8 and Pre-op exam Z01.818 [facility] [address] [place], [place] [id number] 01/21/2024 Siobhan Crowdy Other elevated white blood cell count D72.828 ; Abnormal urinalysis R82.90 ; S/P thyroid biopsy Z98.890 and B12 deficiency E53.8 [facility] [address] [place], [place] [id number] 01/28/2024 Siobhan Crowdy B12 deficiency E53.8 [facility] [address] [place], [place] [id number] 02/04/2024 Siobhan Crowdy B12 deficiency E53.8 [facility] [address] [place], [place] [id number] 02/11/2024 Siobhan Crowdy Thyroid nodule E04.1 ; Hot flashes R23.2 and Abnormal TSH R79.89 [facility] [address] [place], [place] [id number] 02/25/2024 Siobhan Crowdy Thyroid nodule E04.1 ; Abnormal thyroid blood test R79.89 and Neck muscle spasm M62.838 [facility] [address] [place], [place] [id number] 03/03/2024 Siobhan Crowdy B12 deficiency E53.8 [facility] [address] [place], [place] [id number] 03/23/2024 Siobhan Crowdy Bronchitis J40 [facility] [address] [place], [place] [id number] 04/21/2024 Siobhan Crowdy Thyroid nodule E04.1 and B12 deficiency E53.8 [facility] [address] [place], [place] [id number] 05/24/2024 Siobhan Crowdy Essential hypertensi on I10 and COVID-19 U07.1 [facility] [address] [facility] [address] [place] [id number] 06/09/2024 Siobhan Crowdy Calculus of bile chiquis t without cholecystitis with obstruction K80.51 and Vitamin B12 deficiency E53.8 [facility] [address] [facility] [address] [place], [place] [id number] 07/14/2024 Siobhan Crowdy BMI 31.0-31.9,adult Z68.31 ; Encounter for weight management Z76.89 ; Piriformis syndrome of right side G57.01 and B12 deficiency E53.8 [facility] [address] [facility] [address] [place] [id number] 09/21/2024 Siobhan Crowdy B12 deficiency E53.8 [facility] [address] [facility] [address] [place], [place] [id number] 10/06/2024 Siobhan Crowdy Left lower quadrant pain R10.32 ; Screening mammogram, encounter for Z12.31 and BMI 28.0-28.9,adult Z68.28 [facility] [address] [facility] [address] [place], [place] [id number] 11/25/2023 Jamie Sunnyside [facility] [address] [facility] [address] [place], [place] [id number] 11/26/2023 Siobhan Crowdy [facility] [address] [place] [id number] 11/29/2023 Siobhan Crowdy Obesity (BMI 30-39.9 ) E66.9 [facility] [address] [place] [id number] 12/08/2023 Siobhan Crowdy [facility] [address] [place] [id number] 12/10/2023 Siobhan Crowdy [facility] [address] [place], [place] [id number] 01/03/2024 Jamie Sunn[place]ide [facility] [address] [place], [place] [id number] 01/04/2024 Cherry Carson [facility] [address] [place] [id number] 01/07/2024 Siobhan Crowdy [facility] [address] [place] [id number] 02/18/2024 Siobhan Crowdy [facility] [address] [place] [id number] 02/23/2024 Jamie Sunn[place]ide [facility] [address] [place] [id number] 05/03/2024 Siobhan Crowdy Abnormal thyroid blo od test R79.89 [facility] [address] [place], [place] [id number] 05/23/2024 Siobhan Crowdy [facility] [address] [place] [id number] 06/09/2024 Siobhan Crowdy [facility] [address] [place], [place] [id number] 06/30/2024 Siobhan Crowdy [facility] [address] [place] [id number] 07/28/2024 Jamie Sunnyside [facility] [address] [place], [place] [id number] 08/08/2024 Jamie Sunn[place]ide BMI 31.0-31.9,adult Z68.31 [facility] [address] [place] [id number] 08/08/2024 Jamiedelmis CaiSunnyside [facility] [address] [place] [id number] 10/05/2024 Siobhan Melendrez Essential hypertensi on I10 [facility] [address] [place], [place] [id number] 10/10/2024 Siobhan Melendrez [facility] [address] [place], [place] [id number] 10/10/2024 Jamiedelmis Rodrigues Assessments Encounter Date Diagnosis (ICD Code) [...] Z01.818) Patient is getting labs done at [facility] and will have a CBC [...] - K80.51) Patient had stones removed at [facility] by Dr. Villar. We will need to get records. She has f/u with him in a week. She had labs checked at this quality assurance lab technician this am at [facility] and they rechecked a CMP, but [...] [employer] [address] [place] [address] [id number] JASMEET MILLARD Natural Child - Insured has Financial Responsibility CELESTE GRAY [facility] [address] [place] [address] [id number] JASMEET MILLARD Spouse - patient is the [...]
--- OUTSIDE RECORDS SUMMARY | 2024-11-03 11:14 | XMS_ITS | Clinical Summary ---
Author Organization [facility] Address [address] [place] [address] Care Team Providers Care Tag Press Operator Name Role Phone Matt Arceo MD Primary [...] 2:00 PM EDT Office Visit [facility] [address] [place] [address] Lala Castaneda, [address] [place] [address] Health Maintenance Due Date Last [...] ID:[id number] (NAIC) Type:Not on file Address: [address] Care Teams Tag Press Operator Relationship Specialty Start Date End Date Matt Arceo MD [address] [place] [facility] [address] [place] [address] PCP - General Family Medicine 04/30/22
--- OUTSIDE RECORDS SUMMARY | 2024-11-03 11:14 | XMS_ITS | Encounter Summary ---
Author Organization [employer] ([place], [place], [place], [place]) Address [address] [place] [address] Care Team Providers Care Sporting Goods Sales Manager Name Role Phone [facility], Provider Not In The System MD Primary Care Provider Unavailable Reason for Visit * Reason Onset Date Comments PA 05/19/2023 Encounter Details Date Type Department Care Team (Late st Contact Info) Description 05/19/2023 Telephone [facility] Rheumatology [address] [place] [address] Maddie Estes MD [address] [facility] [address] [place] [address] PA Social History Tobacco Use Types Packs/Day [...] Date Adalberto rded Speak language other than Beninese at home Not on file 03/26/2023 Want [...] Back OK to leave message on voicemail: PREVENTION/SAFETY DISTRICT MANAGER documented in this encounter Plan of Treatment Not on file documented as of this encounter Visit Diagnoses Not on filedocumented in this encounter Care Teams Sporting Goods Sales Manager Relationship Specialty Start Date End Date [facility], Provider Not In The System, [place] [address] PCP - General 06/26/22 documented as of this encounter
--- OUTSIDE RECORDS SUMMARY | 2024-11-03 11:14 | XMS_ITS | Referral Summary ---
Author Organization [employer] ([place], [place], [place], [place]) Address [address] [place] [address] Care Team Providers Care Station Detective Name Role Phone [facility], Provider Not In The System MD [...] Date Adalberto rded Speak language other than Tristanian at home Not on file 03/26/2023 Want [...] 1:06 AM EDT Performed at: - [facility] [address] [id number] Legal Cashier: Jerome Rebolledo PhD, Phone: [phone] us Maddie Estes MD LAB BLOOD ORDERABLES Final Resul t [facility] from Last 3 Months or Most Recently Relevant to Health Maintenance Insurance [employer]OSS[employer] SHIELD Care Teams Station Detective Relationship Specialty Start Date End Date [facility], Provider Not In The System, [place] [address] PCP - General 06/26/22
--- OUTSIDE RECORDS SUMMARY | 2024-11-03 11:14 | XMS_ITS | Encounter Summary ---
Author Organization [employer] ([place], [place], [place], [place]) Address [address] [place] [address] Care Team Providers Care High Density Finishing Operator Name Role Phone [facility], Provider Not In The System Primary Care Provider Unavailable Reason for Visit * Reason Comments Medication Refill Encounter Details Date Type Department Care Team (Late st Contact Info) Description 05/03/2024 Refill [facility] Rheumatology [address] [place] [address] Maddie Estes MD [address] [facility] [address] [place] [address] Seropositive rheumatoid arthritis of multiple sites (HCC) [...] Date Adalberto rded Speak language other than Armenian at home Not on file 03/26/2023 Want [...] (HCC) documented in this encounter Care Teams High Density Finishing Operator Relationship Specialty Start Date End Date [facility], Provider Not In The System, [place] [address] PCP - General 06/26/22 documented as of this encounter
--- OUTSIDE RECORDS SUMMARY | 2024-11-03 11:14 | XMS_ITS | Encounter Summary ---
Author Organization [facility] Address [address] [place] [address] Care Team Providers Care Lbd Teacher Name Role Phone Matt Arceo MD Primary Care Provider Encounter Details Date Type Department Care Team (Late Contact Info) Description 06/12/2024 Results Follow-Up [facility] [address] [place] [address] Lala Castaneda DO [address] [place] [address] Social History Tobacco Use Types Packs/Day Years [...] 2:00 PM EDT Office Visit [facility] [address] [place] [address] Lala Castaneda DO [address] [place], [place] [id number] Scheduled Orders Name Type Priority Associated Diagnoses [...] study documented in this encounter Care Teams Lbd Teacher Relationship Specialty Start Date End Date Matt Arceo MD [address] [place] [address] [address] PCP - General Family Medicine 04/30/22 documented as of this encounter
--- OUTSIDE RECORDS SUMMARY | 2024-11-03 11:15 | XMS_ITS | Clinical Summary ---
Author Organization [employer] ([place], [place], [place], [place]) Address [address] [place] [address] Care Team Providers Care Delivery Mgr Name Role Phone [facility], Provider Not In The System [...] Date Adalberto rded Speak language other than Austrian at home Not on file 03/26/2023 Want [...] AM EDT Performed at: 01 - [facility] [address] [id number] Shovel Operator: Jerome Rebolledo PhD, Phone: [phone] us Maddie Estes MD LAB BLOOD ORDERABLES Final Resul t [facility] from Last 3 Months or Most Recently Relevant to Health Maintenance Insurance [address] [address] [id number] [employer] Care Teams Delivery Mgr Relationship Specialty Start Date End Date [facility], Provider Not In The System, [place] [address] PCP - General 06/26/22
--- OUTSIDE RECORDS SUMMARY | 2024-11-03 11:15 | XMS_ITS | Encounter Summary ---
Author Organization [employer] ([place], [place], [place], [place]) Address [address] [place] [address] Care Team Providers Care Cushion Spring Assembler Name Role Phone [facility], Provider Not In The System MD Primary Care Provider Unavailable Reason for Visit * Reason Onset Date Comments medication refill 02/27/2022 medication refill 03/02/2022 2nd attempt Encounter Details Date Type Department Care Team (Late st Contact Info) Description 02/27/2022 Telephone [facility] Rheumatology [address] [place] [address] Maddie Estes MD [address] [facility] [address] [place] [address] medication refill; medication refill (2nd attempt) Social [...] It at her Next Follow Up . 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 She uses [facility] in [place] if something could be called in. She would rather have the tazadine, THRESHING MACHINE OPERATOR * Telephone Encounter - Debra [...] before this appointment. Please call patient at [phone] THRESHING MACHINE OPERATOR documented in this encounter Plan of Treatment Not on file documented as of this encounter Visit Diagnoses Not on filedocumented in this encounter Care Teams Cushion Spring Assembler Relationship Specialty Start Date End Date [facility], Provider Not In The System, [place] [address] PCP - General 06/26/22 documented as of this encounter
[2024-11-03 11:53] LABS: Albumin Level 4.2 g/dl (3.5-5.0); Chloride 106 mmol/L (98-107); Potassium 3.9 mmoL/L (3.5-5.1); Sodium 140 mmol/L (136-145)
[2024-11-03 11:55] LABS: Alanine Aminotransferase 22 U/L (12-78); Anion Gap 7.9 mEq/L (5-15); Aspartate Amino Transferase 30 U/L (14-36); Blood Urea Nitrogen 20 mg/dl (7-17); Carbon Dioxide 30 mmol/L (22.0-30.0); Creatinine,Serum 1.00 mg/dl (0.52-1.04); Estimated Glomerular Filt Rate 56 ml/min (>60); GFR (African American) 68 ML/MIN (>60)
[2024-11-03 11:56] LABS: Albumin/Globulin Ratio 1.9 (1.1-1.8); Alkaline Phosphatase 77 U/L (38-126); Bilirubin,Total 0.7 mg/dl (0.2-1.3); Calcium 9.5 mg/dl (8.4-10.2); Globulin 2.2 g/dL (1.3-3.2); Glucose 91 mg/dl (74-100); Total Protein,Serum 6.4 g/dl (6.3-8.2)
== END 2024-11-03 23:59 | disposition home or self-care (01) ==
LOC: LAB 11:12
PROVIDERS: PCP Physician Assistant; Visit Provider Internal Medicine Rheumatology
DX: M05.79 Rheumatoid arthritis with rheumatoid factor of multiple sites without organ or systems involvement (principal); D84.821 Immunodeficiency due to drugs; Z79.899 Other long term (current) drug therapy
CPT/HCPCS: 36415; 80053

== ENCOUNTER 2024-12-28 11:35 | Outpatient (CLI) | payer BC, SELFPAY ==
--- OUTSIDE RECORDS SUMMARY | 2024-10-06 07:30 | XMS_ITS ---
[facility] Address [address] [facility] [address] [place] [id number] Care Team Providers Care Odd Shoe Examiner Name Role Phone Ravi Jamie Primary Care Provider Siobhan Melendrez Unavailable [phone] Allergies No Known Allergies Results Component Value Reference Range Notes Mammogram Reviewed date:10/16/2024 09:23:36 AM Interpretation:Negative Performing Lab: Notes/Report: Negative result Negative CT Scan : Abd and Pelvis w/ oral & IV contrast Reviewed date:11/03/2024 05:34:33 PM Interpretation:Moderate stool burden Performing Lab: Notes/Report: Moderate stool burden REASON FOR VISIT pain in lower LT [...] elia th once daily; Duration: 90 Active Vital Signs Weight 171 lbs 10/06/2024 Blood pressure systolic 120 mm Hg 10/07/19 Blood pressure diastolic 72 mm Hg 025 Heart Rate 86 /min 10/06/2024 Height 65 in 10/06/2024 BMI 28.45 kg/m2 10/06/2024 Encounters Encounter Location Date Provider Diagnosis [facility] [address] [place] [id number] 10/06/2024 Siobhan Melendrez Left lower quadrant pain [...] iewed with patient and WBC was normal. Next Appt Details Follow Up: via phone to repo rt test results, Reason: Progress Notes * KAREEN ALVAREZOB: 2 (64 yo F)Acc No.[id number]:10/06/2024 Progress Notes Patient: KENNEDI LISA Provider: LORENZO Chamberlain :1960 A ge:63 Y S ex:Female Date:10/06/2024 Address:[facility] [address] [id number] Pcp:Jamie Rodrigues Subjective: * Chief Complaints: * 1 . pain in lower LT stomach. * HPI: G astroenterology: 63 year old female presents with c/o Abdominal Pain P t is here today with c/o having pain in her left lower side of her stomach. Pt sts she has already been to [facility] and had a vaginal ultrasound done and [...] detector use: yes. Marital Status: . Occupation: [employer]. Past smoking status: no, [...] Temp: 97.6, BP: 120/72, HR: 86, Nurse: kristin, Ht: 65, BMI:28.45. * Examination: G eneral Examination: General Appearance: N AD. C hest: n ormal shape and expansion. H eart: R SR. L ungs: c lear to auscultation. A bdomen: b owel sounds present, soft, ttp in the LLQ with mild guarding. Assessment: * Assessment: 1. L eft lower quadrant pain - R10.32 (Primary) 2 . S creening mammogram, encounter for - Z. 3 . B MT 28.0-28.9,adult - Z68.28 Plan: * Treatment: Notes: [...] * Images: Billing Information: * Visit Code: 22196 Office Visit, Est Pt., Level 3. * Procedure Codes: 1036F TOBACCO NON-USER. 3074F SYST BP LT 130 MM HG. 3078F DIAST BP < 80 MM HG. * Electronic signature of LORENZO Carcamo on 12/28/2024 at 11:39 AM EDT Sign off status: Pending * Provider: LORENZO Chamberlain Date: 0 10/06/2024 Generated for Carmina garces/Mariano/eTransmitting on: 1 11:39 AM EDT History and Physical Notes * HPI (History of Present Illness) Category Sub-Category Detail Notes Category Not es Gastroenterology Abdominal Pain Pt is here toda y with c/o having pain in her left lower side of her stomach. Pt sts she has already been to [facility] and had a vaginal ultrasound done and [...]
--- OUTSIDE RECORDS SUMMARY | 2024-10-18 12:15 | XMS_ITS ---
Author Organization [facility] Address [address] [facility] [address] [facility] [address] [place] [phone] Care Team Providers Care Treatment Specialist Name Role Phone Jamie Rodrigues Primary Care Provider Siobhan Melendrez [phone] Allergies No Known Allergies REASON FOR VISIT 3 months, Needs labs, mammogram, bone density screening, & shingles vaccine Encounters Encounter Location Date Provider Diagnosis Karena [address] [facility] [address] [facility] [address] [place] [phone] 10/18/2024 Siobhan Melendrez Plan Of Treatment No Information Progress Notes * KAREEN ANNAOB: 2 (64 yo F)Acc No.[id number]:10/18/2024 Progress Notes Patient: KENNEDI LISA Provider: LORENZO Chamberlain :1960 A ge:63 Y S ex:Female Date:10/18/2024 Address:[address] [id number] Pcp:Jamie Rodrigues Subjective: * Chief Complaints: [...] detector use: yes. Marital Status: . Occupation: [employer]. Past smoking status: no, Smoking status: Does not smoke. Recreational drug use: no. Alcohol: no, rare. Sexually active: no.. Travel ouside [place]: no. * Allergies: N .K.D.A. Objective: * Vitals: Assessment: Plan: * Treatment: * Images: Billing Information: * Visit Code: * Procedure Codes: * Electronic signature of LORENZO Carcamo on 12/28/2024 at 11:38 AM EDT Sign off status: Pending * Provider: LORENZO Chamberlain Date: 0 10/18/2024 Generated for Carmina garces/Mariano/Agus on: 1 11:38 AM EDT
--- OUTSIDE RECORDS SUMMARY | 2024-11-20 05:40 | XMS_ITS ---
Author Organization [facility] Address [address] [facility] [address] [id number] Care Team Providers Care Deputy Director Name Role Phone Jamie Rodrigues Primary Care Provider [phone] Siobhan Melendrez Unavailable [phone] REASON FOR VISIT B12 Medications Medication SIG (Take, Route, Frequency, Duration) Notes Start Date End Date Status Sulindac 200 MG 1 tablet with food [...] tablet by once daily; Duration: 90 Active Enbrel 50 MG/ML 1 mL Subcutaneous on ce a week Active Metoprolol Succinate 100 MG 1 capsule Orally Once a day; Duration: 30 days 05/24/2024 Active Zepbound 5 MG/0.5ML 0.5 mL Subcutaneous once a week; Duration: 30 days Active tiZANidine HCl 2 MG TAKE 1 TO 2 TABLETS Orally once daily as needed; Duration: 30 days Active DULoxetine HCl 60 MG 1 capsule orally on ce a day; Duration: 90 days Active Encounters Encounter Location Date Provider Diagnosis [facility] [address] [facility] [address] [place] [id number] 11/20/2024 Siobhan Melendrez B12 deficiency E53.8 Assessments Encounter Date Diagnosis (ICD Code) Assessment Notes Treatment Notes Treatment Clinical Notes Section Notes 11/20/2024 B12 deficiency (ICD-10 - E53.8) Plan Of Treatment No Information Medications Administered Medication Instructions Date of Administration Dosage Notes B-12 11/20/2024 1 mL Progress Notes * KAREEN ALVAREZOB: 2 (64 yo F)Acc No.[id number]:11/20/2024 Patient: KENNEDI LISA Provider: LORENZO Chamberlain :1960 A ge:63 Y S ex:Female Date:11/20/2024 Address:[facility] [place] [place] Pcp:Jamie Rodrigues [...] Orally once daily as needed , Taking Metoprolol Succinate 100 MG Capsule ER 24 Hour Sprinkle 1 capsule Orally Once a day , Taking Zepbound 5 MG/0.5ML Solution Auto-injector 0.5 mL Subcutaneous once a week , Taking Allopurinol 100 MG Tablet Take 1 tablet by mouth once daily , Medication List reviewed and reconciled with the patient Objective: * Vitals: Assessment: * Assessment: 1. B 12 deficiency - E53.8 (Primary) Plan: * Treatment: * Therapeutic Injections: B-12 : 1 mL (Route: Intramuscular) given by Anahi Burk on right gluteus (B12 deficiency) * Procedure Codes: J 3420 B-12, 55798 ADMINISTRATION OF INJECTION * Images: Billing Information: * Visit Code: * Procedure Codes: J3420 B-12. 94461 ADMINISTRATION OF INJECTION. * Electronic signature of LORENZO Carcamo on 12/28/2024 at 11:39 AM EDT Sign off status: Pending * Provider: LORENZO Chamberlain Date: 0 11/20/2024 Generated for Carmina garces/Mariano/Jonathanransmitting on: 1 11:39 AM EDT
--- OUTSIDE RECORDS SUMMARY | 2024-11-30 14:00 | XMS_ITS | Encounter Summary ---
Author Organization [facility] Address [address] [place] [address] Care Team Providers Care Building Rental Manager Name Role Phone Matt Arceo MD Primary Care Provider Reason for Referral * Diagnostic Imaging (Routine) - Closed Specialty Diagnoses / Procedures Referred By Contac yoan Referred To Contact Radiology Diagnoses Multiple thyroid nodules Procedures US Thyroid Lala Castaneda DO [address] [place] [address] Phone: tel: fax: Referral ID Status Reason Start Date Expiration Date Visits Re quested Visits Authorized [id number] Closed 11/30/2024 03/01/2026 1 1 Reason for Visit * Reason Comments Hypothyroidism Encounter Details Date Type Department Care Team (Late st Contact Info) Description 11/30/2024 2:00 PM EDT Office Visit [facility] [address] [place] [address] Lala Castaneda DO [address] [place] [address] Multiple thyroid nodules (Primary Dx); Nonspecific abnormal results of thyroid function study Social History Tobacco Use Types Packs/Day Years Used Date Smoking Tobacco: Never Passive Smoke Exposure: Past Smokeless Tobacco: Never Tobacco Cessation:Counseling Given: Not Answered Alcohol Use Standard Drinks/Week Comments Not Currently 0 (1 standard drink = 0.6 oz pur e alcohol) Comments No Sex and Gender Information Value Date Recorded Sex Assigned at Female 06/01/2024 12:00 PM EDT Legal Sex Female 2:29 PM EDT Gender Identity Not on file Sexual Orientation Not on file documented as of this encounter Last Filed Vital Signs Vital Sign Reading Time Taken Comments Blood Pressure 122/78 11/30/2024 1:46 PM EDT Pulse 75 11/30/2024 1:46 PM EDT Temperature - - Respiratory Rate - - Oxygen Saturation 96% 11/30/2024 1:46 PM EDT Inhaled Oxygen Concentration - - Weight 78.9 kg (174 lb) 11/30/2024 1:46 PM EDT Height 165.1 cm (5' 5 ) 11/30/2024 1:46 PM EDT Body Mass Index 28.96 11/30/2024 1:46 PM EDT documented in this encounter Progress Notes * Lala Castaneda DO - 11/30/2024 2:27 PM EDTAssociated Problem(s): Multiple thyroid nodules Largest left lobe 1.2 cm underwent FNA 01/18/2024 and was benign. Ultrasound was updated in the office today and nodules are stable to slightly decreased in size. Can repeat US in 1 year. 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 She was on levothyroxine 25 mcg daily as of March 2024 with no noted change in symptoms. The medication was stopped end of May 2024 when Tfts were normal. She has persistent fatigue - multifactorial. Other pituitary labs/workup was unremarkable. Due for labs today. * Lala Castaneda DO - 11/30/2024 2:00 PM EDT Chief Complaint Patient presents with Hypothyroidism HPI Kristin Anna is a 63 y.o. female had concerns including Hypothyroidism. Since stopping the levothyroxine she feels essentially no different. LFTS got high due to medication and have since improved and are back to normal. Due to rheum conditions has been on prednisone variably. Will do a 15 mg dose for a week and then tapers. Weight is down 20 lb since her last visit. Is intentional. Hoping to get to 160s. Prednisone scripts making this a challenge. The following portions of the patient's history were reviewed and updated as appropriate: allergies, current medications, past family history, past medical history, past social history, past surgicalhistory, and problem list. Review of Systems Constitutional: Positive for fatigue. Musculoskeletal: Positive for arthralgias. BP 122/78 Pulse 75 Ht 165.1 cm (65 ) Wt 78.9 kg (174 lb) SpO2 96% BMI 28.96 kg/m?? Physical Exam Vitals reviewed. Constitutional: Appearance: Normal appearance. Cardiovascular: Rate and Rhythm: Normal rate. Pulmonary: Effort: Pulmonary effort is normal. Neurological: General: No focal deficit present. Mental Status: She is alert. Mental status is at baseline. Psychiatric: Mood and Affect: Mood normal. Behavior: Behavior normal. LABS AND IMAGING CMP Lab Results Component Value Date GLUCOSE 89 06/09/2024 BUN 14 06/09/2024 CREATININE 0.98 06/09/2024 EGFRIFNONA 76 01/29/2021 BCR 14.3 06/09/2024 K 4.9 06/09/2024 CO2 27.0 06/09/2024 CALCIUM 9.6 06/09/2024 ALBUMIN 3.8 06/09/2024 AST 20 06/09/2024 ALT 33 06/09/2024 CBC w/DIFF Lab Results Component Value Date WBC 7.72 01/29/2021 RBC 4.62 01/29/2021 HGB 14.6 01/29/2021 HCT 44.7 01/29/2021 MCV 96.8 01/29/2021 MCH 31.6 01/29/2021 MCHC 32.7 01/29/2021 RDW 11.9 (L) 01/29/2021 RDWSD 42.1 01/29/2021 MPV 9.5 01/29/2021 PLT 273 01/29/2021 TSH Lab Results Component Value Date TSH 0.831 06/09/2024 T4 Lab Results Component Value Date FREET4 0.88 (L) 06/09/2024 Lab Results Component Value Date D3CEHUA 5.94 06/09/2024 Lab Results Component Value Date CORTISOL 16.90 06/09/2024 ACTH 22.4 06/09/2024 LH 44.70 06/09/2024 FSH 77.40 06/09/2024 ESTRADIOL 7.6 06/09/2024 JQ0YJBM 0.83 06/09/2024 PROLACTIN 20.30 06/09/2024 11/03/24 AST/ALT/ALK phos normal, Cr 1.0, GFR 56, Na 140 02/18/2024 TSH 1.52, thyroglobulin antibody normal, TPO antibody normal, 11, free T4 0.68 With lowerlimit 0.86 04/21/2024 Free T4 0.67 with lower limit 0.86, TSH 0.3 with lower limit 0.43 01/18/2024 ultrasound-guided biopsy TR 4 nodule in the left lobe of the thyroid measuring 11 mm, 4 passes, 25-gauge needle 01/06/2024 thyroid ultrasound with right lobe 4.9 x 1.9 x 1.7 cm, left lobe 5.0 x 1.8 x 1.8 cm, right lower nodule 9 x 6 x 7 mm, solid, TR 4, left midpole 1.1 x 1.2 x 0.9 cm, solid, TR 4, left lower 4 x 3 x 4 mm mixed solid and cystic, TR 3, upper right 3 x 4 x 2 mm solid, TR 4 Thyroid Ultrasound 11/30/24 Indication: thyroid nodules Comparison Imaging: US report 12/2023 Clinical History: FNA left 1.2 cm nodule 01/2024 benign Real time high resolution imaging of the thyroid gland was performed in transverse and longitudinalplanes. Previous imaging reports were reviewed if available and compared to the current to assess stability. Lobes: The right lobe measured 5.6 cm L x 1.1 cm AP x 2.4 cm in TV dimension. The isthmus measured 0.3 cm in thickness. The left thyroid lobe measured 5.6 cm L x 1.4 cm AP x 2.0 cm in TV dimension. Thyroid gland is homogeneous and contains multiple bilateral nodules. Nodule 1 located in the right lower medial lobe/isthmus and measures 0.8 x 0.5 x 0.7 cm (L X AP X TV). This nodule is solid, heterogeneous, isoechoic with well-defined margins, and Grade II vascularity on Color Flow Doppler. It has no artifacts. Nodule 2 is located in the left mid posterior lobe and measures 1.2 x 0.7 x 1.1 cm (L X AP X TV). This nodule is mixed solid and cystic, heterogeneous, hypoechoic with well-defined margins, and Grade I vascularity on Color Flow Doppler. It has no artifacts. This nodule previously measured 1.1 x 1.2 x 0.9 cm. History of benign FNA. Other subcentimeter nodules are noted bilaterally. The dominant nodules are detailed above. No pathologic lymph nodes were seen. Impression: Stable bilateral nodules. Largest on the right lobe measuring 8 mm, largest left lobe 1.2 cm, slightly decreased from the prior ultrasound. Recommendation: Repeat ultrasound in 1 year. Assessment and Plan Diagnoses and all orders for this visit: 1. Multiple thyroid nodules (Primary) Assessment & Plan: Largest left lobe 1.2 cm underwent FNA 01/18/2024 and was benign. Ultrasound was updated in the office today and nodules are stable to slightly decreased in size. Can repeat US in 1 year. Orders: - US Thyroid 2. 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 She was on levothyroxine 25 mcg daily as of March 2024 with no noted change in symptoms. The medication was stopped end of May 2024 when Tfts were normal. She has persistent fatigue - multifactorial. Other pituitary labs/workup was unremarkable. Due for labs today. Orders: - T4, Free - TSH - T4 Return in about 1 year (around 11/30/2025) for next scheduled follow up, with thyroid ultrasound 30 min appt. The patient was instructed to contact the clinic with any interval questions or concerns. Electronically signed by: Lala Castaneda DO Quill Skinner Please note that portions of this note were completed with a voice recognition program. documented in this encounter Plan of Treatment Upcoming Encounters Date Type Department Care Team (Fiorella Contact Info) Description 12/06/2025 1:30 PM EDT Office Visit [facility] [address] [facility] [address] [place] [phone] Lala Castaneda DO [address] [facility] [address] [place] [address] documented as of this encounter Procedures Procedure Name Priority Date/Time Associated Diagnosis Comments TSH Routine 11/30/2024 2:23 PM EDT Nonspecific abnormal results of thyroid function study T4, FREE Routine 11/30/2024 2:23 PM EDT Nonspecific abnormal results of thyroid function study T4 Routine 11/30/2024 2:23 PM EDT Nonspecific abnormal results of thyroid function study US THYROID Routine 11/30/2024 2:08 PM EDT Multiple thyroid nodules documented in this encounter Results * T4 (11/30/2024 2:23 PM EDT) T4, Total 6.45 4.50 - 11.70 mcg/dL 12/01/2024 3:02 AM EDT [facility] Blood Structure of left upper limb / Unknown Venipuncture / Unknown 11/30/2024 2:23 PM EDT 11/30/2024 2:24 PM EDT Narrative [facility] - 12/01/2024 3:02 AM EDT The concentration of Total T4 in samples from women is erroneously low (20%) when measured using the access Total T4 Assay. Erroneously low results could mask hyperthyroidism. Do not use the Access Total T4 assay as the only marker for evaluating patients for thyroid disorders. us Lala Castaneda DO LAB BLOOD ORDERABLES María l Result [facility]
[address] [facility] [place] [address], [place] [phone] * TSH (11/30/2024 2:23 PM EDT) TSH 0.754 0.270 - 4.200 uIU/mL 12/01/2024 3:02 AM EDT [facility] Blood Structure of left upper limb / Unknown Venipuncture / Unknown 11/30/2024 2:23 PM EDT 11/30/2024 2:24 PM EDT Lala [employer] DO LAB BLOOD ORDERABLES María l Result [facility]
[address] [place] [address], * T4, Free (11/30/2024 2:23 PM EDT) Free T4 1.06 0.92 - 1.68 ng/dL 12/01/2024 3:02 AM EDT [facility] Blood Structure of left upper limb / Unknown Venipuncture / Unknown 11/30/2024 2:23 PM EDT 11/30/2024 2:24 PM EDT Lala Abrams [employer] DO LAB BLOOD ORDERABLES María l Result [facility]
[address] [place] [address], * US Thyroid (11/30/2024 2:08 PM EDT) Narrative SYSTEMGENERATED, DOCUMENTATION - 11/30/2024 2:08 PM EDT Please see performing physician's note for result. Lala Abrams Pacitti DO IMG US ORDERABLES Final R esult documented in this encounter Visit Diagnoses Diagnosis Multiple thyroid nodules- Primary Nontoxic multinodular goiter Nonspecific abnormal results of thyroid function study documented in this encounter Care Teams Building Rental Manager Relationship Specialty Start Date End Date Matt Arceo MD [address] [facility] [address] [facility] [address] [place] [address] PCP - General Family Medicine 04/30/22 documented as of this encounter
--- OUTSIDE RECORDS SUMMARY | 2024-11-30 14:08 | XMS_ITS | Encounter Summary ---
Author Organization [facility] Address [address] [place] [address] Care Team Providers Care Brick Washer Name Role Phone Matt Arceo MD Primary Care Provider Reason for Visit * Diagnostic Imaging (Routine) - Closed Specialty Diagnoses / Procedures Referred By Contac yoan Referred To Contact Radiology Diagnoses Multiple thyroid nodules Procedures US Thyroid Lala Castaneda, DO [address] [facility] [address] [place] [address] Phone: tel: fax: Referral ID Status Reason Start Date Expiration Date Visits Re quested Visits Authorized [id number] Closed 11/30/2024 03/01/2026 1 1 Encounter Details Date Type Department Care Team (Late Contact Info) Description 11/30/2024 2:08 PM EDT Hospital Encounter [facility] [address] [facility] [address] [place] [phone] Social History Tobacco Use Types Packs/Day Years [...] Department Care Team (Late Contact Info) Description 12/06/2025 1:30 PM EDT Office Visit [facility] [address] [facility] [address] [place] [address] Lala Castaneda DO [address] [facility] [address] [place] [address] documented as of this encounter Procedures Procedure Name Priority Date/Time Associated Diagnosis Comments US THYROID Routine 11/30/2024 2:08 PM EDT Multiple thyroid nodules documented in this encounter Results * US Thyroid (11/30/2024 2:08 PM EDT) Narrative SYSTEMGENERATED, DOCUMENTATION - 11/30/2024 2:08 PM EDT Please see performing physician's note for result. us Lala Castaneda DO IMG US ORDERABLES Final R esult documented in this encounter Visit Diagnoses Not on filedocumented in this encounter Care Teams Brick Washer Relationship Specialty Start Date End Date Matt Arceo MD [address] [facility] [address] [place] [address] PCP - General Family Medicine 04/30/22 documented as of this encounter
--- OUTSIDE RECORDS SUMMARY | 2024-12-20 06:00 | XMS_ITS ---
Author Organization [facility] Address [address] [facility] [address] [id number] Care Team Providers Care Chemical Plant Operator Name Role Phone Jamie Rodrigues Primary Care Provider [phone] Siobhan Melendrez Unavailable [phone] REASON FOR VISIT B12 Medications Medication SIG (Take, Route, Frequency, Duration) Notes Start Date End Date Status Zepbound 7.5 MG/0.5ML 0.5 mL Subcutaneou s once a week; Duration: 30 days 12/18/2024 Active Metoprolol Succinate ER 100 MG Take 1 tablet by mouth once daily; Duration: 30 Active tiZANidine HCl 2 MG TAKE 1 TO 2 TABLETS Orally once daily as needed; Duration: 30 days Active DULoxetine HCl 60 MG 1 capsule orally on ce a day; Duration: 90 days Active Allopurinol 100 MG Take 1 tablet by elia once daily; Duration: 90 Active Sulindac 200 MG 1 tablet with food O rally Twice a day; Duration: 30 day(s) Active Leflunomide 20 MG 1 tablet Orally Once a day; Duration: 30 day(s) Active Horizant 600 MG 1 tablet in the even ing (5pm) with food Orally Once a day; Duration: 30 day(s) Active Linzess 145 MCG 1 cap(s) Orally once a day; Duration: 90 days Active Albuterol Sulfate HFA 108 (90 Base) MCG/ACT 1 puff as needed Inhalation every 4 hrs, prn 07/21/2023 Active Enbrel 50 MG/ML 1 mL Subcutaneous on ce a week Active Encounters Encounter Location Date Provider Diagnosis [facility] [address] [place] [id number] 12/20/2024 Siobhan Melendrez B12 deficiency E53.8 Assessments Encounter Date Diagnosis (ICD Code) Assessment Notes Treatment Notes Treatment Clinical Notes Section Notes 12/20/2024 B12 deficiency (ICD-10 - E53.8) Plan Of Treatment No Information Medications Administered Medication Instructions Date of Administration Dosage Notes B-12 12/20/2024 1 mL Progress Notes * KAREEN ALVAREZOB: 2 (64 yo F)Acc No.[id number]:12/20/2024 Patient: Bertha GHOSH KENNEDI Provider: LORENZO Chamberlain :1960 A ge:64 Y S ex:Female Date:12/20/2024 Address:[facility] [address] [place] Pcp:Jamie Rodrigues Subjective: * Chief Complaints: * 1 . B12. * Medical History: A sthma, Allergic rhinitis, Depression, Left ACL tear 1976, repaired 1995. * Medications: T aking Enbrel 50 MG/ML [...] Orally once daily as needed , Taking Allopurinol 100 MG Tablet Take 1 tablet by mouth once daily , Taking Metoprolol Succinate ER 100 MG Tablet Extended Release 24 Hour Take 1 tablet by mouth once daily , Taking Zepbound 7.5 MG/0.5ML Solution Auto-injector 0.5 mL Subcutaneous once a week , Medication List reviewed and reconciled with the patient Objective: * Vitals: Assessment: * Assessment: 1. B 12 deficiency - E53.8 (Primary) Plan: * Treatment: * Therapeutic Injections: B-12 : 1 mL (Route: Intramuscular) given by DARCIE Cantu on left deltoid (B12 deficiency) * Procedure Codes: J 3420 B-12, 56091 ADMINISTRATION OF INJECTION * Images: Billing Information: * Visit Code: * Procedure Codes: J3420 B-12. 58816 ADMINISTRATION OF INJECTION. * Electronic signature of LORENZO Carcamo on 12/28/2024 at 11:38 AM EDT Sign off status: Pending * Provider: LORENZO Chamberlain Date: Generated for Carmina garces/Mariano/Agus on: 11:38 AM EDT
--- OUTSIDE RECORDS SUMMARY | 2024-12-28 11:38 | XMS_ITS | Clinical Summary ---
Author Organization [facility] Address [address] [place] [address] Care Team Providers Care Bookkeeper Name Role Phone William Boles MD Primary Care Provider [phone] Allergies No known active allergies Medications allopurinol [...] (one) time each day. Active HYDROcodone-jules taminophen ([place]) 5-325 MG tablet Take 1 tablet by [...] 12/05/2011 [facility]-Zoster Vaccines (1 of 2) 12/05/2011 [id number] Vaccine ( - 2025-26 season) 2024 04/15/2021, 07/12/2020, 06/12/2020 [facility]-Influenza Vaccine (#1) 2024 [...] this topic Insurance CELESTE ANTHEM Care Teams Bookkeeper Relationship Specialty Start Date End Date William Boles MD [address] [place] [address] PCP - General 07/26/20
--- OUTSIDE RECORDS SUMMARY | 2024-12-28 11:38 | XMS_ITS | Encounter Summary ---
Author Organization [facility] Address [address] [place] [address] Care Team Providers Care Magneto Electrician Name Role Phone Matt Arceo MD Primary Care Provider Encounter Details Date Type Department Care Team (Latest Contact Info) Description 11/30/2024 Travel Social History Tobacco Use Types Packs/Day Years [...] Care Team (Late st Contact Info) Description 12/06/2025 1:30 PM EDT Office Visit [facility] [address] [place] [address] PacLala ruiz, [address] [place], [place] [address] documented as of this encounter Visit Diagnoses Not on filedocumented in this encounter Care Teams Magneto Electrician Relationship Specialty Start Date End Date Matt Arceo MD [address] [place] [address] PCP - General Family Medicine 04/30/22 documented as of this encounter
--- OUTSIDE RECORDS SUMMARY | 2024-12-28 11:38 | XMS_ITS | Encounter Summary ---
Author Organization [facility] Address [address] [place] [address] Care Team Providers Care Vrt Mechanic Name Role Phone Matt Arceo MD Primary Care Provider Encounter Details Date Type Department Care Team (Late Contact Info) Description 06/12/2024 Results Follow-Up [facility] [address] [place] [address] Lala Castaneda DO [address] [place] [address] Social History Tobacco Use Types Packs/Day Years [...] Description 12/06/2025 1:30 PM EDT Office Visit [facility] [address] [place] [address] Lala Castaneda DO [address] [place], [place] [id number] documented as of this encounter Visit Diagnoses Diagnosis Multiple thyroid nodules- Primary Nontoxic multinodular goiter Nonspecific abnormal results of thyroid function study documented in this encounter Care Teams Vrt Mechanic Relationship Specialty Start Date End Date Matt Arceo MD [address] [place] [address] PCP - General Family Medicine 04/30/22 documented as of this encounter
--- OUTSIDE RECORDS SUMMARY | 2024-12-28 11:38 | XMS_ITS | Encounter Summary ---
Author Organization [facility] Address [address] [place] [address] Care Team Providers Care Manager Tax Name Role Phone Matt Arceo MD Primary Care Provider Encounter Details Date Type Department Care Team (Late Contact Info) Description 2024 Results Follow-Up [facility] [address] [place] [address] Lala Castaneda DO [address] [place] [address] Social History Tobacco Use Types Packs/Day Years [...] Description 12/06/2025 1:30 PM EDT Office Visit [facility] [address] [place] [address] Lala Castaneda DO [address] [place], [place] [id number] documented as of this encounter Visit Diagnoses Not on filedocumented in this encounter Care Teams Manager Tax Relationship Specialty Start Date End Date Mtat Arceo MD [address] [facility] [address] [facility] [address] [place] [address] PCP - General Family Medicine 04/30/22 documented as of this encounter
--- OUTSIDE RECORDS SUMMARY | 2024-12-28 11:38 | XMS_ITS | Clinical Summary ---
Author Organization [facility] Address [address] [place] [address] Care Team Providers Care Tree Farmer Name Role Phone Matt Arceo MD Primary Care Provider Allergies No known active allergies Medications DULoxetine (CYMBALTA) 60 MG capsule Take 2 capsules by mouth Daily. Active allopurinol (ZYLOPRIM) 100 MG tablet Take 1 tablet by mouth Daily. 03/23/19 23 Active Horizant 600 MG tablet controlled-rel ease Take 600 mg by mouth Every 12 (Twelve) Hours. 05/09/19 25 Active metoprolol succinate XL (TOPROL-XL) 100 MG 24 hr tablet Take 1 tablet by mouth Daily. Active albuterol sulfate HFA 108 (90 Base) MCG/ACT inhaler Inhale 2 puffs As Needed. 03/20/19 25 Active Black Cohosh 40 MG capsule Take 40 mg by mouth 2 (Two) Times a Day. Takes in the morning Active Etanercept (Enbrel) 25 MG/0.5ML injection 07/29/19 25 Active Zepbound 5 MG/0.5ML solution auto-injector INJECT 1 AUTO-INJECTOR SUBCUTANEOUSLY ONCE A WEEK Active Linzess 145 MCG capsule capsule Take 1 capsule by mouth Daily. 05/04/19 23 025 Discontinu ed(Histori hayder Med - Therapy completed) sulindac (CLINORIL) 200 MG tablet 04/30/19 23 025 Discontinu ed(Histori hayder Med - Therapy completed) leflunomide (ARAVA) 20 MG tablet Take 1 tablet by mouth Daily. 06/03/19 025 Discontinu ed(*Therap y completed) tiZANidine (ZANAFLEX) 2 MG tablet Take 2 tablets by mouth Every Night. 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 She was on levothyroxine 25 mcg daily as of March 2024 with no noted change in symptoms. The medication was stopped end of May 2024 when Tfts were normal. She has persistent fatigue - multifactorial. Other pituitary labs/workup was unremarkable. Due for labs today. Multiple thyroid nodules 06/08/2024 Assessment & Plan (11/30/2024 2:27 PM EDT): Largest left lobe 1.2 cm underwent FNA 01/18/2024 and was benign. Ultrasound was updated in the office today and nodules are stable to slightly decreased in size. Can repeat US in 1 year. S/P abdominoplasty 01/31/2021 Encounters Date Type Department Care Team Description 2024 Results Follow-Up [facility] [address] [place] [address] Lala Castaneda DO 11/30/2024 2:08 PM EDT Hospital Encounter [facility] [address] [place] [address] 11/30/2024 2:00 PM EDT Office Visit [facility] [address] [place] [address] Lala Castaneda DO Multiple thyroid nodules (Primary Dx); Nonspecific abnormal results of thyroid function study 11/30/2024 Travel from Last 3 Months Family History Medical History Relation Name Comments Thyroid disease Brother Matt Padilla Cancer Father Ganga Padilla Arthritis Mother Merna Padilla Cancer Mother Merna Padilla Colon pituitary adenoma Mother Merna Padilla Thyroid disease [...] Pulse 75 11/30/2024 1:46 PM EDT Temperature 36.1 C (96.9 F) 05/19/2022 8:40 AM EST Respiratory Rate 16 02/01/2021 11:00 AM EST Oxygen Saturation 96% 11/30/2024 1:46 PM EDT Inhaled Oxygen Concentration - - Weight 78.9 kg (174 lb) 11/30/2024 1:46 PM EDT Height 165.1 cm (5' 5 ) 11/30/2024 1:46 PM EDT Body Mass Index 28.96 11/30/2024 1:46 PM EDT Plan of Treatment Upcoming Encounters Date Type Department Care Team (Late st Contact Info) Description 12/06/2025 1:30 PM EDT Office Visit [facility] [address] [place] [id number] Lala Castaneda, [address] [place] [address] Health Maintenance Due Date Last Done Comments Annual Gynecologic Pelvic and Breast Exam 1961 MAMMOGRAM 2001 COLOGUARD 2006 COLON CANCER SCREENING 5 YEA R SIGMOIDOSCOPY 2006 COLONOSCOPY [address] CANCER SCREENING 2006 CT COLONOGRAPHY 2006 FECAL OCCULT BLOOD TEST 2006 FIT Testing (1 year) 2006 Pneumococcal Vaccine 50+ (1 of 1 - PCV) 12/05/2011 ANNUAL PHYSICAL 01/27/2021 ZOSTER VACCINE (2 of 2) 04/28/2023 03/03/2023 INFLUENZA VACCINE 10/13/2024 03/09/2024, 12/12/2020 TDAP/TD VACCINES (2 - Td or Tdap) 04/20/2028 019 HEPATITIS C SCREENING Completed 05/21/2022 Procedures Procedure Name Priority Date/Time Associated Diagnosis Comments T4 Routine 11/30/2024 2:23 PM EDT Nonspecific abnormal results of thyroid function study TSH Routine 11/30/2024 2:23 PM EDT Nonspecific abnormal results of thyroid function study T4, FREE Routine 11/30/2024 2:23 PM EDT Nonspecific abnormal results of thyroid function study US THYROID Routine 11/30/2024 2:08 PM EDT Multiple thyroid nodules from Last 3 Months Results * TSH (11/30/2024 2:23 PM EDT) TSH 0.754 0.270 - 4.200 uIU/mL 12/01/2024 3:02 AM EDT [facility] Blood Structure of left upper limb / Unknown Venipuncture / Unknown 11/30/2024 2:23 PM EDT 11/30/2024 2:24 PM EDT us Lala Castaneda DO LAB BLOOD ORDERABLES María flanagan Result [facility]
[address] [place] [address], * T4, Free (11/30/2024 2:23 PM EDT) Pathologist [facility] Free T4 1.06 0.92 - 1.68 ng/dL 12/01/2024 3:02 AM EDT [facility] Blood Structure of left upper limb / Unknown Venipuncture / Unknown 11/30/2024 2:23 PM EDT 11/30/2024 2:24 PM EDT Lala Danielekim Tonya LAB BLOOD ORDERABLES María l Result Performing Organization Address [facility] de Phone Number [facility]
[address] [place] [address], * T4 (11/30/2024 2:23 PM EDT) [facility] T4, Total 6.45 4.50 - 11.70 mcg/dL 12/01/2024 3:02 AM EDT [facility] Blood Structure of left upper limb / Unknown Venipuncture / Unknown 11/30/2024 2:23 PM EDT 11/30/2024 2:24 PM EDT Narrative [facility] - 12/01/2024 3:02 AM EDT The concentration of Total T4 in samples from women is erroneously low (20%) when measured using the access Total T4 Assay. Erroneously low results could mask hyperthyroidism. Do not use the Access Total T4 assay as the only marker for evaluating patients for thyroid disorders. Lala Aliza Castaneda DO LAB BLOOD ORDERABLES María l Result Performing Organization Address [facility] de Phone Number [facility]
[address] [place] [address], * US Thyroid (11/30/2024 2:08 PM EDT) Narrative SYSTEMGENERATED, DOCUMENTATION - 11/30/2024 2:08 PM EDT Please see performing physician's note for result. Lala Castaneda DO G US ORDERABLES Final R esult from Last 3 Months Insurance [employer] [id number] [employer] Member Subscriber Plan / Payer ( fective 2020-Present) Name:Karolyn Annay Padilla Relation to Subscriber:Self Name:Kristin Annakins Payer ID:[id number] (NAIC) Type:Not on file Address: [phone] PPO Care Teams Tree Farmer Relationship Specialty Start Date End Date Matt Arceo MD [address] [facility] [address] [place] [id number] PCP - General Family Medicine 04/30/22
--- OUTSIDE RECORDS SUMMARY | 2024-12-28 11:38 | XMS_ITS | Encounter Summary ---
Author Organization [employer] ([place], [place], [place], [place]) Address [address] [place] [address] Care Team Providers Care Bag Washer Name Role Phone [facility], Provider Not In The System Primary Care Provider Unavailable Reason for Visit * Reason Comments Medication Refill Encounter Details Date Type Department Care Team (Late st Contact Info) Description 05/03/2024 Refill [facility] [address] [place] [address] Maddie Estes MD [address] [facility] [address] [place] [address] Seropositive rheumatoid arthritis of multiple sites (HCC) [...] Date Adalberto rded Speak language other than Bahamian at home Not on file 03/26/2023 Want [...] (HCC) documented in this encounter Care Teams Bag Washer Relationship Specialty Start Date End Date Kym, Provider Not In The System, [place] [address] PCP - General 06/26/22 documented as of this encounter
--- OUTSIDE RECORDS SUMMARY | 2024-12-28 11:38 | XMS_ITS | Referral Summary ---
Author Organization [employer] ([place], [place], [place], [place]) Address [address] [place] [address] Care Team Providers Care Ict Project Manager Name Role Phone [facility], Provider Not In The System MD Primary [...] Date Adalberto rded Speak language other than Libyan at home Not on file 03/26/2023 Want [...] AM EDT Performed at: - [facility] [address] [id number] Manager Program: Jerome Rebolledo PhD, Phone: [phone] us Maddie Estes MD LAB BLOOD ORDERABLES Final Resul t [facility] from Last 3 Months or Most Recently Relevant to Health Maintenance Insurance [employer] Care Teams Ict Project Manager Relationship Specialty Start Date End Date [facility], Provider Not In The System, [place] [address] PCP - General 06/26/22
--- NOTE | 2024-12-28 11:39 | XR_ITS ---
FINAL REPORT CLINICAL HISTORY: L-SPNE ANS C-SPINE AP AND LATERAL, LUMBAR BACK OAIN WITH RADICULOPATHY EXTENDING DOWN LT LEG, ALSO LT SIDE NECK PAIN FINDINGS: CERVICAL SPINE Four views were obtained. There is no acute fracture. There is anterolisthesis of C3 on 4. There is advanced degenerative disc disease, most pronounced at C4-5 and C5-6. There is mild compression deformity of C5, likely chronic. IMPRESSION: Degenerative and chronic appearing findings. LUMBAR SPINE Five views were obtained. There is no acute fracture. There is grade 1 anterior spondylolisthesis of L4 on 5 and L5 on S1 with degenerative disc disease, most pronounced at these levels. Large amount of stool burden is identified. IMPRESSION: Multilevel degenerative disc disease. Reviewed, Interpreted and Dictated by Emmy Rainey MD Transcribed by Anitra Ochoa Authenticated and . [facility]
--- OUTSIDE RECORDS SUMMARY | 2024-12-28 11:39 | XMS_ITS | Patient Health Record ---
[facility] [address] [place] [id number] Care Team Providers Care Hand Roller Engraver Name Role Phone Jamie Rodrigues Primary Care Provider Cherry Carson Unavailable [phone] Siobhan Melendrez Unavailable [phone] Allergies No Known Allergies Results Component Value Reference Range Notes P-B12 and Folate Reviewed date:01/04/2024 01:21:10 PM Interpretation: Performing Lab: Notes/Report: CLIA: [id number] Klever Anne MD, Apartment Assistant Manager [address] [place] [address] , [place] [address] Test performed by [employer] Vitamin B12 1827 748-7357 pg/mL Folate 8.62 >4.59 ng/mL P-Comprehensive Metabolic Pa sola (CMP) Reviewed date:01/04/2024 01:21:36 PM Interpretation: Performing Lab: Notes/Report: Test performed by [employer] [address] [place] [address] , [place] [address] Klever Anne MD, Apartment Assistant Manager CLIA: [id number] Sodium 131 135-145 mmol/L Potassium 5.0 3.5-5.3 [...] 0.5 <0.2-1.2 mg/dL A/G Ratio 1.8 1.1-2.5 P-T4 (Thyroxine) Reviewed date:01/04/2024 01:27:43 PM Interpretation:8.78 Performing Lab: Notes/Report: Test performed by [employer] [address] [place] [address] , [address], [place] [address] Klever Anne MD, Apartment Assistant Manager CLIA: [id number] Thyroxine (T4) 8.78 4.50-11.70 ug/dL P-TSH Reviewed date:01/04/2024 01:21:56 PM Interpretation:6.54 Performing Lab: Notes/Report: Test performed by [employer] [address] [place] [address] , [address], [place] [address] Klever Anne MD, Apartment Assistant Manager CLIA: [id number] TSH 6.54 0.43-5.25 mU/L ultrasound : thyroid Reviewed date:01/10/2024 12:55:30 PM Interpretation:Abnormal Performing Lab: Notes/Report: Abnormal H-CBC Reviewed date:01/10/2024 12:26:25 PM Interpretation:wbc 20.6, [...] Performing Lab: Notes/Report: MG 2.0 1.6-2.3 mg/dl Urinalysis - Inhouse Reviewed date:01/21/2024 11:41:53 AM [...] - 38 plat 403 100 - 400 Covid test (in house) Reviewed date:03/23/2024 03:57:44 PM Interpretation: Performing Lab: Notes/Report: Result: Neg Influenza Screen (in house) Reviewed date:03/23/2024 03:57:44 PM Interpretation: Performing Lab: Notes/Report: results Neg H-DIFF Reviewed date:01/10/2024 12:26:25 PM Interpretation:neut 89, [...] burden Performing Lab: Notes/Report: Moderate stool burden P-TSH Reviewed date:02/18/2024 01:08:59 PM Interpretation:Normal Performing Lab: Notes/Report: CLIA: [id number] Klever Anne MD, Apartment Assistant Manager [address] [place] [address] , [address], [place] [address] Test performed by [employer] TSH 1.52 0.43-5.25 mU/L P-Thyroid Antibody Panel (TA BS) Reviewed date:02/18/2024 01:08:59 PM Interpretation:Normal Performing Lab: Notes/Report: Test performed by [employer] [address] [place] [address] , [address], [place] [address] Klever Anne MD, Apartment Assistant Manager CLIA: [id number] Thyroid Peroxidase Antibody 11 <9-34 IU/mL An [...] Interpretation:0.68 Performing Lab: Notes/Report: Test performed by [employer] [address] [place] [address] , [place] [address] Klever Anne MD, Apartment Assistant Manager CLIA: [id number] Thyroxine Free (free T4) 0.68 0.86-1.76 ng/dL P-Comprehensive Metabolic Pa sola (CMP) Reviewed date:02/18/2024 01:08:59 PM Interpretation:gluc 101, alk phos 129 Performing Lab: Notes/Report: Test performed by [employer] [address] [place] [address] , [address], [place] [address] Klever Anne MD, Apartment Assistant Manager CLIA: [id number] Sodium 141 135-145 mmol/L Potassium 4.3 3.5-5.3 [...] - 38 platlet 350 100 - 400 EKG with rhythm strip Reviewed date:02/16/2024 01:38:06 PM Interpretation:borderline Performing Lab: Notes/Report: borderline CXR Reviewed date:02/16/2024 01:37:58 PM Interpretation:nothing acute Performing Lab: Notes/Report: nothing acute CBC Venipuncture (in house) Reviewed date:01/03/2024 01:04:07 [...] Gluc neg Influenza Screen (in house) Reviewed date:05/25/2024 04:24:55 PM Interpretation: Performing Lab: Notes/Report: results Neg Covid test (in house) Reviewed date:05/25/2024 08:09:59 AM Interpretation: Performing Lab: Notes/Report: Result: Pos P-T4 Free (thyroxine) Reviewed date:05/03/2024 02:06:56 PM Interpretation:low Performing Lab: Notes/Report: CLIA: [id number] Klever Anne MD, Apartment Assistant Manager [address] [place] [address] , [address], [place] [address] Test performed by [employer], [facility] Thyroxine Free (free T4) 0.67 0.86-1.76 ng/dL P-TSH reflex to FT4 Reviewed date:05/03/2024 02:06:46 PM Interpretation:low Performing Lab: Notes/Report: Test performed by [employer], [employer] [address] [place] [address] , [address], [place] [address] Klever Anne MD, Apartment Assistant Manager CLIA: [id number] TSH reflex to FT4 0.30 0.43-5.25 mU/L H-BUN/CREAT Reviewed date:10/27/2024 05:04:22 PM Interpretation: Performing Lab: Notes/Report: BUN 13 7-17 mg/dl CREATT 0.90 0.52-1.04 mg/dl GFRAA 77 >60 ML/MIN EGFR 63 >60 ml/min Medications Medication SIG (Take, Route, Frequency, Duration) Notes Start Date End Date Status DULoxetine HCl 60 MG 1 capsule orally on ce a day; Duration: 90 days Active Albuterol Sulfate HFA 108 (90 Base) MCG/ACT 1 puff as needed Inhalation every 4 hrs, prn 07/21/2023 Active Metoprolol Succinate ER 100 MG Take 1 tablet by mouth once daily; Duration: 30 Active Allopurinol 100 MG Take 1 tablet by elia th once daily; Duration: 90 Active Cyclobenzaprine HCl 10 MG 1/2 - 1 tab at bedtime Orally Once a day as needed 12/28/2024 Active Horizant 600 MG 1 tablet in the even ing (5pm) with food Orally Once a day; Duration: 30 day(s) Active Orencia 50 MG/0.4ML as directed Subcutaneous Active traMADol HCl 50 MG 1 tablet as needed Orally every 8 hrs Active Zepbound 7.5 MG/0.5ML 0.5 mL Subcutaneou s once a week; Duration: 30 days 12/18/2024 Active predniSONE 5 MG (48) as directed Orally Active Immunizations Vaccine Route Administration Date Status [...] Status W/U Status Risk Notes Problem Radiculopathy (47330028) Radiculopathy (729.2) Active confirmed Problem Gout (47829581) Gout NOS (274.9) Active confirm ed Problem Allergic rhinitis (49142404) ALLERGIC RHINITIS NOS (477.9) Active confirmed Problem Asthma (045518762) ASTHMA NOS (493.90) Active c onfirmed Problem Insomnia (635515558) Insomnia (G47.00) Active c onfirmed Problem Vitamin D deficiency (14758936) Vitamin D deficiency (E55.9) Active confirmed Problem Essential hypertension (27483850) Essential hypertension (I10) Active confirmed Problem Morbid obesity (113153799) Morbid obesity (E66.01) Active confirmed Problem Vitamin B12 deficiency (non anemic) (68703780) B12 deficiency (E53.8) Active confirmed Problem Sciatic nerve lesion (054092645) Piriformis syndrome of right side (G57.01) Active confirmed Problem Asthma (542814954) Asthma (J45.909) Active conf irmed Problem Paresthesia (04995392) Paresthesia (R20.2) Active confirmed Problem Obesity (245525778) Obesity (E66.9) Active conf irmed Problem Mixed anxiety and depressive disorder (920634059) Depression with anxiety (F41.8) Active confirmed Problem Restless legs syndrome (17229195) Restless leg syndrome (G25.81) Active confirmed Problem Sciatica (61290310) Sciatica of left side (M54.32) Active confirmed Problem Increased blood leukocyte number (826683137) Other elevated white blood cell count (D72.828) Active confirmed Problem Mixed hyperlipidemia (006042317) Mixed hyperlipidemia (E78.2) Active confirmed Problem Insomnia (667485879) Other insom tiffanie (G47.09) Active confirmed Problem Paresthesia (finding ) (14069350) Paresthesia of skin (R20.2) Active confirmed Problem Obesity (360129693) Obesity (BMI 30-39.9) (E66.9) Active confirmed Problem Thyroid nodule (805338630) Thyroid nodule (E04.1) Active confirmed Problem Left ventricular hypertrophy (95310972) Left ventricular hypertrophy (I51.7) Active confirmed Problem Restless legs (69873005) Restless leg (G25.81) Active confirmed Problem Constipation (34150428) Constipation, unspecified constipation type (K59.00) Active confirmed Problem Depression (922299586) Depression (F32.9) Active confirmed Problem Neck pain (31734458) Neck pain (M54.2) Active c onfirmed Problem Gout (99258411) Gout, unspecifie d cause, unspecified chronicity, unspecified site (M10.9) Active confirmed Problem Polyarthritis (855497423) Polyarthritis (M13.0) Active confirmed Problem Rheumatoid arthritis (95097503) Rheumatoid arthritis (M06.9) Active confirmed Problem Body mass index 30.0 0 to 34.99 (583591076094693) BMI 31.0-31.9,adult (Z68.31) Active confirmed Problem Hypersomnia (07260875) Hypersomnia (G47.10) Active confirmed Problem Skin sensation disturbance (43384085) Paresthesia of both feet (R20.2) Active confirmed Problem Restless legs (49125191) RLS (restless legs syndrome) (G25.81) Active confirmed Problem Leucocytosis (300251935) Leucocytosis (D72.829) Active confirmed Problem Osteoarthritis (133458095) Osteoarthritis, unspecified osteoarthritis type, unspecified site (M19.90) Active confirmed Problem Pure hypercholesterolemia (735983969) Pure hypercholesterolemia (E78.00) Active confirmed Problem Irritable bowel syndrome characterized by constipation (662469038) Irritable bowel syndrome with constipation (K58.1) Active confirmed Problem Sexual dysfunction (41649194) Sexual dysfunction (R37) Active confirmed Problem Artificial knee join t present (620844277113) Status post left knee replacement (Z96.652) Active confirmed Problem Rotator cuff arthropathy of left shoulder (58638383615911951) Rotator cuff arthropathy of left shoulder (M12.812) Active confirmed Problem Lumbar radiculopathy (089445076) Lumbar back pain with radiculopathy affecting left lower extremity (M54.16) Active confirmed Problem Artificial knee join t present (341776319275) Artificial knee joint present, unspecified laterality (Z96.659) Active confirmed Problem Imaging of thyroid gland abnormal (finding) (346094264) Abnormal thyroid ultrasound (R93.89) Active confirmed Problem Dyskinesia (8220991) Dyskinesia (G24.9) Active confirmed Problem Neuropathy of upper limb (297122317) 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) Active confirmed Problem Cervical arthritis (568947630) Cervical arthritis (M47.812) Active confirmed Problem 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) Active confirmed Problem Cervical radiculopathy (17495957) Radiculopathy, cervical (M54.12) Active confirmed Problem Sciatic nerve lesion (533542171) Bilateral piriformis syndrome (G57.03) Active confirmed Problem Obese class II (finding) (658903363602263) Obesity, Class II, BMI 35-39.9 (E66.9) Active confirmed Vital Signs Heart Rate 73 /min 12/28/2024 Blood pressure diastolic 70 mm Hg 12/28/2024 Height 65 in 12/28/2024 Blood pressure systolic 126 mm Hg 12/28/2024 Weight 174.2 lbs 12/28/2024 BMI 28.99 kg/m2 12/28/2024 Encounters Encounter Location Date Provider Diagnosis [facility] [address] [id number] 12/31/2023 Siobhan Crowheike Obesity (BMI 30-39.9 ) E66.9 ; B12 deficiency E53.8 ; Hypotension due to drugs I95.2 and Other insomnia G47.[address] [facility] [address] [id number] 01/03/2024 Cherry Carson Abnormal thyroid function test R94.6 ; Abnormal thyroid exam R94.6 ; Vitamin B 12 deficiency E53.8 ; Leucocytosis D72.829 ; Renal insufficiency N28.9 ; Neuropathy of left upper extremity G56.92 ; Cervical arthritis M47.812 ; Radiculopathy, cervical M54.12 ; Dental disorder K08.9 ; Obesity E66.9 ; Hypotension I95.9 and Rheumatoid arthritis M06.[address] [facility] [address] [place] [id number] 01/05/2024 Siobhan Crowdy Renal insufficiency N28.9 ; Thyroid function study abnormality R94.6 ; Restless leg G25.81 and Leucocytosis D72.829 [facility] [address] [place] [id number] 01/07/2024 Siobhan Crowdy B12 deficiency E53.8 [facility] [address] [facility] [address] [place], [place] [id number] 01/14/2024 Siobhan Crowdy B12 deficiency E53.8 and Pre-op exam Z01.818 [facility] [address] [facility] [address] [place], [place] [id number] 01/21/2024 Siobhan Crowdy Other elevated white blood cell count D72.828 ; Abnormal urinalysis R82.90 ; S/P thyroid biopsy Z98.890 and B12 deficiency E53.8 [facility] [address] [place], [place] [id number] 01/28/2024 Siobhan Crowdy B12 deficiency E53.8 [facility] [address] [facility] [address] [place] [id number] 02/04/2024 Siobhan Crowdy B12 deficiency E53.8 [facility] [address] [facility] [address] [place] [id number] 02/11/2024 Siobhan Crowdy Thyroid nodule E04.1 ; Hot flashes R23.2 and Abnormal TSH R79.89 [facility] [address] [facility] [address] [place] [id number] 02/25/2024 Siobhan Crowdy Thyroid nodule E04.1 ; Abnormal thyroid blood test R79.89 and Neck muscle spasm M62.838 [facility] [address] [facility] [address] [place], [place] [id number] 03/03/2024 Siobhan Crowdy B12 deficiency E53.8 [facility] [address] [facility] [address] [place] [id number] 03/23/2024 Siobhan Crowdy Bronchitis J40 [facility] [address] [facility] [address] [place] [id number] 04/21/2024 Siobhan Crowdy Thyroid nodule E04.1 and B12 deficiency E53.8 [facility] [address] [place], [place] [id number] 05/24/2024 Siobhan Crowdy Essential hypertensi on I10 and COVID-19 U07.1 [facility] [address] [place], [place] [id number] 06/09/2024 Siobhan Crowdy Calculus of bile chiquis t without cholecystitis with obstruction K80.51 and Vitamin B12 deficiency E53.8 [facility] [address] [place], [place] [id number] 07/14/2024 Siobhan Crowdy BMI 31.0-31.9,adult Z68.31 ; Encounter for weight management Z76.89 ; Piriformis syndrome of right side G57.01 and B12 deficiency E53.8 [facility] [address] [place], [place] [id number] 09/21/2024 Siobhan Crowdy B12 deficiency E53.8 [facility] [address] [place], [place] [id number] 10/06/2024 Siobhan Crowdy Left lower quadrant pain R10.32 ; Screening mammogram, encounter for Z12.31 and BMI 28.0-28.9,adult Z68.28 [facility] [address] [place], [place] [id number] 11/20/2024 Siobhan Crowdy B12 deficiency E53.8 [facility] [address] [place] [id number] 12/20/2024 Siobhan Crowdy B12 deficiency E53.8 [facility] [address] [place], [place] [id number] 12/28/2024 Siobhan Crowdy Neck pain M54.2 ; Cervical radiculopathy M54.12 ; Lumbar back pain with radiculopathy affecting left lower extremity M54.16 ; Polyarthralgia M25.50 and Muscle spasm M62.838 [facility] [address] [place], [place] [id number] 01/03/2024 Jamie Logan [facility] [address] [place] [id number] 01/04/2024 Cherrydiana Carson [facility] [address] [place] [id number] 01/07/2024 Siobhan Crowdy [facility] [address] [place] [id number] 02/18/2024 Siobhan Crowdy [facility] [address] [place] [id number] 02/23/2024 Jamie Logan [facility] [address] [place] [id number] 05/03/2024 Siobhan Crowdy Abnormal thyroid blo od test R79.89 [facility] [address] [place] [id number] 05/23/2024 Siobhan Crowdy [facility] [address] [place] [id number] 06/09/2024 Siobhan Crowdy [facility] [address] [place] [id number] 06/30/2024 Siobhan Crowdy [facility] [address] [place] [id number] 07/28/2024 Jamie Logan [facility] [address] [place] [id number] 08/08/2024 Jamie Logan BMI 31.0-31.9,adult Z68.31 [facility] [address] [place], [place] [id number] 08/08/2024 Jamie Logan [facility] [address] [place] [id number] 10/05/2024 Siobhan Crowdy Essential hypertensi on I10 [facility] [address] [place] [id number] 10/10/2024 Siobhan Crowdy [facility] [address] [place], [place] [id number] 10/10/2024 Jamie Rodrigues [facility] [address] [facility] [address] [facility] [address] [place] [id number] 11/03/2024 Siobhan Melendrez [facility] [address] [facility] [address] [facility] [address] [place] [id number] 12/18/2024 Jamie Rodrigues Assessments Encounter Date Diagnosis (ICD Code) Assessment Notes Treatment Notes Treatment Clinical Notes Section Notes 12/31/2023 B12 deficiency (ICD-10 - E53.8) 12/31/2023 [...] Z01.818) Patient is getting labs done at [facility] and will have a CBC and [...] K80.51) Patient had stones removed at [facility] by Dr. Villar. We will need to get records. She has f/u with him in a week. She had labs checked at this first responder this am at [facility] and they rechecked a CMP, but [...] Screening mammogram, encounter for (ICD-10 - Z12.31) 11/20/2024 B12 deficiency (ICD-10 - E53.8) 12/20/2024 B12 deficiency (ICD-10 - E53.8) 12/28/2024 Cervical radiculopathy (ICD-10 - M54.12) 12/28/2024 Neck pain (ICD-10 - M54.2) 12/28/2024 Lumbar back pain with radiculopathy affecting left lower extremity (ICD-10 - M54.16) 10/06/2024 BMI 28.0-28.9,adult (ICD-10 - Z68.28) 02/25/2024 [...] injections. 07/14/2024 B12 deficiency (ICD-10 - E53.8) 12/28/2024 Polyarthralgia (ICD-10 - M25.50) 12/28/2024 Muscle spasm (ICD-10 - M62.838) 01/03/2024 Renal insufficiency (ICD-10 - N28.9) 01/03/2024 [...] and start MDP with food 01/14/2024 Other 12/28/2024 Other CBC, CMP, Anti SSA antibody, Anti SSB antibody, sed rate, Lipid, CRP Plan Of Treatment Pending Test Test Name Order Date X ray : Spine, lumbosacral 12/28/2024 Anti SS a, Anti SS b 12/28/2024 X ray : Spine, cervical A-P and Lateral 12/28/2024 H-CBC 01/14/2024 H-CMP 01/14/2024 H-CMP 04/09/2022 intrinsic factor blocking antibody 12/01 Insurance Providers Payer Name Payer Address Payer Phone Subscriber Number Group Number Insured Name Patient Relationship to Insured Coverage Start Date Coverage End Date [employer] [address] [place] [address] [id number] JASMEET MILLARD Child - Insured has Financial Responsibility [employer] [address] [place] [id number] JASMEET MILLARD Spouse - patient is the [...] 07/14/2024 1 mL B-12 09/21/2024 1 mL B-12 11/20/2024 1 mL B-12 12/20/2024 1 mL Depo- Medrol 40 mg/ml 06/30/2011 [...]
--- OUTSIDE RECORDS SUMMARY | 2024-12-28 11:40 | XMS_ITS | Clinical Summary ---
Author Organization [employer] ([place], [place]) Address [address] [place] [address] Care Team Providers Care Machine Ceramic Coater Name Role Phone [facility], Provider Not In The System MD Primary [...] Date Adalberto rded Speak language other than Panamanian at home Not on file 03/26/2023 Want [...] - Risk 60-74 years 1-dose series) 2021 Tobacco Cessation Counseling and Screening (12+) 05/03/2024 05/03/2023 COVID-19 VACCINE ( - 2024- season) 2024 04/15/2021, 07/12/2020, 06/12/2020 Influenza Vaccine (#1) 2024 , 01/12/2021, 12/12/2020 [...] AM EDT Performed at: 01 - [facility] [address] [id number] Marketing Technologist: Jerome Rebolledo PhD, Phone: [phone] us Maddie Estes MD LAB BLOOD ORDERABLES Final Resul t [facility] from Last 3 Months or Most Recently Relevant to Health Maintenance Insurance [address] [address] [place] [id number] BLUE CROSS/BLUE SHIELD BLUE CROSS[employer]BLUE SHIELD Care Teams Machine Ceramic Coater Relationship Specialty Start Date End Date [facility], Provider Not In The System, [place] [address] PCP - General 06/26/22
--- OUTSIDE RECORDS SUMMARY | 2024-12-28 11:40 | XMS_ITS | Encounter Summary ---
Author Organization [employer] ([place], [place], [place], [place]) Address [address] [place] [address] Care Team Providers Care Esl Teacher Name Role Phone [facility], Provider Not In The System MD Primary Care Provider Unavailable Reason for Visit * Reason Onset Date Comments medication refill 02/27/2022 medication refill 03/02/2022 2nd attempt Encounter Details Date Type Department Care Team (Late st Contact Info) Description 02/27/2022 Telephone [facility] Rheumatology [address] [place] [address] Maddie Estes MD [address] [facility] [address] [place] [address] medication refill; medication refill (2nd attempt) Social [...] It at her Next Follow Up . ATRIC ONCOLOGIST * Telephone Encounter - Ceci Pena - 03/02/2022 3:50 PM EST Patient calling back regarding the muscle relaxer,she is going out of town on and would like a call back regarding this. She uses [facility] in [place] if something could be called in. She would rather have the tazadine, ATRIC ONCOLOGIST * Telephone Encounter - Debra M Dom [...] before this appointment. Please call patient at [phone] ATRIC ONCOLOGIST documented in this encounter Plan of Treatment Not on file documented as of this encounter Visit Diagnoses Not on filedocumented in this encounter Care Teams Esl Teacher Relationship Specialty Start Date End Date [facility], Provider Not In The System, [place] [address] PCP - General 06/26/22 documented as of this encounter
== END 2024-12-28 23:59 | disposition home or self-care (01) ==
LOC: RAD 11:36
PROVIDERS: PCP Physician Assistant; Visit Provider Physician Assistant
DX: M43.16 Spondylolisthesis, lumbar region (principal); M43.17 Spondylolisthesis, lumbosacral region; M51.16 Intervertebral disc disorders with radiculopathy, lumbar region; M51.17 Intervertebral disc disorders with radiculopathy, lumbosacral region; M43.12 Spondylolisthesis, cervical region; M50.321 Other cervical disc degeneration at C4-C5 level; M50.322 Other cervical disc degeneration at C5-C6 level; S12.400A Unspecified displaced fracture of fifth cervical vertebra, initial encounter for closed fracture
CPT/HCPCS: 72084

== ENCOUNTER 2025-03-13 17:00 | Outpatient (RCR) | payer BC, SELFPAY | END 2025-03-13 23:59 | disposition home or self-care (01) | LOC: PT 17:00 | PROVIDERS: PCP Physician Assistant; Visit Provider Physician Assistant | DX: M54.16 Radiculopathy, lumbar region (principal); M54.2 Cervicalgia | CPT/HCPCS: 97014; 97110; 97162; G0283 ==